=== PATIENT | male | born 1965 | race Caucasian/White ===

== ENCOUNTER 2018-07-15 14:41 | Inpatient (IN) | payer SELFPAY ==
[~2018-07-15 14:41] MED LIST: ISOVUE-370 76%-LOCM 1 ML ONE
[2018-07-15] MEDS ORDERED: Sodium Chloride 0.9% 100 ML ONE (15:38)
[2018-07-15] MEDS ORDERED: Piperacillin/Tazobactam 4.5 GM VIAL ONE (15:38)
[2018-07-15 15:45] LABS: Hemoglobin 12.4 g/dL (14.0-18.0); Mean Corpuscular HGB CONC 32.7 g/dL (32.0-36.0); Mean Corpuscular Hemoglobin 28.2 pg (27.0-31.0); Mean Corpuscular Volume 86.3 fL (78.0-98.0); Mean Platelet Volume 6.7 fL (7.4-10.4); Platelet Count 126 thou/uL (130-400); RBC Distribution Width 12.5 % (11.5-14.5); Red Blood Cell (RBC) Count 4.39 mill/uL (4.70-6.10); White Blood Cell (WBC) Count 11.3 thou/uL (4.8-10.8)
[2018-07-15 16:05] LABS: ALT (SGPT) 21 U/L (8-55); AST (SGOT) 12 U/L (5-34); Albumin 3.5 g/dL (3.5-5.0); Alkaline Phosphatase 116 U/L (40-150); Anion Gap 19 mmol/L (10-20); BUN (Urea Nitrogen) 19 mg/dL (8.4-25.7); Bilirubin, Total 0.7 mg/dL (0.2-1.2); CK (CPK) 17 U/L (30-200); Calc. Creatinine Clearance 0 mL/min (70-130); Calcium 9.7 mg/dL (7.8-10.44); Carbon Dioxide 15 mmol/L (22-29); Chloride 99 mmol/L (98-107); Estimated GFR-MDRD 44; Globulin 3.4 g/dL (2.4-3.5); Potassium 3.6 mmol/L (3.5-5.1); Protein, Total 6.9 g/dL (6.0-8.3); Sodium 129 mmol/L (136-145)
[2018-07-15 16:07] LABS: Band 40 % (5-11); Dohle Bodies SLIGHT; Lymphocytes 10 % (21-51); MDiff Complete? YES; Metamyelocyte 3 % (0-0); Monocytes 4 % (0-10); Neutrophil 43 % (42-75); Platelet Morphology Comment Appears Decreased; Polychromasia SLIGHT = 2-3 cells (100X) (0-2/hpf); Toxic Granulation SLIGHT
[2018-07-15 16:38] LABS: Glucose 599 mg/dL (70-105)
--- NOTE | 2018-07-15 16:43 | CT ---
CT ABDOMEN AND PELVIS WITH IV CONTRAST 07/15/2018 CLINICAL INFORMATION: Perianal abscess. Scrotal swelling and tenderness with worsening pain at site of abscess. Comparison none available COMPARISON: None. Technique: Multiple contiguous axial CT images are obtained through the abdomen and pelvis with IV contrast. Cor onal reformatted images are provided. FINDINGS: Lower Chest: Linear scarring is seen at the left lung base calcified granuloma at the right lung base . Vessels: Vascular calcifications are seen in the abdominal aorta and involving the iliac arteries. Abdomen: Portal vein:Patent Gallbladder: Gallbladder is decompressed, no obvious gallbladder calculus is seen. Liver: Peripheral nodular contour is present suggesting cirrhosis. Calcified granulomata are seen. Pancreas: within normal limits. Spleen: Calcified granulomata are seen. Spleen is otherwise normal in appearance and at the upper moore its of normal in size. Adrenals: within normal limits. Kidneys: within normal limits. Peritoneum: No ascites or free air; no fluid collection. Bowel: Normal caliber.The appendix is visualized and normal in caliber. Mesentery and Retroperitoneum: No enlarged mesenteric or retroperitoneal lymph nodes. Abdominal Wall: within normal limits. Pelvis: Reproductive Organs: There are bilateral hydroceles present. There is gas seen within the scrotum david aterally suggesting gas-forming organism. This could be attributable to prior injury if there is a history of prior injury. Pelvis: The patient mentions abscess collection in the perianal location. However, no perianal fluid collection or fluid or inflammatory stranding is appreciated. Bladder: within normal limits. Bones: There is severe bilateral hip osteoarthritis. Associated osteonecrosis in each hip cannot be e ntirely excluded. Degenerative changes are noted in the spine. IMPRESSION: 1. Bilateral hydroceles with gas present in the scrotum bilaterally. Findings are likely related to g as-forming organism secondary to infection. Clinical correlation is recommended. 2. Severe bilateral hip osteoarthritis with questionable osteonecrosis involving the superior aspect of each femoral head. 3. Cirrhosis. 4. Above findings discussed with Dr. Still in the emergency department on 07/15/2018 at 1638 hour s. Urologic consultation is recommended.
[2018-07-15] MEDS ORDERED: Fentanyl 250 MCG/5 ML VIAL ONE (18:01)
[2018-07-15] MEDS ORDERED: Bupivacaine/Epinephrine 0.25% 30 ML VIAL ONE (18:24)
[2018-07-15 18:33] LABS: Bilirubin Negative (Negative); Blood, Urine Negative (Negative); Clarity CLEAR (Clear); Glucose, Urine (Dipstick) >=1000 mg/dL (Negative); Leukocyte Negative (Negative); Nitrite Negative (Negative); Protein, Urine (Dipstick) Trace mg/dL (Neg-Trace)
[2018-07-15 18:37] LABS: Specific Gravity, Urine 1.045 (1.002-1.036)
[2018-07-15] MEDS ORDERED: Levofloxacin 500 mg/D5W 100 ml Premix Bag ONE (18:40)
[2018-07-15] MEDS ORDERED: Insulin Regular 300 UNITS/3 ML VIAL ONE (18:57)
[2018-07-15] MEDS ORDERED: Neomycin-Polymyxin 1 ML AMP ONE (20:13)
[2018-07-15] MEDS ORDERED: Heparin 1,000 UNITS/ML VIAL ONE (20:39)
[2018-07-15] MEDS ORDERED: Morphine 4 MG/ML VIAL SLOW IVP PRN ×2 (20:46→20:56)
[2018-07-15] MEDS ORDERED: Lorazepam 2 MG/ML VIAL SLOW IVP PRN (20:48)
[2018-07-15] MEDS ORDERED: Naloxone HCl 0.4 mg/ml Vial ONE (20:55)
[2018-07-15] MEDS ORDERED: Morphine 2 MG/ML SYRINGE SLOW IVP PRN ×2 (20:56→21:22)
[2018-07-15] MEDS ORDERED: Dextrose 50% Abboject 50 ML SYRINGE SLOW IVP PRN (20:59)
[2018-07-15] MEDS ORDERED: HumaLOG 300 UNITS/3 ML VIAL SC PRN ×2 (20:59)
[2018-07-15] MEDS ORDERED: Dextrose 5% in Water 1,000 ML IV PRN (20:59)
[2018-07-15] MEDS ORDERED: Cefepime 2 GM in Sodium Chloride 0.9% 100 ML IVPB SCH (21:00)
[2018-07-15] MEDS ORDERED: Sodium Chloride 0.9% 1,000 ML IV SCH (21:00)
[2018-07-15] MEDS ORDERED: Propofol 500 MG/50 ML VIAL ONE (21:02)
[2018-07-15] MEDS ORDERED: Succinylcholine Chloride 20 MG/ML 10 ml SYRINGE FS ONE (21:03)
[2018-07-15] MEDS ORDERED: SYSTANE 3.5 GM TUBE EA EYE PRN (21:11)
[2018-07-15] MEDS ORDERED: Ventilator Sedation Protocol 1 EACH FS ONE (21:14)
[2018-07-15] MEDS ORDERED: Fentanyl BOLUS 250 ML IVPB PRN (21:22)
[2018-07-15] MEDS ORDERED: DISCONTINUE PREVIOUS NARCOTIC PAIN MEDICATIONS AND BENZODIAZEPINES FS SCH (21:22)
[2018-07-15] MEDS ORDERED: Propofol BOLUS 1,000 MG/100 ML VIAL IV PRN (21:22)
[2018-07-15 21:31] LABS: Hemoglobin A1c 14.5 % (4.0-6.0)
[2018-07-15] MEDS ORDERED: Senokot S 8.6-50 MG TAB PO PRN (21:39)
[2018-07-15] MEDS ORDERED: Acetaminophen 325 MG TAB PO PRN (21:39)
[2018-07-15] MEDS ORDERED: Calcium Carbonate 500 MG ChewTAB PO PRN (21:39)
[2018-07-15] MEDS ORDERED: Acetaminophen 650 MG Suppository PR PRN (21:39)
[2018-07-15] MEDS ORDERED: Bisacodyl 10 MG SUPP PR PRN (21:39)
[2018-07-15] MEDS ORDERED: Acetaminophen 650 MG/20.3 ML UDCUP PO PRN (21:40)
[2018-07-15] MEDS: Lorazepam 2 MG/ML VIAL SLOW IVP PRN (21:49)
[2018-07-15] MEDS: Propofol 1,000 MG/100 ML VIAL IV PRN (21:50)
[2018-07-15 21:51] LABS: Actual Bicarbonate (HCO3a) 14.4 mEq/L (22-28); Base Excess (BEa) -13.4 mEq/L (-2.0 to +3.0); CO2 Tension 40.9 mmHg (35.0-45.0); Carboxyhemoglobin (COHb) 0.8 gm% (0.0-3.0); Hemoglobin (Hb) 11.4 g/dL (14.0-18.0); O2 Tension (PaO2) 110.4 mmHg (80.0-100.0); Potassium - ABG Lab 3.31 mmol/L (3.70-5.30)
[2018-07-15 21:55] LABS: pH, Arterial 7.17 (7.35-7.45)
[2018-07-15 21:56] LABS: ALV-art Gradient 123.675 (0-20); Puncture Site RBRACH
[2018-07-15] MEDS ORDERED: Piperacillin/Tazobactam 3.375 GM in Sodium Chloride 0.9% 100 ML IVPB SCH (22:00)
[2018-07-15] MEDS: fentaNYL Citrate/PF 2,000 MCG in Sodium Chloride 0.9% 60 ML IV SCH (22:08)
[2018-07-15 22:12] LABS: INR-International Normal Ratio 1.3; PTT 24.3 SEC (22.9-36.1); Prothrombin Time 15.9 SEC (12.0-14.7)
[2018-07-15 22:33] LABS: Troponin I Less than 0.010 ng/mL (< 0.028)
[2018-07-15] MEDS: Sodium Bicarbonate 100 MEQ in Sodium Chloride 0.45% 1,000 ML IV SCH (22:52)
[2018-07-15] MEDS: MEROPENEM 1 GM/50 ML 1 GM in Premix Bag 1 BAG IVPB SCH (23:07)
[2018-07-15] MEDS: HUMULIN R 100 UNITS in Sodium Chloride 0.9% 100 ML IVPB SCH (23:08)
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
--- NOTE | 2018-07-16 00:46 | HP ---
The patient was seen and examined on 07/15/2018. PRIMARY CARE PHYSICIAN: Cannot be verified. CHIEF COMPLAINT: Scrotal pain. HISTORY OF PRESENT ILLNESS: The patient is a 52-year-old male with diabetes mellitus type 1, presented to the emergency room with scrotal swelling over the last 4-5 days duration. He is currently intubated and sedated on mechanical ventilation. History obtained from the ER record. The patient reported an abscess on his scrotum. He expressed it at home. It was draining thick whitish fluid. It progressively got worse along with worsening erythema and tenderness for which he presented to the emergency room. He did not report any fever, nausea, or vomiting. Again, history was obtained from the ER record since the patient is intubated and sedated. In the emergency room, initial vital signs showed temperature 97.9, respirations of 18, pulse rate of 98 with a blood pressure of 117/71 with O2 saturation 99% on room air. CT scan of the abdomen and pelvis done in the emergency room showed bilateral hydroceles with gas present in the scrotum bilaterally. He underwent debridement in the operating room by Dr. Knight. He is currently intubated on mechanical ventilation. PAST MEDICAL HISTORY: 1. Diabetes mellitus type 1. 2. Chronic hepatitis C with cirrhosis. 3. COPD, asthma. PAST SURGICAL HISTORY: Left eye removal of unclear reason. ALLERGIES: NO KNOWN DRUG ALLERGIES PER ER RECORD. CURRENT HOME MEDICATION: Cannot be obtained due to current cognitive status. SOCIAL HISTORY: Cannot be obtained due to current cognitive status. Per ER record, he chews tobacco. He also drinks alcohol socially per ER record. FAMILY HISTORY: Cannot be obtained due to current cognitive status. REVIEW OF SYSTEMS: Cannot be obtained due to current cognitive status. PHYSICAL EXAMINATION: VITAL SIGNS: As discussed above. GENERAL: A 52-year-old male, intubated and sedated on mechanical ventilation. HEENT: Head is atraumatic and normocephalic. Sclerae anicteric. Endotracheal tube noted. NECK: Supple. No neck stiffness. No JVD. No carotid bruit. LUNGS: Clear to auscultation bilaterally. No wheezing, rales, or rhonchi. No accessory muscle use. HEART: S1 and S2 present. Regular rate and rhythm. No rubs or gallops appreciated. ABDOMEN: Soft. Bowel sounds present. No rebound or guarding. No costovertebral angle tenderness. GENITOURINARY: Dressing noted. EXTREMITIES: No edema or calf tenderness. NEUROLOGY AND PSYCHIATRY: Could not be done due to current cognitive status. SKIN: Warm and dry. He had abscess in the perineum draining purulent discharge per ER record. LYMPH NODE: No palpable lymph nodes in the neck. LABORATORY FINDINGS: WBC 11.3 with hemoglobin 12.4, hematocrit 37.9, platelets of 126, 40% bandemia. INR 1.3, PT of 15.9, PTT 24.3. Blood gases in the PACU showed pH 7.17, pCO2 40.9, bicarbonate 14.4, pO2 110. Hemoglobin A1c 14.5. Cortisol level 20.7. Troponin was negative. Sodium 129, potassium 3.6, chloride 99, bicarb of 15, BUN 19, creatinine 1.63, baseline creatinine unavailable. LFTs otherwise in normal range. Lactic acid 1.8. Urinalysis was negative for wbc or bacteria, ketones 0.08. CT scan of the abdomen and pelvis by my review as discussed above. Telemetry monitoring by my review showed sinus rhythm. IMPRESSION: 1. 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 2. Acute hypoxic respiratory failure secondary to #1. 3. Uncontrolled diabetes mellitus type 1 with a blood sugar in 600 range. 4. Acute kidney injury secondary to #1. 5. Metabolic acidosis secondary to sepsis. 6. Hyponatremia. 7. Anemia, probably chronic. 8. Chronic hepatitis C with cirrhosis per abdomen CT. 9. Dehydration. 10. Tobacco dependence. PLAN: The patient will be monitored in the intensive care unit. Infectious Disease and Critical Care will be consulted. The patient underwent debridement by Dr. Knight. We will start him on vancomycin and meropenem per Infectious Disease. The patient is currently on bicarb drip, which will be continued. GI prophylaxis. SCDs for DVT prophylaxis for now. We will start him on thiamine, folic acid, multivitamin. Ventilation sedation protocol. Repeat ABGs and chest x-ray in a.m. We will recheck labs on a daily basis. N.p.o. Blood cultures have been sent. We will start him on insulin drip due to uncontrolled blood sugar. We will discuss the plan of care with the family when they arrive. We will monitor vancomycin level. Job ID: [id number]
--- NOTE | 2018-07-16 00:58 | OP ---
DATE OF PROCEDURE: 07/15/2018 PREOPERATIVE DIAGNOSES: 1. A 52-year-old male with history of hepatitis C, history of diabetes, noncompliant. 2. Presents with scrotal, perineal Karla gangrene. POSTOPERATIVE DIAGNOSES: 1. A 52-year-old male with history of hepatitis C, history of diabetes, noncompliant. 2. Presents with scrotal, perineal Karla gangrene. ANESTHESIA: General. COMPLICATIONS: None apparent. ESTIMATED BLOOD LOSS: Minimal. IV FLUIDS: 1 L. SPECIMEN: 1. Wound culture. 2. Scrotal skin and dartos fascia for skin culture and wound culture. INTRAOPERATIVE FINDINGS: Necrotizing fasciitis of the scrotum, perineum. INDICATIONS FOR PROCEDURE AND HISTORY: Mr. Orlando is a 52-year-old male with history of alcohol abuse, hepatitis C, diabetes, noncompliant, presented with blood sugar of 600, HbA1c 14 compensated sodium of [address] demonstrated diffuse gas in the scrotum. He was taken emergently to the operating room for wide debridement. The patient and family were fully informed regarding the life-threatening nature of the presenting illness and advised regarding wide scrotal debridement. The patient is in full understanding that most of his scrotal skin will be removed as it is involved in the infection process that is life- threatening. The risks and complications including, but not limited to, bleeding, pain, infection, morbidity, mortality, CVA, OR, likely secondary/staged procedures were reviewed with him in detail and all questions were answered to his satisfaction, desired to proceed. DESCRIPTION OF PROCEDURE: After an informed consent was signed, the patient was taken to the operating room and placed in supine position. General endotracheal anesthesia was administered. He was provided Zosyn and vancomycin in the emergency room, I also provided Levaquin. Inspection of the scrotum demonstrated crepitus consistent with Karla gangrene. There is necrotic skin in the mid scrotal wall, approximately 3 to 4 cm, second focus of necrotic scrotal skin in the right upper scrotum, approximately 2 to 3 cm. skin defect with pustular discharge in the perineum that has a pustular drainage, approximately the size of my index finger , draining pus. This is approximately 2 cm above the anus. He was formally prepped and draped and a Aguayo catheter was placed, 16-Faroese, which passed without difficulty, demonstrating clear yellow urine. The patient was placed in dorsal lithotomy position and we began to debride his scrotal perineal abscess. As there is opening defect of perineum, this was extended anteriorly, superiorly to the mid scrotal wall. His scrotal and perineal skin had to be debrided as they were involved in the necrotizing fasciitis. Devitalized tissue of the dartos fascia. We did a wide debridement of the perineum and the scrotal skin. Most of the dartos fascia was involved in the necrotizing process. Sharp and blunt dissection was performed. He needed to be debrided to the level of the tunica vaginalis bilaterally to excise all nonviable tissue. There was a rind of necrotic debris attached to the dartos fascia of the left hemiscrotum, which was removed. At the end of the procedure, I did not see any further necrotic debris of concern. The tunica vaginalis appears to be not grossly involved at this time. The wound was copiously irrigated with irrigation and a Pulsavac. A Kerlix with Betadine was soaked and packed, and ABD pads were placed. We will leave the indwelling Aguayo catheter in situ and keep the patient n.p.o. I did speak with the hospitalist, who is admitting and he will be on strict sliding scale insulin. He will require suprapubic tube with diverting colostomy to expedite wound care. We will continue broad-spectrum antibiotics with vancomycin, Zosyn, Infectious Disease consult to be obtained. Job ID: [id number] [facility]
[2018-07-16] MEDS: Vancomycin HCl 750 MG in Sodium Chloride 0.9% 250 ML 250 ML IVPB SCH ×2 (04:00→15:55)
[2018-07-16] MEDS: Sodium Bicarbonate 100 MEQ in Sodium Chloride 0.45% 1,000 ML IV SCH ×4 (04:24→21:27)
[2018-07-16] MEDS: Propofol 1,000 MG/100 ML VIAL IV PRN ×3 (04:42→22:51)
[2018-07-16 05:19] LABS: ALT (SGPT) 18 U/L (8-55); AST (SGOT) 11 U/L (5-34); Albumin 2.9 g/dL (3.5-5.0); Alkaline Phosphatase 81 U/L (40-150); Anion Gap 12 mmol/L (10-20); BUN (Urea Nitrogen) 14 mg/dL (8.4-25.7); Bilirubin, Total 0.4 mg/dL (0.2-1.2); Calc. Creatinine Clearance 93 mL/min (70-130); Calcium 8.7 mg/dL (7.8-10.44); Carbon Dioxide 19 mmol/L (22-29); Chloride 109 mmol/L (98-107); Estimated GFR-MDRD 69; Globulin 2.9 g/dL (2.4-3.5); Glucose 121 mg/dL (70-105); Magnesium 1.6 mg/dL (1.6-2.6); Protein, Total 5.8 g/dL (6.0-8.3); Sodium 137 mmol/L (136-145)
[2018-07-16 05:21] LABS: Potassium 2.6 mmol/L (3.5-5.1)
[2018-07-16] MEDS ORDERED: Magnesium 2 GM/50 ML 2 GM in Premix Bag 1 BAG IVPB SCH (05:45)
[2018-07-16 05:48] LABS: Band 19 % (5-11); Hemoglobin 10.6 g/dL (14.0-18.0); Lymphocytes 20 % (21-51); MDiff Complete? YES; Mean Corpuscular HGB CONC 33.3 g/dL (32.0-36.0); Mean Corpuscular Volume 84.2 fL (78.0-98.0); Mean Platelet Volume 6.8 fL (7.4-10.4); Metamyelocyte 1 % (0-0); Monocytes 3 % (0-10); Neutrophil 57 % (42-75); Platelet Count 115 thou/uL (130-400); Platelet Morphology Comment Appears Decreased; RBC Distribution Width 12.5 % (11.5-14.5); RBC Morphology Normal; Red Blood Cell (RBC) Count 3.78 mill/uL (4.70-6.10); White Blood Cell (WBC) Count 9.6 thou/uL (4.8-10.8)
[2018-07-16] MEDS: Potassium Chloride 20 MEQ in Premix Bag 1 BAG IVPB SCH ×2 (05:55→10:37)
[2018-07-16] MEDS: MEROPENEM 1 GM/50 ML 1 GM in Premix Bag 1 BAG IVPB SCH ×3 (06:02→21:27)
[2018-07-16 07:12] LABS: Actual Bicarbonate (HCO3a) 17.3 mEq/L (22-28); Base Excess (BEa) -6.3 mEq/L (-2.0 to +3.0); CO2 Tension 28.1 mmHg (35.0-45.0); Calcium, Ionized 1.05 mmol/L (1.12-1.30); Carboxyhemoglobin (COHb) 0.1 gm% (0.0-3.0); Potassium - ABG Lab 3.04 mmol/L (3.70-5.30); pH, Arterial 7.41 (7.35-7.45)
[2018-07-16 07:13] LABS: ALV-art Gradient 53.075 (0-20); Puncture Site LBA
[2018-07-16] MEDS ORDERED: Vecuronium 10 MG VIAL IVP PRN (08:21)
[2018-07-16] MEDS ORDERED: Vecuronium 10 MG VIAL ONE (08:23)
[2018-07-16] MEDS ORDERED: Sterile Water 10 ML ONE (08:24)
[2018-07-16] MEDS ORDERED: Norepinephrine 8 MG/0.9% NS 250 ML IVPB SCH (08:30)
[2018-07-16] MEDS ORDERED: Potassium Chloride 40 MEQ in Sodium Chloride 0.9% 250 ML 250 ML IV SCH (08:30)
[2018-07-16] MEDS: Lorazepam 2 MG/ML VIAL SLOW IVP PRN ×2 (08:37→23:32)
--- NOTE | 2018-07-16 09:07 | RAD ---
Exam: Chest one view HISTORY:ICU patient, follow-up Comparison: None FINDINGS: Lungs: No masses or consolidation. Right internal jugular venous catheter has been placed with tip overlying right atrium. Cardiac silhouette: Normal size Pulmonary vessels: Normal Pleural Spaces: Clear Pneumothorax: None Endotracheal tube remains in place. Osseous abnormalities: None of acuity. IMPRESSION: Interval placement of right internal jugular venous catheter.
--- NOTE | 2018-07-16 09:29 | RAD ---
FRONTAL VIEW CHEST: COMPARISON: No prior comparison. INDICATION: Ventilated patient. FINDINGS: There is an endotracheal tube with tip below the thoracic inlet and above the alex. No lobar conso lidation. No significant effusion. Extensive artifacts limit detail. Cardiac silhouette is normal in size for portable technique. There are scattered granulomatous calcifications. IMPRESSION: 1. Intubated patient. 2. No focal consolidation. POS: NWK
[2018-07-16] MEDS: Multivitamins, Adult 10 ML in Sodium Chloride 0.9% 500 ML IV SCH (09:31)
[2018-07-16] MEDS: Thiamine HCl 200 MG/2 ML VIAL SLOW IVP SCH (09:38)
--- NOTE | 2018-07-16 09:47 | CON ---
DATE OF CONSULTATION: 07/16/2018 TIME SPENT: 35 minutes of critical care time. REASON FOR CONSULTATION: Postop CCU management. HISTORY OF PRESENT ILLNESS: The patient is a 52-year-old male, who came to the emergency room with swelling that had occurred over the week prior to admission. He was taken to the operating room, debrided for severe Karla's gangrene. According to nursing staff, he lost about 90% of his scrotal skin. He was left intubated afterwards and there was a plan to go back to the operating room today. He is currently intubated on mechanical ventilation. PAST MEDICAL HISTORY: 1. Diabetes mellitus, type 1. 2. Chronic hepatitis C. 3. COPD. 4. Asthma. PAST SURGICAL HISTORY: Left eye removal. ALLERGIES: NONE. MEDICATIONS: Prior to admission not known at this time. SOCIAL HISTORY: Chews tobacco. Also drinks alcohol socially. FAMILY MEDICAL HISTORY: Not known. REVIEW OF SYSTEMS: Cannot be obtained because the patient is intubated. PHYSICAL EXAMINATION: VITAL SIGNS: Temperature 99.4, pulse 66, blood pressure 92/63. A 24-hour intake 1970, output 1270. NEUROLOGICAL: He is sedated on propofol. HEENT: Unremarkable. NECK: No JVD. CARDIAC: S1 and S2, regular. ABDOMEN: Soft, nontender. LUNGS: Clear anteriorly. GENITOURINARY: Scrotum, edematous. Large bandage in place. EXTREMITIES: No clubbing, cyanosis, or edema. LABORATORY DATA: Sodium of 137, potassium 2.6, chloride 109, CO2 of 19, BUN 14, creatinine 1.1, and glucose 121. PH of 7.41, pCO2 of 28, pO2 of 197 on SIMV rate of 26, tidal volume 500, PEEP 5, pressure support 10, and FiO2 of 40%. White blood cell count 9.6, hematocrit 31.8, and platelet count 115 with 57% neutrophils, 19% bands. IMAGING DATA: Chest x-ray demonstrates normal cardiac size. ET tube in good position. Lung patel clear bilaterally. ASSESSMENT: 1. Karla's gangrene. 2. Diabetes mellitus with blood sugar out of control at the time of admission. 3. Acute respiratory failure requiring mechanical ventilation - primarily an issue of metabolic acidosis and lack of compensation. 4. Chronic hepatitis C. 5. Hypokalemia. PLAN: 1. I am leaving him intubated because he is suppose to go back to the OR today. 2. Broad-spectrum IV antibiotics with meropenem and vancomycin. 3. ID consultation. 4. Insulin drip. 5. Bicarbonate drip. 6. Consider central line placement. 7. Monitor labs, blood gas. 8. I have changed ventilator parameters. 9. GI prophylaxis with Pepcid. 10. DVT prophylaxis with enoxaparin once cleared by Urology. Job ID: [id number]
[2018-07-16] MEDS: Famotidine/PF 20 mg/2ml Vial SLOW IVP SCH ×2 (10:35→21:06)
[2018-07-16] MEDS: Famotidine 20 MG TAB PO SCH ×2 (10:37→21:06)
[2018-07-16] MEDS: Folic Acid 1 MG TAB PER TUBE SCH (10:37)
[2018-07-16] MEDS ORDERED: Fentanyl 100 MCG/2 ML VIAL ONE (11:06)
--- NOTE | 2018-07-16 11:23 | PRG ---
DATE OF SERVICE: 07/16/2018 SUBJECTIVE: The patient intubated. OBJECTIVE: VITAL SIGNS: T-max of 99.4, currently on Levophed, blood pressure 88/55, heart rate 79. I's and O's 1870 in, 1270 out. ABDOMEN: Soft. No rigidity. No rebound. : Dressing taken down demonstrating minor devitalized tissue at the skin edges. Some fibrinous exudate; devitalized tissue present however not extensive. No gross pustular discharge is appreciated. The left testicle is freely mobile due to extensive dissection and removal of the scrotal skin due to necrotizing fasciitis. Tunica vaginalis is viable and pink. EXTREMITIES: No cyanosis, clubbing, or edema. PERTINENT LABORATORY DATA: White count of 9.6, hemoglobin 10, platelet 115. Creatinine 1.1. Wound culture demonstrating Streptococcus. Currently on meropenem and vanc. IMPRESSION AND PLAN: 1. Mr. Orlando is a 52-year-old male who presented last night with necrotizing fasciitis of the scrotum and perineum. Postop day #1 status post wide debridement, Aguayo catheter placement. The patient remains critically ill. Given the extent of his Karla gangrene, I discussed with his mother regarding indications of urinary and stool diversion to expedite wound healing. The patient will go down to the OR for exam under anesthesia, wound VAC placement, SP tube, diverting colostomy by General Surgery, which I consulted Dr. Stuart. He will remain intubated. Recommend ongoing insulin drip as strict control of his diabetes is imperative to expedite wound healing. 2. History of hepatitis C. 3. History of alcohol abuse. 4. History of diabetes, noncompliant Job ID: [id number] [facility]
[2018-07-16 11:24] LABS: HIV (1/2) Antibody/Antigen Non-Reactive (NonReactive); HIV 1/2 INDEX 0.18 S/CO (<1.00)
[2018-07-16] MEDS ORDERED: Potassium Chloride 20 MEQ/100 ML PREMIX BAG ONE (11:43)
[2018-07-16] MEDS ORDERED: PROPOFOL 200 MG/20 ML VIAL ONE ×2 (12:58→13:12)
[2018-07-16] MEDS ORDERED: Rocuronium Bromide 10 MG/ML (10ML VIAL) ONE ×2 (12:58→13:12)
[2018-07-16] MEDS ORDERED: Metoclopramide HCl 10 MG/2 ML VIAL ONE (13:12)
[2018-07-16] MEDS ORDERED: Glycopyrrolate 0.2 MG/ML 5 ML SYRINGE ONE (13:12)
[2018-07-16] MEDS ORDERED: Lidocaine 1% PF 5 ML VIAL ONE (13:12)
[2018-07-16] MEDS ORDERED: Ondansetron PF 4 MG/2 ML Vial ONE (13:12)
[2018-07-16 15:01] LABS: Base Excess (BEa) -10.4 mEq/L (-2.0 to +3.0); CO2 Tension 43.9 mmHg (35.0-45.0); Calcium, Ionized 1.05 mmol/L (1.12-1.30); Carboxyhemoglobin (COHb) 0.6 gm% (0.0-3.0); Hemoglobin (Hb) 11.2 g/dL (14.0-18.0); O2 Tension (PaO2) 107.5 mmHg (80.0-100.0); Potassium - ABG Lab 3.75 mmol/L (3.70-5.30); pH, Arterial 7.21 (7.35-7.45)
[2018-07-16 15:02] LABS: ALV-art Gradient 122.825 (0-20)
--- NOTE | 2018-07-16 15:18 | OP ---
DATE OF PROCEDURE: 07/16/2018 PREOPERATIVE DIAGNOSIS: A 52-year-old male with scrotal perineal necrotizing fasciitis, postoperative day number 1 status post wide debridement. POSTOPERATIVE DIAGNOSIS: A 52-year-old male with scrotal perineal necrotizing fasciitis, postoperative day number 1 status post wide debridement. PROCEDURE PERFORMED: Rigid cystoscopy, a 20-Bahraini 10 mL suprapubic tube placement with 15 mL insufflated into balloon, examination under anesthesia, debridement of wound, wound VAC placement. ANESTHESIA: General. COMPLICATIONS: None apparent. DISPOSITION: The patient will undergo General Surgery evaluation for diverting loop colostomy, will remain intubated. SPECIMEN: None. DRAINS: 20-Bahraini 10 mL suprapubic tube, 15 mL in the balloon. DESCRIPTION OF PROCEDURE: After an informed consent obtained by mother, who was his surrogate, the patient was taken to the operating room for exam under anesthesia , debridement, suprapubic tube placement. I consulted General Surgery as the inferior margin of the wound was very close to his anus. To expedite wound care, urinary diversion as well as bowel diversion were advised. The patient was placed in dorsal lithotomy position. The abdomen and the wound were formally prepped and draped. Broad spectrum antibiotic with meropenem was provided. There was significant improvement of wound pustular drainage. There was no gross pus evident residual. There was some residual fibrinous exudate and devitalized tissue, which was debrided of the wound edges in the perineum. The edges of the scrotal incision demonstrated some devitalized tissue. I debrided as minimal as possible as to spare his scrotal skin as much as possible. There was some nonviable tissue surrounding the right tunica vaginalis, therefore this was debrided as well. The tunica vaginalis itself was not violated at this time. Most of the scrotal skin was removed due to infection process. The lateral edges of the scrotal skin remained intact for now. This will be assessed with wound VAC changes regarding further debridement. At this time, wound care service was called and a wound VAC was placed. Prior to the wound debridement, I did perform a rigid cystoscopy, which demonstrated normal anterior posterior urethra with the bilateral lobes of the prostate with no significant obstruction. No median lobe was found. The bladder was unremarkable. The ureteral orifices were approximately 4 mm away from the bladder neck. No tumor. No stones were seen. Using a Saberr suprapubic tube set, we performed a suprapubic tube placement. Initially, we distended the bladder to the level just below the umbilicus to distend the bladder to keep bowels out of the harm's way. A spinal needle was placed to confirm proper placement of the suprapubic tube approximately 2 fingerbreadths above the pubic symphysis. At this time, spinal needle was removed and an 11-blade was utilized to make a small incision. A Cook Rutner trocar set was placed under direct visualization. Through this dilator, 0.35 Super Stiff wire was passed to the level of the bladder. Using a NephroMax balloon dilator, we dilated the suprapubic tube tract up to 30-Bahraini. A 20-Bahraini [place] tip Aguayo catheter was then subsequently passed without significant issues. 15 mL of sterile water insufflated and sutured to skin using 2-0 nylon. This was attached to gravity bag demonstrating clear output. Case turned over to General Surgery to proceed with diverting colostomy. Job ID: [id number] [facility]
--- NOTE | 2018-07-16 15:45 | PDOC.PN ---
- Subjective Encounter Start Date: 07/16/18 Encounter Start Time: 15:43 Subjective: Pt is seen and examined for I&D for Karla Gangrene, Type 2 DM, -: Intubated and sedated - Objective Resuscitation Status - Order Detail: 07/15/18 21:39 Resuscitation Status Routine Resuscitation Status: FULL: Full Resuscitation Vital Signs & Weight: Vital Signs (12 hours) Temp Pulse Resp BP 07/16/18 14:34 90 141/78 H 07/16/18 10:16 79 88/55 L 07/16/18 10:00 13 07/16/18 08:00 99.2 F 14 07/16/18 06:45 67 99/66 07/16/18 06:00 26 H 07/16/18 04:00 99.4 F 26 H Weight Admit Weight 190 lb 11.198 oz Weight 190 lb 14.725 oz Most Recent Monitor Data Heart Rate from ECG 73 NIBP 107/63 NIBP BP-Mean 77 Respiration from ECG 18 SpO2 100 I&O: 07/15/18 07/16/18 07/17/18 06:59 06:59 06:59 Intake Total 1870.8 200 Output Total 1270 190 Balance 600.8 10 Result Diagrams: 07/16/18 04:31 07/16/18 04:31 Additional Labs: Accuchecks 07/16/18 07/16/18 07/16/18 14:38 13:41 10:12 POC Glucose 226 H 203 H 153 H 07/16/18 07/16/18 07/16/18 07:23 06:13 05:49 POC Glucose 98 161 H 59 L* 07/16/18 07/16/18 07/16/18 04:41 03:43 02:36 POC Glucose 108 165 H 237 H 07/16/18 07/16/18 07/15/18 01:42 00:43 23:34 POC Glucose 292 H 320 H 284 H 07/15/18 07/15/18 07/15/18 21:41 19:49 18:58 POC Glucose 331 H 457 H 423 H Phys Exam - Physical Examination HEENT: PERRLA, sclera anicteric, oral pharynx no lesions Neck: no nodes, no JVD, supple Respiratory: no wheezing, no rales, no rhonchi Cardiovascular: RRR, no significant murmur, no rub Gastrointestinal: soft, non-tender, no distention, positive bowel sounds Musculoskeletal: no edema, pulses present , S/p Dressing on Scrotum Intubated and sedated Dx/Plan - Plan continue antibiotics, DVT proph w/lovenox 1) Founier gangrene , S/p I&D, IV Vancomycin and IV Merem 2) Type 1 DM, continue IV Insulin drip 3) Acute Respiratory Failure wit Hypoxia, Continue Ventilatory protocol 4) DVT Prophylaxis, Lovenox * . Review of Systems - Review of Systems Other: NO possible because of Intubation and Sedation - Medications/Allergies Allergies/Adverse Reactions: Allergies Allergy/AdvReac Type Severity Reaction Status Date / Time No Known Drug Allergies Allergy Verified 07/16/18 01:27 Medications: Current Medications Acetaminophen (Tylenol) 650 mg NE Q4H PRN PRN Reason: Headache/Fever/Mild Pain (1-3) Acetaminophen (Tylenol) 650 mg PO Q4H PRN PRN Reason: Headache/Fever/Mild Pain (1-3) Albuterol/Ipratropium (Duoneb) 3 ml NEB [id number] PRN PRN Reason: SOB &/or Wheezing Bisacodyl (Dulcolax) 10 mg NE DAILYPRN PRN PRN Reason: Constipation Calcium Carbonate (Tums) 1,000 mg PO Q4H PRN PRN Reason: Heartburn or Indigestion Dextrose/Water (Dextrose 50%) 25 gm SLOW IVP PRN PRN PRN Reason: Hypoglycemia Last Admin: 07/16/18 05:51 Dose: 25 gm Famotidine (Pepcid) 20 mg SLOW IVP Q12HR [facility] Last Admin: 07/16/18 10:35 Dose: 20 mg Famotidine (Pepcid) 20 mg PO BID [facility] Last Admin: 07/16/18 10:37 Dose: Not Given Folic Acid (Folvite) 1 mg PER TUBE DAILY [facility] Last Admin: 07/16/18 10:37 Dose: Not Given Glucagon (Glucagon) 1 mg IM PRN PRN PRN Reason: Hypoglycemia Dextrose/Water (D5w) 1,000 mls @ 0 mls/hr IV .Q0M PRN PRN Reason: Hypoglycemia Insulin Human Regular 100 (units/ Sodium Chloride) 101 mls @ 0 mls/hr IVPB INF [facility]; Protocol Last Admin: 07/15/18 23:08 Dose: 101 mls Vancomycin HCl 750 mg/ Sodium (Chloride) 250 mls @ 250 mls/hr IVPB 0400,1600 [facility] Last Admin: 07/16/18 04:00 Dose: 250 mls Meropenem 1 gm/ Device 50 mls @ 100 mls/hr IVPB Q8H [facility] Last Admin: 07/16/18 13:00 Dose: 50 mls Multivitamins 10 ml/ Sodium (Chloride) 510 mls @ 250 mls/hr IV DAILY [facility] Last Admin: 07/16/18 09:31 Dose: 510 mls Fentanyl Citrate 2,000 mcg/ (Sodium Chloride) 100 mls @ 0 mls/hr IV INF [facility]; Protocol Stop: 08/14/18 21:22 Last Admin: 07/15/18 22:08 Dose: 100 mls Fentanyl Citrate (Fentanyl Bolus) 250 mls @ 0 mls/hr IVPB PRN PRN PRN Reason: Breakthrough pain/agitation Stop: 08/14/18 21:22 Sodium Bicarbonate 100 meq/ (Sodium Chloride) 1,100 mls @ 200 mls/hr IV .Q5H [facility] Last Admin: 07/16/18 14:45 Dose: 1,100 mls Norepinephrine Bitartrate (Levophed) 250 mls @ 0 mls/hr IVPB INF [facility]; Protocol Lorazepam (Ativan) 2 mg SLOW IVP Q1H PRN PRN Reason: Breakthrough agitation Stop: 08/14/18 21:22 Last Admin: 07/16/18 08:37 Dose: 2 mg Mineral Oil/White Petrolatum (Systane Nighttime Eye Ointment) 0 gm EA EYE PRN PRN PRN Reason: Dry Eyes Miscellaneous Medication (Pharmacy To Dose) 1 each IVPB PRN PRN PRN Reason: Pharmacy to dose Morphine Sulfate (Morphine) 2 mg SLOW IVP Q1H PRN PRN Reason: BREAKTHROUGH PAIN/Agitation Stop: 08/14/18 21:22 Discontinue Previous Narcotic Pain Medications And Benzodiazepines 1 each FS .ONE [facility] Stop: 08/14/18 21:22 Propofol (Diprivan) 1,000 mg IV INF PRN; Protocol PRN Reason: TO ACHIEVE GOAL RASS Stop: 08/14/18 21:22 Last Admin: 07/16/18 14:22 Dose: 1,000 mg Propofol (Diprivan Bolus) 20 mg IV Q5MIN PRN PRN Reason: BREAKTHROUGH AGITATION Stop: 08/14/18 21:22 Senna/Docusate Sodium (Senokot S) 2 tab PO BID PRN PRN Reason: Constipation Sodium Chloride (Flush - Normal Saline) 10 ml IVF PRN PRN PRN Reason: Saline Flush Thiamine HCl (Thiamine Hcl) 100 mg SLOW IVP DAILY [facility] Last Admin: 07/16/18 09:38 Dose: 100 mg Vecuronium Wilbur (Norcuron) 10 mg IVP Q30MIN PRN PRN Reason: Agitation
[2018-07-16 16:49] LABS: Calcium 8.1 mg/dL (7.8-10.44); Chloride 106 mmol/L (98-107); Potassium 3.8 mmol/L (3.5-5.1); Sodium 134 mmol/L (136-145)
[2018-07-16 16:50] LABS: Glucose 215 mg/dL (70-105)
[2018-07-16 16:51] LABS: Anion Gap 18 mmol/L (10-20); Carbon Dioxide 14 mmol/L (22-29)
[2018-07-16 16:53] LABS: Calc. Creatinine Clearance 103 mL/min (70-130); Estimated GFR-MDRD 78
[2018-07-16 16:54] LABS: BUN (Urea Nitrogen) 12 mg/dL (8.4-25.7)
--- NOTE | 2018-07-16 17:02 | CON ---
DATE OF CONSULTATION: 07/16/2018 REASON FOR CONSULTATION: Karla's gangrene, perineal area. HISTORY OF PRESENT ILLNESS: A 52-year-old with history of type 1 diabetes mellitus and chronic hepatitis C with cirrhosis with unknown history of treatment, who developed inflammatory process in the scrotum, which drained thick exudate and worsen over the course of the past few days. He did not have any headaches. No fever, nausea, or vomiting. No respiratory symptoms or abdominal pain. In the emergency room, his temperature was 97.9, respirations 18, pulse 98, and BP 117/78. A CT of the abdomen and pelvis showed gas present in the soft tissues of the scrotum, perineal area, and he was taken on an emergency basis to the OR and Dr. Knight did extensive debridement. The operative report was reviewed and there was evidence of necrotic skin in the mid scrotal wall, in the right upper scrotum, and the perineum, 2 cm above the anal canal. A Aguayo catheter was placed with clear urine. The scrotal perineal abscess was debrided. This was extended anteriorly, superiorly to the mid scrotal wall, and devitalized tissue of the dartos fascia was debrided. Most of the dartos fascia was involved in the necrotizing fascia. The level of the tunica vaginalis was debrided bilaterally and the patient had a diverting colostomy placed. Dr. Knight did a rigid cystoscopy and a suprapubic tube was placed. There was no prostatic obstruction noted. Currently, Mr. Orlando is sedated and intubated. The review of systems is not possible, otherwise other than what we had obtained from the emergency room notes. PAST MEDICAL HISTORY: Includes; 1. Type 1 diabetes. 2. Chronic Hepatitis C. 3. Cirrhosis, unknown history of treatment. 4. COPD. 5. Asthma. SURGICAL HISTORY: Left eye enucleation. ALLERGIES: NONE. SOCIAL HISTORY: Chews tobacco and drinks occasionally. FAMILY HISTORY: Noncontributory. CURRENT MEDICATIONS: 1. DuoNeb. 2. Dulcolax. 3. Tums. 4. Pepcid. 5. Fentanyl. 6. Insulin. 7. Meropenem. 8. Multivitamins. 9. Levophed. 10. Vancomycin. PHYSICAL EXAMINATION: VITAL SIGNS: T-max 99.4, blood pressure 107/63, pulse 73, respirations 18, and O2 saturation 100. SKIN: The area of debridement with the exposed testicles in the perineal area, fresh tissue at the base, quite extensive around the perineum and scrotum. The patient has an endotracheal tube, peripheral IV access, and suprapubic catheter. HEENT: There is an absent left orbit, still a right orbit with normal sclerae. Pupils are miotic as expected. LUNGS: Symmetric air entry. HEART: S1 and S2. Regular rate. No S3 or S4. ABDOMEN: Not distended. No ascites or bladder distention. No organomegaly. MUSCULOSKELETAL: I cannot test his movements at this time due to sedation. EXTREMITIES: Pulses 1+ in dorsalis pedis. Plantar responses are indifferent. LABORATORY DATA: White cell count is down to 9.6, hemoglobin 10.6, platelets 115 with 57% neutrophils, 19% bands, 20% lymphocytes. Sodium 137 and creatinine 1.11. Liver profile normal. Albumin 2.9. Urinalysis was normal. HIV was negative. A pH 7.41, pCO2 of 28. On arrival, his pH was 7.17, pCO2 of 40, pO2 of 110. Microbiology with Streptococcus anginosus group. Blood cultures, no growth thus far, the final report is pending. The Gram stain showed mixed gram-positive cocci in pairs and clusters and many gram-negative rods. Abdomen and pelvis CT done on admission with hydroceles, gas in the scrotum due to gas-forming organism, likely bilateral hip osteoarthritis, possible osteonecrosis, cirrhosis of the liver. Chest x-ray with no infiltrates. He does have a right internal jugular venous catheter. ASSESSMENT: 1. Type 1 diabetes. 2. Karla gangrene status post wide surgical debridement and colostomy diversion. DISCUSSION: The most likely scenario is a polymicrobial nirav with typically gram-negative rods, anaerobes, streptococci, Staphylococcus aureus including MRSA is possible. Continue meropenem and vancomycin for now. Await on final results of cultures and then adjust therapy accordingly. Followup surgical wound revision, eventual negative pressure dressing, and eventual flap cover with plastic surgery assistance may be needed. Job ID: [id number]
--- NOTE | 2018-07-16 17:51 | OP ---
DATE OF PROCEDURE: 07/16/2018 PREOPERATIVE DIAGNOSES: 1. Necrotizing Karla gangrene. 2. Status post surgical debridement by Urology. POSTOPERATIVE DIAGNOSES: 1. Necrotizing Karla gangrene. 2. Status post surgical debridement by Urology. TEST PERFORMED: Loop transverse colostomy through a mini-laparotomy incision. ANESTHESIA: General endotracheal. ESTIMATED BLOOD LOSS: Negligible. INDICATIONS FOR OPERATION: A 52-year-old man with Karla gangrene of the perineum and scrotum. The patient is status post staged debridement of the wound. I was asked to place a colostomy to divert fecal stream from the anus. DESCRIPTION OF PROCEDURE: Informed consent was obtained from the patient, who was brought to the operating room and placed in supine position. Dr. Knight had just completed the operation with regard to the necrotizing fascitis. The patient remains under general anesthesia. Abdomen was sterilely prepped and draped in usual fashion. A mini-midline incision was made approximately 4-cm inferior to the xiphoid process using a 10 scalpel. Incision was carried through subcutaneous tissues. Fascia was incised in midline exposing the peritoneum beneath, which was grasped x2 with hemostats. Peritoneal cavity was sharply entered using Metzenbaum scissors. Two small Gan retractors were put in place to gain exposure. Omentum was identified and grasped as it was reflected, exposing the transverse colon, which was then grasped with Kwame forceps. Omentum was returned to the peritoneal cavity. We were able to created a rent through the mesentery of the transverse colon. Through this, an ostomy bridge was passed securing the transverse colostomy loop to the skin. Fascia was then reapproximated superior and inferior to the secured loop using interrupted sutures of 0 Vicryl. Skin incisions were again reapproximated superiorly and inferiorly to the loop using interrupted sutures of 3-0 Monocryl suture in subcuticular fashion. The loop was opened along the line of the tenia using cautery. Colostomy was then matured using interrupted sutures of 3-0 Vicryl. Ostomy appliance was put in place. The patient tolerated the operation without any apparent complication and was returned to recovery room in satisfactory condition. Job ID: [id number]
[2018-07-17] MEDS: Vancomycin HCl 750 MG in Sodium Chloride 0.9% 250 ML 250 ML IVPB SCH ×2 (03:30→20:23)
[2018-07-17] MEDS: Sodium Bicarbonate 100 MEQ in Sodium Chloride 0.45% 1,000 ML IV SCH (03:30)
[2018-07-17] MEDS: HUMULIN R 100 UNITS in Sodium Chloride 0.9% 100 ML IVPB SCH (03:45)
[2018-07-17 05:20] LABS: Band 22 % (5-11); Eosinophils 1 % (0-10); Lymphocytes 16 % (21-51); MDiff Complete? YES; Mean Corpuscular HGB CONC 33.5 g/dL (32.0-36.0); Mean Corpuscular Hemoglobin 28.6 pg (27.0-31.0); Mean Corpuscular Volume 85.2 fL (78.0-98.0); Mean Platelet Volume 5.8 fL (7.4-10.4); Monocytes 3 % (0-10); Neutrophil 57 % (42-75); Platelet Count 157 thou/uL (130-400); Platelet Morphology Comment Appears Adequate; RBC Distribution Width 12.9 % (11.5-14.5); Reactive Lymphocytes 1 % (0-10); Red Blood Cell (RBC) Count 3.51 mill/uL (4.70-6.10); White Blood Cell (WBC) Count 10.1 thou/uL (4.8-10.8)
[2018-07-17 05:34] LABS: ALT (SGPT) 17 U/L (8-55); AST (SGOT) 18 U/L (5-34); Albumin 2.5 g/dL (3.5-5.0); Alkaline Phosphatase 74 U/L (40-150); Anion Gap 13 mmol/L (10-20); BUN (Urea Nitrogen) 10 mg/dL (8.4-25.7); Bilirubin, Total 0.7 mg/dL (0.2-1.2); Calc. Creatinine Clearance 125 mL/min (70-130); Calcium 7.5 mg/dL (7.8-10.44); Carbon Dioxide 22 mmol/L (22-29); Chloride 107 mmol/L (98-107); Estimated GFR-MDRD Greater than 90; Globulin 2.6 g/dL (2.4-3.5); Glucose 142 mg/dL (70-105); Magnesium 1.5 mg/dL (1.6-2.6); Protein, Total 5.1 g/dL (6.0-8.3); Sodium 139 mmol/L (136-145)
[2018-07-17 05:40] LABS: Potassium 2.7 mmol/L (3.5-5.1)
[2018-07-17] MEDS ORDERED: Magnesium Oxide 400 MG TAB PO PRN ×2 (06:06)
[2018-07-17] MEDS ORDERED: Potassium Phosphate 9 MMOL in Sodium Chloride 0.9% 100 ML IVPB PRN (06:06)
[2018-07-17] MEDS ORDERED: PHOS-NAK 1 PKT PACK PO PRN ×2 (06:06)
[2018-07-17] MEDS ORDERED: Potassium Phosphate 15 MMOL in Sodium Chloride 0.9% 250 ML 250 ML IV PRN (06:06)
[2018-07-17] MEDS ORDERED: Potassium Chloride 20 MEQ TAB PO PRN (06:06)
[2018-07-17] MEDS ORDERED: CCU ELECTROLYTE REPLACEMENT PROTOCOL FS PRN (06:06)
[2018-07-17] MEDS ORDERED: Potassium Phosphate 12 MMOL in Sodium Chloride 0.9% 250 ML 250 ML IV PRN (06:06)
[2018-07-17] MEDS ORDERED: Potassium Chloride 40 MEQ in Sodium Chloride 0.9% 250 ML 250 ML IVPB PRN (06:06)
[2018-07-17] MEDS: MEROPENEM 1 GM/50 ML 1 GM in Premix Bag 1 BAG IVPB SCH ×3 (06:15→20:42)
[2018-07-17] MEDS: Potassium Chloride 40 MEQ in Premix Bag 1 BAG IVPB PRN ×2 (06:18→15:53)
[2018-07-17] MEDS: Propofol 1,000 MG/100 ML VIAL IV PRN ×4 (06:19→23:14)
[2018-07-17 06:48] LABS: Actual Bicarbonate (HCO3a) 21.4 mEq/L (22-28); CO2 Tension 35.8 mmHg (35.0-45.0); Calcium, Ionized 1.02 mmol/L (1.12-1.30); Carboxyhemoglobin (COHb) 0.3 gm% (0.0-3.0); Hemoglobin (Hb) 10.3 g/dL (14.0-18.0); O2 Tension (PaO2) 157.9 mmHg (80.0-100.0); Potassium - ABG Lab 3.08 mmol/L (3.70-5.30); pH, Arterial 7.39 (7.35-7.45)
[2018-07-17 06:56] LABS: Puncture Site LRA
[2018-07-17] MEDS ORDERED: Sterile Water 10 ML ONE (07:24)
[2018-07-17] MEDS ORDERED: Dextrose 5% in Water 1,000 ML IV PRN (07:35)
[2018-07-17] MEDS ORDERED: Dextrose 50% Abboject 50 ML SYRINGE SLOW IVP PRN (07:35)
--- NOTE | 2018-07-17 07:44 | RAD ---
CHEST 1 VIEW: INDICATION: CCU examination on ventilation. COMPARISON: Prior exam dated 07/16/2018. IMPRESSION: The examination is unchanged. No pneumothorax is evident. ET tube and IJ central venous catheter is unchanged. POS: BH
[2018-07-17] MEDS ORDERED: Furosemide 40 MG/4 ML VIAL SLOW IVP SCH (08:00)
[2018-07-17] MEDS ORDERED: Potassium Chloride 40 MEQ in Sodium Chloride 0.9% 250 ML 250 ML IVPB SCH (08:00)
--- NOTE | 2018-07-17 08:52 | PRG ---
DATE OF SERVICE: 07/17/2018 SUBJECTIVE: The patient intubated. OBJECTIVE: VITAL SIGNS: T-max 100.5, T-current 98, heart rate 74, blood pressure 109/68. I's and O's 6487 in, urine output 950, pink tinged. ABDOMEN: Colostomy with some dark venous blood in the bag, colostomy itself is pink. SP tube is adequately secured demonstrating pink-tinged urine. : Wound VAC is taken down. Wound inspected. There is no purulent discharge or foul smelling odor to his wound. Bedside procedure: There are some devitalized skin edges, which I debrided. Some fibrinous exudate mild. Those that were amenable to be debrided were debrided at bedside and new wound VAC will be placed by Wound Care Service. LABORATORY DATA: White count of 10, hemoglobin 10, bandemia of 22, platelet 403. Creatinine 0.8. Wound culture demonstrating Streptococcus. Currently on meropenem and vancomycin. IMPRESSION AND PLAN: Mr. Orlando is a 52-year-old male, who presented with history of poorly controlled diabetes, A1c of 14, blood sugar over 600, presented with necrotizing fasciitis of the scrotum and perineum, status post wide debridement postop day 2, postop day #1 for suprapubic tube, cystoscopy, exam under anesthesia, further debridement, diverting colostomy. will continue wound VAC Tuesday, Tuesday, Tuesday. I will check his wound Tuesday with Wound Care Service, if he needs to go to the OR for further debridement, we will do so as he is tentatively scheduled. Continue broad-spectrum antibiotics. Social Service consult has been initiated as he is non-funded and will require likely transitioning to a rehab facility, with prolonged wound VAC. Appreciate Infectious Disease consult. Continue insulin drip for strict control of his diabetes. Job ID: [id number] [facility]
[2018-07-17] MEDS: Famotidine 20 MG TAB PO SCH ×2 (09:12→21:02)
[2018-07-17] MEDS: Famotidine/PF 20 mg/2ml Vial SLOW IVP SCH ×2 (09:16→20:42)
[2018-07-17] MEDS: Folic Acid 1 MG TAB PER TUBE SCH (09:16)
[2018-07-17] MEDS: Insulin Glargine 20 UNITS in Pre-Filled Syringe 1 EACH SC SCH (09:20)
--- NOTE | 2018-07-17 09:37 | PRG ---
DATE OF SERVICE: 07/17/2018 TIME SPENT: 35 minutes critical time. SUBJECTIVE: This patient remains intubated on mechanical ventilation. OBJECTIVE: VITAL SIGNS: Temperature is 98.8 with a T-max of 100.5, pulse blood pressure 109/68. He is on a norepinephrine drip at 10 mcg/minute. Total intake for the last 24 hours was 647, output 1000. HEENT: Unremarkable. NECK: No JVD. LUNGS: Coarse breath sounds. CARDIAC: S1, S2. Regular. Tachycardic. ABDOMEN: Soft. There is suprapubic catheter and a midline colostomy. : He has open wound in the scrotal area. EXTREMITIES: No clubbing or cyanosis. He has trace edema throughout. LABORATORY DATA: His cultures are growing out Streptococcus species. The sensitivities showed everything works for tetracycline. Sodium 139, potassium 2.7, chloride 107, CO2 of 22, BUN 10, creatinine 0.8, glucose 142, calcium 7.5, magnesium 1.5, albumin 2.5. PH 7.39, pCO2 of 35, PO2 157, that is on SIMV rate of 20, tidal volume of 500, PEEP 5, pressure support 10, FiO2 of 40%. White blood cell count 10.1, hematocrit 30, platelet count 157. ASSESSMENT: 1. Karla gangrene from Streptococcus species. 2. Septic shock. 3. Acute respiratory failure requiring mechanical ventilation. 4. Diabetes mellitus type 1. 5. History of asthma. PLAN: 1. Initiate more aggressive nebulization treatments. 2. Try to diurese since he is about 6 L overloaded. 3. Wean vasopressors as tolerated. 4. Stop bicarbonate drip. 5. Replace electrolytes and magnesium. Job ID: [id number]
[2018-07-17] MEDS: Thiamine HCl 200 MG/2 ML VIAL SLOW IVP SCH (10:33)
[2018-07-17] MEDS: Lorazepam 2 MG/ML VIAL SLOW IVP PRN ×2 (11:02→23:18)
[2018-07-17] MEDS: Multivitamins, Adult 10 ML in Sodium Chloride 0.9% 500 ML IV SCH (11:27)
[2018-07-17] MEDS: Magnesium 2 GM/50 ML 2 GM in Premix Bag 1 BAG IVPB PRN (11:43)
[2018-07-17] MEDS: HumaLOG 300 UNITS/3 ML VIAL SC PRN ×3 (11:57→21:14)
--- NOTE | 2018-07-17 14:02 | OP ---
DATE OF PROCEDURE: 07/16/2018 PROCEDURE PERFORMED: Right IJ central line placement. PREOPERATIVE DIAGNOSIS: Poor IV access. POSTOPERATIVE DIAGNOSIS: Poor IV access. ANESTHESIA: 1% lidocaine without epinephrine. DESCRIPTION OF PROCEDURE: This procedure was done on an emergent basis. There was no family available for consent. The patient needs central line placement for poor IV access and for administration of norepinephrine for sustained hypotension. The patient was placed in the supine position and then placed in the Trendelenburg position. 1% lidocaine was used to anesthetize the entry site after the site was cleansed with chlorhexidine and draped sterilely. A right IJ central line was placed under ultrasound guidance without difficulty. Three ports flushed of venous blood. Postoperative x-ray is pending. Job ID: [id number]
--- NOTE | 2018-07-17 14:38 | PRG ---
DATE OF SERVICE: 07/17/2018 SUBJECTIVE: The patient is postop day 1 for surgical debridement of Karla gangrene and loop transverse colostomy through mini-laparotomy. The patient is seen resting comfortably in bed, remains on mechanical ventilation and sedation, minimally responsive to auditory or painful stimuli. Colostomy bag in place. Output through bag present. OBJECTIVE: VITAL SIGNS: Blood pressure 116/68, pulse 87, respirations 15, oxygen saturation 100%, and afebrile at 99.3 degrees Fahrenheit. HEENT: Normocephalic and atraumatic, PERRLA. NECK: Trachea midline. No visual bony deformities. CHEST: Flat, equal inspiratory and expiratory effort. No respiratory distress. ABDOMEN: Soft, nontender. Ostomy bag in place. Stoma visualized as nonerythematous or edematous. No concerns at this time. : Scrotal dressing clean, dry, and intact. EXTREMITIES: Appear neurovascularly intact x4. LABORATORY DATA: White blood cell count 10.1, hemoglobin 10 and stable, and platelets 157. Blood gas; arterial pH 7.39, CO2 of 35.8, base excess -3, potassium 2.7, blood sugar 142. Chest x-ray, unchanged. No pneumothorax. Evident ET and IJ unchanged. ASSESSMENT: 1. Karla gangrene, positive for Streptococcus. 2. Status post loop transverse colostomy through a mini-laparotomy. 3. Metabolic derangements and septic shock. 4. Multiple comorbidities. PLAN: Surgical ostomy site appears to be functioning correctly, noninfectious appearing. Continue to monitor output and seal. Wound Care consulted. Primary team to address metabolic derangements and ventilation management. Surgery will continue to follow along and is available for questions as needed. This patient was seen and evaluated today on morning rounds with Dr. Mayank Stuart. Job ID: [id number]
[2018-07-17 15:30] LABS: Actual Bicarbonate (HCO3a) 17.8 mEq/L (22-28); Analyzer IN Cardio OR; Base Excess (BEa) -9.6 mEq/L (-2.0 to +3.0); CO2 Tension 44.5 mmHg (35.0-45.0); Calcium, Ionized 1.04 mmol/L (1.12-1.30); Carboxyhemoglobin (COHb) 0.3 gm% (0.0-3.0); Hemoglobin (Hb) 11.2 g/dL (14.0-18.0); O2 Tension (PaO2) 110.8 mmHg (80.0-100.0)
[2018-07-17] MEDS: fentaNYL Citrate/PF 2,000 MCG in Sodium Chloride 0.9% 60 ML IV SCH (15:33)
[2018-07-17 15:43] LABS: pH, Arterial 7.22 (7.35-7.45)
[2018-07-17 15:44] LABS: Puncture Site ALINE
[2018-07-17 15:48] LABS: Potassium 3.1 mmol/L (3.5-5.1)
[2018-07-17 15:52] LABS: Vancomycin, Trough 11.2 ug/mL
[2018-07-17] MEDS: Vancomycin HCl 1 GM in Premix Bag 1 BAG IVPB SCH (16:47)
--- NOTE | 2018-07-17 22:25 | PDOC.PN ---
- Subjective Encounter Start Date: 07/17/18 Encounter Start Time: 14:00 -: non-verbal Patient seen and examined for Resp failure/Fourniers gangrene. Intubated on Vent. No overnight events - Objective Resuscitation Status - Order Detail: 07/15/18 21:39 Resuscitation Status Routine Resuscitation Status: FULL: Full Resuscitation MAR Reviewed: Yes Vital Signs & Weight: Vital Signs (12 hours) Temp Pulse Resp BP Pulse Ox 07/17/18 22:00 14 07/17/18 20:00 98.5 F 20 100 07/17/18 19:01 79 07/17/18 19:00 100 07/17/18 18:00 16 07/17/18 16:00 99.8 F H 17 07/17/18 14:30 87 107/65 07/17/18 14:28 81 14 99 07/17/18 14:00 16 07/17/18 12:00 99.3 F 20 100 07/17/18 10:36 94 114/69 07/17/18 10:34 91 17 99 Weight Admit Weight 190 lb 11.198 oz Weight 190 lb 14.725 oz Most Recent Monitor Data Heart Rate from ECG 74 NIBP 93/57 NIBP BP-Mean 69 Respiration from ECG 14 SpO2 100 I&O: 07/16/18 07/17/18 07/18/18 06:59 06:59 06:59 Intake Total 1870.8 6515.8 994.7 Output Total 1270 1000 3855 Balance 600.8 5515.8 -2860.3 Result Diagrams: 07/18/18 04:40 07/18/18 04:40 Additional Labs: Accuchecks 07/17/18 07/17/18 07/17/18 21:10 17:16 11:51 POC Glucose 193 H 196 H 159 H 07/17/18 07/17/18 07/17/18 09:19 08:11 06:42 POC Glucose 132 H 142 H 183 H 07/17/18 07/17/18 07/17/18 05:49 04:53 03:45 POC Glucose 121 H 149 H 159 H 07/17/18 07/17/18 07/17/18 02:47 01:45 00:48 POC Glucose 154 H 145 H 143 H 07/16/18 07/16/18 07/16/18 23:40 22:42 21:18 POC Glucose 135 H 123 H 133 H 07/16/18 20:22 POC Glucose 124 H EKG Reviewed by me: Yes (Tele SR) Phys Exam - Physical Examination Constitutional: NAD on Vent Neck: no JVD Respiratory: no wheezing, no rhonchi dec AE at bases, Few rales at bases Cardiovascular: RRR, no rub no heaves Gastrointestinal: soft, no distention, positive bowel sounds no guarding, Stomy+ Musculoskeletal: no edema, pulses present Neuro/Psych - cannot assess due to current mentation Dx/Plan - Plan DVT proph w/lovenox, DVT proph w/SCDs IMPRESSION: 1. 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 2. Acute hypoxic respiratory failure secondary to #1. 3. Uncontrolled diabetes mellitus type 1 with a blood sugar in 600 range. s/p Insulin drip 4. Acute kidney injury secondary to #1. 5. Metabolic acidosis secondary to sepsis. 6. Hyponatremia/Hypokalemia/Hypomagnesemia 7. Anemia, probably chronic. 8. Chronic hepatitis C with cirrhosis per abdomen CT. 9. Dehydration. 10. Tobacco dependence. PLAN: Cont Vancomycin/Meropenem On Vent Replace electrolytes Cont IVF Cont supportive care/Wound care AM labs Repeat Potassium later today Cont sliding scale Review of Systems - Review of Systems Other: Cannot be obtained due to current mentation. - Medications/Allergies Allergies/Adverse Reactions: Allergies Allergy/AdvReac Type Severity Reaction Status Date / Time No Known Drug Allergies Allergy Verified 07/16/18 01:27 Medications: Current Medications Acetaminophen (Tylenol) 650 mg [place] Q4H PRN PRN Reason: Headache/Fever/Mild Pain (1-3) Last Admin: 07/17/18 00:58 Dose: 650 mg Acetaminophen (Tylenol) 650 mg PO Q4H PRN PRN Reason: Headache/Fever/Mild Pain (1-3) Albuterol/Ipratropium (Duoneb) 3 ml NEB [id number] [facility]ON[facility] Last Admin: 07/17/18 19:00 Dose: 3 ml Bisacodyl (Dulcolax) 10 mg [place] DAILYPRN PRN PRN Reason: Constipation Calcium Carbonate (Tums) 1,000 mg PO Q4H PRN PRN Reason: Heartburn or Indigestion Dextrose/Water (Dextrose 50%) 25 gm SLOW IVP PRN PRN PRN Reason: Hypoglycemia Famotidine (Pepcid) 20 mg SLOW IVP Q12HR [facility] Last Admin: 07/17/18 20:42 Dose: 20 mg Famotidine (Pepcid) 20 mg PO BID [facility] Last Admin: 07/17/18 21:02 Dose: Not Given Folic Acid (Folvite) 1 mg PER TUBE DAILY [facility] Last Admin: 07/17/18 09:16 Dose: Not Given Glucagon (Glucagon) 1 mg IM PRN PRN PRN Reason: Hypoglycemia Multivitamins 10 ml/ Sodium (Chloride) 510 mls @ 250 mls/hr IV DAILY [facility] Last Admin: 07/17/18 11:27 Dose: 510 mls Fentanyl Citrate 2,000 mcg/ (Sodium Chloride) 100 mls @ 0 mls/hr IV INF [facility]; Protocol Stop: 08/14/18 21:22 Last Admin: 07/17/18 15:33 Dose: 100 mls Fentanyl Citrate (Fentanyl Bolus) 250 mls @ 0 mls/hr IVPB PRN PRN PRN Reason: Breakthrough pain/agitation Stop: 08/14/18 21:22 Norepinephrine Bitartrate (Levophed) 250 mls @ 0 mls/hr IVPB INF [facility]; Protocol Potassium Chloride 40 meq/ (Sodium Chloride) 270 mls @ 135 mls/hr IVPB ASDIR PRN PRN Reason: FOR SERUM K+ 2.5 - 3.5 Potassium Chloride 40 meq/ (Device) 100 mls @ 50 mls/hr IVPB ASDIR PRN PRN Reason: FOR SERUM K+ 2.5 - 3.5 Last Admin: 07/17/18 15:53 Dose: 100 mls Magnesium Sulfate 1 gm/ Sodium (Chloride) 102 mls @ 102 mls/hr IV PRN PRN PRN Reason: MAG LEVEL 1.4 - 2.0 Magnesium Sulfate 2 gm/ Device 50 mls @ 50 mls/hr IVPB ASDIR PRN PRN Reason: MAGNESIUM < 1.4 Last Admin: 07/17/18 11:43 Dose: 50 mls Potassium Phosphate 9 mmol/ (Sodium Chloride) 103 mls @ 25.75 mls/hr IVPB ASDIR PRN PRN Reason: Phosphate 1.0-1.8 Potassium Phosphate 12 mmol/ (Sodium Chloride) 254 mls @ 63.5 mls/hr IV ASDIR PRN PRN Reason: Serum phosphate 0.5-0.9 Potassium Phosphate 15 mmol/ (Sodium Chloride) 255 mls @ 63.75 mls/hr IV ASDIR PRN PRN Reason: Serum Phos < 0.5 Meropenem 1 gm/ Device 50 mls @ 100 mls/hr IVPB Q8HR [facility] Last Admin: 07/17/18 20:42 Dose: 50 mls Ascorbic Acid 1,500 mg/ Sodium (Chloride) 53 mls @ 100 mls/hr IVPB Q6HR [facility] Stop: 07/21/18 12:01 Last Admin: 07/17/18 20:03 Dose: 53 mls Dextrose/Water (D5w) 1,000 mls @ 0 mls/hr IV .Q0M PRN PRN Reason: Hypoglycemia Insulin Glargine 20 units/ (Miscellaneous Medication) 0.2 mls @ 0 mls/hr SC QAM [facility] Last Admin: 07/17/18 09:20 Dose: 0.2 mls Vancomycin HCl 1 gm/ Device 200 mls @ 200 mls/hr IVPB 0500,1700 [facility] Last Admin: 07/17/18 16:47 Dose: 200 mls Insulin Human Lispro (Humalog) 0 units SC .AGGRESSIVE SLIDING PRN PRN Reason: Aggressive Correctional Scale Last Admin: 07/17/18 21:14 Dose: 3 unit Lorazepam (Ativan) 2 mg SLOW IVP Q1H PRN PRN Reason: Breakthrough agitation Stop: 08/14/18 21:22 Last Admin: 07/16/18 23:32 Dose: 2 mg Magnesium Oxide (Magnesium Oxide) 400 mg PO BIDPRN PRN PRN Reason: FOR SERUM MAG 1.4 - 2.0 Magnesium Oxide (Magnesium Oxide) 800 mg PO PRN PRN PRN Reason: FOR SERUM MAG < 1.4 Mineral Oil/White Petrolatum (Systane Nighttime Eye Ointment) 0 gm EA EYE PRN PRN PRN Reason: Dry Eyes Miscellaneous Medication (Pharmacy To Dose) 1 each IVPB PRN PRN PRN Reason: Pharmacy to dose Miscellaneous Medication (Phos-Nak) 1 pkt PO TIDPRN PRN PRN Reason: FOR PHOS LEVEL 1.0 - 1.8 Miscellaneous Medication (Phos-Nak) 2 pkt PO TIDPRN PRN PRN Reason: FOR PHOS LEVEL 0.5 - 1.0 Morphine Sulfate (Morphine) 2 mg SLOW IVP Q1H PRN PRN Reason: BREAKTHROUGH PAIN/Agitation Stop: 08/14/18 21:22 Discontinue Previous Narcotic Pain Medications And Benzodiazepines 1 each FS .ONE [facility]ONIDAS Stop: 08/14/18 21:22 Ccu Electrolyte (Replacement Protocol) 0 each FS PRN PRN PRN Reason: FOR ELECTROLYTE REPLACEMENT Potassium Chloride (K-Dur) 40 meq PO ASDIR PRN PRN Reason: FOR SERUM K+ 2.5 - 3.5 Potassium Chloride (Klor-Con) 40 meq PER TUBE ASDIR PRN PRN Reason: FOR SERUM K+ 2.5-3.5 Propofol (Diprivan) 1,000 mg IV INF PRN; Protocol PRN Reason: TO ACHIEVE GOAL RASS Stop: 08/14/18 21:22 Last Admin: 07/17/18 18:44 Dose: 1,000 mg Propofol (Diprivan Bolus) 20 mg IV Q5MIN PRN PRN Reason: BREAKTHROUGH AGITATION Stop: 08/14/18 21:22 Senna/Docusate Sodium (Senokot S) 2 tab PO BID PRN PRN Reason: Constipation Sodium Chloride (Flush - Normal Saline) 10 ml IVF PRN PRN PRN Reason: Saline Flush Thiamine HCl (Thiamine Hcl) 100 mg SLOW IVP DAILY [facility] Last Admin: 07/17/18 10:33 Dose: 100 mg Vecuronium [place] (Norcuron) 10 mg IVP Q30MIN PRN PRN Reason: Agitation Last Admin: 07/17/18 07:25 Dose: 10 mg
[2018-07-18] MEDS: HumaLOG 300 UNITS/3 ML VIAL SC PRN ×5 (00:05→16:46)
[2018-07-18] MEDS: Propofol 1,000 MG/100 ML VIAL IV PRN (04:48)
[2018-07-18] MEDS: Lorazepam 2 MG/ML VIAL SLOW IVP PRN ×2 (04:48→05:15)
[2018-07-18] MEDS: Vancomycin HCl 1 GM in Premix Bag 1 BAG IVPB SCH ×2 (04:48→17:15)
[2018-07-18 05:09] LABS: ALT (SGPT) 18 U/L (8-55); AST (SGOT) 17 U/L (5-34); Albumin 2.4 g/dL (3.5-5.0); Alkaline Phosphatase 71 U/L (40-150); Anion Gap 13 mmol/L (10-20); BUN (Urea Nitrogen) 9 mg/dL (8.4-25.7); Bilirubin, Total 0.6 mg/dL (0.2-1.2); Calc. Creatinine Clearance 122 mL/min (70-130); Calcium 7.8 mg/dL (7.8-10.44); Carbon Dioxide 25 mmol/L (22-29); Chloride 105 mmol/L (98-107); Estimated GFR-MDRD Greater than 90; Globulin 2.7 g/dL (2.4-3.5); Glucose 161 mg/dL (70-105); Magnesium 1.7 mg/dL (1.6-2.6); Protein, Total 5.1 g/dL (6.0-8.3); Sodium 140 mmol/L (136-145)
[2018-07-18 05:13] LABS: Potassium 2.9 mmol/L (3.5-5.1)
[2018-07-18] MEDS: Potassium Chloride 40 MEQ in Premix Bag 1 BAG IVPB PRN ×2 (05:15→18:19)
[2018-07-18] MEDS: MEROPENEM 1 GM/50 ML 1 GM in Premix Bag 1 BAG IVPB SCH ×3 (05:29→20:13)
[2018-07-18 05:33] LABS: Band 9 % (5-11); Hemoglobin 8.9 g/dL (14.0-18.0); Hypochromia SLIGHT = 6-15 cells (100X) (0-5/hpf); Lymphocytes 34 % (21-51); MDiff Complete? YES; Mean Corpuscular HGB CONC 33.2 g/dL (32.0-36.0); Mean Corpuscular Hemoglobin 28.6 pg (27.0-31.0); Mean Corpuscular Volume 86.2 fL (78.0-98.0); Mean Platelet Volume 6.1 fL (7.4-10.4); Monocytes 6 % (0-10); Neutrophil 51 % (42-75); Platelet Count 111 thou/uL (130-400); Platelet Morphology Comment Appears Decreased; RBC Distribution Width 12.9 % (11.5-14.5); Red Blood Cell (RBC) Count 3.11 mill/uL (4.70-6.10); White Blood Cell (WBC) Count 4.1 thou/uL (4.8-10.8)
[2018-07-18 07:03] LABS: Actual Bicarbonate (HCO3a) 26.2 mEq/L (22-28); CO2 Tension 39.6 mmHg (35.0-45.0); Calcium, Ionized 1.06 mmol/L (1.12-1.30); Carboxyhemoglobin (COHb) 1.1 gm% (0.0-3.0); Hemoglobin (Hb) 8.9 g/dL (14.0-18.0); O2 Tension (PaO2) 87.4 mmHg (80.0-100.0); Potassium - ABG Lab 2.94 mmol/L (3.70-5.30); pH, Arterial 7.44 (7.35-7.45)
[2018-07-18 07:06] LABS: Puncture Site RB
[2018-07-18] MEDS ORDERED: DC Sedation Protocol FS ONE (07:53)
--- NOTE | 2018-07-18 08:07 | RAD ---
SINGLE VIEW OF THE CHEST: COMPARISON: 07/17/2018. HISTORY: Daily chest x-ray in a CCU patient with respiratory failure. FINDINGS: A single view of the chest shows a normal-size cardiomediastinal silhouette. A central venous cathet er and endotracheal tube are unchanged in position. Calcified granulomas project over the right thor ax. There is no evidence of consolidation or pleural effusion. IMPRESSION: Stable exam. POS: BRENDA
[2018-07-18] MEDS: Folic Acid 1 MG TAB PER TUBE SCH (08:35)
[2018-07-18] MEDS: Insulin Glargine 20 UNITS in Pre-Filled Syringe 1 EACH SC SCH (09:16)
[2018-07-18] MEDS: Enoxaparin Sodium 40 MG/0.4 ML SYRINGE SC SCH (09:16)
[2018-07-18] MEDS: Famotidine/PF 20 mg/2ml Vial SLOW IVP SCH ×2 (09:16→20:13)
[2018-07-18] MEDS: Thiamine HCl 200 MG/2 ML VIAL SLOW IVP SCH (09:16)
--- NOTE | 2018-07-18 09:43 | PRG ---
DATE OF SERVICE: 07/18/2018 SUBJECTIVE: The patient remains intubated. OBJECTIVE: VITAL SIGNS: T-max of 100.5, T current 98.3, on pressure support. I's and O's 2192 in, urine output 4196 out, colostomy with 20 mL. ABDOMEN: Colostomy appears pink and viable. : Wound VAC remains in place. Suprapubic tube site is clean, dry, and intact. Requires restraints due to combativeness. PERTINENT LABORATORY DATA: White count 4, hemoglobin 8.9, platelet 111. Creatinine 0.8. HIV negative. Wound culture demonstrates Streptococcus, presumptive Karina. Currently on meropenem and vanc. IMPRESSION AND PLAN: 1. Mr. Orlando is a 52-year-old male with history of poorly controlled diabetes, history of polysubstance abuse, history of poorly controlled diabetes presenting A1c of 14. Blood sugar over 600. 2. Presented with perineal scrotal necrotizing fasciitis, postop day #3 wide debridement, postop day #2, suprapubic cystoscopy exam under anesthesia, debridement, diverting colostomy. Continue wound VAC Tuesday, Tuesday, Tuesday. Antibiotic regimen for Infectious Disease, I will reassess his wound tomorrow morning, if the wound is stable, we will continue wound VAC, if there is need for further debridement in the OR, we will proceed with exam under anesthesia. Continue insulin drip. 3. Monitor patient for DTs. Job ID: [id number] MTDD
[2018-07-18] MEDS: Multivitamins, Adult 10 ML in Sodium Chloride 0.9% 500 ML IV SCH (10:07)
--- NOTE | 2018-07-18 10:08 | PRG ---
DATE OF SERVICE: 07/18/2018 Thirty five minutes critical care time. SUBJECTIVE: The patient remains intubated on mechanical ventilation. Actually, he is doing well. OBJECTIVE: VITAL SIGNS: Temperature 98.3, pulse 77, blood pressure 96/62. Levophed is now off. 24-hour intake HEENT: Unremarkable. NECK: No JVD. LUNGS: Clear to auscultation. CARDIAC: S1 and S2, regular without murmur. ABDOMEN: Midline colostomy noted. : Wound VAC on scrotum. LABORATORY DATA: White blood cell count 4.1, hemoglobin 8.9, hematocrit 26.8, and platelet count 111. PH 7.44, pCO2 of 39, PO2 of 87, on SIMV rate 14, tidal volume of 500, PEEP 5 . Sodium 140, potassium 3.9, chloride 105 CO2 of 25, BUN is 9, creatinine 0.8, glucose 161, albumin 2.4. Chest x-ray shows no mass, effusion, or infiltrate. ASSESSMENT: 1. 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 2. Status post diverting colostomy. 3. Septic shock, which has resolved. 4. Diabetes mellitus, type 1. 5. History of asthma. 6. Acute respiratory failure, requiring mechanical ventilation - respiratory failure is mainly secondary to his metabolic issues. PLAN: 1. He has become strong enough that he can be extubated. 2. Continue meropenem and vancomycin - Dr. Iyer is managing the antibiotics. 3. Replace potassium. 4. Continue vitamin C and thiamine. 5. Consider Precedex if the patient demonstrates any type of alcohol withdrawal. Job ID: [id number]
--- NOTE | 2018-07-18 11:02 | PRG ---
DATE OF SERVICE: 07/18/2018 SUBJECTIVE: Mr. Orlando is a 52-year-old man with history of diabetes mellitus and recent excisional debridement of Karla gangrene. This is postoperative day #2, status post loop transverse colostomy. The patient was recently extubated. He is awake, but quite confused. OBJECTIVE: VITAL SIGNS: This morning include blood pressure 120/70, pulse is 90, respiratory rate is 20, temperature is 98.3 degrees Fahrenheit, maximum temperature in the last 24 hours is 99.8 degrees Fahrenheit. Oxygen saturation currently is 99%. ABDOMEN: Soft and nondistended. The loop transverse colostomy is viable with output of gas, no stool yet. IMPRESSION: 1. Postoperative day #2, status post loop transverse colostomy. 2. Recent excisional debridement of Karla gangrene. PLAN: No further general surgical indication at this time with regard to the colostomy. Job ID: [id number]
--- NOTE | 2018-07-18 19:50 | PDOC.PN ---
- Subjective Encounter Start Date: 07/18/18 Encounter Start Time: 11:30 Patient seen and examined for Sepsis/Resp failure/Fourneirs gangrene. No new complaints. No overnight events - Objective Resuscitation Status - Order Detail: 07/15/18 21:39 Resuscitation Status Routine Resuscitation Status: FULL: Full Resuscitation MAR Reviewed: Yes Vital Signs & Weight: Vital Signs (12 hours) Temp Pulse Resp Pulse Ox 07/18/18 18:39 69 20 100 07/18/18 16:00 98.1 F 07/18/18 14:00 70 22 H 98 07/18/18 12:00 99 F 07/18/18 11:00 99 F 07/18/18 10:49 96 07/18/18 10:45 82 23 H 96 07/18/18 08:15 97 07/18/18 08:08 98 07/18/18 08:00 98.3 F 18 07/18/18 07:51 80 Weight Admit Weight 190 lb 11.198 oz Weight 200 lb 6.403 oz Most Recent Monitor Data Heart Rate from ECG 74 NIBP 134/68 NIBP BP-Mean 90 Respiration from ECG 23 SpO2 96 I&O: 07/17/18 07/18/18 07/19/18 06:59 06:59 06:59 Intake Total 6515.8 2192.7 976 Output Total 1000 4216 1005 Balance 5515.8 -2023.3 -29 Result Diagrams: 07/18/18 04:40 07/18/18 17:12 Additional Labs: Accuchecks 07/18/18 07/18/18 07/18/18 16:15 12:31 07:36 POC Glucose 190 H 199 H 179 H 07/18/18 07/18/18 07/17/18 04:20 00:02 21:10 POC Glucose 185 H 174 H 193 H Phys Exam - Physical Examination Constitutional: NAD Respiratory: no wheezing Scat rhonchi Cardiovascular: RRR, no rub Gastrointestinal: soft, positive bowel sounds Musculoskeletal: no edema Neurological: moves all 4 limbs Dx/Plan - Plan DVT proph w/lovenox, DVT proph w/SCDs IMPRESSION: 1. 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 2. Acute hypoxic respiratory failure secondary to #1. Extubated 3. Uncontrolled diabetes mellitus type 1. s/p Insulin drip 4. Acute kidney injury 5. Metabolic acidosis 6. Hyponatremia/Hypokalemia/Hypomagnesemia 7. Anemia, probably chronic. 8. Chronic hepatitis C with cirrhosis per abdomen CT. 9. Dehydration. 10. Tobacco dependence. 11. Thrombocytopenia. PLAN: Cont Vancomycin/Meropenem Replace Potassium Cont supportive care/Wound care Cont sliding scale AM labs Review of Systems - Review of Systems Other: Cannot be reliably obtained due to current mentation. - Medications/Allergies Allergies/Adverse Reactions: Allergies Allergy/AdvReac Type Severity Reaction Status Date / Time No Known Drug Allergies Allergy Verified 07/16/18 01:27 Medications: Current Medications Acetaminophen (Tylenol) 650 mg [place] Q4H PRN PRN Reason: Headache/Fever/Mild Pain (1-3) Last Admin: 07/17/18 00:58 Dose: 650 mg Albuterol/Ipratropium (Duoneb) 3 ml NEB [id number] [facility] Last Admin: 07/18/18 18:39 Dose: 3 ml Bisacodyl (Dulcolax) 10 mg [place] DAILYPRN PRN PRN Reason: Constipation Calcium Carbonate (Tums) 1,000 mg PO Q4H PRN PRN Reason: Heartburn or Indigestion Dextrose/Water (Dextrose 50%) 25 gm SLOW IVP PRN PRN PRN Reason: Hypoglycemia Enoxaparin Sodium (Lovenox) [address] [facility] Last Admin: 07/18/18 09:16 Dose: 40 mg Famotidine (Pepcid) [address]P Q12[address] [facility] Last Admin: 07/18/18 09:16 Dose: 20 mg Folic Acid (Folvite) [address] [facility] Last Admin: 07/18/18 08:35 Dose: Not Given Glucagon (Glucagon) 1 mg IM PRN PRN PRN Reason: Hypoglycemia Multivitamins 10 ml/ Sodium (Chloride) 510 mls @ 250 mls/hr IV DAILY [facility] Last Admin: 07/18/18 10:07 Dose: 510 mls Potassium Chloride 40 meq/ (Sodium Chloride) 270 mls @ 135 mls/hr IVPB ASDIR PRN PRN Reason: FOR SERUM K+ 2.5 - 3.5 Potassium Chloride 40 meq/ (Device) 100 mls @ 50 mls/hr IVPB ASDIR PRN PRN Reason: FOR SERUM K+ 2.5 - 3.5 Last Admin: 07/18/18 18:19 Dose: 100 mls Magnesium Sulfate 1 gm/ Sodium (Chloride) 102 mls @ 102 mls/hr IV PRN PRN PRN Reason: MAG LEVEL 1.4 - 2.0 Last Admin: 07/18/18 11:28 Dose: 102 mls Magnesium Sulfate 2 gm/ Device 50 mls @ 50 mls/hr IVPB ASDIR PRN PRN Reason: MAGNESIUM < 1.4 Last Admin: 07/17/18 11:43 Dose: 50 mls Potassium Phosphate 9 mmol/ (Sodium Chloride) 103 mls @ 25.75 mls/hr IVPB ASDIR PRN PRN Reason: Phosphate 1.0-1.8 Potassium Phosphate 12 mmol/ (Sodium Chloride) 254 mls @ 63.5 mls/hr IV ASDIR PRN PRN Reason: Serum phosphate 0.5-0.9 Potassium Phosphate 15 mmol/ (Sodium Chloride) 255 mls @ 63.75 mls/hr IV ASDIR PRN PRN Reason: Serum Phos < 0.5 Meropenem 1 gm/ Device 50 mls @ 100 mls/hr IVPB Q8HR [facility] Last Admin: 07/18/18 14:30 Dose: 50 mls Ascorbic Acid 1,500 mg/ Sodium (Chloride) 53 mls @ 100 mls/hr IVPB Q6HR [facility] Stop: 07/21/18 12:01 Last Admin: 07/18/18 17:15 Dose: 53 mls Dextrose/Water (D5w) 1,000 mls @ 0 mls/hr IV .Q0M PRN PRN Reason: Hypoglycemia Insulin Glargine 20 units/ (Miscellaneous Medication) 0.2 mls @ 0 mls/hr SC QAM [facility] Last Admin: 07/18/18 09:16 Dose: 0.2 mls Vancomycin HCl 1 gm/ Device 200 mls @ 200 mls/hr IVPB 0500,1700 [facility] Last Admin: 07/18/18 17:15 Dose: 200 mls Dexmedetomidine HCl 400 mcg/ (Sodium Chloride) 100 mls @ 0 mls/hr IVPB INF [facility] Last Admin: 07/18/18 18:19 Dose: 100 mls Insulin Human Lispro (Humalog) 0 units SC .AGGRESSIVE SLIDING PRN PRN Reason: Aggressive Correctional Scale Last Admin: 07/18/18 16:46 Dose: 3 unit Magnesium Oxide (Magnesium Oxide) 400 mg PO BIDPRN PRN PRN Reason: FOR SERUM MAG 1.4 - 2.0 Magnesium Oxide (Magnesium Oxide) 800 mg PO PRN PRN PRN Reason: FOR SERUM MAG < 1.4 Mineral Oil/White Petrolatum (Systane Nighttime Eye Ointment) 0 gm EA EYE PRN PRN PRN Reason: Dry Eyes Miscellaneous Medication (Pharmacy To Dose) 1 each IVPB PRN PRN PRN Reason: Pharmacy to dose Miscellaneous Medication (Phos-Nak) 1 pkt PO TIDPRN PRN PRN Reason: FOR PHOS LEVEL 1.0 - 1.8 Miscellaneous Medication (Phos-Nak) 2 pkt PO TIDPRN PRN PRN Reason: FOR PHOS LEVEL 0.5 - 1.0 Ccu Electrolyte (Replacement Protocol) 0 each FS PRN PRN PRN Reason: FOR ELECTROLYTE REPLACEMENT Potassium Chloride (K-Dur) 40 meq PO ASDIR PRN PRN Reason: FOR SERUM K+ 2.5 - 3.5 Potassium Chloride (Klor-Con) 40 meq PER TUBE ASDIR PRN PRN Reason: FOR SERUM K+ 2.5-3.5 Senna/Docusate Sodium (Senokot S) 2 tab PO BID PRN PRN Reason: Constipation Sodium Chloride (Flush - Normal Saline) 10 ml IVF PRN PRN PRN Reason: Saline Flush Sodium Chloride (Flush - Normal Saline) [address] [facility] Last Admin: 07/18/18 09:17 Dose: 10 ml Sodium Chloride (Flush - Normal Saline) 10 ml IVF PRN PRN PRN Reason: Saline Flush Thiamine HCl (Thiamine Hcl) [address] [facility] Last Admin: 07/18/18 09:16 Dose: 100 mg
[2018-07-19 03:27] LABS: Band 3 % (5-11); Eosinophils 3 % (0-10); Hemoglobin 9.1 g/dL (14.0-18.0); Lymphocytes 39 % (21-51); MDiff Complete? YES; Mean Corpuscular HGB CONC 32.7 g/dL (32.0-36.0); Mean Corpuscular Volume 85.7 fL (78.0-98.0); Metamyelocyte 1 % (0-0); Monocytes 7 % (0-10); Neutrophil 47 % (42-75); Platelet Count 110 thou/uL (130-400); Platelet Morphology Comment Appears Decreased; RBC Distribution Width 12.9 % (11.5-14.5); Red Blood Cell (RBC) Count 3.25 mill/uL (4.70-6.10); White Blood Cell (WBC) Count 3.1 thou/uL (4.8-10.8)
[2018-07-19 03:38] LABS: Vancomycin, Trough 14.1 ug/mL
[2018-07-19 03:41] LABS: ALT (SGPT) 17 U/L (8-55); AST (SGOT) 19 U/L (5-34); Albumin 2.5 g/dL (3.5-5.0); Alkaline Phosphatase 73 U/L (40-150); Anion Gap 11 mmol/L (10-20); BUN (Urea Nitrogen) 6 mg/dL (8.4-25.7); Bilirubin, Total 0.9 mg/dL (0.2-1.2); Calc. Creatinine Clearance 141 mL/min (70-130); Calcium 8.1 mg/dL (7.8-10.44); Carbon Dioxide 26 mmol/L (22-29); Chloride 108 mmol/L (98-107); Estimated GFR-MDRD Greater than 90; Globulin 2.7 g/dL (2.4-3.5); Glucose 142 mg/dL (70-105); Magnesium 1.4 mg/dL (1.6-2.6); Potassium 3.2 mmol/L (3.5-5.1); Protein, Total 5.2 g/dL (6.0-8.3); Sodium 142 mmol/L (136-145)
[2018-07-19] MEDS: Vancomycin HCl 1 GM in Premix Bag 1 BAG IVPB SCH ×2 (04:13→18:17)
[2018-07-19] MEDS: MEROPENEM 1 GM/50 ML 1 GM in Premix Bag 1 BAG IVPB SCH ×3 (05:00→22:13)
[2018-07-19] MEDS: Potassium Chloride 40 MEQ in Premix Bag 1 BAG IVPB PRN (05:00)
[2018-07-19] MEDS: Morphine 4 MG/ML VIAL ONE ×2 (07:05→07:10)
[2018-07-19] MEDS ORDERED: Morphine 2 MG/ML SYRINGE SLOW IVP SCH (07:15)
[2018-07-19] MEDS ORDERED: Lidocaine 1% (PF) 30 ML VIAL ONE (07:15)
--- NOTE | 2018-07-19 07:50 | PRG ---
DATE OF SERVICE: 07/19/2018 SUBJECTIVE: The patient extubated, alert and oriented x2. Cooperative to physical exam. PHYSICAL EXAMINATION: VITAL SIGNS: His vital signs are stable. ABDOMEN: Soft, colostomy is pink and viable. Suprapubic tube is clean, dry and intact, demonstrating clear yellow urine. : His wound VAC was taken down. There is some serous discharge in the superior aspect of the incision. I irrigated the wound with the wound care at bedside. There are some necrotic debris at the superior subcutaneous dartos fascia, which I debrided at the bedside. The skin edges appeared to be viable. I did not extensively excise his residual skin as he does not have much scrotal tissue left from wide debridement. There is no foul smelling discharge. No pus. There is evidence of granulating tissue coming in, with fibrinous exudate. The tunica vaginalis remains intact and not involved. The wound was irrigated. I spent about 10-15 minutes at bedside debriding his wound. wound VAC is to be replaced by the wound VAC service. PERTINENT LABORATORY DATA: White count 7.1, hemoglobin 9.1. Creatinine 0.7. Wound culture, skin culture demonstrates multi-organism, Streptococcus, Staph, Karina , and multiple gram-negative anaerobic organisms. IMPRESSION AND PLAN: Mr. Orlando is a 52-year-old male with history of poorly controlled diabetes, hepatitis C, history of alcohol abuse, presents with scrotoperineal necrotizing fasciitis. He is postoperative day number 4 from wide debridement, postoperative day number 3 from exam under anesthesia, suprapubic tube, diverting colostomy. He is hemodynamically stable, extubated. Wound debrided at bedside. No need for debridement in the operating room as it was performed at bedside with no significant issues. Continue wound VAC Tuesday, Tuesday, Tuesday. will continue to monitor the patient's wound at bedside if needed. We will undergo debridement in the OR if necessary. Infectious Disease is following regarding antibiotic regimen. Currently, on meropenem and vancomycin. As there is evidence of Karina as well , consider antifungal. Job ID: [id number] [facility]
--- NOTE | 2018-07-19 08:16 | PRG ---
DATE OF SERVICE: 07/19/2018 SUBJECTIVE: The patient was having his wound VAC changed this morning. When I walked into the room, he was actually pleasant, did not appear to be in any distress. OBJECTIVE: VITAL SIGNS: Temperature is 98.6, pulse 78, blood pressure 119/82, O2 saturation 96%. 24-hour intake 1612, output 2220. HEENT: Unremarkable. NECK: No JVD. CHEST: Clear to auscultation. CARDIAC: S1 and S2 regular. ABDOMEN: Soft. EXTREMITIES: He has an open wound in the scrotum. LABORATORY DATA: White blood cell count 3.1, hematocrit 27.9, and platelet count 110. Sodium 142, potassium 3.2, chloride 108, CO2 of 26, BUN 6, creatinine 0.7 glucose 142. ASSESSMENT: 1. Karla gangrene. 2. Diabetes mellitus with blood sugars now controlled. 3. Disseminated streptococcal infection. PLAN: 1. Continue antibiotics per Dr. Iyer. 2. Wean off Precedex drip. 3. Add morphine for pain control. 4. If he can tolerate without the Precedex drip, then he can be transferred to surgical floor. Job ID: [id number]
[2018-07-19] MEDS: Folic Acid 1 MG TAB PER TUBE SCH (09:02)
[2018-07-19] MEDS: Insulin Glargine 20 UNITS in Pre-Filled Syringe 1 EACH SC SCH (09:02)
[2018-07-19] MEDS: Famotidine/PF 20 mg/2ml Vial SLOW IVP SCH ×2 (09:02→20:04)
[2018-07-19] MEDS: Enoxaparin Sodium 40 MG/0.4 ML SYRINGE SC SCH (09:02)
[2018-07-19] MEDS: Thiamine HCl 200 MG/2 ML VIAL SLOW IVP SCH (09:03)
[2018-07-19] MEDS: HumaLOG 300 UNITS/3 ML VIAL SC PRN ×3 (09:13→20:12)
[2018-07-19] MEDS: Magnesium 2 GM/50 ML 2 GM in Premix Bag 1 BAG IVPB PRN (10:11)
[2018-07-19] MEDS: Morphine 4 MG/ML VIAL SLOW IVP PRN ×5 (12:45→23:03)
[2018-07-19] MEDS: Multivitamins, Adult 10 ML in Sodium Chloride 0.9% 500 ML IV SCH (12:49)
--- NOTE | 2018-07-19 16:00 | PDOC.PN ---
- Subjective Encounter Start Date: 07/19/18 Encounter Start Time: 09:30 Patient seen and examined for Sepsis. Mentation improving. No fever. No new complaints. No overnight events - Objective Resuscitation Status - Order Detail: 07/15/18 21:39 Resuscitation Status Routine Resuscitation Status: FULL: Full Resuscitation MAR Reviewed: Yes Vital Signs & Weight: Vital Signs (12 hours) Temp Pulse Resp Pulse Ox 07/19/18 13:51 82 18 100 07/19/18 12:00 99.1 F 07/19/18 10:54 76 14 07/19/18 08:00 99.6 F 07/19/18 07:50 96 Weight Admit Weight 190 lb 11.198 oz Weight 197 lb 1.492 oz Most Recent Monitor Data Heart Rate from ECG 85 NIBP 115/76 NIBP BP-Mean 89 Respiration from ECG 27 SpO2 96 I&O: 07/18/18 07/19/18 07/20/18 06:59 06:59 06:59 Intake Total 2192.7 1612 720 Output Total 4216 2220 920 Balance -2023.3 -608 -200 Result Diagrams: 07/19/18 03:00 07/19/18 03:00 Additional Labs: Accuchecks 07/19/18 07/19/18 07/19/18 11:52 09:12 03:05 POC Glucose 142 H 193 H 146 H 07/18/18 07/18/18 20:18 16:15 POC Glucose 153 H 190 H Phys Exam - Physical Examination Constitutional: NAD Respiratory: no wheezing, no rhonchi Cardiovascular: RRR, no rub Gastrointestinal: soft, non-tender, positive bowel sounds Musculoskeletal: no edema Neurological: moves all 4 limbs Dx/Plan - Plan DVT proph w/SCDs IMPRESSION: 1. 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 2. Acute hypoxic respiratory failure secondary to #1. 3. Uncontrolled diabetes mellitus type 1. s/p Insulin drip 4. Acute kidney injury 5. Metabolic acidosis 6. Hyponatremia/Hypokalemia/Hypomagnesemia 7. Anemia, probably chronic. 8. Chronic hepatitis C with cirrhosis per abdomen CT. 9. Dehydration. 10. Tobacco dependence. 11. Thrombocytopenia. PLAN: Cont Vancomycin/Meropenem Replace electrolytes Cont supportive care/Wound care Cont Lantus and sliding scale AM lab Review of Systems - Review of Systems Cardiovascular: negative: chest pain, palpitations, orthopnea, paroxysmal nocturnal dyspnea, edema, light headedness, other Gastrointestinal: negative: Nausea, Vomiting, Abdominal Pain, Diarrhea, Constipation, Melena, Hematochezia, Other - Medications/Allergies Allergies/Adverse Reactions: Allergies Allergy/AdvReac Type Severity Reaction Status Date / Time No Known Drug Allergies Allergy Verified 07/16/18 01:27 Medications: Current Medications Acetaminophen (Tylenol) [address] Q4H PRN PRN Reason: Headache/Fever/Mild Pain (1-3) Last Admin: 07/17/18 00:58 Dose: 650 mg Albuterol/Ipratropium (Duoneb) 3 ml NEB [id number] [facility] Last Admin: 07/19/18 13:51 Dose: 3 ml Bisacodyl (Dulcolax) [address] DAILYPRN PRN PRN Reason: Constipation Calcium Carbonate (Tums) 1,000 mg PO Q4H PRN PRN Reason: Heartburn or Indigestion Dextrose/Water (Dextrose 50%) 25 gm SLOW IVP PRN PRN PRN Reason: Hypoglycemia Enoxaparin Sodium (Lovenox) 40 mg SC 0900 [facility] Last Admin: 07/19/18 09:02 Dose: 40 mg Famotidine (Pepcid) 20 mg SLOW IVP Q12HR [facility] Last Admin: 07/19/18 09:02 Dose: 20 mg Folic Acid (Folvite) 1 mg PER TUBE DAILY [facility] Last Admin: 07/19/18 09:02 Dose: 1 mg Glucagon (Glucagon) 1 mg IM PRN PRN PRN Reason: Hypoglycemia Multivitamins 10 ml/ Sodium (Chloride) 510 mls @ 250 mls/hr IV DAILY [facility] Last Admin: 07/19/18 12:49 Dose: 510 mls Potassium Chloride 40 meq/ (Sodium Chloride) 270 mls @ 135 mls/hr IVPB ASDIR PRN PRN Reason: FOR SERUM K+ 2.5 - 3.5 Potassium Chloride 40 meq/ (Device) 100 mls @ 50 mls/hr IVPB ASDIR PRN PRN Reason: FOR SERUM K+ 2.5 - 3.5 Last Admin: 07/19/18 05:00 Dose: 100 mls Magnesium Sulfate 1 gm/ Sodium (Chloride) 102 mls @ 102 mls/hr IV PRN PRN PRN Reason: MAG LEVEL 1.4 - 2.0 Last Admin: 07/18/18 11:28 Dose: 102 mls Magnesium Sulfate 2 gm/ Device 50 mls @ 50 mls/hr IVPB ASDIR PRN PRN Reason: MAGNESIUM < 1.4 Last Admin: 07/19/18 10:11 Dose: 50 mls Potassium Phosphate 9 mmol/ (Sodium Chloride) 103 mls @ 25.75 mls/hr IVPB ASDIR PRN PRN Reason: Phosphate 1.0-1.8 Potassium Phosphate 12 mmol/ (Sodium Chloride) 254 mls @ 63.5 mls/hr IV ASDIR PRN PRN Reason: Serum phosphate 0.5-0.9 Potassium Phosphate 15 mmol/ (Sodium Chloride) 255 mls @ 63.75 mls/hr IV ASDIR PRN PRN Reason: Serum Phos < 0.5 Meropenem 1 gm/ Device 50 mls @ 100 mls/hr IVPB Q8HR [facility] Last Admin: 07/19/18 14:27 Dose: 50 mls Ascorbic Acid 1,500 mg/ Sodium (Chloride) 53 mls @ 100 mls/hr IVPB Q6HR [facility] Stop: 07/21/18 12:01 Last Admin: 07/19/18 12:10 Dose: 53 mls Dextrose/Water (D5w) 1,000 mls @ 0 mls/hr IV .Q0M PRN PRN Reason: Hypoglycemia Insulin Glargine 20 units/ (Miscellaneous Medication) 0.2 mls @ 0 mls/hr SC QAM [facility] Last Admin: 07/19/18 09:02 Dose: 0.2 mls Vancomycin HCl 1 gm/ Device 200 mls @ 200 mls/hr IVPB 0500,1700 [facility] Last Admin: 07/19/18 04:13 Dose: 200 mls Dexmedetomidine HCl 400 mcg/ (Sodium Chloride) 100 mls @ 0 mls/hr IVPB INF [facility] Last Admin: 07/19/18 02:15 Dose: 100 mls Fluconazole/Sodium Chloride (400 mg/ Device) 200 mls @ 100 mls/hr IVPB DAILY [facility] Insulin Human Lispro (Humalog) 0 units SC .AGGRESSIVE SLIDING PRN PRN Reason: Aggressive Correctional Scale Last Admin: 07/19/18 09:13 Dose: 3 unit Magnesium Oxide (Magnesium Oxide) 400 mg PO BIDPRN PRN PRN Reason: FOR SERUM MAG 1.4 - 2.0 Magnesium Oxide (Magnesium Oxide) 800 mg PO PRN PRN PRN Reason: FOR SERUM MAG < 1.4 Mineral Oil/White Petrolatum (Systane Nighttime Eye Ointment) 0 gm EA EYE PRN PRN PRN Reason: Dry Eyes Miscellaneous Medication (Pharmacy To Dose) 1 each IVPB PRN PRN PRN Reason: Pharmacy to dose Miscellaneous Medication (Phos-Nak) 1 pkt PO TIDPRN PRN PRN Reason: FOR PHOS LEVEL 1.0 - 1.8 Miscellaneous Medication (Phos-Nak) 2 pkt PO TIDPRN PRN PRN Reason: FOR PHOS LEVEL 0.5 - 1.0 Morphine Sulfate (Morphine) 4 mg SLOW IVP Q2H PRN PRN Reason: Moderate to Severe Pain (6-10) Last Admin: 07/19/18 14:39 Dose: 4 mg Ccu Electrolyte (Replacement Protocol) 0 each FS PRN PRN PRN Reason: FOR ELECTROLYTE REPLACEMENT Potassium Chloride (K-Dur) 40 meq PO ASDIR PRN PRN Reason: FOR SERUM K+ 2.5 - 3.5 Potassium Chloride (Klor-Con) 40 meq PER TUBE ASDIR PRN PRN Reason: FOR SERUM K+ 2.5-3.5 Senna/Docusate Sodium (Senokot S) 2 tab PO BID PRN PRN Reason: Constipation Sodium Chloride (Flush - Normal Saline) 10 ml IVF PRN PRN PRN Reason: Saline Flush Sodium Chloride (Flush - Normal Saline) 10 ml IVF Q12HR [facility] Last Admin: 07/19/18 09:03 Dose: 10 ml Sodium Chloride (Flush - Normal Saline) 10 ml IVF PRN PRN PRN Reason: Saline Flush Thiamine HCl (Thiamine Hcl) 100 mg SLOW IVP DAILY [facility] Last Admin: 07/19/18 09:03 Dose: 100 mg
--- NOTE | 2018-07-19 16:51 | PRG ---
DATE OF SERVICE: 07/19/2018 SUBJECTIVE: The patient is extubated. No distress. OBJECTIVE: GENERAL/VITAL SIGNS: T-max now 100.5, BP 119/90, pulse 87, respirations are 15, and O2 saturation 98%. The wound is dressed at this time. Pleasant. HEENT: Ocular movements conjugate. Central line in place. He has a suprapubic catheter. I's and O's are negative for the past two days. LUNGS: Clear. HEART: S1-S2, regular rate. ABDOMEN: Soft. Extremities: Moves all extremities. LABORATORY DATA: White cell count 3.1, hemoglobin 9.1, and platelets are 110 with 47% neutrophils and liver profile, normal. Albumin is 2.5. HIV serology, negative. Microbiology with strep anginosus, Karina albicans, Staph aureus, coagulase negative Staph, anaerobic gram-negative nelson. These are pretty much present in all the different samples submitted to the micro lab. Staph aureus is methicillin sensitive. 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 Continue meropenem. Add Diflucan in view of the repetitive nature of the retrieval of Karina albicans from the various samples. Job ID: [id number]
[2018-07-20] MEDS: Morphine 4 MG/ML VIAL SLOW IVP PRN ×4 (01:32→11:18)
[2018-07-20 04:51] LABS: Vancomycin, Trough 14.4 ug/mL
[2018-07-20 04:53] LABS: ALT (SGPT) 22 U/L (8-55); AST (SGOT) 28 U/L (5-34); Albumin 2.7 g/dL (3.5-5.0); Alkaline Phosphatase 90 U/L (40-150); Anion Gap 13 mmol/L (10-20); BUN (Urea Nitrogen) 6 mg/dL (8.4-25.7); Bilirubin, Total 1.2 mg/dL (0.2-1.2); Calc. Creatinine Clearance 135 mL/min (70-130); Calcium 8.3 mg/dL (7.8-10.44); Carbon Dioxide 25 mmol/L (22-29); Chloride 104 mmol/L (98-107); Estimated GFR-MDRD Greater than 90; Globulin 2.9 g/dL (2.4-3.5); Glucose 130 mg/dL (70-105); Potassium 3.3 mmol/L (3.5-5.1); Protein, Total 5.6 g/dL (6.0-8.3); Sodium 139 mmol/L (136-145)
[2018-07-20] MEDS: Vancomycin HCl 1 GM in Premix Bag 1 BAG IVPB SCH (05:00)
[2018-07-20 05:13] LABS: Band 6 % (5-11); Hemoglobin 9.1 g/dL (14.0-18.0); Hypochromia SLIGHT = 6-15 cells (100X) (0-5/hpf); Lymphocytes 36 % (21-51); MDiff Complete? YES; Mean Corpuscular HGB CONC 33.2 g/dL (32.0-36.0); Mean Corpuscular Hemoglobin 28.3 pg (27.0-31.0); Mean Corpuscular Volume 85.2 fL (78.0-98.0); Metamyelocyte 2 % (0-0); Monocytes 8 % (0-10); Neutrophil 48 % (42-75); Platelet Count 128 thou/uL (130-400); Platelet Morphology Comment Appears Adequate; RBC Distribution Width 12.8 % (11.5-14.5); Red Blood Cell (RBC) Count 3.22 mill/uL (4.70-6.10); White Blood Cell (WBC) Count 3.6 thou/uL (4.8-10.8)
[2018-07-20] MEDS: MEROPENEM 1 GM/50 ML 1 GM in Premix Bag 1 BAG IVPB SCH ×3 (05:32→22:36)
--- NOTE | 2018-07-20 07:39 | PRG ---
DATE OF SERVICE: 07/20/2018 SUBJECTIVE: Patient is doing well. He is alert and oriented. His clinical history is updated. OBJECTIVE: VITAL SIGNS: Stable. Afebrile. Patient is off insulin drip. Is and Os Urine output 2775, clear yellow. ABDOMEN: Soft, SP tube is adequately secured. : Wound VAC placed is intact with good seal. PERTINENT LABORATORY DATA: White count 3.6, hemoglobin 9.1, and platelet 128. Creatinine 0.7. Blood culture final is negative. Wound culture demonstrates polymicrobial including Karina. Patient on meropenem, vanc, and Diflucan per Infectious Disease. IMPRESSION AND PLAN: Mr. Orlando is a 52-year-old male with poorly controlled diabetes, history of alcohol abuse. Hepatitis C, presented with necrotizing fasciitis of scrotal perineal region. He is postop day #5 from wide debridement, postop day #3 from exam under anesthesia, SP tube diverting colostomy. He is clinically improved, patient can be transferred to surgical floor. will continue wound VAC Tuesday, Tuesday, and Tuesday. reassess his wound tomorrow morning. Job ID: [id number] [facility]
--- NOTE | 2018-07-20 07:47 | PRG ---
DATE OF SERVICE: 07/20/2018 SUBJECTIVE: He is actually doing well. He is very cooperative, apologetic for his previous misbehaviors. OBJECTIVE: VITAL SIGNS: On exam, temperature is 99.0, pulse 82, blood pressure 132/81, and O2 sat 98%. Intake for 24 hours 3962, output 2900. HEENT: Unremarkable. NECK: No adenopathy or JVD. LUNGS: Clear. CARDIAC: S1 and S2. Regular. ABDOMEN: Colostomy site looks clean. GENITOURINARY: His scrotum has a wound VAC that appears to be healing. EXTREMITIES: No edema. LABORATORY DATA: White blood cell count 3.6, hematocrit 27.5, platelet count 128, 48% neutrophils, 6% bands. Sodium 139, potassium 3.3, chloride 104, CO2 of 25, BUN 6, creatinine 0.7, and glucose 130. ASSESSMENT: 1. Karla's gangrene, now status post debridement. 2. Status post diverting colostomy. 3. Resolved septic shock. 4. Streptococcal sepsis. PLAN: Plan will be transferred to the Surgery Floor for further wound care. We will change his Accu-Cheks to a.c. and at bedtime. Diabetic management will be taken over by the Hospitalist Team. He will have a PICC line placed for long-term antibiotic administration. Antibiotics are under the direction of Dr. Iyer. There are no further pulmonary issues and we will sign off the case. Job ID: [id number]
[2018-07-20] MEDS: HumaLOG 300 UNITS/3 ML VIAL SC PRN (07:50)
[2018-07-20] MEDS: Enoxaparin Sodium 40 MG/0.4 ML SYRINGE SC SCH (08:18)
[2018-07-20] MEDS: Famotidine 20 MG TAB PO SCH ×2 (08:19→19:51)
[2018-07-20] MEDS: Folic Acid 1 MG TAB PER TUBE SCH (08:19)
[2018-07-20] MEDS: Insulin Glargine 20 UNITS in Pre-Filled Syringe 1 EACH SC SCH (08:19)
[2018-07-20] MEDS: Fluconazole In NaCl,Iso-Osm 400 MG in Premix Bag 1 BAG IVPB SCH (08:21)
[2018-07-20] MEDS: Multivitamins, Adult 10 ML in Sodium Chloride 0.9% 500 ML IV SCH (08:22)
[2018-07-20] MEDS: Thiamine HCl 200 MG/2 ML VIAL SLOW IVP SCH (08:37)
[2018-07-20] MEDS ORDERED: DC Electrolyte Protocol FS ONE (11:19)
[2018-07-20] MEDS ORDERED: Magnesium 2 GM/50 ML 2 GM in Premix Bag 1 BAG IVPB SCH (12:45)
[2018-07-20] MEDS: HYDROcodone/Acetaminophen 5/325 mg Tablet PO PRN ×3 (13:49→22:36)
[2018-07-20] MEDS ORDERED: Polyethylene Glycol 3350 17 GM Packet PO SCH (14:30)
--- NOTE | 2018-07-20 19:01 | PDOC.PN ---
- Subjective Encounter Start Date: 07/20/18 Encounter Start Time: 10:00 Patient seen and examined for Sepsis. Pain uncontrolled. No fever. No new complaints. No overnight events - Objective Resuscitation Status - Order Detail: 07/15/18 21:39 Resuscitation Status Routine Resuscitation Status: FULL: Full Resuscitation MAR Reviewed: Yes Vital Signs & Weight: Vital Signs (12 hours) Temp Pulse Resp BP Pulse Ox 07/20/18 18:52 98.7 F 79 18 146/93 H 95 07/20/18 12:00 99 F 07/20/18 08:00 99.2 F 96 Weight Admit Weight 190 lb 11.198 oz Weight 175 lb 7.807 oz Most Recent Monitor Data Heart Rate from ECG 77 NIBP 140/87 NIBP BP-Mean 104 Respiration from ECG 26 SpO2 99 I&O: 07/19/18 07/20/18 07/21/18 06:59 06:59 06:59 Intake Total 1612 3962 1050 Output Total 2220 2900 1250 Balance -608 1062 -200 Result Diagrams: 07/20/18 03:30 07/20/18 03:30 Additional Labs: Accuchecks 07/20/18 07/20/18 07/20/18 18:10 11:43 07:48 POC Glucose 135 H 96 152 H 07/20/18 07/19/18 00:04 20:12 POC Glucose 111 H 176 H EKG Reviewed by me: Yes (Tele SR) Phys Exam - Physical Examination Constitutional: NAD Respiratory: no wheezing, no rhonchi Cardiovascular: RRR, no rub Gastrointestinal: soft, positive bowel sounds colostomy + Musculoskeletal: no edema Neurological: moves all 4 limbs Psychiatric: A&O x 3 Dx/Plan - Plan DVT proph w/lovenox, DVT proph w/SCDs IMPRESSION: 1. 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 2. Acute hypoxic respiratory failure secondary to #1. Extubated 3. Uncontrolled diabetes mellitus type 1. s/p Insulin drip 4. Acute kidney injury 5. Metabolic acidosis 6. Hyponatremia/Hypokalemia/Hypomagnesemia 7. Anemia, probably chronic. 8. Chronic hepatitis C with ?cirrhosis 9. Dehydration. 10. Tobacco dependence. 11. Thrombocytopenia. PLAN: Cont Meropenem/Fluconazole Replace Potassium/Magnessium Cont Wound care Cont Lantus at current dose Change sliding scale to Moderate AM lab Transfer to Surg Review of Systems - Review of Systems Respiratory: negative: Cough, Dry, Shortness of Breath, Hemoptysis, SOB with Excertion, Pleuritic Pain, Sputum, Wheezing Cardiovascular: negative: chest pain, palpitations, orthopnea, paroxysmal nocturnal dyspnea, edema, light headedness, other - Medications/Allergies Allergies/Adverse Reactions: Allergies Allergy/AdvReac Type Severity Reaction Status Date / Time No Known Drug Allergies Allergy Verified 07/16/18 01:27 Medications: Current Medications Acetaminophen (Tylenol) 650 mg [place] Q4H PRN PRN Reason: Headache/Fever/Mild Pain (1-3) Last Admin: 07/17/18 00:58 Dose: 650 mg Hydrocodone Bitart/Acetaminophen ([place] 5/325) 1 tab PO Q4H PRN PRN Reason: Moderate Pain (4-6) Last Admin: 07/20/18 18:14 Dose: 1 tab Albuterol/Ipratropium (Duoneb) 3 ml NEB [id number] PRN PRN Reason: Dyspnea Calcium Carbonate (Tums) 1,000 mg PO Q4H PRN PRN Reason: Heartburn or Indigestion Dextrose/Water (Dextrose 50%) 25 gm SLOW IVP PRN PRN PRN Reason: Hypoglycemia Enoxaparin Sodium (Lovenox) 40 mg SC 0900 [facility] Last Admin: 07/20/18 08:18 Dose: 40 mg Famotidine (Pepcid) 20 mg PO BID [facility] Last Admin: 07/20/18 08:19 Dose: 20 mg Folic Acid (Folvite) 1 mg PER TUBE DAILY [facility] Last Admin: 07/20/18 08:19 Dose: 1 mg Glucagon (Glucagon) 1 mg IM PRN PRN PRN Reason: Hypoglycemia Multivitamins 10 ml/ Sodium (Chloride) 510 mls @ 250 mls/hr IV DAILY [facility] Last Admin: 07/20/18 08:22 Dose: 510 mls Meropenem 1 gm/ Device 50 mls @ 100 mls/hr IVPB Q8HR [facility] Last Admin: 07/20/18 13:44 Dose: 50 mls Ascorbic Acid 1,500 mg/ Sodium (Chloride) 53 mls @ 100 mls/hr IVPB Q6HR [facility] Stop: 07/21/18 12:01 Last Admin: 07/20/18 12:21 Dose: 53 mls Dextrose/Water (D5w) 1,000 mls @ 0 mls/hr IV .Q0M PRN PRN Reason: Hypoglycemia Insulin Glargine 20 units/ (Miscellaneous Medication) 0.2 mls @ 0 mls/hr SC QAM [facility] Last Admin: 07/20/18 08:19 Dose: 0.2 mls Fluconazole/Sodium Chloride (400 mg/ Device) 200 mls @ 100 mls/hr IVPB DAILY [facility] Last Admin: 07/20/18 08:21 Dose: 200 mls Insulin Human Regular (Humulin R) 0 units SC .MODERATE SLIDING SC PRN PRN Reason: Moderate Correctional Scale Mineral Oil/White Petrolatum (Systane Nighttime Eye Ointment) 0 gm EA EYE PRN PRN PRN Reason: Dry Eyes Miscellaneous Information (Dc Electrolyte Protocol) 1 each FS ONE ONE Stop: 07/20/18 11:20 Miscellaneous Medication (Pharmacy To Dose) 1 each IVPB PRN PRN PRN Reason: Pharmacy to dose Morphine Sulfate (Morphine) 4 mg SLOW IVP Q2H PRN PRN Reason: Moderate to Severe Pain (6-10) Last Admin: 07/20/18 11:18 Dose: 4 mg Polyethylene Glycol (Miralax) 17 gm PO DAILY [facility] Saccharomyces Boulardii (Florastor) 250 mg PO DAILY [facility] Sodium Chloride (Flush - Normal Saline) 10 ml IVF PRN PRN PRN Reason: Saline Flush Sodium Chloride (Flush - Normal Saline) 10 ml IVF Q12HR [facility] Last Admin: 07/20/18 09:00 Dose: 10 ml Sodium Chloride (Flush - Normal Saline) 10 ml IVF PRN PRN PRN Reason: Saline Flush Thiamine HCl (Thiamine Hcl) 100 mg SLOW IVP DAILY [facility] Last Admin: 07/20/18 08:37 Dose: 100 mg
[2018-07-21] MEDS: HYDROcodone/Acetaminophen 5/325 mg Tablet PO PRN ×2 (03:18→20:03)
[2018-07-21] MEDS: MEROPENEM 1 GM/50 ML 1 GM in Premix Bag 1 BAG IVPB SCH ×2 (05:07→13:54)
[2018-07-21] MEDS: Morphine 4 MG/ML VIAL SLOW IVP PRN ×2 (07:08→07:24)
[2018-07-21 07:25] LABS: ALT (SGPT) 24 U/L (8-55); AST (SGOT) 31 U/L (5-34); Albumin 2.8 g/dL (3.5-5.0); Alkaline Phosphatase 121 U/L (40-150); Anion Gap 12 mmol/L (10-20); BUN (Urea Nitrogen) 6 mg/dL (8.4-25.7); Bilirubin, Total 1.1 mg/dL (0.2-1.2); Calc. Creatinine Clearance 123 mL/min (70-130); Calcium 8.4 mg/dL (7.8-10.44); Carbon Dioxide 26 mmol/L (22-29); Chloride 104 mmol/L (98-107); Estimated GFR-MDRD Greater than 90; Glucose 95 mg/dL (70-105); Magnesium 1.4 mg/dL (1.6-2.6); Potassium 3.6 mmol/L (3.5-5.1); Protein, Total 5.8 g/dL (6.0-8.3); Sodium 138 mmol/L (136-145)
[2018-07-21] MEDS ORDERED: Lidocaine 4% Topical Sol 50 ML BOT TOP SCH (07:30)
[2018-07-21 07:45] LABS: Hemoglobin 9.8 g/dL (14.0-18.0); Mean Corpuscular Hemoglobin 28.4 pg (27.0-31.0); Mean Corpuscular Volume 85.9 fL (78.0-98.0); Mean Platelet Volume 5.8 fL (7.4-10.4); Platelet Count 143 thou/uL (130-400); RBC Distribution Width 12.8 % (11.5-14.5); Red Blood Cell (RBC) Count 3.44 mill/uL (4.70-6.10); White Blood Cell (WBC) Count 4.3 thou/uL (4.8-10.8)
[2018-07-21 08:17] LABS: Band 14 % (5-11); Eosinophils 3 % (0-10); Lymphocytes 21 % (21-51); MDiff Complete? YES; Monocytes 4 % (0-10); Neutrophil 58 % (42-75); Platelet Morphology Comment Appears Adequate; Polychromasia SLIGHT = 2-3 cells (100X) (0-2/hpf)
--- NOTE | 2018-07-21 08:54 | PRG ---
DATE OF SERVICE: 07/21/2018 SUBJECTIVE: The patient without complaints, doing well. He is alert, oriented, cooperative to physical exam. OBJECTIVE: VITAL SIGNS: Stable. He is afebrile. I's and O's, colostomy draining stool and gas, urine output 4140, clear yellow. ABDOMEN: Soft, SP tube. Dressing is changed. No evidence of erythema, induration at the SP tube site. : Wound VAC is removed. Wound inspected and irrigated. He is developing good granulating tissue. I did debride some fibrinous exudate of the dartos fascia wound. There is no pustular discharge or foul-smelling odor appreciated. There was some devitalized tissue at the edges on the right lateral side, which I debrided sharply at bedside. The tunic vaginalis overlying the testes appeared to have good granulating tissue. Case turned over to Wound Care, a new wound VAC is to be placed. IMPRESSION AND PLAN: 1. Mr. Orlando is a 52-year-old male with history of poorly controlled diabetes. 2. Hepatitis C. 3. Presented with necrotizing fasciitis of the scrotum, perineum, postoperative day #6 from wide debridement. 4. Status post exam under anesthesia, suprapubic tube, diverting colostomy. His wound is stable, progressing with granulating tissue with minimal devitalized tissue. will continue his wound VAC changes Tuesday, Tuesday, and Tuesday. Continue meropenem, Diflucan per Infectious Disease. Continue aggressive sliding scale insulin. Job ID: [id number] [facility]
[2018-07-21] MEDS: Enoxaparin Sodium 40 MG/0.4 ML SYRINGE SC SCH (09:02)
[2018-07-21] MEDS: Famotidine 20 MG TAB PO SCH ×2 (09:03→20:04)
[2018-07-21] MEDS: Folic Acid 1 MG TAB PER TUBE SCH (09:03)
[2018-07-21] MEDS: Fluconazole In NaCl,Iso-Osm 400 MG in Premix Bag 1 BAG IVPB SCH (09:03)
[2018-07-21] MEDS: Saccharomyces boulardii 250 MG CAP PO SCH (09:04)
[2018-07-21] MEDS: Insulin Glargine 20 UNITS in Pre-Filled Syringe 1 EACH SC SCH (09:04)
[2018-07-21] MEDS: Polyethylene Glycol 3350 17 GM Packet PO SCH (09:04)
[2018-07-21] MEDS: Multivitamins, Adult 10 ML in Sodium Chloride 0.9% 500 ML IV SCH (09:04)
[2018-07-21] MEDS: Thiamine HCl 200 MG/2 ML VIAL SLOW IVP SCH (09:04)
[2018-07-21] MEDS ORDERED: Magnesium Sulfate 4 GM in Sodium Chloride 0.9% 250 ML 250 ML IVPB SCH (09:15)
[2018-07-21] MEDS: cefTRIAXone\\ROCEPHIN 1 GM in Sodium Chloride 0.9% 100 ML IVPB SCH (15:42)
[2018-07-21] MEDS: metroNIDAZOLE 500 MG TAB PO SCH ×2 (15:42→20:04)
--- NOTE | 2018-07-21 16:59 | SPC ---
Ultrasound and Fluoroscopic guidedleftupper extremity single lumenPICC placement: 06/20/2018 HISTORY: Need for central vascular access. FINDINGS: Informed consent obtained prior to the procedure. Left antecubital fossa prepped and draped in normal sterile fashion. Skin overlying thebrachialvein anesthetized with 1% buffered lidocaine. With direct sonographic [place] nce, vascular access is obtained via the brachialvein and an 0.018in wire was advanced to the superior vena cava. Intravascular length is calculated at 41 cm and of the PICC is cut accordingly. Needle is removed and replaced with a peel-away sheath. The PICC was advanced over the wire. Wire and peel-away sheath were removed. The tip of the catheter overlies the superior vena cava. The port flushes well and the catheter is ready for use. Exposure data: 0 minutes of fluoroscopic time 3.0 mGy per centimeter squared IMPRESSION: Successful ultrasound guided placement of a leftupper extremity PICC.
--- NOTE | 2018-07-21 20:43 | PDOC.PN ---
- Subjective Encounter Start Date: 07/21/18 Encounter Start Time: 10:45 Patient seen and examined for Sepsis. No new complaints. No overnight events - Objective Resuscitation Status - Order Detail: 07/15/18 21:39 Resuscitation Status Routine Resuscitation Status: FULL: Full Resuscitation MAR Reviewed: Yes Vital Signs & Weight: Vital Signs (12 hours) Temp Pulse Resp BP Pulse Ox 07/21/18 20:00 99.1 F 76 16 127/80 97 07/21/18 16:52 98.5 F 80 20 161/93 H 95 07/21/18 11:10 98.1 F 83 20 148/82 H 96 Weight Admit Weight 190 lb 11.198 oz Weight 175 lb Most Recent Monitor Data Heart Rate from ECG 77 NIBP 140/87 NIBP BP-Mean 104 Respiration from ECG 26 SpO2 99 I&O: 07/20/18 07/21/18 07/22/18 06:59 06:59 06:59 Intake Total 3962 2033 1810 Output Total 2900 4610 Balance 1062 -2577 1810 Result Diagrams: 07/21/18 06:44 07/21/18 06:44 Additional Labs: Accuchecks 07/21/18 07/21/18 07/20/18 15:50 11:39 21:57 POC Glucose 140 H 135 H 130 H Phys Exam - Physical Examination Constitutional: NAD Respiratory: no wheezing, no rhonchi Cardiovascular: RRR, no rub Gastrointestinal: soft, positive bowel sounds Colostomy - liqd stool Dx/Plan - Plan IMPRESSION: 1. 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 2. Acute hypoxic respiratory failure secondary to #1. Extubated 3. Uncontrolled diabetes mellitus type 1. s/p Insulin drip 4. Acute kidney injury- improved 5. Metabolic acidosis 6. Hyponatremia/Hypokalemia/Hypomagnesemia 7. Anemia, probably chronic. 8. Chronic hepatitis C with ?cirrhosis 9. Dehydration. 10. Tobacco dependence. 11. Thrombocytopenia. PLAN: Replace Magnessium (1.4 today) DC daily labs Cont IV Ceftriaxone with PO Flagyl Cont Fluconazole Cont Wound care Cont Lantus/sliding scale Review of Systems - Review of Systems Respiratory: negative: Cough, Dry, Shortness of Breath, Hemoptysis, SOB with Excertion, Pleuritic Pain, Sputum, Wheezing Cardiovascular: negative: chest pain, palpitations, orthopnea, paroxysmal nocturnal dyspnea, edema, light headedness, other - Medications/Allergies Allergies/Adverse Reactions: Allergies Allergy/AdvReac Type Severity Reaction Status Date / Time No Known Drug Allergies Allergy Verified 07/16/18 01:27 Medications: Current Medications Acetaminophen (Tylenol) 650 mg [place] Q4H PRN PRN Reason: Headache/Fever/Mild Pain (1-3) Last Admin: 07/17/18 00:58 Dose: 650 mg Hydrocodone Bitart/Acetaminophen ([place] 5/325) 1 tab PO Q4H PRN PRN Reason: Moderate Pain (4-6) Last Admin: 07/21/18 20:03 Dose: 1 tab Albuterol/Ipratropium (Duoneb) 3 ml NEB [id number] PRN PRN Reason: Dyspnea Calcium Carbonate (Tums) 1,000 mg PO Q4H PRN PRN Reason: Heartburn or Indigestion Dextrose/Water (Dextrose 50%) 25 gm SLOW IVP PRN PRN PRN Reason: Hypoglycemia Enoxaparin Sodium (Lovenox) 40 mg SC 0900 [facility] Last Admin: 07/21/18 09:02 Dose: 40 mg Famotidine (Pepcid) 20 mg PO BID [facility] Last Admin: 07/21/18 20:04 Dose: 20 mg Folic Acid (Folvite) 1 mg PO DAILY [facility] Glucagon (Glucagon) 1 mg IM PRN PRN PRN Reason: Hypoglycemia Dextrose/Water (D5w) 1,000 mls @ 0 mls/hr IV .Q0M PRN PRN Reason: Hypoglycemia Insulin Glargine 20 units/ (Miscellaneous Medication) 0.2 mls @ 0 mls/hr SC QAM [facility] Last Admin: 07/21/18 09:04 Dose: 0.2 mls Fluconazole/Sodium Chloride (400 mg/ Device) 200 mls @ 100 mls/hr IVPB DAILY [facility] Last Admin: 07/21/18 09:03 Dose: 200 mls Ceftriaxone Sodium 1 gm/ (Sodium Chloride) 100 mls @ 200 mls/hr IVPB Q24HR [facility] Last Admin: 07/21/18 15:42 Dose: 100 mls Insulin Human Regular (Humulin R) 0 units SC .MODERATE SLIDING SC PRN PRN Reason: Moderate Correctional Scale Metronidazole (Flagyl) 500 mg PO TID [facility] Last Admin: 07/21/18 20:04 Dose: 500 mg Mineral Oil/White Petrolatum (Systane Nighttime Eye Ointment) 0 gm EA EYE PRN PRN PRN Reason: Dry Eyes Morphine Sulfate (Morphine) 4 mg SLOW IVP Q2H PRN PRN Reason: Moderate to Severe Pain (6-10) Last Admin: 07/21/18 07:24 Dose: 4 mg Multivitamins (Theragran) 1 tab PO DAILY [facility] Polyethylene Glycol (Miralax) 17 gm PO DAILY [facility] Last Admin: 07/21/18 09:04 Dose: 17 gm Saccharomyces Boulardii (Florastor) 250 mg PO DAILY [facility] Last Admin: 07/21/18 09:04 Dose: 250 mg Sodium Chloride (Flush - Normal Saline) 10 ml IVF PRN PRN PRN Reason: Saline Flush Sodium Chloride (Flush - Normal Saline) 10 ml IVF Q12HR [facility] Last Admin: 07/21/18 20:05 Dose: 10 ml Sodium Chloride (Flush - Normal Saline) 10 ml IVF PRN PRN PRN Reason: Saline Flush Thiamine HCl (Thiamine Hcl) 100 mg SLOW IVP DAILY [facility] Last Admin: 07/21/18 09:04 Dose: 100 mg
[2018-07-22] MEDS: HYDROcodone/Acetaminophen 5/325 mg Tablet PO PRN ×3 (03:08→21:23)
[2018-07-22] MEDS: Multivit, Therapeutic 1 TAB PO SCH (08:57)
[2018-07-22] MEDS: Famotidine 20 MG TAB PO SCH ×2 (08:57→21:23)
[2018-07-22] MEDS: metroNIDAZOLE 500 MG TAB PO SCH ×3 (08:57→21:23)
[2018-07-22] MEDS: Polyethylene Glycol 3350 17 GM Packet PO SCH (08:58)
[2018-07-22] MEDS: Enoxaparin Sodium 40 MG/0.4 ML SYRINGE SC SCH (08:58)
[2018-07-22] MEDS: Thiamine HCl 200 MG/2 ML VIAL SLOW IVP SCH (08:58)
[2018-07-22] MEDS: Folic Acid 1 MG TAB PO SCH (08:58)
[2018-07-22] MEDS: Saccharomyces boulardii 250 MG CAP PO SCH (08:58)
[2018-07-22] MEDS: Insulin Glargine 20 UNITS in Pre-Filled Syringe 1 EACH SC SCH (09:05)
[2018-07-22] MEDS: Fluconazole In NaCl,Iso-Osm 400 MG in Premix Bag 1 BAG IVPB SCH (09:17)
[2018-07-22] MEDS: cefTRIAXone\\ROCEPHIN 1 GM in Sodium Chloride 0.9% 100 ML IVPB SCH (14:54)
--- NOTE | 2018-07-22 16:36 | PDOC.PN ---
- Subjective Encounter Start Date: 07/22/18 Encounter Start Time: 12:00 Patient seen and examined for Sepsis/Fourniers gangrene. Doing well. No fever/N/ V. No new complaints. No overnight events - Objective Resuscitation Status - Order Detail: 07/15/18 21:39 Resuscitation Status Routine Resuscitation Status: FULL: Full Resuscitation MAR Reviewed: Yes Vital Signs & Weight: Vital Signs (12 hours) Temp Pulse Resp BP Pulse Ox 07/22/18 16:00 96 07/22/18 12:13 98.6 F 78 20 125/78 97 07/22/18 12:00 96 07/22/18 09:01 99.0 F 84 20 108/72 93 L 07/22/18 08:00 95 Weight Admit Weight 190 lb 11.198 oz Weight 196 lb 13.965 oz Most Recent Monitor Data Heart Rate from ECG 77 NIBP 140/87 NIBP BP-Mean 104 Respiration from ECG 26 SpO2 99 I&O: 07/21/18 07/22/18 07/23/18 06:59 06:59 06:59 Intake Total 20320 Output Total 4610 1999 Balance -2577 620 Result Diagrams: 07/21/18 06:44 07/21/18 06:44 Additional Labs: Accuchecks 07/22/18 07/22/18 07/22/18 15:27 11:01 05:36 POC Glucose 158 H 158 H 147 H Phys Exam - Physical Examination Constitutional: NAD Respiratory: no wheezing, no rhonchi Cardiovascular: RRR, no rub Gastrointestinal: soft, positive bowel sounds Musculoskeletal: no edema Neurological: moves all 4 limbs Dx/Plan - Plan DVT proph w/lovenox, DVT proph w/SCDs IMPRESSION: 1. 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 2. Acute hypoxic respiratory failure requring mech ventilation 3. Uncontrolled diabetes mellitus type 1 requiring Insulin drip 4. Acute kidney injury- improved 5. Metabolic acidosis 6. Hyponatremia/Hypokalemia/Hypomagnesemia 7. Anemia, probably chronic. 8. Chronic hepatitis C with ?cirrhosis 9. Dehydration. 10. Tobacco dependence. 11. Thrombocytopenia. PLAN: AM labs Cont Ceftriaxone/Flagyl Cont Fluconazole for Karina from cultures Cont Wound care Cont current dose of Lantus/sliding scale SNF eval Review of Systems - Review of Systems Respiratory: negative: Cough, Dry, Shortness of Breath, Hemoptysis, SOB with Excertion, Pleuritic Pain, Sputum, Wheezing Cardiovascular: negative: chest pain, palpitations, orthopnea, paroxysmal nocturnal dyspnea, edema, light headedness, other - Medications/Allergies Allergies/Adverse Reactions: Allergies Allergy/AdvReac Type Severity Reaction Status Date / Time No Known Drug Allergies Allergy Verified 07/16/18 01:27 Medications: Current Medications Acetaminophen (Tylenol) 650 mg [place] Q4H PRN PRN Reason: Headache/Fever/Mild Pain (1-3) Last Admin: 07/17/18 00:58 Dose: 650 mg Hydrocodone Bitart/Acetaminophen ([place] 5/325) 1 tab PO Q4H PRN PRN Reason: Moderate Pain (4-6) Last Admin: 07/22/18 06:39 Dose: 1 tab Albuterol/Ipratropium (Duoneb) 3 ml NEB [id number] PRN PRN Reason: Dyspnea Calcium Carbonate (Tums) 1,000 mg PO Q4H PRN PRN Reason: Heartburn or Indigestion Dextrose/Water (Dextrose 50%) 25 gm SLOW IVP PRN PRN PRN Reason: Hypoglycemia Enoxaparin Sodium (Lovenox) 40 mg SC 0900 [facility] Last Admin: 07/22/18 08:58 Dose: 40 mg Famotidine (Pepcid) 20 mg PO BID [facility] Last Admin: 07/22/18 08:57 Dose: 20 mg Folic Acid (Folvite) 1 mg PO DAILY [facility] Last Admin: 07/22/18 08:58 Dose: 1 mg Glucagon (Glucagon) 1 mg IM PRN PRN PRN Reason: Hypoglycemia Dextrose/Water (D5w) 1,000 mls @ 0 mls/hr IV .Q0M PRN PRN Reason: Hypoglycemia Insulin Glargine 20 units/ (Miscellaneous Medication) 0.2 mls @ 0 mls/hr SC QAM [facility] Last Admin: 07/22/18 09:05 Dose: 0.2 mls Fluconazole/Sodium Chloride (400 mg/ Device) 200 mls @ 100 mls/hr IVPB DAILY [facility] Last Admin: 07/22/18 09:17 Dose: 200 mls Ceftriaxone Sodium 1 gm/ (Sodium Chloride) 100 mls @ 200 mls/hr IVPB Q24HR [facility] Last Admin: 07/22/18 14:54 Dose: 100 mls Insulin Human Regular (Humulin R) 0 units SC .MODERATE SLIDING SC PRN PRN Reason: Moderate Correctional Scale Lidocaine HCl (Xylocaine 4% Topical Nannette) 0 ml TOP [email or web address] [facility] Metronidazole (Flagyl) 500 mg PO TID [facility] Last Admin: 07/22/18 14:54 Dose: 500 mg Mineral Oil/White Petrolatum (Systane Nighttime Eye Ointment) 0 gm EA EYE PRN PRN PRN Reason: Dry Eyes Morphine Sulfate (Morphine) 4 mg SLOW IVP Q2H PRN PRN Reason: Moderate to Severe Pain (6-10) Last Admin: 07/21/18 07:24 Dose: 4 mg Multivitamins (Theragran) 1 tab PO DAILY [facility] Last Admin: 07/22/18 08:57 Dose: 1 tab Polyethylene Glycol (Miralax) 17 gm PO DAILY [facility] Last Admin: 07/22/18 08:58 Dose: 17 gm Saccharomyces Boulardii (Florastor) 250 mg PO DAILY [facility] Last Admin: 07/22/18 08:58 Dose: 250 mg Sodium Chloride (Flush - Normal Saline) 10 ml IVF PRN PRN PRN Reason: Saline Flush Sodium Chloride (Flush - Normal Saline) 10 ml IVF Q12HR [facility] Last Admin: 07/22/18 08:58 Dose: 10 ml Sodium Chloride (Flush - Normal Saline) 10 ml IVF PRN PRN PRN Reason: Saline Flush Thiamine HCl (Thiamine Hcl) 100 mg SLOW IVP DAILY [facility] Last Admin: 07/22/18 08:58 Dose: 100 mg
[2018-07-23] MEDS: HYDROcodone/Acetaminophen 5/325 mg Tablet PO PRN ×3 (04:33→20:55)
[2018-07-23 05:03] LABS: #Eosinphils 0.1 thou/uL (0.0-0.7); #Lymphocytes 1.3 thou/uL (1.20-3.40); #Monocytes 0.4 thou/uL (0.11-0.59); #Neutrophils 2.5 thou/uL (1.40-6.50); %Basophils 0.3 % (0.0-1.0); %Eosinophils 2.2 % (0.0-10.0); %Lymphocytes 29.4 % (21.0-51.0); %Monocytes 9.8 % (0.0-10.0); %Neutrophils 58.3 % (42.0-75.0); Hemoglobin 9.9 g/dL (14.0-18.0); Mean Corpuscular HGB CONC 32.4 g/dL (32.0-36.0); Mean Corpuscular Hemoglobin 28.1 pg (27.0-31.0); Mean Platelet Volume 6.2 fL (7.4-10.4); Platelet Count 197 thou/uL (130-400); RBC Distribution Width 13.3 % (11.5-14.5); White Blood Cell (WBC) Count 4.4 thou/uL (4.8-10.8)
[2018-07-23 05:36] LABS: Anion Gap 10 mmol/L (10-20); BUN (Urea Nitrogen) 9 mg/dL (8.4-25.7); Calc. Creatinine Clearance 129 mL/min (70-130); Calcium 8.3 mg/dL (7.8-10.44); Carbon Dioxide 29 mmol/L (22-29); Chloride 103 mmol/L (98-107); Estimated GFR-MDRD Greater than 90; Glucose 176 mg/dL (70-105); Magnesium 1.5 mg/dL (1.6-2.6); Potassium 3.5 mmol/L (3.5-5.1); Sodium 138 mmol/L (136-145)
[2018-07-23] MEDS ORDERED: Magnesium 2 GM/50 ML 2 GM in Premix Bag 1 BAG IVPB SCH (08:30)
[2018-07-23] MEDS: Insulin Glargine 20 UNITS in Pre-Filled Syringe 1 EACH SC SCH (09:20)
[2018-07-23] MEDS: metroNIDAZOLE 500 MG TAB PO SCH ×3 (09:21→20:55)
[2018-07-23] MEDS: Thiamine HCl 200 MG/2 ML VIAL SLOW IVP SCH (09:21)
[2018-07-23] MEDS: Folic Acid 1 MG TAB PO SCH (09:22)
[2018-07-23] MEDS: Polyethylene Glycol 3350 17 GM Packet PO SCH (09:22)
[2018-07-23] MEDS: Famotidine 20 MG TAB PO SCH ×2 (09:22→20:55)
[2018-07-23] MEDS: Enoxaparin Sodium 40 MG/0.4 ML SYRINGE SC SCH (09:22)
[2018-07-23] MEDS: Saccharomyces boulardii 250 MG CAP PO SCH (09:22)
[2018-07-23] MEDS: Multivit, Therapeutic 1 TAB PO SCH (09:22)
[2018-07-23] MEDS: Fluconazole In NaCl,Iso-Osm 400 MG in Premix Bag 1 BAG IVPB SCH (09:23)
[2018-07-23] MEDS: Insulin Regular 300 UNITS/3 ML VIAL SC PRN ×2 (13:05→15:45)
--- NOTE | 2018-07-23 15:16 | PDOC.PN ---
- Subjective Encounter Start Date: 07/23/18 Encounter Start Time: 12:30 Patient seen and examined for Sepsis. Pain controlled. No fever/chills. No new complaints. No overnight events - Objective Resuscitation Status - Order Detail: 07/15/18 21:39 Resuscitation Status Routine Resuscitation Status: FULL: Full Resuscitation MAR Reviewed: Yes Vital Signs & Weight: Vital Signs (12 hours) Temp Pulse Resp BP Pulse Ox 07/23/18 12:00 91 L 07/23/18 08:00 93 L 07/23/18 07:00 98.1 F 65 18 106/67 93 L 07/23/18 04:00 98.8 F 74 16 118/76 94 L Weight Admit Weight 190 lb 11.198 oz Weight 195 lb Most Recent Monitor Data Heart Rate from ECG 77 NIBP 140/87 NIBP BP-Mean 104 Respiration from ECG 26 SpO2 99 I&O: 07/22/18 07/23/18 07/24/18 06:59 06:59 06:59 Intake Total 2620 1430 Output Total 2000 1500 Balance 620 -70 Result Diagrams: 07/23/18 04:40 07/23/18 04:40 Additional Labs: Accuchecks 07/23/18 07/23/18 07/22/18 10:31 05:23 20:59 POC Glucose 190 H 158 H 159 H 07/22/18 15:27 POC Glucose 158 H Laboratory Tests 07/23/18 04:40 Magnesium 1.5 L Phys Exam - Physical Examination Constitutional: NAD Respiratory: no wheezing, no rhonchi Cardiovascular: RRR, no rub Gastrointestinal: soft, non-tender, positive bowel sounds Musculoskeletal: no edema Neurological: moves all 4 limbs Dx/Plan - Plan DVT proph w/lovenox, DVT proph w/SCDs IMPRESSION: 1. 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 2. Acute hypoxic [facility] 3. Uncontrolled diabetes mellitus type 1 requiring Insulin drip 4. Acute kidney injury- improved 5. Metabolic acidosis 6. Hyponatremia/Hypokalemia/Hypomagnesemia 7. Anemia, probably chronic. 8. Chronic hepatitis C with ?cirrhosis 9. Dehydration. 10. Tobacco dependence. 11. Thrombocytopenia. 12. s/p Suprapubic Catheter/Colostomy PLAN: Replace Magnessium Cont Ceftriaxone/Flagyl/Fluconazole Cont Wound care/Wound Vac Cont Lantus/sliding scale SNF eval Review of Systems - Review of Systems Respiratory: negative: Cough, Dry, Shortness of Breath, Hemoptysis, SOB with Excertion, Pleuritic Pain, Sputum, Wheezing Cardiovascular: negative: chest pain, palpitations, orthopnea, paroxysmal nocturnal dyspnea, edema, light headedness, other Gastrointestinal: negative: Nausea, Vomiting, Abdominal Pain, Diarrhea, Constipation, Melena, Hematochezia, Other - Medications/Allergies Allergies/Adverse Reactions: Allergies Allergy/AdvReac Type Severity Reaction Status Date / Time No Known Drug Allergies Allergy Verified 07/16/18 01:27 Medications: Current Medications Acetaminophen (Tylenol) 650 mg [place] Q4H PRN PRN Reason: Headache/Fever/Mild Pain (1-3) Last Admin: 07/17/18 00:58 Dose: 650 mg Hydrocodone Bitart/Acetaminophen ([place] 5/325) 1 tab PO Q4H PRN PRN Reason: Moderate Pain (4-6) Last Admin: 07/23/18 09:19 Dose: 1 tab Albuterol/Ipratropium (Duoneb) 3 ml NEB [id number] PRN PRN Reason: Dyspnea Calcium Carbonate (Tums) 1,000 mg PO Q4H PRN PRN Reason: Heartburn or Indigestion Dextrose/Water (Dextrose 50%) 25 gm SLOW IVP PRN PRN PRN Reason: Hypoglycemia Enoxaparin Sodium (Lovenox) 40 mg SC 0900 [facility] Last Admin: 07/23/18 09:22 Dose: 40 mg Famotidine (Pepcid) 20 mg PO BID [facility] Last Admin: 07/23/18 09:22 Dose: 20 mg Folic Acid (Folvite) 1 mg PO DAILY [facility] Last Admin: 07/23/18 09:22 Dose: 1 mg Glucagon (Glucagon) 1 mg IM PRN PRN PRN Reason: Hypoglycemia Dextrose/Water (D5w) 1,000 mls @ 0 mls/hr IV .Q0M PRN PRN Reason: Hypoglycemia Insulin Glargine 20 units/ (Miscellaneous Medication) 0.2 mls @ 0 mls/hr SC QAM [facility] Last Admin: 07/23/18 09:20 Dose: 0.2 mls Fluconazole/Sodium Chloride (400 mg/ Device) 200 mls @ 100 mls/hr IVPB DAILY [facility] Last Admin: 07/23/18 09:23 Dose: 200 mls Ceftriaxone Sodium 1 gm/ (Sodium Chloride) 100 mls @ 200 mls/hr IVPB Q24HR [facility] Last Admin: 07/22/18 14:54 Dose: 100 mls Insulin Human Regular (Humulin R) 0 units SC .MODERATE SLIDING SC PRN PRN Reason: Moderate Correctional Scale Last Admin: 07/23/18 13:05 Dose: 2 unit Lidocaine HCl (Xylocaine 4% Topical Nannette) 0 ml TOP [email or web address] [facility] Metronidazole (Flagyl) 500 mg PO TID [facility] Last Admin: 07/23/18 09:21 Dose: 500 mg Mineral Oil/White Petrolatum (Systane Nighttime Eye Ointment) 0 gm EA EYE PRN PRN PRN Reason: Dry Eyes Morphine Sulfate (Morphine) 4 mg SLOW IVP Q2H PRN PRN Reason: Moderate to Severe Pain (6-10) Last Admin: 07/21/18 07:24 Dose: 4 mg Multivitamins (Theragran) 1 tab PO DAILY [facility] Last Admin: 07/23/18 09:22 Dose: 1 tab Polyethylene Glycol (Miralax) 17 gm PO DAILY [facility] Last Admin: 07/23/18 09:22 Dose: 17 gm Saccharomyces Boulardii (Florastor) 250 mg PO DAILY [facility] Last Admin: 07/23/18 09:22 Dose: 250 mg Sodium Chloride (Flush - Normal Saline) 10 ml IVF PRN PRN PRN Reason: Saline Flush Sodium Chloride (Flush - Normal Saline) 10 ml IVF Q12HR [facility] Last Admin: 07/23/18 09:24 Dose: 10 ml Sodium Chloride (Flush - Normal Saline) 10 ml IVF PRN PRN PRN Reason: Saline Flush Thiamine HCl (Thiamine Hcl) 100 mg SLOW IVP DAILY [facility] Last Admin: 07/23/18 09:21 Dose: 100 mg
[2018-07-23] MEDS: cefTRIAXone\\ROCEPHIN 1 GM in Sodium Chloride 0.9% 100 ML IVPB SCH (15:44)
[2018-07-24] MEDS ORDERED: Lidocaine 4% Topical Sol 50 ML BOT TOP SCH (05:01)
[2018-07-24] MEDS: HYDROcodone/Acetaminophen 5/325 mg Tablet PO PRN ×4 (06:06→21:14)
[2018-07-24] MEDS: Morphine 4 MG/ML VIAL SLOW IVP PRN ×2 (06:52→08:56)
--- NOTE | 2018-07-24 08:14 | PRG ---
DATE OF SERVICE: 07/24/2018 SUBJECTIVE: The patient without complaints, uneventful weekend. Denies fever or chills. OBJECTIVE: VITAL SIGNS: Stable. He is afebrile. I's and O's, urine output 1770 per SP tube. Urine output clear. ABDOMEN: Soft. No rigidity. No rebound. : His pre-existing wound VAC was taken down. Wound inspected. Lidocaine topical was instilled and the patient provided 4 mg of IV push morphine for pain control. Wound demonstrates good granulating tissue coming in. It is progressing well. Minimal eschar was debrided. At the right superior lateral skin edge, there was more fibrinous exudate, devitalized tissue, that was debrided. I did probe deeper, which there was a small minimal pustular discharge. It was debrided to allow access to wound VAC. There was no pooling of pus noted in this area. There was minimal serous discharge collected in the right upper aspect of the wound contained, which was opened and debrided. There was healthy granulating tissue, and the right testicle itself is adherent to granulating tissue. Left testicle is still free-floating with good granulating tunica vaginalis. The wound does demonstrate some contracture with progressing granulating tissue. PERTINENT LABORATORY DATA: White count 4.4, hemoglobin stable 9.9, platelet 197. Renal function stable. Blood sugars running in mid to high 100s. The patient is on antibiotic, Rocephin, fluconazole, Flagyl per Infectious Disease. IMPRESSION AND PLAN: Mr. Orlando is a 52-year-old male with past medical history of, 1. Poorly controlled diabetes. 2. History of hepatitis C. 3. Admitted for scrotal, perineal necrotizing fasciitis. He is postoperative day number 8 wide debridement. Postoperative day number 7, exam under anesthesia, suprapubic tube, colostomy. His wound is progressing well. We will continue wound VAC Tuesday, Tuesday, Tuesday. Pending progression of his wound, the patient will need placement for alf to continue wound VAC. I anticipate the patient will require wound VAC minimum 4 to 6 weeks. As it is progressing well, we will assess the patient for possible discharge this Tuesday versus next week. He will need strict control of his diabetes with sliding scale. Anticipate antibiotic regimen for minimum 4 to 6 weeks as well. Job ID: [id number] [facility]
[2018-07-24] MEDS: Insulin Glargine 20 UNITS in Pre-Filled Syringe 1 EACH SC SCH (08:17)
[2018-07-24] MEDS: Enoxaparin Sodium 40 MG/0.4 ML SYRINGE SC SCH (08:17)
[2018-07-24] MEDS: Fluconazole In NaCl,Iso-Osm 400 MG in Premix Bag 1 BAG IVPB SCH (08:18)
[2018-07-24] MEDS: Polyethylene Glycol 3350 17 GM Packet PO SCH (08:18)
[2018-07-24] MEDS: Famotidine 20 MG TAB PO SCH ×2 (08:18→20:13)
[2018-07-24] MEDS: metroNIDAZOLE 500 MG TAB PO SCH ×3 (08:18→20:13)
[2018-07-24] MEDS: Saccharomyces boulardii 250 MG CAP PO SCH (08:18)
[2018-07-24] MEDS: Folic Acid 1 MG TAB PO SCH (08:18)
[2018-07-24] MEDS: Multivit, Therapeutic 1 TAB PO SCH (08:18)
[2018-07-24] MEDS: Thiamine HCl 200 MG/2 ML VIAL SLOW IVP SCH (08:19)
[2018-07-24] MEDS: cefTRIAXone\\ROCEPHIN 1 GM in Sodium Chloride 0.9% 100 ML IVPB SCH (14:56)
[2018-07-24] MEDS: Insulin Regular 300 UNITS/3 ML VIAL SC PRN (17:46)
--- NOTE | 2018-07-24 20:23 | PDOC.PN ---
- Subjective Encounter Start Date: 07/24/18 Encounter Start Time: 11:00 Patient seen and examined for perineal nec fas. s/p debridement today. Pain controlled. No fever. No new complaints. No overnight events - Objective Resuscitation Status - Order Detail: 07/15/18 21:39 Resuscitation Status Routine Resuscitation Status: FULL: Full Resuscitation MAR Reviewed: Yes Vital Signs & Weight: Vital Signs (12 hours) Temp Pulse Resp BP BP Pulse Ox 07/24/18 14:55 98.2 F 73 20 150/84 H 93 L 07/24/18 14:28 118/77 07/24/18 11:22 98.5 F 83 20 118/77 92 L Weight Admit Weight 190 lb 11.198 oz Weight 190 lb 4.143 oz Most Recent Monitor Data Heart Rate from ECG 77 NIBP 140/87 NIBP BP-Mean 104 Respiration from ECG 26 SpO2 99 I&O: 07/23/18 07/24/18 07/25/18 06:59 06:59 06:59 Intake Total 1430 2050 1800 Output Total 1500 1875 950 Balance -70 175 850 Result Diagrams: 07/23/18 04:40 07/23/18 04:40 Additional Labs: Accuchecks 07/24/18 07/24/18 07/24/18 19:53 15:58 11:05 POC Glucose 210 H 220 H 148 H 07/24/18 05:39 POC Glucose 92 Phys Exam - Physical Examination Constitutional: NAD Respiratory: no wheezing, no rhonchi Cardiovascular: RRR, no rub Gastrointestinal: soft, positive bowel sounds Musculoskeletal: no edema Dx/Plan - Plan DVT proph w/lovenox, DVT proph w/SCDs IMPRESSION: 1. Severe sepsis with acute organ dysfunction secondary to Scrotal/Perineal Nectrotizing fascitis. 2. Acute hypoxic respiratory failure [facility] 3. Uncontrolled diabetes mellitus type 1 requiring Insulin drip 4. Acute kidney injury- improved 5. Metabolic acidosis 6. Hyponatremia/Hypokalemia/Hypomagnesemia 7. Anemia, probably chronic. 8. Chronic hepatitis C with ?cirrhosis 9. Dehydration. 10. Tobacco dependence. Counselled. 11. Thrombocytopenia. 12. s/p Suprapubic Catheter/Colostomy PLAN: Cont Ceftriaxone/Flagyl/Fluconazole Cont Wound care/Wound Vac Cont current dose of Lantus/sliding scale Cont other meds as below Review of Systems - Review of Systems Respiratory: negative: Cough, Dry, Shortness of Breath, Hemoptysis, SOB with Excertion, Pleuritic Pain, Sputum, Wheezing Cardiovascular: negative: chest pain, palpitations, orthopnea, paroxysmal nocturnal dyspnea, edema, light headedness, other - Medications/Allergies Allergies/Adverse Reactions: Allergies Allergy/AdvReac Type Severity Reaction Status Date / Time No Known Drug Allergies Allergy Verified 07/16/18 01:27 Medications: Current Medications Acetaminophen (Tylenol) 650 mg [place] Q4H PRN PRN Reason: Headache/Fever/Mild Pain (1-3) Last Admin: 07/17/18 00:58 Dose: 650 mg Hydrocodone Bitart/Acetaminophen ([place] 5/325) 1 tab PO Q4H PRN PRN Reason: Moderate Pain (4-6) Last Admin: 07/24/18 14:56 Dose: 1 tab Albuterol/Ipratropium (Duoneb) 3 ml NEB Q1QF-SP PRN PRN Reason: Dyspnea Calcium Carbonate (Tums) 1,000 mg PO Q4H PRN PRN Reason: Heartburn or Indigestion Dextrose/Water (Dextrose 50%) 25 gm SLOW IVP PRN PRN PRN Reason: Hypoglycemia Enoxaparin Sodium (Lovenox) 40 mg SC 0900 [facility] Last Admin: 07/24/18 08:17 Dose: 40 mg Famotidine (Pepcid) 20 mg PO BID [facility] Last Admin: 07/24/18 20:13 Dose: 20 mg Folic Acid (Folvite) 1 mg PO DAILY [facility] Last Admin: 07/24/18 08:18 Dose: 1 mg Glucagon (Glucagon) 1 mg IM PRN PRN PRN Reason: Hypoglycemia Dextrose/Water (D5w) 1,000 mls @ 0 mls/hr IV .Q0M PRN PRN Reason: Hypoglycemia Insulin Glargine 20 units/ (Miscellaneous Medication) 0.2 mls @ 0 mls/hr SC QAM [facility] Last Admin: 07/24/18 08:17 Dose: 0.2 mls Fluconazole/Sodium Chloride (400 mg/ Device) 200 mls @ 100 mls/hr IVPB DAILY [facility] Last Admin: 07/24/18 08:18 Dose: 200 mls Ceftriaxone Sodium 1 gm/ (Sodium Chloride) 100 mls @ 200 mls/hr IVPB Q24HR [facility] Last Admin: 07/24/18 14:56 Dose: 100 mls Insulin Human Regular (Humulin R) 0 units SC .MODERATE SLIDING SC PRN PRN Reason: Moderate Correctional Scale Last Admin: 07/24/18 17:46 Dose: 4 unit Lidocaine HCl (Xylocaine 4% Topical Nannette) 0 ml TOP [email or web address] [facility] Last Admin: 07/24/18 07:19 Dose: 1 applic Metronidazole (Flagyl) 500 mg PO TID [facility] Last Admin: 07/24/18 20:13 Dose: 500 mg Mineral Oil/White Petrolatum (Systane Nighttime Eye Ointment) 0 gm EA EYE PRN PRN PRN Reason: Dry Eyes Morphine Sulfate (Morphine) 4 mg SLOW IVP Q2H PRN PRN Reason: Moderate to Severe Pain (6-10) Last Admin: 07/24/18 08:56 Dose: 4 mg Multivitamins (Theragran) 1 tab PO DAILY [facility] Last Admin: 07/24/18 08:18 Dose: 1 tab Polyethylene Glycol (Miralax) 17 gm PO DAILY [facility] Last Admin: 07/24/18 08:18 Dose: 17 gm Saccharomyces Boulardii (Florastor) 250 mg PO DAILY [facility] Last Admin: 07/24/18 08:18 Dose: 250 mg Sodium Chloride (Flush - Normal Saline) 10 ml IVF PRN PRN PRN Reason: Saline Flush Sodium Chloride (Flush - Normal Saline) 10 ml IVF Q12HR [facility] Last Admin: 07/24/18 20:13 Dose: 10 ml Sodium Chloride (Flush - Normal Saline) 10 ml IVF PRN PRN PRN Reason: Saline Flush Thiamine HCl (Thiamine Hcl) 100 mg SLOW IVP DAILY [facility] Last Admin: 07/24/18 08:19 Dose: 100 mg
[2018-07-25] MEDS: HYDROcodone/Acetaminophen 5/325 mg Tablet PO PRN ×4 (02:41→20:21)
[2018-07-25] MEDS: Famotidine 20 MG TAB PO SCH ×2 (08:27→20:21)
[2018-07-25] MEDS: Multivit, Therapeutic 1 TAB PO SCH (08:27)
[2018-07-25] MEDS: Saccharomyces boulardii 250 MG CAP PO SCH (08:27)
[2018-07-25] MEDS: metroNIDAZOLE 500 MG TAB PO SCH ×3 (08:28→20:22)
[2018-07-25] MEDS: Folic Acid 1 MG TAB PO SCH (08:28)
[2018-07-25] MEDS: Enoxaparin Sodium 40 MG/0.4 ML SYRINGE SC SCH (08:28)
[2018-07-25] MEDS: Thiamine HCl 200 MG/2 ML VIAL SLOW IVP SCH (08:29)
[2018-07-25] MEDS: Fluconazole In NaCl,Iso-Osm 400 MG in Premix Bag 1 BAG IVPB SCH (08:29)
[2018-07-25] MEDS: Polyethylene Glycol 3350 17 GM Packet PO SCH (08:30)
--- NOTE | 2018-07-25 09:49 | PRG ---
DATE OF SERVICE: 07/25/2018 SUBJECTIVE: The patient is without complaints, doing well. OBJECTIVE: VITAL SIGNS: Stable. Afebrile. ABDOMEN: Soft. Colostomy with stool and air. : SP tube is in place. Still draining concentrated yellow urine. Wound VAC in place. IMPRESSION AND PLAN: 1. Mr. Orlando is a 52-year-old male with history of poorly controlled diabetes. 2. History of hepatitis C. 3. Admitted with scrotal/perineal necrotizing fasciitis, postop day #9 wide debridement. Postop day #8 exam under anesthesia, suprapubic tube, colostomy. Wound is looking well from yesterday's wound VAC change. We will reassess his wound tomorrow. He is n.p.o. after midnight in case we need to debride in the OR, however, as his wound is looking good unlikely, however, we will keep him n.p.o. Continue Rocephin, Diflucan, and Flagyl per Infectious Disease. PICC line is in place. Case management on [facility] upon discharge. Pending assessment of his wound this week, will likely be safe to discharge with wound VAC Tuesday, Tuesday, Tuesday at a residential facility, for couple of weeks. Job ID: [id number] [facility]
[2018-07-25] MEDS: Insulin Glargine 20 UNITS in Pre-Filled Syringe 1 EACH SC SCH (10:02)
[2018-07-25] MEDS: cefTRIAXone\\ROCEPHIN 1 GM in Sodium Chloride 0.9% 100 ML IVPB SCH (15:43)
--- NOTE | 2018-07-25 20:47 | PDOC.PN ---
- Subjective Encounter Start Date: 07/25/18 Encounter Start Time: 12:30 Patient seen and examined for nec fasc involving the perineal area. Feels better. No new complaints. No overnight events - Objective Resuscitation Status - Order Detail: 07/15/18 21:39 Resuscitation Status Routine Resuscitation Status: FULL: Full Resuscitation MAR Reviewed: Yes Vital Signs & Weight: Vital Signs (12 hours) Temp Pulse Resp BP Pulse Ox 07/25/18 15:10 97.8 F 78 18 146/85 H 93 L 07/25/18 11:21 98.6 F 72 20 112/73 93 L Weight Admit Weight 190 lb 11.198 oz Weight 188 lb 9.6 oz Most Recent Monitor Data Heart Rate from ECG 77 NIBP 140/87 NIBP BP-Mean 104 Respiration from ECG 26 SpO2 99 I&O: 07/24/18 07/25/18 07/26/18 06:59 06:59 06:59 Intake Total 2050 2300 1200 Output Total 1875 2450 1290 Balance 175 -150 -90 Result Diagrams: 07/26/18 05:17 07/26/18 05:17 Additional Labs: Accuchecks 07/25/18 07/25/18 07/25/18 16:05 11:20 05:29 POC Glucose 121 H 171 H 110 Phys Exam - Physical Examination Constitutional: NAD Respiratory: no wheezing, no rhonchi Cardiovascular: RRR, no rub Gastrointestinal: soft, positive bowel sounds Musculoskeletal: no edema Dx/Plan - Plan DVT proph w/lovenox, DVT proph w/SCDs IMPRESSION: Severe sepsis with acute organ dysfunction secondary to Scrotal/Perineal Nectrotizing fascitis. s/p Suprapubic Catheter/Colostomy Uncontrolled diabetes mellitus type 1 requiring Insulin drip - on Lantus an sliding scale Hyponatremia/Hypokalemia/Hypomagnesemia Anemia, probably chronic. Chronic hepatitis C with ?cirrhosis Tobacco dependence. Counselled. Thrombocytopenia. s/p Acute hypoxic respiratory failure [facility] - resolved Acute kidney injury/Metabolic acidosis - resolved PLAN: Cont Ceftriaxone/PO Flagyl/Fluconazole Cont Wound care/Wound Vac Cont Lantus/sliding scale Cont other meds as below DC to SNF once cleared by Urology Review of Systems - Review of Systems Respiratory: negative: Cough, Dry, Shortness of Breath, Hemoptysis, SOB with Excertion, Pleuritic Pain, Sputum, Wheezing Cardiovascular: negative: chest pain, palpitations, orthopnea, paroxysmal nocturnal dyspnea, edema, light headedness, other Gastrointestinal: negative: Nausea, Vomiting, Abdominal Pain, Diarrhea, Constipation, Melena, Hematochezia, Other - Medications/Allergies Allergies/Adverse Reactions: Allergies Allergy/AdvReac Type Severity Reaction Status Date / Time No Known Drug Allergies Allergy Verified 07/16/18 01:27 Medications: Current Medications Acetaminophen (Tylenol) 650 mg SC Q4H PRN PRN Reason: Headache/Fever/Mild Pain (1-3) Last Admin: 07/17/18 00:58 Dose: 650 mg Hydrocodone Bitart/Acetaminophen ([place] 5/325) 1 tab PO Q4H PRN PRN Reason: Moderate Pain (4-6) Last Admin: 07/25/18 20:21 Dose: 1 tab Albuterol/Ipratropium (Duoneb) 3 ml NEB [id number] PRN PRN Reason: Dyspnea Calcium Carbonate (Tums) 1,000 mg PO Q4H PRN PRN Reason: Heartburn or Indigestion Dextrose/Water (Dextrose 50%) 25 gm SLOW IVP PRN PRN PRN Reason: Hypoglycemia Enoxaparin Sodium (Lovenox) 40 mg SC 0900 [facility] Last Admin: 07/25/18 08:28 Dose: 40 mg Famotidine (Pepcid) 20 mg PO BID [facility] Last Admin: 07/25/18 20:21 Dose: 20 mg Folic Acid (Folvite) 1 mg PO DAILY [facility] Last Admin: 07/25/18 08:28 Dose: 1 mg Glucagon (Glucagon) 1 mg IM PRN PRN PRN Reason: Hypoglycemia Dextrose/Water (D5w) 1,000 mls @ 0 mls/hr IV .Q0M PRN PRN Reason: Hypoglycemia Insulin Glargine 20 units/ (Miscellaneous Medication) 0.2 mls @ 0 mls/hr SC QAM [facility] Last Admin: 07/25/18 10:02 Dose: 0.2 mls Fluconazole/Sodium Chloride (400 mg/ Device) 200 mls @ 100 mls/hr IVPB DAILY [facility] Last Admin: 07/25/18 08:29 Dose: 200 mls Ceftriaxone Sodium 1 gm/ (Sodium Chloride) 100 mls @ 200 mls/hr IVPB Q24HR [facility] Last Admin: 07/25/18 15:43 Dose: 100 mls Insulin Human Regular (Humulin R) 0 units SC .MODERATE SLIDING SC PRN PRN Reason: Moderate Correctional Scale Last Admin: 07/24/18 17:46 Dose: 4 unit Lidocaine HCl (Xylocaine 4% Topical Nannette) 0 ml TOP [email or web address] [facility] Last Admin: 07/24/18 07:19 Dose: 1 applic Metronidazole (Flagyl) 500 mg PO TID [facility] Last Admin: 07/25/18 20:22 Dose: 500 mg Mineral Oil/White Petrolatum (Systane Nighttime Eye Ointment) 0 gm EA EYE PRN PRN PRN Reason: Dry Eyes Morphine Sulfate (Morphine) 4 mg SLOW IVP Q2H PRN PRN Reason: Moderate to Severe Pain (6-10) Last Admin: 07/24/18 08:56 Dose: 4 mg Multivitamins (Theragran) 1 tab PO DAILY [facility] Last Admin: 07/25/18 08:27 Dose: 1 tab Polyethylene Glycol (Miralax) 17 gm PO DAILY [facility] Last Admin: 07/25/18 08:30 Dose: Not Given Saccharomyces Boulardii (Florastor) 250 mg PO DAILY [facility] Last Admin: 07/25/18 08:27 Dose: 250 mg Sodium Chloride (Flush - Normal Saline) 10 ml IVF PRN PRN PRN Reason: Saline Flush Sodium Chloride (Flush - Normal Saline) 10 ml IVF Q12HR [facility] Last Admin: 07/25/18 20:22 Dose: 10 ml Sodium Chloride (Flush - Normal Saline) 10 ml IVF PRN PRN PRN Reason: Saline Flush Thiamine HCl (Thiamine Hcl) 100 mg SLOW IVP DAILY [facility] Last Admin: 07/25/18 08:29 Dose: 100 mg
[2018-07-25] MEDS: Insulin Regular 300 UNITS/3 ML VIAL SC PRN (22:20)
[2018-07-26] MEDS: HYDROcodone/Acetaminophen 5/325 mg Tablet PO PRN ×4 (03:50→18:28)
[2018-07-26 05:29] LABS: #Basophils 0.1 thou/uL (0.0-0.2); #Eosinphils 0.1 thou/uL (0.0-0.7); #Lymphocytes 1.7 thou/uL (1.20-3.40); #Monocytes 0.5 thou/uL (0.11-0.59); #Neutrophils 2.8 thou/uL (1.40-6.50); %Eosinophils 2.8 % (0.0-10.0); %Lymphocytes 33.4 % (21.0-51.0); %Monocytes 8.9 % (0.0-10.0); Hemoglobin 10.3 g/dL (14.0-18.0); Mean Corpuscular Volume 87.5 fL (78.0-98.0); Mean Platelet Volume 5.8 fL (7.4-10.4); Platelet Count 320 thou/uL (130-400); RBC Distribution Width 13.5 % (11.5-14.5); Red Blood Cell (RBC) Count 3.69 mill/uL (4.70-6.10); White Blood Cell (WBC) Count 5.2 thou/uL (4.8-10.8)
[2018-07-26 05:50] LABS: Anion Gap 11 mmol/L (10-20); BUN (Urea Nitrogen) 7 mg/dL (8.4-25.7); Calc. Creatinine Clearance 127 mL/min (70-130); Calcium 8.7 mg/dL (7.8-10.44); Carbon Dioxide 27 mmol/L (22-29); Chloride 103 mmol/L (98-107); Estimated GFR-MDRD Greater than 90; Glucose 123 mg/dL (70-105); Magnesium 1.5 mg/dL (1.6-2.6); Potassium 3.7 mmol/L (3.5-5.1); Sodium 137 mmol/L (136-145)
[2018-07-26] MEDS ORDERED: Magnesium 2 GM/50 ML 2 GM in Premix Bag 1 BAG IVPB SCH (06:30)
[2018-07-26] MEDS: Morphine 4 MG/ML VIAL SLOW IVP PRN (06:49)
[2018-07-26] MEDS ORDERED: Morphine 2 MG/ML SYRINGE SLOW IVP SCH (07:30)
--- NOTE | 2018-07-26 07:52 | PRG ---
DATE OF SERVICE: 07/26/2018 SUBJECTIVE: The patient resting comfortably. Does relate some discomfort at the wound VAC site, right superior scrotal region. OBJECTIVE: VITAL SIGNS: Stable. He is afebrile. Urine output 1250, clear. ABDOMEN: Soft. SP tube site is clean, dry, and intact. Suture remains in place. EXAM AND PROCEDURE NOTE: The patient's wound VAC was removed. We provided him with morphine periprocedural. Lidocaine topical was placed on his wound. We inspected the wound. There was good granulating tissue coming in. I did debride the superior right edge of the wound. There was devitalized tissue which was debrided at bedside. There was no pus pocket appreciated. There were no further skin edges that were necrotic. Overall, the wound is progressing well with granulating tissue. The only area that was debrided today is a right superolateral edge of the wound with devitalized tissue that was removed. Wound VAC will be replaced by the wound care service. IMPRESSION AND PLAN: Mr. Orlando is a 52-year-old male with history of hepatitis C. 1. History of poorly-controlled diabetes, presented with necrotizing fasciitis of scrotum, perineum, postop day #10 wide debridement of his scrotum perineum. 2. Postop day #9, exam under anesthesia, suprapubic tube, colostomy. He is progressing well on wound VAC. No change in antibiotic regimen, wound VAC Tuesday, Tuesday, Tuesday. I will reinspect his wound this Tuesday. Pending assessment on Tuesday, we will make a decision whether the patient can be discharged sometime next week to care home facility. residential facility has to be able to continue wound VAC, continue PICC line IV antibiotics. Job ID: [id number] [facility]
[2018-07-26] MEDS: Saccharomyces boulardii 250 MG CAP PO SCH (08:51)
[2018-07-26] MEDS: Multivit, Therapeutic 1 TAB PO SCH (08:51)
[2018-07-26] MEDS: Enoxaparin Sodium 40 MG/0.4 ML SYRINGE SC SCH (08:52)
[2018-07-26] MEDS: Polyethylene Glycol 3350 17 GM Packet PO SCH (08:52)
[2018-07-26] MEDS: Famotidine 20 MG TAB PO SCH ×2 (08:52→20:57)
[2018-07-26] MEDS: metroNIDAZOLE 500 MG TAB PO SCH ×3 (08:52→20:57)
[2018-07-26] MEDS: Folic Acid 1 MG TAB PO SCH (08:52)
[2018-07-26] MEDS: Insulin Glargine 20 UNITS in Pre-Filled Syringe 1 EACH SC SCH (08:52)
[2018-07-26] MEDS: Magnesium Chloride 64 MG TAB PO SCH ×2 (08:53→20:57)
[2018-07-26] MEDS: Fluconazole In NaCl,Iso-Osm 400 MG in Premix Bag 1 BAG IVPB SCH (08:53)
[2018-07-26] MEDS: Thiamine HCl 200 MG/2 ML VIAL SLOW IVP SCH (08:53)
[2018-07-26] MEDS: cefTRIAXone\\ROCEPHIN 1 GM in Sodium Chloride 0.9% 100 ML IVPB SCH (14:01)
--- NOTE | 2018-07-26 18:23 | PDOC.PN ---
- Subjective Encounter Start Date: 07/26/18 Encounter Start Time: 14:00 Patient seen and examined for Sepsis. Feeling better. s/p bedside debridement today. No new complaints. No overnight events - Objective Resuscitation Status - Order Detail: 07/15/18 21:39 Resuscitation Status Routine Resuscitation Status: FULL: Full Resuscitation MAR Reviewed: Yes Vital Signs & Weight: Vital Signs (12 hours) Temp Pulse Resp BP Pulse Ox 07/26/18 16:32 98.2 F 72 18 120/77 93 L 07/26/18 11:46 98.1 F 70 18 98/66 98 07/26/18 08:00 98.2 F 74 12 138/87 93 L Weight Admit Weight 190 lb 11.198 oz Weight 185 lb 12.8 oz Most Recent Monitor Data Heart Rate from ECG 77 NIBP 140/87 NIBP BP-Mean 104 Respiration from ECG 26 SpO2 99 I&O: 07/25/18 07/26/18 07/27/18 06:59 06:59 06:59 Intake Total 2300 1200 Output Total 2450 1290 Balance -150 -90 Result Diagrams: 07/26/18 05:17 07/26/18 05:17 Additional Labs: Accuchecks 07/26/18 07/26/18 07/26/18 16:23 11:46 05:49 POC Glucose 140 H 160 H 182 H 07/25/18 21:31 POC Glucose 177 H Laboratory Tests 07/26/18 05:17 Magnesium 1.5 L Phys Exam - Physical Examination Constitutional: NAD Respiratory: no wheezing, no rhonchi Cardiovascular: RRR, no rub Gastrointestinal: soft, positive bowel sounds Musculoskeletal: no edema Neurological: non-focal, moves all 4 limbs Dx/Plan - Plan DVT proph w/lovenox, DVT proph w/SCDs IMPRESSION: Severe sepsis with acute organ dysfunction secondary to Scrotal/Perineal Nectrotizing fascitis. s/p Suprapubic Catheter/Colostomy Uncontrolled diabetes mellitus type 1 requiring Insulin drip - on Lantus/ sliding scale Hyponatremia/Hypokalemia/Hypomagnesemia Anemia, probably chronic. Chronic hepatitis C with ?cirrhosis Tobacco dependence. Counselled. Thrombocytopenia. s/p Acute hypoxic [facility] failure [facility] - resolved Acute kidney injury/Metabolic acidosis - resolved PLAN: Replace Magnessium Cont Ceftriaxone/PO Flagyl/Fluconazole Cont Wound care/Wound Vac Cont Lantus/sliding scale DC to SNF once cleared by Urology Cont current meds. Review of Systems - Review of Systems Respiratory: negative: Cough, Dry, Shortness of Breath, Hemoptysis, SOB with Excertion, Pleuritic Pain, Sputum, Wheezing Cardiovascular: negative: chest pain, palpitations, orthopnea, paroxysmal nocturnal dyspnea, edema, light headedness, other - Medications/Allergies Allergies/Adverse Reactions: Allergies Allergy/AdvReac Type Severity Reaction Status Date / Time No Known Drug Allergies Allergy Verified 07/16/18 01:27 Medications: Current Medications Acetaminophen (Tylenol) 650 mg [place] Q4H PRN PRN Reason: Headache/Fever/Mild Pain (1-3) Last Admin: 07/17/18 00:58 Dose: 650 mg Hydrocodone Bitart/Acetaminophen ([place] 5/325) 1 tab PO Q4H PRN PRN Reason: Moderate Pain (4-6) Last Admin: 07/26/18 14:01 Dose: 1 tab Albuterol/Ipratropium (Duoneb) 3 ml NEB [id number] PRN PRN Reason: Dyspnea Calcium Carbonate (Tums) 1,000 mg PO Q4H PRN PRN Reason: Heartburn or Indigestion Dextrose/Water (Dextrose 50%) 25 gm SLOW IVP PRN PRN PRN Reason: Hypoglycemia Enoxaparin Sodium (Lovenox) 40 mg SC 0900 [facility] Last Admin: 07/26/18 08:52 Dose: 40 mg Famotidine (Pepcid) 20 mg PO BID [facility] Last Admin: 07/26/18 08:52 Dose: 20 mg Folic Acid (Folvite) 1 mg PO DAILY [facility] Last Admin: 07/26/18 08:52 Dose: 1 mg Glucagon (Glucagon) 1 mg IM PRN PRN PRN Reason: Hypoglycemia Dextrose/Water (D5w) 1,000 mls @ 0 mls/hr IV .Q0M PRN PRN Reason: Hypoglycemia Insulin Glargine 20 units/ (Miscellaneous Medication) 0.2 mls @ 0 mls/hr SC QAM [facility] Last Admin: 07/26/18 08:52 Dose: 0.2 mls Fluconazole/Sodium Chloride (400 mg/ Device) 200 mls @ 100 mls/hr IVPB DAILY [facility] Last Admin: 07/26/18 08:53 Dose: 200 mls Ceftriaxone Sodium 1 gm/ (Sodium Chloride) 100 mls @ 200 mls/hr IVPB Q24HR [facility] Last Admin: 07/26/18 14:01 Dose: 100 mls Insulin Human Regular (Humulin R) 0 units SC .MODERATE SLIDING SC PRN PRN Reason: Moderate Correctional Scale Last Admin: 07/25/18 22:20 Dose: 2 unit Lidocaine HCl (Xylocaine 4% Topical Nannette) 0 ml TOP [email or web address] [facility] Last Admin: 07/24/18 07:19 Dose: 1 applic Magnesium Chloride (Slow-Mag) 64 mg PO BID [facility] Last Admin: 07/26/18 08:53 Dose: 64 mg Metronidazole (Flagyl) 500 mg PO TID [facility] Last Admin: 07/26/18 14:01 Dose: 500 mg Mineral Oil/White Petrolatum (Systane Nighttime Eye Ointment) 0 gm EA EYE PRN PRN PRN Reason: Dry Eyes Morphine Sulfate (Morphine) 4 mg SLOW IVP Q2H PRN PRN Reason: Moderate to Severe Pain (6-10) Last Admin: 07/26/18 06:49 Dose: 4 mg Multivitamins (Theragran) 1 tab PO DAILY [facility] Last Admin: 07/26/18 08:51 Dose: 1 tab Polyethylene Glycol (Miralax) 17 gm PO DAILY [facility] Last Admin: 07/26/18 08:52 Dose: 17 gm Saccharomyces Boulardii (Florastor) 250 mg PO DAILY [facility] Last Admin: 07/26/18 08:51 Dose: 250 mg Sodium Chloride (Flush - Normal Saline) 10 ml IVF PRN PRN PRN Reason: Saline Flush Last Admin: 07/26/18 07:05 Dose: 10 ml Sodium Chloride (Flush - Normal Saline) 10 ml IVF Q12HR [facility] Last Admin: 07/26/18 08:54 Dose: 10 ml Sodium Chloride (Flush - Normal Saline) 10 ml IVF PRN PRN PRN Reason: Saline Flush Thiamine HCl (Thiamine Hcl) 100 mg SLOW IVP DAILY [facility] Last Admin: 07/26/18 08:53 Dose: 100 mg
[2018-07-26] MEDS: Insulin Regular 300 UNITS/3 ML VIAL SC PRN (20:57)
[2018-07-27] MEDS: HYDROcodone/Acetaminophen 5/325 mg Tablet PO PRN ×5 (00:32→20:48)
--- NOTE | 2018-07-27 08:19 | PRG ---
DATE OF SERVICE: 07/27/2018 SUBJECTIVE: The patient is doing well. OBJECTIVE: VITAL SIGNS: Stable. Afebrile. ABDOMEN: Soft, nontender, and nondistended. Bedside procedure, his pre- existing SP tube was removed and a new 20-Sinhala 30 mL suprapubic tube exchanged uneventfully, irrigates to clear. Catheter secured x2 with [employer]. : Wound VAC in place. No surrounding erythema or crepitus of concern. LABORATORY DATA: No new labs. IMPRESSION AND PLAN: Mr. Orlando is a 52-year-old male with history of poorly controlled diabetes, presenting A1c of 14. 1. History of hepatitis C. 2. Presented with necrotizing fasciitis of the perineum and scrotum. He is postop day #12 of a wide debridement of scrotum. 3. Postop day #11, exam under anesthesia, re-debridement, suprapubic tube, diverting colostomy. His suprapubic tube was exchanged at bedside 20-Sinhala 30 mL. Continue wound VAC on Tuesday, Tuesday, and Tuesday. [facility] placement is pending. The patient will require strict diabetic control of sliding scale insulin, IV PICC line, antibiotic, wound VAC on Tuesday, Tuesday, and Tuesday for a minimum of four weeks. Await placement. I anticipate his wound will be stable enough sometime next week to be discharged to [facility]. Case management consult has been placed. Await final placement. Job ID: [id number] [facility]
[2018-07-27] MEDS: Fluconazole In NaCl,Iso-Osm 400 MG in Premix Bag 1 BAG IVPB SCH (09:42)
[2018-07-27] MEDS: metroNIDAZOLE 500 MG TAB PO SCH ×3 (09:42→20:44)
[2018-07-27] MEDS: Multivit, Therapeutic 1 TAB PO SCH (09:42)
[2018-07-27] MEDS: Saccharomyces boulardii 250 MG CAP PO SCH (09:42)
[2018-07-27] MEDS: Famotidine 20 MG TAB PO SCH ×2 (09:42→20:44)
[2018-07-27] MEDS: Folic Acid 1 MG TAB PO SCH (09:42)
[2018-07-27] MEDS: Insulin Glargine 20 UNITS in Pre-Filled Syringe 1 EACH SC SCH (09:43)
[2018-07-27] MEDS: Thiamine HCl 200 MG/2 ML VIAL SLOW IVP SCH (09:43)
[2018-07-27] MEDS: Enoxaparin Sodium 40 MG/0.4 ML SYRINGE SC SCH (09:43)
[2018-07-27] MEDS: Polyethylene Glycol 3350 17 GM Packet PO SCH (09:44)
[2018-07-27] MEDS: Magnesium Chloride 64 MG TAB PO SCH ×2 (09:44→20:44)
--- NOTE | 2018-07-27 11:43 | PDOC.PN ---
- Subjective Encounter Start Date: 07/27/18 Encounter Start Time: 11:00 Patient seen and examined for Sepsis. Pain controlled. Suprapubic catheter changed today. Has mild gross hematuria. No new complaints. No overnight events - Objective Resuscitation Status - Order Detail: 07/15/18 21:39 Resuscitation Status Routine Resuscitation Status: FULL: Full Resuscitation MAR Reviewed: Yes Vital Signs & Weight: Vital Signs (12 hours) Temp Pulse Resp BP Pulse Ox 07/27/18 08:09 97.4 F L 75 14 138/79 94 L 07/27/18 03:58 98.3 F 74 16 137/83 94 L 07/27/18 01:14 98.4 F 67 16 125/86 93 L Weight Admit Weight 190 lb 11.198 oz Weight 187 lb 8 oz Most Recent Monitor Data Heart Rate from ECG 77 NIBP 140/87 NIBP BP-Mean 104 Respiration from ECG 26 SpO2 99 I&O: 07/26/18 07/27/18 07/28/18 06:59 06:59 06:59 Intake Total 1200 1900 Output Total 2340 1650 Balance -1140 250 Result Diagrams: 07/26/18 05:17 07/26/18 05:17 Additional Labs: Accuchecks 07/27/18 07/26/18 07/26/18 05:36 20:59 16:23 POC Glucose 107 182 H 140 H 07/26/18 11:46 POC Glucose 160 H Phys Exam - Physical Examination Constitutional: NAD Respiratory: no wheezing, no rhonchi Cardiovascular: RRR, no rub Gastrointestinal: soft, non-tender, positive bowel sounds Musculoskeletal: no edema Neurological: moves all 4 limbs Dx/Plan - Plan DVT proph w/SCDs IMPRESSION: Severe sepsis with acute organ dysfunction secondary to Scrotal/Perineal Nectrotizing fascitis. s/p Suprapubic Catheter/Colostomy Uncontrolled diabetes mellitus type 1 requiring Insulin drip - on Lantus/ sliding scale Hyponatremia/Hypokalemia/Hypomagnesemia Anemia, probably chronic. Chronic hepatitis C with ?cirrhosis Tobacco dependence. Counselled. Thrombocytopenia. s/p Acute hypoxic respiratory failure [facility] - resolved Acute kidney injury/Metabolic acidosis - resolved PLAN: Cont Ceftriaxone/PO Flagyl/Fluconazole per ID Cont current dose of Lantus/sliding scale Await SNF approval Cont current meds as below Cont Wound care/Wound Vac Review of Systems - Review of Systems Respiratory: negative: Cough, Dry, Shortness of Breath, Hemoptysis, SOB with Excertion, Pleuritic Pain, Sputum, Wheezing Cardiovascular: negative: chest pain, palpitations, orthopnea, paroxysmal nocturnal dyspnea, edema, light headedness, other Gastrointestinal: negative: Nausea, Vomiting, Abdominal Pain, Diarrhea, Constipation, Melena, Hematochezia, Other - Medications/Allergies Allergies/Adverse Reactions: Allergies Allergy/AdvReac Type Severity Reaction Status Date / Time No Known Drug Allergies Allergy Verified 07/16/18 01:27 Medications: Current Medications Acetaminophen (Tylenol) 650 mg [place] Q4H PRN PRN Reason: Headache/Fever/Mild Pain (1-3) Last Admin: 07/17/18 00:58 Dose: 650 mg Hydrocodone Bitart/Acetaminophen ([place] 5/325) 1 tab PO Q4H PRN PRN Reason: Moderate Pain (4-6) Last Admin: 07/27/18 11:03 Dose: 1 tab Albuterol/Ipratropium (Duoneb) 3 ml NEB [id number] PRN PRN Reason: Dyspnea Calcium Carbonate (Tums) 1,000 mg PO Q4H PRN PRN Reason: Heartburn or Indigestion Dextrose/Water (Dextrose 50%) 25 gm SLOW IVP PRN PRN PRN Reason: Hypoglycemia Enoxaparin Sodium (Lovenox) 40 mg SC 0900 [facility] Last Admin: 07/27/18 09:43 Dose: Not Given Famotidine (Pepcid) 20 mg PO BID [facility] Last Admin: 07/27/18 09:42 Dose: 20 mg Folic Acid (Folvite) 1 mg PO DAILY [facility] Last Admin: 07/27/18 09:42 Dose: 1 mg Glucagon (Glucagon) 1 mg IM PRN PRN PRN Reason: Hypoglycemia Dextrose/Water (D5w) 1,000 mls @ 0 mls/hr IV .Q0M PRN PRN Reason: Hypoglycemia Insulin Glargine 20 units/ (Miscellaneous Medication) 0.2 mls @ 0 mls/hr SC QAM [facility] Last Admin: 07/27/18 09:43 Dose: 0.2 mls Fluconazole/Sodium Chloride (400 mg/ Device) 200 mls @ 100 mls/hr IVPB DAILY [facility] Last Admin: 07/27/18 09:42 Dose: 200 mls Ceftriaxone Sodium 1 gm/ (Sodium Chloride) 100 mls @ 200 mls/hr IVPB Q24HR [facility] Last Admin: 07/26/18 14:01 Dose: 100 mls Insulin Human Regular (Humulin R) 0 units SC .MODERATE SLIDING SC PRN PRN Reason: Moderate Correctional Scale Last Admin: 07/26/18 20:57 Dose: 2 unit Lidocaine HCl (Xylocaine 4% Topical Nannette) 0 ml TOP [email or web address] [facility] Last Admin: 07/24/18 07:19 Dose: 1 applic Magnesium Chloride (Slow-Mag) 64 mg PO BID [facility] Last Admin: 07/27/18 09:44 Dose: 64 mg Metronidazole (Flagyl) 500 mg PO TID [facility] Last Admin: 07/27/18 09:42 Dose: 500 mg Mineral Oil/White Petrolatum (Systane Nighttime Eye Ointment) 0 gm EA EYE PRN PRN PRN Reason: Dry Eyes Morphine Sulfate (Morphine) 4 mg SLOW IVP Q2H PRN PRN Reason: Moderate to Severe Pain (6-10) Last Admin: 07/26/18 06:49 Dose: 4 mg Multivitamins (Theragran) 1 tab PO DAILY [facility] Last Admin: 07/27/18 09:42 Dose: 1 tab Polyethylene Glycol (Miralax) 17 gm PO DAILY [facility] Last Admin: 07/27/18 09:44 Dose: 17 gm Saccharomyces Boulardii (Florastor) 250 mg PO DAILY [facility] Last Admin: 07/27/18 09:42 Dose: 250 mg Sodium Chloride (Flush - Normal Saline) 10 ml IVF PRN PRN PRN Reason: Saline Flush Last Admin: 07/26/18 07:05 Dose: 10 ml Sodium Chloride (Flush - Normal Saline) 10 ml IVF Q12HR [facility] Last Admin: 07/27/18 09:44 Dose: 10 ml Sodium Chloride (Flush - Normal Saline) 10 ml IVF PRN PRN PRN Reason: Saline Flush Thiamine HCl (Thiamine Hcl) 100 mg SLOW IVP DAILY [facility] Last Admin: 07/27/18 09:43 Dose: 100 mg
[2018-07-27] MEDS: Insulin Regular 300 UNITS/3 ML VIAL SC PRN ×2 (12:46→17:47)
[2018-07-27] MEDS: cefTRIAXone\\ROCEPHIN 1 GM in Sodium Chloride 0.9% 100 ML IVPB SCH (15:53)
[2018-07-28] MEDS: HYDROcodone/Acetaminophen 5/325 mg Tablet PO PRN ×5 (01:38→22:48)
[2018-07-28] MEDS: Morphine 4 MG/ML VIAL SLOW IVP PRN (06:47)
--- NOTE | 2018-07-28 07:54 | PRG ---
DATE OF SERVICE: 07/28/2018 SUBJECTIVE: The patient without complaints, doing well. OBJECTIVE: VITAL SIGNS: Stable. He is afebrile. ABDOMEN: Soft, nontender, and nondistended. SP tube site is clean, dry, and intact. I did exchange the suprapubic tube yesterday, had some hematuria subsequently clear. : Wound VAC taken down, wound expected. The wound skin edges are healing well, it appears healthy. No further debridement of the skin edges is required. At the right upper quadrant of the incision, I did debride some devitalized tissue on Tuesday. There was some serous discharge from this site. I did debride further probing into the right upper aspect of the incision with no further loculated area appreciated. Some devitalized tissue was debrided at bedside. The rest of the incision has good granulating tissue. The left testicle still remains free-floating. The right testicle is now invaginated and granulating tissue looking well. No foul smelling discharge. Surrounding crepitus is appreciated. IMPRESSION AND PLAN: Mr. Orlando is a 52-year-old male with history of poorly controlled diabetes, hepatitis C, presented with necrotizing fasciitis of perineum and scrotum. He is postop day #13, wide debridement, postop day #12 re- debridement, suprapubic tube, diverting colostomy. SP tube exchange yesterday, 20-Indonesian 30 mL balloon. continue h wound VAC on Tuesday, Tuesday, and Tuesday. His wound is stable enough to be discharged. Await snf placement to be finalized. Hopefully, the patient will find placement sometime next week. He will need to continue his IV PICC line antibiotic, wound VAC on Tuesday, Tuesday, and Tuesday, strict control of his diabetes with sliding scale insulin. The patient is surgically stable. Dr. Cárdenas from [place] [facility] covering me for acute p.r.n. issues if needed. Continue present management. Job ID: [id number] [facility]
[2018-07-28] MEDS: Folic Acid 1 MG TAB PO SCH (09:09)
[2018-07-28] MEDS: Saccharomyces boulardii 250 MG CAP PO SCH (09:09)
[2018-07-28] MEDS: Multivit, Therapeutic 1 TAB PO SCH (09:09)
[2018-07-28] MEDS: Famotidine 20 MG TAB PO SCH ×2 (09:09→20:45)
[2018-07-28] MEDS: metroNIDAZOLE 500 MG TAB PO SCH ×3 (09:09→20:45)
[2018-07-28] MEDS: Fluconazole In NaCl,Iso-Osm 400 MG in Premix Bag 1 BAG IVPB SCH (09:10)
[2018-07-28] MEDS: Enoxaparin Sodium 40 MG/0.4 ML SYRINGE SC SCH (09:10)
[2018-07-28] MEDS: Polyethylene Glycol 3350 17 GM Packet PO SCH (09:11)
[2018-07-28] MEDS: Thiamine HCl 200 MG/2 ML VIAL SLOW IVP SCH (09:11)
[2018-07-28] MEDS: Magnesium Chloride 64 MG TAB PO SCH ×2 (09:31→20:45)
[2018-07-28] MEDS: Insulin Glargine 20 UNITS in Pre-Filled Syringe 1 EACH SC SCH (09:32)
[2018-07-28] MEDS: cefTRIAXone\\ROCEPHIN 1 GM in Sodium Chloride 0.9% 100 ML IVPB SCH (15:24)
[2018-07-28] MEDS: Insulin Regular 300 UNITS/3 ML VIAL SC PRN (18:01)
--- NOTE | 2018-07-28 22:45 | PDOC.PN ---
- Subjective Encounter Start Date: 07/28/18 Encounter Start Time: 12:30 Patient seen and examined for Sepsis. Doing well. Pain controlled. No new complaints. No overnight events - Objective Resuscitation Status - Order Detail: 07/15/18 21:39 Resuscitation Status Routine Resuscitation Status: FULL: Full Resuscitation MAR Reviewed: Yes Vital Signs & Weight: Vital Signs (12 hours) Temp Pulse Resp BP Pulse Ox 07/28/18 20:00 98.2 F 73 16 122/84 95 07/28/18 16:31 98.3 F 74 16 113/76 93 L 07/28/18 12:00 98.5 F 80 18 111/75 92 L Weight Admit Weight 190 lb 11.198 oz Weight 187 lb Most Recent Monitor Data Heart Rate from ECG 77 NIBP 140/87 NIBP BP-Mean 104 Respiration from ECG 26 SpO2 99 I&O: 07/27/18 07/28/18 07/29/18 06:59 06:59 06:59 Intake Total 1900 2080 1020 Output Total 1650 2710 1200 Balance 250 -630 -180 Result Diagrams: 07/26/18 05:17 07/26/18 05:17 Additional Labs: Accuchecks 07/28/18 07/28/18 07/28/18 15:31 12:04 05:26 POC Glucose 158 H 186 H 138 H Phys Exam - Physical Examination Constitutional: NAD Respiratory: no wheezing, no rhonchi Cardiovascular: RRR, no rub Gastrointestinal: soft, non-tender, positive bowel sounds Musculoskeletal: no edema Neurological: moves all 4 limbs Dx/Plan - Plan DVT proph w/lovenox, DVT proph w/SCDs IMPRESSION: Severe sepsis with acute organ dysfunction secondary to Scrotal/Perineal Nectrotizing fascitis. s/p Suprapubic Catheter/Colostomy Uncontrolled diabetes mellitus type 1 requiring Insulin drip - on Lantus/ sliding scale Hyponatremia/Hypokalemia/Hypomagnesemia Anemia, probably chronic. Chronic hepatitis C with ?cirrhosis Tobacco dependence. Counselled. Thrombocytopenia. s/p Acute hypoxic respiratory failure requring [facility] ventilation - resolved Acute kidney injury/Metabolic acidosis - resolved PLAN: Cont Ceftriaxone/PO Flagyl/Fluconazole per ID recs Cont Lantus/sliding scale Await SNF approval Cont Wound care/Wound Vac Cont other meds as below Review of Systems - Review of Systems Respiratory: negative: Cough, Dry, Shortness of Breath, Hemoptysis, SOB with Excertion, Pleuritic Pain, Sputum, Wheezing Cardiovascular: negative: chest pain, palpitations, orthopnea, paroxysmal nocturnal dyspnea, edema, light headedness, other - Medications/Allergies Allergies/Adverse Reactions: Allergies Allergy/AdvReac Type Severity Reaction Status Date / Time No Known Drug Allergies Allergy Verified 07/16/18 01:27 Medications: Current Medications Acetaminophen (Tylenol) 650 mg [place] Q4H PRN PRN Reason: Headache/Fever/Mild Pain (1-3) Last Admin: 07/17/18 00:58 Dose: 650 mg Hydrocodone Bitart/Acetaminophen ([place] 5/325) 1 tab PO Q4H PRN PRN Reason: Moderate Pain (4-6) Last Admin: 07/28/18 17:30 Dose: 1 tab Albuterol/Ipratropium (Duoneb) 3 ml NEB [id number] PRN PRN Reason: Dyspnea Calcium Carbonate (Tums) 1,000 mg PO Q4H PRN PRN Reason: Heartburn or Indigestion Dextrose/Water (Dextrose 50%) 25 gm SLOW IVP PRN PRN PRN Reason: Hypoglycemia Enoxaparin Sodium (Lovenox) 40 mg SC 0900 [facility] Last Admin: 07/28/18 09:10 Dose: 40 mg Famotidine (Pepcid) 20 mg PO BID [facility] Last Admin: 07/28/18 20:45 Dose: 20 mg Folic Acid (Folvite) 1 mg PO DAILY [facility] Last Admin: 07/28/18 09:09 Dose: 1 mg Glucagon (Glucagon) 1 mg IM PRN PRN PRN Reason: Hypoglycemia Dextrose/Water (D5w) 1,000 mls @ 0 mls/hr IV .Q0M PRN PRN Reason: Hypoglycemia Insulin Glargine 20 units/ (Miscellaneous Medication) 0.2 mls @ 0 mls/hr SC QAM [facility] Last Admin: 07/28/18 09:32 Dose: 0.2 mls Fluconazole/Sodium Chloride (400 mg/ Device) 200 mls @ 100 mls/hr IVPB DAILY [facility] Last Admin: 07/28/18 09:10 Dose: 200 mls Ceftriaxone Sodium 1 gm/ (Sodium Chloride) 100 mls @ 200 mls/hr IVPB Q24HR [facility] Last Admin: 07/28/18 15:24 Dose: 100 mls Insulin Human Regular (Humulin R) 0 units SC .MODERATE SLIDING SC PRN PRN Reason: Moderate Correctional Scale Last Admin: 07/28/18 18:01 Dose: 2 unit Lidocaine HCl (Xylocaine 4% Topical Nannette) 0 ml TOP [email or web address] [facility] Last Admin: 07/24/18 07:19 Dose: 1 applic Magnesium Chloride (Slow-Mag) 64 mg PO BID [facility] Last Admin: 07/28/18 20:45 Dose: 64 mg Metronidazole (Flagyl) 500 mg PO TID [facility] Last Admin: 07/28/18 20:45 Dose: 500 mg Mineral Oil/White Petrolatum (Systane Nighttime Eye Ointment) 0 gm EA EYE PRN PRN PRN Reason: Dry Eyes Morphine Sulfate (Morphine) 4 mg SLOW IVP Q2H PRN PRN Reason: Moderate to Severe Pain (6-10) Last Admin: 07/28/18 06:47 Dose: 4 mg Multivitamins (Theragran) 1 tab PO DAILY [facility] Last Admin: 07/28/18 09:09 Dose: 1 tab Polyethylene Glycol (Miralax) 17 gm PO DAILY [facility] Last Admin: 07/28/18 09:11 Dose: 17 gm Saccharomyces Boulardii (Florastor) 250 mg PO DAILY [facility] Last Admin: 07/28/18 09:09 Dose: 250 mg Sodium Chloride (Flush - Normal Saline) 10 ml IVF PRN PRN PRN Reason: Saline Flush Last Admin: 07/26/18 07:05 Dose: 10 ml Sodium Chloride (Flush - Normal Saline) 10 ml IVF Q12HR [facility] Last Admin: 07/28/18 20:45 Dose: 10 ml Sodium Chloride (Flush - Normal Saline) 10 ml IVF PRN PRN PRN Reason: Saline Flush Thiamine HCl (Thiamine Hcl) 100 mg SLOW IVP DAILY [facility] Last Admin: 07/28/18 09:11 Dose: 100 mg
[2018-07-29] MEDS: HYDROcodone/Acetaminophen 5/325 mg Tablet PO PRN ×4 (04:07→20:07)
[2018-07-29] MEDS ORDERED: Morphine 4 MG/ML VIAL SLOW IVP PRN (07:56)
[2018-07-29] MEDS: Thiamine HCl 200 MG/2 ML VIAL SLOW IVP SCH (09:40)
[2018-07-29] MEDS: Magnesium Chloride 64 MG TAB PO SCH ×2 (09:40→20:08)
[2018-07-29] MEDS: metroNIDAZOLE 500 MG TAB PO SCH ×3 (09:41→20:08)
[2018-07-29] MEDS: Multivit, Therapeutic 1 TAB PO SCH (09:41)
[2018-07-29] MEDS: Famotidine 20 MG TAB PO SCH ×2 (09:41→20:08)
[2018-07-29] MEDS: Folic Acid 1 MG TAB PO SCH (09:41)
[2018-07-29] MEDS: Saccharomyces boulardii 250 MG CAP PO SCH (09:42)
[2018-07-29] MEDS: Fluconazole In NaCl,Iso-Osm 400 MG in Premix Bag 1 BAG IVPB SCH (09:42)
[2018-07-29] MEDS: Polyethylene Glycol 3350 17 GM Packet PO SCH (09:42)
[2018-07-29] MEDS: Insulin Glargine 20 UNITS in Pre-Filled Syringe 1 EACH SC SCH (09:42)
[2018-07-29] MEDS: Enoxaparin Sodium 40 MG/0.4 ML SYRINGE SC SCH (09:42)
[2018-07-29] MEDS: Insulin Regular 300 UNITS/3 ML VIAL SC PRN ×2 (12:16→18:38)
[2018-07-29] MEDS: cefTRIAXone\\ROCEPHIN 1 GM in Sodium Chloride 0.9% 100 ML IVPB SCH (15:29)
--- NOTE | 2018-07-29 22:22 | PDOC.PN ---
- Subjective Encounter Start Date: 07/29/18 Encounter Start Time: 18:10 Patient seen and examined for Sepsis. Doing well. Pain controlled on current meds. No new complaints. No overnight events - Objective Resuscitation Status - Order Detail: 07/15/18 21:39 Resuscitation Status Routine Resuscitation Status: FULL: Full Resuscitation MAR Reviewed: Yes Vital Signs & Weight: Vital Signs (12 hours) Temp Pulse Resp BP Pulse Ox 07/29/18 20:00 97.5 F L 78 16 109/77 95 07/29/18 15:49 97.5 F L 77 18 112/73 95 07/29/18 10:47 98.3 F 84 16 112/83 94 L Weight Admit Weight 190 lb 11.198 oz Weight 189 lb 3.2 oz Most Recent Monitor Data Heart Rate from ECG 77 NIBP 140/87 NIBP BP-Mean 104 Respiration from ECG 26 SpO2 99 I&O: 07/28/18 07/29/18 07/30/18 06:59 06:59 06:59 Intake Total 2080 1920 1020 Output Total 2710 2725 725 Balance -630 -805 295 Result Diagrams: 07/30/18 05:00 07/30/18 05:00 Additional Labs: Accuchecks 07/29/18 07/29/18 07/29/18 20:56 16:24 10:52 POC Glucose 158 H 170 H 219 H 07/28/18 21:16 POC Glucose 105 Phys Exam - Physical Examination Constitutional: NAD Respiratory: no wheezing, no rhonchi Cardiovascular: RRR, no rub Gastrointestinal: soft, non-tender, positive bowel sounds Musculoskeletal: no edema Dx/Plan - Plan DVT proph w/lovenox, DVT proph w/SCDs IMPRESSION: Severe sepsis with acute organ dysfunction secondary to Scrotal/Perineal Nectrotizing fascitis. s/p Suprapubic Catheter/Colostomy Uncontrolled diabetes mellitus type 1 requiring Insulin drip - on Lantus/ sliding scale Hyponatremia/Hypokalemia/Hypomagnesemia Anemia, probably chronic. Chronic hepatitis C with ?cirrhosis Tobacco dependence. Counselled. Thrombocytopenia. s/p Acute hypoxic respiratory failure requring [facility] ventilation - resolved Acute kidney injury/Metabolic acidosis - resolved PLAN: Cont Atbx (Ceftriaxone/PO Flagyl/Fluconazole per ID recs) Cont current dose of Lantus/sliding scale Await SNF approval - Stable for dc Cont Wound care Review of Systems - Review of Systems Respiratory: negative: Cough, Dry, Shortness of Breath, Hemoptysis, SOB with Excertion, Pleuritic Pain, Sputum, Wheezing Cardiovascular: negative: chest pain, palpitations, orthopnea, paroxysmal nocturnal dyspnea, edema, light headedness, other Gastrointestinal: negative: Nausea, Vomiting, Abdominal Pain, Diarrhea, Constipation, Melena, Hematochezia, Other - Medications/Allergies Allergies/Adverse Reactions: Allergies Allergy/AdvReac Type Severity Reaction Status Date / Time No Known Drug Allergies Allergy Verified 07/16/18 01:27 Medications: Current Medications Acetaminophen (Tylenol) 650 mg [place] Q4H PRN PRN Reason: Headache/Fever/Mild Pain (1-3) Last Admin: 07/17/18 00:58 Dose: 650 mg Hydrocodone Bitart/Acetaminophen ([place] 5/325) 1 tab PO Q4H PRN PRN Reason: Moderate Pain (4-6) Last Admin: 07/29/18 20:07 Dose: 1 tab Albuterol/Ipratropium (Duoneb) 3 ml NEB [id number] PRN PRN Reason: Dyspnea Calcium Carbonate (Tums) 1,000 mg PO Q4H PRN PRN Reason: Heartburn or Indigestion Dextrose/Water (Dextrose 50%) 25 gm SLOW IVP PRN PRN PRN Reason: Hypoglycemia Enoxaparin Sodium (Lovenox) 40 mg SC 0900 [facility] Last Admin: 07/29/18 09:42 Dose: 40 mg Famotidine (Pepcid) 20 mg PO BID [facility] Last Admin: 07/29/18 20:08 Dose: 20 mg Folic Acid (Folvite) 1 mg PO DAILY [facility] Last Admin: 07/29/18 09:41 Dose: 1 mg Glucagon (Glucagon) 1 mg IM PRN PRN PRN Reason: Hypoglycemia Dextrose/Water (D5w) 1,000 mls @ 0 mls/hr IV .Q0M PRN PRN Reason: Hypoglycemia Insulin Glargine 20 units/ (Miscellaneous Medication) 0.2 mls @ 0 mls/hr SC QAM [facility] Last Admin: 07/29/18 09:42 Dose: 0.2 mls Fluconazole/Sodium Chloride (400 mg/ Device) 200 mls @ 100 mls/hr IVPB DAILY [facility] Last Admin: 07/29/18 09:42 Dose: 200 mls Ceftriaxone Sodium 1 gm/ (Sodium Chloride) 100 mls @ 200 mls/hr IVPB Q24HR [facility] Last Admin: 07/29/18 15:29 Dose: 100 mls Insulin Human Regular (Humulin R) 0 units SC .MODERATE SLIDING SC PRN PRN Reason: Moderate Correctional Scale Last Admin: 07/29/18 18:38 Dose: 2 unit Lidocaine HCl (Xylocaine 4% Topical Nannette) 0 ml TOP [email or web address] [facility] Last Admin: 07/24/18 07:19 Dose: 1 applic Magnesium Chloride (Slow-Mag) 64 mg PO BID [facility] Last Admin: 07/29/18 20:08 Dose: 64 mg Metronidazole (Flagyl) 500 mg PO TID [facility] Last Admin: 07/29/18 20:08 Dose: 500 mg Mineral Oil/White Petrolatum (Systane Nighttime Eye Ointment) 0 gm EA EYE PRN PRN PRN Reason: Dry Eyes Morphine Sulfate (Morphine) 4 mg SLOW IVP Q2H PRN PRN Reason: Moderate to Severe Pain (6-10) Stop: 07/31/18 07:57 Multivitamins (Theragran) 1 tab PO DAILY [facility] Last Admin: 07/29/18 09:41 Dose: 1 tab Polyethylene Glycol (Miralax) 17 gm PO DAILY [facility] Last Admin: 07/29/18 09:42 Dose: 17 gm Saccharomyces Boulardii (Florastor) 250 mg PO DAILY [facility] Last Admin: 07/29/18 09:42 Dose: 250 mg Sodium Chloride (Flush - Normal Saline) 10 ml IVF PRN PRN PRN Reason: Saline Flush Last Admin: 07/26/18 07:05 Dose: 10 ml Sodium Chloride (Flush - Normal Saline) 10 ml IVF Q12HR [facility] Last Admin: 07/29/18 20:19 Dose: 10 ml Sodium Chloride (Flush - Normal Saline) 10 ml IVF PRN PRN PRN Reason: Saline Flush Thiamine HCl (Thiamine Hcl) 100 mg SLOW IVP DAILY [facility] Last Admin: 07/29/18 09:40 Dose: 100 mg
[2018-07-30] MEDS: HYDROcodone/Acetaminophen 5/325 mg Tablet PO PRN ×5 (01:30→21:08)
[2018-07-30 05:17] LABS: #Basophils 0.1 thou/uL (0.0-0.2); #Eosinphils 0.2 thou/uL (0.0-0.7); #Lymphocytes 2.1 thou/uL (1.20-3.40); #Monocytes 0.5 thou/uL (0.11-0.59); #Neutrophils 2.2 thou/uL (1.40-6.50); %Eosinophils 4.8 % (0.0-10.0); %Lymphocytes 40.7 % (21.0-51.0); %Monocytes 10.2 % (0.0-10.0); %Neutrophils 43.3 % (42.0-75.0); Hemoglobin 10.9 g/dL (14.0-18.0); Mean Corpuscular HGB CONC 32.7 g/dL (32.0-36.0); Mean Corpuscular Hemoglobin 28.3 pg (27.0-31.0); Mean Corpuscular Volume 86.5 fL (78.0-98.0); Mean Platelet Volume 5.8 fL (7.4-10.4); Platelet Count 388 thou/uL (130-400); RBC Distribution Width 13.4 % (11.5-14.5); Red Blood Cell (RBC) Count 3.86 mill/uL (4.70-6.10); White Blood Cell (WBC) Count 5.2 thou/uL (4.8-10.8)
[2018-07-30 05:44] LABS: Anion Gap 9 mmol/L (10-20); BUN (Urea Nitrogen) 11 mg/dL (8.4-25.7); Calc. Creatinine Clearance 119 mL/min (70-130); Carbon Dioxide 27 mmol/L (22-29); Chloride 103 mmol/L (98-107); Estimated GFR-MDRD Greater than 90; Glucose 134 mg/dL (70-105); Magnesium 1.5 mg/dL (1.6-2.6); Potassium 4.6 mmol/L (3.5-5.1); Sodium 134 mmol/L (136-145)
[2018-07-30] MEDS: Magnesium Chloride 64 MG TAB PO SCH ×2 (09:13→21:06)
[2018-07-30] MEDS: Insulin Glargine 20 UNITS in Pre-Filled Syringe 1 EACH SC SCH (09:13)
[2018-07-30] MEDS: Thiamine HCl 200 MG/2 ML VIAL SLOW IVP SCH (09:14)
[2018-07-30] MEDS: metroNIDAZOLE 500 MG TAB PO SCH ×3 (09:14→21:05)
[2018-07-30] MEDS: Folic Acid 1 MG TAB PO SCH (09:14)
[2018-07-30] MEDS: Enoxaparin Sodium 40 MG/0.4 ML SYRINGE SC SCH (09:14)
[2018-07-30] MEDS: Saccharomyces boulardii 250 MG CAP PO SCH (09:14)
[2018-07-30] MEDS: Polyethylene Glycol 3350 17 GM Packet PO SCH (09:15)
[2018-07-30] MEDS: Multivit, Therapeutic 1 TAB PO SCH (09:15)
[2018-07-30] MEDS: Fluconazole In NaCl,Iso-Osm 400 MG in Premix Bag 1 BAG IVPB SCH (09:15)
[2018-07-30] MEDS: Famotidine 20 MG TAB PO SCH ×2 (09:15→21:06)
[2018-07-30] MEDS ORDERED: Magnesium Sulfate 2 GM in Sodium Chloride 0.9% 100 ML IVPB SCH (12:15)
[2018-07-30] MEDS ORDERED: Magnesium 2 GM/50 ML 2 GM in Premix Bag 1 BAG IVPB SCH (12:30)
[2018-07-30] MEDS: Insulin Regular 300 UNITS/3 ML VIAL SC PRN (12:50)
[2018-07-30] MEDS: cefTRIAXone\\ROCEPHIN 1 GM in Sodium Chloride 0.9% 100 ML IVPB SCH (15:53)
[2018-07-30] MEDS ORDERED: Morphine 2 MG/ML SYRINGE SLOW IVP PRN (15:59)
--- NOTE | 2018-07-30 22:46 | PDOC.PN ---
- Subjective Encounter Start Date: 07/30/18 Encounter Start Time: 09:30 Patient seen and examined for Sepsis/nec fasc. No new complaints. No overnight events - Objective Resuscitation Status - Order Detail: 07/15/18 21:39 Resuscitation Status Routine Resuscitation Status: FULL: Full Resuscitation MAR Reviewed: Yes Vital Signs & Weight: Vital Signs (12 hours) Temp Pulse Resp BP Pulse Ox 07/30/18 20:00 97.4 F L 78 20 110/72 95 07/30/18 16:43 97.9 F 75 16 103/71 94 L 07/30/18 11:16 98.3 F 86 18 116/79 94 L Weight Admit Weight 190 lb 11.198 oz Weight 188 lb 8 oz Most Recent Monitor Data Heart Rate from ECG 77 NIBP 140/87 NIBP BP-Mean 104 Respiration from ECG 26 SpO2 99 I&O: 07/29/18 07/30/18 07/31/18 06:59 06:59 06:59 Intake Total 1920 1920 1200 Output Total 2725 1475 900 Balance -805 445 300 Result Diagrams: 07/30/18 05:00 07/30/18 05:00 Additional Labs: Accuchecks 07/30/18 07/30/18 07/30/18 20:26 16:48 11:17 POC Glucose 182 H 128 H 239 H 07/30/18 05:30 POC Glucose 124 H Phys Exam - Physical Examination Constitutional: NAD Respiratory: no wheezing, no rhonchi Cardiovascular: RRR, no rub Gastrointestinal: soft, positive bowel sounds Musculoskeletal: no edema Dx/Plan - Plan DVT proph w/lovenox, DVT proph w/SCDs IMPRESSION: Severe sepsis with acute organ dysfunction secondary to Scrotal/Perineal Nectrotizing fascitis. s/p Suprapubic Catheter/Colostomy Uncontrolled diabetes mellitus type 1 requiring Insulin drip - on Lantus/ sliding scale Hyponatremia/Hypokalemia/Hypomagnesemia Anemia, probably chronic. Chronic hepatitis C with ?cirrhosis Tobacco dependence. Counselled. Thrombocytopenia. s/p Acute hypoxic respiratory failure requring [facility] ventilation - resolved Acute kidney injury/Metabolic acidosis - resolved PLAN: Replace Magnessium Cont Atbx (Ceftriaxone/PO Flagyl/Fluconazole) Cont Lantus/sliding scale Await SNF approval - Stable for dc Cont Wound care/vac Laboratory Tests 07/30/18 05:00 Magnesium 1.5 L Review of Systems - Review of Systems Respiratory: negative: Cough, Dry, Shortness of Breath, Hemoptysis, SOB with Excertion, Pleuritic Pain, Sputum, Wheezing Cardiovascular: negative: chest pain, palpitations, orthopnea, paroxysmal nocturnal dyspnea, edema, light headedness, other - Medications/Allergies Allergies/Adverse Reactions: Allergies Allergy/AdvReac Type Severity Reaction Status Date / Time No Known Drug Allergies Allergy Verified 07/16/18 01:27 Medications: Current Medications Acetaminophen (Tylenol) 650 mg [place] Q4H PRN PRN Reason: Headache/Fever/Mild Pain (1-3) Last Admin: 07/17/18 00:58 Dose: 650 mg Hydrocodone Bitart/Acetaminophen ([place] 5/325) 1 tab PO Q4H PRN PRN Reason: Moderate Pain (4-6) Last Admin: 07/30/18 21:08 Dose: 1 tab Albuterol/Ipratropium (Duoneb) 3 ml NEB [id number] PRN PRN Reason: Dyspnea Calcium Carbonate (Tums) 1,000 mg PO Q4H PRN PRN Reason: Heartburn or Indigestion Dextrose/Water (Dextrose 50%) 25 gm SLOW IVP PRN PRN PRN Reason: Hypoglycemia Enoxaparin Sodium (Lovenox) 40 mg SC 0900 [facility] Last Admin: 07/30/18 09:14 Dose: 40 mg Famotidine (Pepcid) 20 mg PO BID [facility] Last Admin: 07/30/18 21:06 Dose: 20 mg Folic Acid (Folvite) 1 mg PO DAILY [facility] Last Admin: 07/30/18 09:14 Dose: 1 mg Glucagon (Glucagon) 1 mg IM PRN PRN PRN Reason: Hypoglycemia Dextrose/Water (D5w) 1,000 mls @ 0 mls/hr IV .Q0M PRN PRN Reason: Hypoglycemia Insulin Glargine 20 units/ (Miscellaneous Medication) 0.2 mls @ 0 mls/hr SC QAM [facility] Last Admin: 07/30/18 09:13 Dose: 0.2 mls Ceftriaxone Sodium 1 gm/ (Sodium Chloride) 100 mls @ 200 mls/hr IVPB Q24HR [facility] Last Admin: 07/30/18 15:53 Dose: 100 mls Insulin Human Regular (Humulin R) 0 units SC .MODERATE SLIDING SC PRN PRN Reason: Moderate Correctional Scale Last Admin: 07/30/18 12:50 Dose: 4 unit Lidocaine HCl (Xylocaine 4% Topical Nannette) 0 ml TOP [email or web address] [facility] Last Admin: 07/24/18 07:19 Dose: 1 applic Magnesium Chloride (Slow-Mag) 64 mg PO BID [facility] Last Admin: 07/30/18 21:06 Dose: 64 mg Metronidazole (Flagyl) 500 mg PO TID [facility] Last Admin: 07/30/18 21:05 Dose: 500 mg Mineral Oil/White Petrolatum (Systane Nighttime Eye Ointment) 0 gm EA EYE PRN PRN PRN Reason: Dry Eyes Morphine Sulfate (Morphine) 4 mg SLOW IVP Q2H PRN PRN Reason: Moderate to Severe Pain (6-10) Stop: 07/31/18 07:57 Morphine Sulfate (Morphine) 4 mg SLOW IVP Q4H PRN PRN Reason: Severe Pain (7-10) Stop: 08/03/18 16:00 Multivitamins (Theragran) 1 tab PO DAILY [facility] Last Admin: 07/30/18 09:15 Dose: 1 tab Polyethylene Glycol (Miralax) 17 gm PO DAILY [facility] Last Admin: 07/30/18 09:15 Dose: 17 gm Saccharomyces Boulardii (Florastor) 250 mg PO DAILY [facility] Last Admin: 07/30/18 09:14 Dose: 250 mg Sodium Chloride (Flush - Normal Saline) 10 ml IVF PRN PRN PRN Reason: Saline Flush Last Admin: 07/26/18 07:05 Dose: 10 ml Sodium Chloride (Flush - Normal Saline) 10 ml IVF Q12HR [facility] Last Admin: 07/30/18 21:11 Dose: 10 ml Sodium Chloride (Flush - Normal Saline) 10 ml IVF PRN PRN PRN Reason: Saline Flush Thiamine HCl (Thiamine Hcl) 100 mg SLOW IVP DAILY [facility] Last Admin: 07/30/18 09:14 Dose: 100 mg
[2018-07-31] MEDS: HYDROcodone/Acetaminophen 5/325 mg Tablet PO PRN ×5 (02:11→23:29)
[2018-07-31] MEDS: Morphine 2 MG/ML SYRINGE SLOW IVP PRN (06:52)
--- NOTE | 2018-07-31 07:29 | PRG ---
DATE OF SERVICE: 07/31/2018 SUBJECTIVE: The patient without complaints. PHYSICAL EXAMINATION: VITAL SIGNS: Stable. ABDOMEN: Soft. SP tube is clean, dry, and intact. : Wound VAC is taken down. There was good contracture of the right hemiscrotum. Imaged the right testicle is invaginated. The left testicle remains somewhat free-floating, however, there is great granulating tissue coming in. Overall, the wound is progressing well. No debridement required; turned over to wound care team to replace the wound VAC. IMPRESSION AND PLAN: Mr. Orlando is a 52-year-old male with history of necrotizing fasciitis of the scrotum, perineum status post wide debridement, exam under anesthesia, suprapubic tube, diverting colostomy. He has a PICC line, on Rocephin, Diflucan, and Flagyl. On sliding scale insulin. Await prison placement to continue wound VAC Tuesday, Tuesday, Tuesday and IV antibiotics. Wound is stable for the patient for discharge when prison available. Job ID: [id number] [facility]
[2018-07-31] MEDS: Insulin Glargine 20 UNITS in Pre-Filled Syringe 1 EACH SC SCH (08:31)
[2018-07-31] MEDS: Enoxaparin Sodium 40 MG/0.4 ML SYRINGE SC SCH (08:31)
[2018-07-31] MEDS: Folic Acid 1 MG TAB PO SCH (08:31)
[2018-07-31] MEDS: Famotidine 20 MG TAB PO SCH ×2 (08:31→20:12)
[2018-07-31] MEDS: metroNIDAZOLE 500 MG TAB PO SCH ×3 (08:32→20:12)
[2018-07-31] MEDS: Saccharomyces boulardii 250 MG CAP PO SCH (08:32)
[2018-07-31] MEDS: Multivit, Therapeutic 1 TAB PO SCH (08:32)
[2018-07-31] MEDS: Polyethylene Glycol 3350 17 GM Packet PO SCH (08:32)
[2018-07-31] MEDS: Magnesium Chloride 64 MG TAB PO SCH ×2 (08:32→20:12)
[2018-07-31] MEDS: Thiamine HCl 200 MG/2 ML VIAL SLOW IVP SCH (08:33)
[2018-07-31] MEDS: cefTRIAXone\\ROCEPHIN 1 GM in Sodium Chloride 0.9% 100 ML IVPB SCH (14:05)
[2018-07-31] MEDS: Insulin Regular 300 UNITS/3 ML VIAL SC PRN ×2 (16:57→21:18)
--- NOTE | 2018-07-31 18:04 | PDOC.PN ---
- Subjective Encounter Start Date: 07/31/18 Encounter Start Time: 17:30 Patient seen and examined for Sepsis. Feels the same. No new complaints. No overnight events - Objective Resuscitation Status - Order Detail: 07/15/18 21:39 Resuscitation Status Routine Resuscitation Status: FULL: Full Resuscitation MAR Reviewed: Yes Vital Signs & Weight: Vital Signs (12 hours) Temp Pulse Resp BP Pulse Ox 07/31/18 16:28 97.6 F 76 18 105/72 94 L 07/31/18 12:31 98.3 F 80 18 111/77 94 L 07/31/18 08:00 97.9 F 86 18 122/79 95 Weight Admit Weight 190 lb 11.198 oz Weight 174 lb 8 oz Most Recent Monitor Data Heart Rate from ECG 77 NIBP 140/87 NIBP BP-Mean 104 Respiration from ECG 26 SpO2 99 I&O: 07/30/18 07/31/18 08/01/18 06:59 06:59 06:59 Intake Total 1920 1700 Output Total 1475 2200 Balance 445 -500 Result Diagrams: 07/30/18 05:00 07/30/18 05:00 Additional Labs: Accuchecks 07/31/18 07/31/18 07/31/18 15:53 10:47 08:21 POC Glucose 241 H 175 H 123 H 07/31/18 07/30/18 05:38 20:26 POC Glucose 143 H 182 H Phys Exam - Physical Examination Constitutional: NAD Respiratory: no wheezing, no rhonchi Cardiovascular: RRR, no rub Gastrointestinal: soft, non-tender, positive bowel sounds Musculoskeletal: no edema Neurological: moves all 4 limbs Dx/Plan - Plan DVT proph w/lovenox, DVT proph w/SCDs IMPRESSION: Severe sepsis with acute organ dysfunction secondary to Scrotal/Perineal Nectrotizing fascitis. s/p Suprapubic Catheter/Colostomy Uncontrolled diabetes mellitus type 1 requiring Insulin drip - on Lantus/ sliding scale Hyponatremia/Hypokalemia/Hypomagnesemia Anemia, probably chronic. Chronic hepatitis C with ?cirrhosis Tobacco dependence. Counselled. Thrombocytopenia. s/p Acute hypoxic respiratory failure requring [facility] ventilation - resolved Acute kidney injury/Metabolic acidosis - resolved PLAN: Cont Atbx (Ceftriaxone/PO Flagyl/Fluconazole) Cont Lantus/sliding scale Cont Wound care/vac Await SNF approval - Stable for dc Review of Systems - Review of Systems Respiratory: negative: Cough, Dry, Shortness of Breath, Hemoptysis, SOB with Excertion, Pleuritic Pain, Sputum, Wheezing Cardiovascular: negative: chest pain, palpitations, orthopnea, paroxysmal nocturnal dyspnea, edema, light headedness, other Gastrointestinal: negative: Nausea, Vomiting, Abdominal Pain, Diarrhea, Constipation, Melena, Hematochezia, Other - Medications/Allergies Allergies/Adverse Reactions: Allergies Allergy/AdvReac Type Severity Reaction Status Date / Time No Known Drug Allergies Allergy Verified 07/16/18 01:27 Medications: Current Medications Acetaminophen (Tylenol) 650 mg [place] Q4H PRN PRN Reason: Headache/Fever/Mild Pain (1-3) Last Admin: 07/17/18 00:58 Dose: 650 mg Hydrocodone Bitart/Acetaminophen ([place] 5/325) 1 tab PO Q4H PRN PRN Reason: Moderate Pain (4-6) Last Admin: 07/31/18 14:06 Dose: 1 tab Albuterol/Ipratropium (Duoneb) 3 ml NEB [id number] PRN PRN Reason: Dyspnea Calcium Carbonate (Tums) 1,000 mg PO Q4H PRN PRN Reason: Heartburn or Indigestion Dextrose/Water (Dextrose 50%) 25 gm SLOW IVP PRN PRN PRN Reason: Hypoglycemia Enoxaparin Sodium (Lovenox) 40 mg SC 0900 [facility] Last Admin: 07/31/18 08:31 Dose: 40 mg Famotidine (Pepcid) 20 mg PO BID [facility] Last Admin: 07/31/18 08:31 Dose: 20 mg Folic Acid (Folvite) 1 mg PO DAILY [facility] Last Admin: 07/31/18 08:31 Dose: 1 mg Glucagon (Glucagon) 1 mg IM PRN PRN PRN Reason: Hypoglycemia Dextrose/Water (D5w) 1,000 mls @ 0 mls/hr IV .Q0M PRN PRN Reason: Hypoglycemia Insulin Glargine 20 units/ (Miscellaneous Medication) 0.2 mls @ 0 mls/hr SC QAM [facility] Last Admin: 07/31/18 08:31 Dose: 0.2 mls Ceftriaxone Sodium 1 gm/ (Sodium Chloride) 100 mls @ 200 mls/hr IVPB Q24HR [facility] Last Admin: 07/31/18 14:05 Dose: 100 mls Insulin Human Regular (Humulin R) 0 units SC .MODERATE SLIDING SC PRN PRN Reason: Moderate Correctional Scale Last Admin: 07/31/18 16:57 Dose: 4 unit Lidocaine HCl (Xylocaine 4% Topical Nannette) 0 ml TOP [email or web address] [facility] Last Admin: 07/24/18 07:19 Dose: 1 applic Magnesium Chloride (Slow-Mag) 64 mg PO BID [facility] Last Admin: 07/31/18 08:32 Dose: 64 mg Metronidazole (Flagyl) 500 mg PO TID [facility] Last Admin: 07/31/18 14:06 Dose: 500 mg Mineral Oil/White Petrolatum (Systane Nighttime Eye Ointment) 0 gm EA EYE PRN PRN PRN Reason: Dry Eyes Morphine Sulfate (Morphine) 4 mg SLOW IVP Q4H PRN PRN Reason: Severe Pain (7-10) Stop: 08/03/18 16:00 Morphine Sulfate (Morphine) 2 mg SLOW IVP Q4H PRN PRN Reason: Moderate Pain (4-6) Last Admin: 07/31/18 06:52 Dose: 2 mg Multivitamins (Theragran) 1 tab PO DAILY [facility] Last Admin: 07/31/18 08:32 Dose: 1 tab Polyethylene Glycol (Miralax) 17 gm PO DAILY [facility] Last Admin: 07/31/18 08:32 Dose: 17 gm Saccharomyces Boulardii (Florastor) 250 mg PO DAILY [facility] Last Admin: 07/31/18 08:32 Dose: 250 mg Sodium Chloride (Flush - Normal Saline) 10 ml IVF Q12HR [facility] Last Admin: 07/31/18 08:32 Dose: 10 ml Sodium Chloride (Flush - Normal Saline) 10 ml IVF PRN PRN PRN Reason: Saline Flush Thiamine HCl (Thiamine Hcl) 100 mg SLOW IVP DAILY [facility] Last Admin: 07/31/18 08:33 Dose: 100 mg
[2018-07-31] MEDS ORDERED: Dextrose 5% in Water 1,000 ML IV PRN (21:10)
[2018-07-31] MEDS ORDERED: HumaLOG 300 UNITS/3 ML VIAL SC PRN (21:10)
[2018-07-31] MEDS ORDERED: Dextrose 50% Abboject 50 ML SYRINGE SLOW IVP PRN (21:10)
[2018-08-01] MEDS: HYDROcodone/Acetaminophen 5/325 mg Tablet PO PRN ×4 (04:19→20:09)
[2018-08-01] MEDS: Enoxaparin Sodium 40 MG/0.4 ML SYRINGE SC SCH (08:25)
[2018-08-01] MEDS: Polyethylene Glycol 3350 17 GM Packet PO SCH (08:25)
[2018-08-01] MEDS: Magnesium Chloride 64 MG TAB PO SCH ×2 (08:25→20:09)
[2018-08-01] MEDS: Saccharomyces boulardii 250 MG CAP PO SCH (08:26)
[2018-08-01] MEDS: Famotidine 20 MG TAB PO SCH ×2 (08:26→20:09)
[2018-08-01] MEDS: Folic Acid 1 MG TAB PO SCH (08:26)
[2018-08-01] MEDS: Thiamine HCl 200 MG/2 ML VIAL SLOW IVP SCH (08:26)
[2018-08-01] MEDS: Multivit, Therapeutic 1 TAB PO SCH (08:26)
[2018-08-01] MEDS: metroNIDAZOLE 500 MG TAB PO SCH ×3 (08:26→20:08)
[2018-08-01] MEDS: Insulin Glargine 20 UNITS in Pre-Filled Syringe 1 EACH SC SCH (10:09)
--- NOTE | 2018-08-01 12:53 | PDOC.PN ---
- Subjective Encounter Start Date: 08/01/18 Encounter Start Time: 12:52 Patient seen and examined for Sepsis. Doing well. Pain controlled. No new complaints. No overnight events - Objective Resuscitation Status - Order Detail: 07/15/18 21:39 Resuscitation Status Routine Resuscitation Status: FULL: Full Resuscitation MAR Reviewed: Yes Vital Signs & Weight: Vital Signs (12 hours) Temp Pulse Resp BP Pulse Ox 08/01/18 11:31 97.9 F 78 18 95/62 95 08/01/18 07:50 98.1 F 76 16 96/63 94 L 08/01/18 04:26 97.7 F 76 18 102/64 97 Weight Admit Weight 190 lb 11.198 oz Weight 175 lb Most Recent Monitor Data Heart Rate from ECG 77 NIBP 140/87 NIBP BP-Mean 104 Respiration from ECG 26 SpO2 99 I&O: 07/31/18 08/01/18 08/02/18 06:59 06:59 06:59 Intake Total 1700 1640 Output Total 2200 1450 Balance -500 190 Result Diagrams: 07/30/18 05:00 07/30/18 05:00 Additional Labs: Accuchecks 08/01/18 08/01/18 07/31/18 11:32 05:25 21:03 POC Glucose 220 H 128 H 239 H 07/31/18 15:53 POC Glucose 241 H Phys Exam - Physical Examination Constitutional: NAD Respiratory: no wheezing, no rhonchi Cardiovascular: RRR, no rub Gastrointestinal: soft, non-tender, positive bowel sounds Colostomy + Musculoskeletal: no edema Neurological: moves all 4 limbs Dx/Plan - Plan DVT proph w/lovenox, DVT proph w/SCDs IMPRESSION: Severe sepsis with acute organ dysfunction secondary to Scrotal/Perineal Nectrotizing fascitis. s/p Suprapubic Catheter/Colostomy Uncontrolled diabetes mellitus type 1 requiring Insulin drip - on Lantus/ sliding scale Hyponatremia/Hypokalemia/Hypomagnesemia Anemia, probably chronic. Chronic hepatitis C with ?cirrhosis Tobacco dependence. Counselled. Thrombocytopenia. 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 PLAN: Cont Ceftriaxone/PO Flagyl until August [address] Iyer Cont Lantus with sliding scale Cont Wound care/vac Await SNF approval - Stable for dc Review of Systems - Review of Systems Respiratory: negative: Cough, Dry, Shortness of Breath, Hemoptysis, SOB with Excertion, Pleuritic Pain, Sputum, Wheezing Cardiovascular: negative: chest pain, palpitations, orthopnea, paroxysmal nocturnal dyspnea, edema, light headedness, other Gastrointestinal: negative: Nausea, Vomiting, Abdominal Pain, Diarrhea, Constipation, Melena, Hematochezia, Other - Medications/Allergies Allergies/Adverse Reactions: Allergies Allergy/AdvReac Type Severity Reaction Status Date / Time No Known Drug Allergies Allergy Verified 07/16/18 01:27 Medications: Current Medications Acetaminophen (Tylenol) 650 mg MA Q4H PRN PRN Reason: Headache/Fever/Mild Pain (1-3) Last Admin: 07/17/18 00:58 Dose: 650 mg Hydrocodone Bitart/Acetaminophen ([place] 5/325) 1 tab PO Q4H PRN PRN Reason: Moderate Pain (4-6) Last Admin: 08/01/18 08:42 Dose: 1 tab Albuterol/Ipratropium (Duoneb) 3 ml NEB [id number] PRN PRN Reason: Dyspnea Calcium Carbonate (Tums) 1,000 mg PO Q4H PRN PRN Reason: Heartburn or Indigestion Dextrose/Water (Dextrose 50%) 25 gm SLOW IVP PRN PRN PRN Reason: Hypoglycemia Enoxaparin Sodium (Lovenox) 40 mg SC 0900 [facility] Last Admin: 08/01/18 08:25 Dose: 40 mg Famotidine (Pepcid) 20 mg PO BID [facility] Last Admin: 08/01/18 08:26 Dose: 20 mg Folic Acid (Folvite) 1 mg PO DAILY [facility] Last Admin: 08/01/18 08:26 Dose: 1 mg Glucagon (Glucagon) 1 mg IM PRN PRN PRN Reason: Hypoglycemia Insulin Glargine 20 units/ (Miscellaneous Medication) 0.2 mls @ 0 mls/hr SC QAM [facility] Last Admin: 08/01/18 10:09 Dose: 0.2 mls Ceftriaxone Sodium 1 gm/ (Sodium Chloride) 100 mls @ 200 mls/hr IVPB Q24HR [facility] Last Admin: 07/31/18 14:05 Dose: 100 mls Dextrose/Water (D5w) 1,000 mls @ 0 mls/hr IV .Q0M PRN PRN Reason: Hypoglycemia Insulin Human Lispro (Humalog) 0 units SC .MILD SLIDING SCALE PRN PRN Reason: Mild Correctional Scale Last Admin: 08/01/18 11:37 Dose: 3 unit Insulin Human Regular (Humulin R) 0 units SC .MODERATE SLIDING SC PRN PRN Reason: Moderate Correctional Scale Last Admin: 07/31/18 21:18 Dose: 4 unit Lidocaine HCl (Xylocaine 4% Topical Nannette) 0 ml TOP [email or web address] [facility] Last Admin: 07/24/18 07:19 Dose: 1 applic Magnesium Chloride (Slow-Mag) 64 mg PO BID [facility] Last Admin: 08/01/18 08:25 Dose: 64 mg Metronidazole (Flagyl) 500 mg PO TID [facility] Last Admin: 08/01/18 08:26 Dose: 500 mg Mineral Oil/White Petrolatum (Systane Nighttime Eye Ointment) 0 gm EA EYE PRN PRN PRN Reason: Dry Eyes Morphine Sulfate (Morphine) 4 mg SLOW IVP Q4H PRN PRN Reason: Severe Pain (7-10) Stop: 08/03/18 16:00 Morphine Sulfate (Morphine) 2 mg SLOW IVP Q4H PRN PRN Reason: Moderate Pain (4-6) Last Admin: 07/31/18 06:52 Dose: 2 mg Multivitamins (Theragran) 1 tab PO DAILY [facility] Last Admin: 08/01/18 08:26 Dose: 1 tab Polyethylene Glycol (Miralax) 17 gm PO DAILY [facility] Last Admin: 08/01/18 08:25 Dose: 17 gm Saccharomyces Boulardii (Florastor) 250 mg PO DAILY [facility] Last Admin: 08/01/18 08:26 Dose: 250 mg Sodium Chloride (Flush - Normal Saline) 10 ml IVF Q12HR [facility] Last Admin: 08/01/18 08:27 Dose: 10 ml Sodium Chloride (Flush - Normal Saline) 10 ml IVF PRN PRN PRN Reason: Saline Flush Thiamine HCl (Thiamine Hcl) 100 mg SLOW IVP DAILY [facility] Last Admin: 08/01/18 08:26 Dose: 100 mg
--- NOTE | 2018-08-01 14:14 | PRG ---
DATE OF SERVICE: 08/01/2018 SUBJECTIVE: The patient without complaints. OBJECTIVE: VITAL SIGNS: Stable. ABDOMEN: Soft. Suprapubic tube site is clean, dry, and intact. : Wound VAC remains in place. IMPRESSION AND PLAN: Mr. Orlando is a 52-year-old male with: 1. Hepatitis C. 2. History of poorly controlled diabetes. 3. Presented with necrotizing fasciitis of scrotum and perineum, status post wide debridement, urinary diversion with SP tube, colon diversion with diverting colostomy. He is doing well. Wound appears to be granulating. We await placement to continue wound VAC Tuesday, Tuesday, Tuesday and IV antibiotics of Rocephin, Diflucan, and Flagyl. Continue sliding scale insulin. Job ID: [id number]
[2018-08-01] MEDS: cefTRIAXone\\ROCEPHIN 1 GM in Sodium Chloride 0.9% 100 ML IVPB SCH (15:10)
[2018-08-01] MEDS: Insulin Regular 300 UNITS/3 ML VIAL SC PRN (21:15)
[2018-08-02] MEDS: HYDROcodone/Acetaminophen 5/325 mg Tablet PO PRN ×5 (00:26→18:23)
[2018-08-02] MEDS: Morphine 2 MG/ML SYRINGE SLOW IVP PRN (06:48)
--- NOTE | 2018-08-02 07:44 | PRG ---
DATE OF SERVICE: 08/02/2018 SUBJECTIVE: The patient without complaints. OBJECTIVE: VITAL SIGNS: Stable. Sugars running in the upper 200s. ABDOMEN: Soft. SP tube site is clean, dry, and intact. Colostomy with air and stool. : Wound VAC removed and wound inspected. There is ongoing progression of his wound with good granulating tissue. The edges of the skin remain viable. I did debride some eschar in the right upper quadrant edge of the incision; however, this was minimal. Wound probed with no evidence of loculated cavity of concern. Wound Care team at bedside replacing the wound VAC. IMPRESSION AND PLAN: Mr. Orlando is a 52-year-old male with, 1. History of poorly-controlled diabetes, presenting A1c of 14. 2. History of hepatitis C. 3. Presented with necrotizing fasciitis of scrotum and perineum, status post wide debridement, urinary diversion, SP tube, colon diversion with diverting colostomy. His wound is looking well. Await placement. Per nursing staff, he may be discharged to [facility] today. Do not discharge the patient until dispo provided for followup appointment. He will need to continue his IV triple antibiotic therapy per Infectious Disease with Rocephin, Diflucan, and Flagyl. Pending discharge, please contact Dr. Iyer for course of antibiotic regimen. Job ID: [id number]
[2018-08-02] MEDS: Thiamine HCl 200 MG/2 ML VIAL SLOW IVP SCH (08:05)
[2018-08-02] MEDS: Famotidine 20 MG TAB PO SCH ×2 (08:06→20:10)
[2018-08-02] MEDS: Multivit, Therapeutic 1 TAB PO SCH (08:06)
[2018-08-02] MEDS: Polyethylene Glycol 3350 17 GM Packet PO SCH (08:06)
[2018-08-02] MEDS: Folic Acid 1 MG TAB PO SCH (08:06)
[2018-08-02] MEDS: Saccharomyces boulardii 250 MG CAP PO SCH (08:06)
[2018-08-02] MEDS: Magnesium Chloride 64 MG TAB PO SCH ×2 (08:06→20:10)
[2018-08-02] MEDS: metroNIDAZOLE 500 MG TAB PO SCH ×3 (08:06→20:10)
[2018-08-02] MEDS: Enoxaparin Sodium 40 MG/0.4 ML SYRINGE SC SCH (08:06)
[2018-08-02] MEDS: Insulin Glargine 20 UNITS in Pre-Filled Syringe 1 EACH SC SCH (08:06)
[2018-08-02] MEDS: Insulin Regular 300 UNITS/3 ML VIAL SC PRN (11:36)
--- NOTE | 2018-08-02 11:47 | PDOC.PN ---
- Subjective Encounter Start Date: 08/02/18 Encounter Start Time: 10:30 Patient seen and examined for Sepsis/[place]niers gangrene. No fever/chills. Pain controlled. No new complaints. No overnight events - Objective Resuscitation Status - Order Detail: 07/15/18 21:39 Resuscitation Status Routine Resuscitation Status: FULL: Full Resuscitation MAR Reviewed: Yes Vital Signs & Weight: Vital Signs (12 hours) Temp Pulse Resp BP Pulse Ox 08/02/18 08:42 98.3 F 79 18 109/76 95 08/02/18 03:53 98.2 F 72 16 98/63 96 08/02/18 00:21 97.7 F 72 16 112/76 97 Weight Admit Weight 190 lb 11.198 oz Weight 175 lb Most Recent Monitor Data Heart Rate from ECG 77 NIBP 140/87 NIBP BP-Mean 104 Respiration from ECG 26 SpO2 99 I&O: 08/01/18 08/02/18 08/03/18 06:59 06:59 06:59 Intake Total 1640 1740 Output Total 1450 1925 Balance 190 -185 Result Diagrams: 07/30/18 05:00 07/30/18 05:00 Additional Labs: Accuchecks 08/02/18 08/02/18 08/01/18 11:12 05:53 20:54 POC Glucose 245 H 98 289 H 08/01/18 15:42 POC Glucose 117 H Phys Exam - Physical Examination Constitutional: NAD Respiratory: no wheezing, no rhonchi Cardiovascular: RRR, no rub Gastrointestinal: soft, non-tender, positive bowel sounds Musculoskeletal: no edema Neurological: moves all 4 limbs Dx/Plan - Plan DVT proph w/lovenox, DVT proph w/SCDs IMPRESSION: Severe sepsis with acute organ dysfunction secondary to Scrotal/Perineal Nectrotizing fascitis. s/p Suprapubic Catheter/Colostomy Uncontrolled diabetes mellitus type 1 requiring Insulin drip - on Lantus/ sliding scale Hyponatremia/Hypokalemia/Hypomagnesemia - replaced Anemia, probably chronic. Chronic hepatitis C with ?cirrhosis - GI f/u as outpt Tobacco dependence. Counselled. Thrombocytopenia. 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 PLAN: Cont Ceftriaxone/PO Flagyl until August [address] Iyer Check labs including Mg in 2-3 days Cont 20 units of Lantus with sliding scale Cont Wound care/vac Await SNF approval - Stable for dc Review of Systems - Review of Systems Respiratory: negative: Cough, Dry, Shortness of Breath, Hemoptysis, SOB with Excertion, Pleuritic Pain, Sputum, Wheezing Cardiovascular: negative: chest pain, palpitations, orthopnea, paroxysmal nocturnal dyspnea, edema, light headedness, other Gastrointestinal: negative: Nausea, Vomiting, Abdominal Pain, Diarrhea, Constipation, Melena, Hematochezia, Other - Medications/Allergies Allergies/Adverse Reactions: Allergies Allergy/AdvReac Type Severity Reaction Status Date / Time No Known Drug Allergies Allergy Verified 07/16/18 01:27 Medications: Current Medications Acetaminophen (Tylenol) 650 mg [place] Q4H PRN PRN Reason: Headache/Fever/Mild Pain (1-3) Last Admin: 07/17/18 00:58 Dose: 650 mg Hydrocodone Bitart/Acetaminophen ([place] 5/325) 1 tab PO Q4H PRN PRN Reason: Moderate Pain (4-6) Last Admin: 08/02/18 08:50 Dose: 1 tab Albuterol/Ipratropium (Duoneb) 3 ml NEB [id number] PRN PRN Reason: Dyspnea Calcium Carbonate (Tums) 1,000 mg PO Q4H PRN PRN Reason: Heartburn or Indigestion Dextrose/Water (Dextrose 50%) 25 gm SLOW IVP PRN PRN PRN Reason: Hypoglycemia Enoxaparin Sodium (Lovenox) 40 mg SC 0900 [facility] Last Admin: 08/02/18 08:06 Dose: 40 mg Famotidine (Pepcid) 20 mg PO BID [facility] Last Admin: 08/02/18 08:06 Dose: 20 mg Folic Acid (Folvite) 1 mg PO DAILY [facility] Last Admin: 08/02/18 08:06 Dose: 1 mg Glucagon (Glucagon) 1 mg IM PRN PRN PRN Reason: Hypoglycemia Insulin Glargine 20 units/ (Miscellaneous Medication) 0.2 mls @ 0 mls/hr SC QAM [facility] Last Admin: 08/02/18 08:06 Dose: 0.2 mls Ceftriaxone Sodium 1 gm/ (Sodium Chloride) 100 mls @ 200 mls/hr IVPB Q24HR [facility] Last Admin: 08/01/18 15:10 Dose: 100 mls Dextrose/Water (D5w) 1,000 mls @ 0 mls/hr IV .Q0M PRN PRN Reason: Hypoglycemia Insulin Human Regular (Humulin R) 0 units SC .MODERATE SLIDING SC PRN PRN Reason: Moderate Correctional Scale Last Admin: 08/02/18 11:36 Dose: 4 unit Insulin Human Regular (Humulin R) 0 units SC .BEDTIME SLIDING SC PRN PRN Reason: Bedtime Correctional Scale Lidocaine HCl (Xylocaine 4% Topical Nannette) 0 ml TOP [email or web address] [facility] Last Admin: 07/24/18 07:19 Dose: 1 applic Magnesium Chloride (Slow-Mag) 64 mg PO BID [facility] Last Admin: 08/02/18 08:06 Dose: 64 mg Metronidazole (Flagyl) 500 mg PO TID [facility] Last Admin: 08/02/18 08:06 Dose: 500 mg Mineral Oil/White Petrolatum (Systane Nighttime Eye Ointment) 0 gm EA EYE PRN PRN PRN Reason: Dry Eyes Morphine Sulfate (Morphine) 4 mg SLOW IVP Q4H PRN PRN Reason: Severe Pain (7-10) Stop: 08/03/18 16:00 Morphine Sulfate (Morphine) 2 mg SLOW IVP Q4H PRN PRN Reason: Moderate Pain (4-6) Last Admin: 08/02/18 06:48 Dose: 2 mg Multivitamins (Theragran) 1 tab PO DAILY [facility] Last Admin: 08/02/18 08:06 Dose: 1 tab Polyethylene Glycol (Miralax) 17 gm PO DAILY [facility] Last Admin: 08/02/18 08:06 Dose: 17 gm Saccharomyces Boulardii (Florastor) 250 mg PO DAILY [facility] Last Admin: 08/02/18 08:06 Dose: 250 mg Sodium Chloride (Flush - Normal Saline) 10 ml IVF Q12HR [facility] Last Admin: 08/02/18 08:07 Dose: 10 ml Sodium Chloride (Flush - Normal Saline) 10 ml IVF PRN PRN PRN Reason: Saline Flush Last Admin: 08/02/18 06:49 Dose: 10 ml Thiamine HCl (Thiamine Hcl) 100 mg SLOW IVP DAILY [facility] Last Admin: 08/02/18 08:05 Dose: 100 mg
[2018-08-02] MEDS: cefTRIAXone\\ROCEPHIN 1 GM in Sodium Chloride 0.9% 100 ML IVPB SCH (15:17)
[2018-08-03] MEDS: HYDROcodone/Acetaminophen 5/325 mg Tablet PO PRN ×5 (01:21→21:45)
--- NOTE | 2018-08-03 07:41 | PRG ---
DATE OF SERVICE: 08/03/2018 SUBJECTIVE: The patient without complaints. OBJECTIVE: VITAL SIGNS: Stable. ABDOMEN: Soft. Suprapubic tube site is clean, dry, and intact. : Wound VAC is in place. LABORATORY DATA: No new labs. IMPRESSION AND PLAN: Mr. Orlando is a 52-year-old male with: 1. History of poorly-controlled diabetes, admitting A1c of 14. 2. History of hepatitis C. 3. Presented with necrotizing fasciitis of scrotum/perineum, status post wide debridement, urinary diversion with SP tube, diverting colostomy. His wound is progressing well. He is [facility] wound VAC on Tuesday, Tuesday, and Tuesday. For Infectious Disease, Dr. Iyer. He will continue his IV antibiotic until august 16. Tentative follow up with me next Tuesday, pending discharge. Hopefully, the patient can be discharged either today or tomorrow to [facility] as planned. Job ID: [id number]
[2018-08-03] MEDS: Saccharomyces boulardii 250 MG CAP PO SCH (08:20)
[2018-08-03] MEDS: Folic Acid 1 MG TAB PO SCH (08:20)
[2018-08-03] MEDS: Multivit, Therapeutic 1 TAB PO SCH (08:20)
[2018-08-03] MEDS: metroNIDAZOLE 500 MG TAB PO SCH ×3 (08:20→20:34)
[2018-08-03] MEDS: Magnesium Chloride 64 MG TAB PO SCH ×2 (08:20→20:34)
[2018-08-03] MEDS: Famotidine 20 MG TAB PO SCH ×2 (08:20→20:34)
[2018-08-03] MEDS: Thiamine HCl 200 MG/2 ML VIAL SLOW IVP SCH (08:21)
[2018-08-03] MEDS: Enoxaparin Sodium 40 MG/0.4 ML SYRINGE SC SCH (08:21)
[2018-08-03] MEDS: Insulin Glargine 20 UNITS in Pre-Filled Syringe 1 EACH SC SCH (08:21)
[2018-08-03] MEDS: Polyethylene Glycol 3350 17 GM Packet PO SCH (08:21)
[2018-08-03] MEDS: Insulin Regular 300 UNITS/3 ML VIAL SC PRN ×2 (12:40→17:56)
[2018-08-03] MEDS: cefTRIAXone\\ROCEPHIN 1 GM in Sodium Chloride 0.9% 100 ML IVPB SCH (14:31)
--- NOTE | 2018-08-03 15:42 | PRG ---
DATE OF SERVICE: 08/03/2018 SUBJECTIVE: The patient is seen and examined at bedside. He does not have much complaints to offer. OBJECTIVE: VITAL SIGNS: Blood pressure is 96/68, pulse is 74, temperature is 98.4, respiratory rate is 18, and O2 saturation is 94% on room air. HEENT: His head is atraumatic and normocephalic. He is blind on the left, he does not have any eyeball in the socket. Oral mucosa is moist. NECK: Supple. LUNGS: Clear. HEART: S1 and S2 are normal. No S3. No S4. ABDOMEN: He has a colostomy in place and suprapubic catheter. Bowel sounds are present. No organomegaly. EXTREMITIES: No clubbing, cyanosis, or edema. NEUROLOGIC: He is alert and oriented x4. There are no any motor deficits. LABORATORY DATA: None. Glycemia is ranging from 78 to 245. IMPRESSION: 1. Severe sepsis with acute organ dysfunction secondary to scrotal/perineal necrotizing fasciitis, status post suprapubic catheter and colostomy. 2. Uncontrolled diabetes mellitus, type 1, requiring insulin drip, on insulin Lantus and sliding scale. 3. Hyponatremia. 4. Hypokalemia. 5. Hypomagnesemia, replaced. 6. Anemia. 7. Chronic hepatitis C with questionable cirrhosis. GI to follow up on outpatient basis. 8. Tobacco dependence. 9. Thrombocytopenia. 10. Status post acute hypoxic respiratory failure, requiring mechanical ventilation, resolved. 11. Acute kidney injury/metabolic acidosis, resolved. 12. Left eye blindness with visual impairment in the right eye. PLAN: 1. To continue IV ceftriaxone and p.o. Flagyl until August [address] Iyer. 2. Follow up weekly labs. 3. Continue Lantus and sliding scale. 4. Continue wound VAC three times a week. We are waiting for approval from [facility], and as soon as this is arranged, he will be transferred there. Job ID: [id number]
[2018-08-04] MEDS: HYDROcodone/Acetaminophen 5/325 mg Tablet PO PRN ×5 (02:13→23:12)
[2018-08-04] MEDS: Morphine 2 MG/ML SYRINGE SLOW IVP PRN (07:06)
--- NOTE | 2018-08-04 07:47 | PRG ---
DATE OF SERVICE: 08/04/2018 SUBJECTIVE: The patient without complaints, doing well. PHYSICAL EXAMINATION: VITAL SIGNS: Stable. ABDOMEN: Soft, nontender, nondistended. Colostomy with urine stool. Urine output clear. Suprapubic tube site is clean, dry, and intact. : Wound VAC is removed. Wound inspected and assessed. There is good granulating tissue coming in. Progression of wound contracture. However, the left testicle remains free-floating, however with progressive adherence. There is no foul smelling discharge or loculated fluid collection of concern. Minimal eschar at the right upper skin edge, which was debrided at bedside. Wound is repacked to wet-to- dry. Await wound care service to return for wound VAC replacement this morning. IMPRESSION AND PLAN: Mr. Orlando is a 52-year-old male with: 1. History of hepatitis C. 2. History of poorly controlled diabetes with presenting hemoglobin A1c of 14. 3. Presented 07/15 with necrotizing fasciitis of scrotum and perineum. On , he did undergo emergent wide debridement. He did return to OR on 07/16 for reassessment of wound, further debridement, diverting colostomy, suprapubic tube placement . He will continue his urinary diversion with SP tube colostomy until wound has healed. He will be discharged to [facility] this morning. Of note, his suprapubic tube was exchanged 07/27 uneventfully, 20-Tai[place]ese 30 mL. The patient is surgically stable for discharge to skilled nursing. He will continue his IV PICC line until 08/16 per Infectious Disease, a wound VAC is to continue Tuesday, Tuesday, Tuesday until further notice from . He will see [place] 08/16 for wound assessment. Job ID: [id number] [facility]
[2018-08-04] MEDS: Magnesium Chloride 64 MG TAB PO SCH ×2 (08:54→20:42)
[2018-08-04] MEDS: Thiamine HCl 200 MG/2 ML VIAL SLOW IVP SCH (08:54)
[2018-08-04] MEDS: Insulin Glargine 20 UNITS in Pre-Filled Syringe 1 EACH SC SCH (08:54)
[2018-08-04] MEDS: Enoxaparin Sodium 40 MG/0.4 ML SYRINGE SC SCH (08:54)
[2018-08-04] MEDS: Polyethylene Glycol 3350 17 GM Packet PO SCH (08:54)
[2018-08-04] MEDS: metroNIDAZOLE 500 MG TAB PO SCH ×3 (08:55→20:43)
[2018-08-04] MEDS: Folic Acid 1 MG TAB PO SCH (08:55)
[2018-08-04] MEDS: Multivit, Therapeutic 1 TAB PO SCH (08:55)
[2018-08-04] MEDS: Saccharomyces boulardii 250 MG CAP PO SCH (08:55)
[2018-08-04] MEDS: Famotidine 20 MG TAB PO SCH ×2 (08:55→20:43)
[2018-08-04] MEDS: Insulin Regular 300 UNITS/3 ML VIAL SC PRN (11:21)
[2018-08-04] MEDS: cefTRIAXone\\ROCEPHIN 1 GM in Sodium Chloride 0.9% 100 ML IVPB SCH (15:32)
--- NOTE | 2018-08-04 22:15 | PRG ---
DATE OF SERVICE: 08/04/2018 SUBJECTIVE: The patient is seen and examined at the bedside. He is doing well. He does not have much complaints to offer. OBJECTIVE: VITAL SIGNS: Blood pressure is 113/77, pulse is 78, respiratory rate is 18, temperature is 98 and O2 saturation is 98% on room air. HEENT: He does not have left eyeball. His oral mucosa is moist. NECK: Supple. LUNGS: Clear. HEART: S1, S2 normal. ABDOMEN: He has suprapubic catheter. He has colostomy bag. Bowel sounds are present. No organomegaly. EXTREMITIES: No clubbing, cyanosis, or edema. He has a wound VAC applied to his scrotum. NEUROLOGIC: He moves his all four extremities. LABORATORY DATA: None. IMPRESSION: 1. Severe sepsis with acute organ dysfunction secondary to scrotal/perineal necrotizing fasciitis, status post suprapubic catheter and colostomy placement. 2. Uncontrolled diabetes mellitus . 3. Hyponatremia. 4. Hypokalemia. 5. Hypomagnesemia, replaced. 6. Anemia. 7. Chronic hepatitis C with possible cirrhosis. GI to follow up on outpatient basis. 8. Tobacco dependence. 9. Thrombocytopenia. 10. Status post acute hypoxic respiratory failure, requiring mechanical ventilation, resolved. 11. Acute kidney injury/metabolic acidosis, resolved. 12. Left eye blindness with visual impairment in the right eye. PLAN: Plan is to discharge him to [facility] when he has accepted with Flagyl p.o. and ceftriaxone IV until August 16. Follow up with lab CBC, BMP, and CRP weekly. Continue insulin Lantus 20 units and continue wound VAC 3 times a week. Job ID: [id number]
[2018-08-05] MEDS: HYDROcodone/Acetaminophen 5/325 mg Tablet PO PRN ×5 (04:05→22:39)
[2018-08-05] MEDS: Thiamine HCl 200 MG/2 ML VIAL SLOW IVP SCH (08:36)
[2018-08-05] MEDS: Insulin Glargine 20 UNITS in Pre-Filled Syringe 1 EACH SC SCH (08:36)
[2018-08-05] MEDS: Enoxaparin Sodium 40 MG/0.4 ML SYRINGE SC SCH (08:38)
[2018-08-05] MEDS: Polyethylene Glycol 3350 17 GM Packet PO SCH (08:38)
[2018-08-05] MEDS: Saccharomyces boulardii 250 MG CAP PO SCH (08:40)
[2018-08-05] MEDS: Multivit, Therapeutic 1 TAB PO SCH (08:40)
[2018-08-05] MEDS: Magnesium Chloride 64 MG TAB PO SCH ×2 (08:40→21:31)
[2018-08-05] MEDS: metroNIDAZOLE 500 MG TAB PO SCH ×3 (08:40→21:28)
[2018-08-05] MEDS: Folic Acid 1 MG TAB PO SCH (08:40)
[2018-08-05] MEDS: Famotidine 20 MG TAB PO SCH ×2 (08:41→21:28)
[2018-08-05] MEDS: Insulin Regular 300 UNITS/3 ML VIAL SC PRN ×2 (12:45→21:27)
--- NOTE | 2018-08-05 13:51 | PRG ---
DATE OF SERVICE: 08/05/2018 SUBJECTIVE: The patient is seen and examined at the bedside. There is nothing new on him. We are waiting for the [facility] to approve his transfer. So far, we did not get any message yet. OBJECTIVE: VITAL SIGNS: Blood pressure is 97/59, pulse is 75, temperature is 97.4, respiratory rate is 18, O2 saturation is 93% on room air. HEENT: His right eye shows normal response to light. Sclera is nonicteric. There is no left eyeball in the orbit. Oral mucosa is moist. NECK: Supple. LUNGS: Clear. HEART: S1 and S2 normal. ABDOMEN: Colostomy bag in place. : Suprapubic catheter in place. Scrotum wound VAC in place. NEUROLOGIC: He follows my commands. He moves his extremities. There is no any motor deficit. LABORATORY DATA: Showed glycemia ranging from 159 to 232. IMPRESSION: 1. Severe sepsis with acute organ dysfunction secondary to scrotal/perineal necrotizing fasciitis, status post suprapubic catheter and colostomy placement. 2. Uncontrolled diabetes mellitus. We will increase his long-acting insulin to 30 units once a day. 3. Hyponatremia, resolved. 4. Hypokalemia, resolved. 5. Hypomagnesemia, resolved. 6. Anemia. 7. Chronic hepatitis C with possible cirrhosis. 8. Tobacco dependence. 9. Thrombocytopenia. 10. Status post acute hypoxic respiratory failure requiring mechanical ventilation, resolved. 11. Acute kidney injury/metabolic acidosis, resolved. 12. Left eye blindness with visual impairment in the right eye. PLAN: Go up on his long-acting insulin to 30 units every morning. Continue the rest of his regimen with Flagyl and ceftriaxone until August 16, with lab work, CBC, BMP, and CRP weekly. Continue wound VAC. Continue current regimen. Transfer him to [facility] when he is approved. Job ID: [id number]
[2018-08-05] MEDS: cefTRIAXone\\ROCEPHIN 1 GM in Sodium Chloride 0.9% 100 ML IVPB SCH (15:21)
[2018-08-06] MEDS: HYDROcodone/Acetaminophen 5/325 mg Tablet PO PRN ×5 (05:05→21:26)
[2018-08-06] MEDS: Insulin Regular 300 UNITS/3 ML VIAL SC PRN ×3 (05:55→21:28)
[2018-08-06] MEDS: Magnesium Chloride 64 MG TAB PO SCH ×2 (08:24→21:14)
[2018-08-06] MEDS: Enoxaparin Sodium 40 MG/0.4 ML SYRINGE SC SCH (08:24)
[2018-08-06] MEDS: Polyethylene Glycol 3350 17 GM Packet PO SCH (08:24)
[2018-08-06] MEDS: Thiamine HCl 200 MG/2 ML VIAL SLOW IVP SCH (08:24)
[2018-08-06] MEDS: metroNIDAZOLE 500 MG TAB PO SCH ×3 (08:25→21:14)
[2018-08-06] MEDS: Saccharomyces boulardii 250 MG CAP PO SCH (08:25)
[2018-08-06] MEDS: Famotidine 20 MG TAB PO SCH ×2 (08:25→21:14)
[2018-08-06] MEDS: Folic Acid 1 MG TAB PO SCH (08:25)
[2018-08-06] MEDS: Multivit, Therapeutic 1 TAB PO SCH (08:25)
[2018-08-06] MEDS: Insulin Glargine 30 UNITS in Pre-Filled Syringe SC SCH (09:42)
[2018-08-06] MEDS: cefTRIAXone\\ROCEPHIN 1 GM in Sodium Chloride 0.9% 100 ML IVPB SCH (14:43)
--- NOTE | 2018-08-06 16:11 | PRG ---
DATE OF SERVICE: 08/06/2018 SUBJECTIVE: The patient is seen and examined at the bedside. He does not have much complaints to offer. Nothing unexpected happened overnight. OBJECTIVE: VITAL SIGNS: Blood pressure 98/63, pulse is 81, temperature is 98.4, respirations 16, O2 saturation is 96% on room air. HEENT: Head is atraumatic and normocephalic. He does not have left eye. LUNGS: Clear. HEART: S1 and S2 normal. ABDOMEN: The colostomy is in place and suprapubic catheter is in place. The wound VAC is in place on his scrotum. EXTREMITIES: No clubbing, cyanosis, or edema. NEUROLOGIC: Intact. LABORATORY DATA: None. IMPRESSION: 1. Severe sepsis with acute growing organ dysfunction secondary to scrotal/perineal necrotizing fasciitis, status post suprapubic catheter and colostomy placement. 2. Uncontrolled diabetes mellitus. The dose on his long-acting insulin was increased to 30 units once a day. 3. Hyponatremia, resolved. 4. Hypokalemia, resolved. 5. Hypomagnesemia, resolved. 6. Anemia. 7. Chronic hepatitis C with possible cirrhosis. 8. Tobacco dependence. 9. 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 10. Status post acute hypoxemic respiratory failure requiring mechanical ventilation, resolved. 11. Acute kidney injury/metabolic acidosis, resolved. 12. Left eye blindness with visual impairment in the right eye. PLAN: Plan is to continue current regimen. He is supposed to be on Flagyl and ceftriaxone until August 16 and lab work weekly CBC, BMP, and CRP while [facility]. Also, we are going to continue wound VAC and we are waiting for [facility] to give us approval. Job ID: [id number]
[2018-08-07] MEDS: HYDROcodone/Acetaminophen 5/325 mg Tablet PO PRN ×6 (01:54→22:38)
[2018-08-07] MEDS: Insulin Regular 300 UNITS/3 ML VIAL SC PRN (06:14)
[2018-08-07 06:56] VITALS: BMI 26.6
[2018-08-07] MEDS: Morphine 2 MG/ML SYRINGE SLOW IVP PRN ×2 (07:12→23:26)
[2018-08-07] MEDS: metroNIDAZOLE 500 MG TAB PO SCH ×3 (08:43→20:29)
[2018-08-07] MEDS: Folic Acid 1 MG TAB PO SCH (08:43)
[2018-08-07] MEDS: Saccharomyces boulardii 250 MG CAP PO SCH (08:43)
[2018-08-07] MEDS: Multivit, Therapeutic 1 TAB PO SCH (08:44)
[2018-08-07] MEDS: Insulin Glargine 30 UNITS in Pre-Filled Syringe SC SCH (08:44)
[2018-08-07] MEDS: Famotidine 20 MG TAB PO SCH ×2 (08:44→20:29)
[2018-08-07] MEDS: Polyethylene Glycol 3350 17 GM Packet PO SCH (08:44)
[2018-08-07] MEDS: Enoxaparin Sodium 40 MG/0.4 ML SYRINGE SC SCH (08:44)
[2018-08-07] MEDS: Magnesium Chloride 64 MG TAB PO SCH ×2 (08:44→20:49)
[2018-08-07] MEDS: Thiamine HCl 200 MG/2 ML VIAL SLOW IVP SCH (08:45)
--- NOTE | 2018-08-07 09:22 | PRG ---
DATE OF SERVICE: 08/07/2018 SUBJECTIVE: The patient is doing well without complaints. Events over the weekend reviewed. No acute issues of concern. He remains afebrile. OBJECTIVE: VITAL SIGNS: Stable. I's and O's are 1100 in and 2000 out. ABDOMEN: Soft, nontender, and nondistended. Colostomy with air and stool. Suprapubic tube site is clean, dry, and intact, adequately secured with StatLock x2. : Wound VAC removed. Local topical anesthesia with lidocaine applied. Wound unpacked. He has good viable skin edges. There was excellent granulating pink tissue coming in with no evidence of fluctuance. Contracture of his wound continues. The right testicle is invaginated. Left testicle is mildly free floating; however, continues to demonstrate adherence. No loculated cavity is appreciated. PERTINENT LABORATORY DATA: No new labs of concern. IMPRESSION AND PLAN: Mr. Orlando is a 52-year-old male with history of; 1. Hepatitis C. 2. Poorly controlled diabetes with admitting hemoglobin A1c of 14. 3. He presented on 07/15 with necrotizing fasciitis of scrotum and perineum status post I and D, wide debridement on 07/15. 4. On 07/16, for exam under anesthesia, status post diverting colostomy, suprapubic tube. 5. Suprapubic tube exchanged on 07/27 with 20-Bruneian 30 mL with no significant issues. He is stable for discharge. He will continue his PICC line for IV Rocephin and Flagyl per Infectious Disease until 08/16. His discharge was held on Tuesday due to intermediate issues. Per case management, it appears the patient will be discharged to for [facility] today and orders are to continue for wound VAC Tuesday, Tuesday, and Tuesday, IV antibiotics until 08/16 per Infectious Disease. He does have a followup appointment with me next Tuesday for wound assessment, 08/16 at 4 p.m. Continue SP tube. Orders in chart. Job ID: [id number] MTDD
--- NOTE | 2018-08-07 13:30 | PDOC.PN ---
- Subjective Encounter Start Date: 08/07/18 Encounter Start Time: 10:00 Subjective: no sob, is slowly getting better -: can mobilize himself to bedside commode -: has itching/redness due to psoriasis and is wanting 1% steroid cream - Objective Resuscitation Status - Order Detail: 07/15/18 21:39 Resuscitation Status Routine Resuscitation Status: FULL: Full Resuscitation MAR Reviewed: Yes Vital Signs & Weight: Vital Signs (12 hours) Temp Pulse Resp BP Pulse Ox 08/07/18 10:55 97.6 F 84 16 106/70 95 08/07/18 08:43 96 08/07/18 07:50 97.8 F 80 20 122/78 96 08/07/18 04:00 98.4 F 75 16 96/65 96 Weight Admit Weight 190 lb 11.198 oz Weight 180 lb Most Recent Monitor Data Heart Rate from ECG 77 NIBP 140/87 NIBP BP-Mean 104 Respiration from ECG 26 SpO2 99 I&O: 08/06/18 08/07/18 08/08/18 06:59 06:59 06:59 Intake Total 2200 1100 Output Total 1750 2000 Balance 450 -900 Result Diagrams: 07/30/18 05:00 07/30/18 05:00 Additional Labs: Accuchecks 08/07/18 08/07/18 08/06/18 11:31 05:41 21:29 POC Glucose 82 227 H 245 H 08/06/18 15:33 POC Glucose 99 Phys Exam - Physical Examination HEENT: PERRLA, moist MMs Neck: no JVD, supple Respiratory: no wheezing, no rales Cardiovascular: RRR, no significant murmur Gastrointestinal: soft, non-tender, positive bowel sounds perineal area in wound vac Musculoskeletal: no edema, pulses present Neurological: non-focal, moves all 4 limbs Psychiatric: normal affect, A&O x 3 Dx/Plan (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 - KARLA GANGRENE Status: Acute Comment: s/p debridement, transverse colon colostomy, spc+, wound in vac (2) Sepsis Code(s): A41.9 - SEPSIS, UNSPECIFIED ORGANISM Status: Resolved Qualifiers: Sepsis type: sepsis due to unspecified organism Qualified Code(s): A41.9 - Sepsis, unspecified organism Comment: sec to above (3) DM type 2 (diabetes mellitus, type 2) Status: Chronic Qualifiers: Diabetes mellitus plugger insulin use: without plugger use Diabetes mellitus complication status: with unspecified complications Qualified Code(s) : E11.8 - Type 2 diabetes mellitus with unspecified complications (4) Thrombocytopenia Code(s): D69.6 - THROMBOCYTOPENIA, UNSPECIFIED Status: Chronic (5) H/O psoriasis Code(s): Z87.2 - PERSONAL HISTORY OF DISEASES OF THE SKIN, SUBCU Status: Chronic (6) Anemia Code(s): D64.9 - ANEMIA, UNSPECIFIED Status: Acute Comment: ac blood loss anemia (7) Chronic hepatitis C Code(s): B18.2 - CHRONIC VIRAL HEPATITIS C Status: Chronic Qualifiers: Hepatic coma status: without hepatic coma Qualified Code(s): B18.2 - Chronic viral hepatitis C - Plan is on ceftriaxone, flagyl to continue till 08/16 -: has picc line, awaiting placement -: continue lantus -: may apply topical steroids to chest and extremities but not to face/perineu -: -m and inguinal areas. * . Review of Systems - Medications/Allergies Allergies/Adverse Reactions: Allergies Allergy/AdvReac Type Severity Reaction Status Date / Time No Known Drug Allergies Allergy Verified 07/16/18 01:27 Medications: Current Medications Acetaminophen (Tylenol) 650 mg ID Q4H PRN PRN Reason: Headache/Fever/Mild Pain (1-3) Last Admin: 07/17/18 00:58 Dose: 650 mg Hydrocodone Bitart/Acetaminophen ([place] 5/325) 1 tab PO Q4H PRN PRN Reason: Moderate Pain (4-6) Last Admin: 08/07/18 10:22 Dose: 1 tab Albuterol/Ipratropium (Duoneb) 3 ml NEB [id number] PRN PRN Reason: Dyspnea Calcium Carbonate (Tums) 1,000 mg PO Q4H PRN PRN Reason: Heartburn or Indigestion Dextrose/Water (Dextrose 50%) 25 gm SLOW IVP PRN PRN PRN Reason: Hypoglycemia Enoxaparin Sodium (Lovenox) 40 mg SC 0900 [facility] Last Admin: 08/07/18 08:44 Dose: 40 mg Famotidine (Pepcid) 20 mg PO BID [facility] Last Admin: 08/07/18 08:44 Dose: 20 mg Folic Acid (Folvite) 1 mg PO DAILY [facility] Last Admin: 08/07/18 08:43 Dose: 1 mg Glucagon (Glucagon) 1 mg IM PRN PRN PRN Reason: Hypoglycemia Ceftriaxone Sodium 1 gm/ (Sodium Chloride) 100 mls @ 200 mls/hr IVPB Q24HR [facility] Last Admin: 08/06/18 14:43 Dose: 100 mls Dextrose/Water (D5w) 1,000 mls @ 0 mls/hr IV .Q0M PRN PRN Reason: Hypoglycemia Insulin Glargine 30 units/ (Miscellaneous Medication) 0.3 mls @ 0 mls/hr SC QAM [facility] Last Admin: 08/07/18 08:44 Dose: 0.3 mls Insulin Human Regular (Humulin R) 0 units SC .MODERATE SLIDING SC PRN PRN Reason: Moderate Correctional Scale Last Admin: 08/07/18 06:14 Dose: 4 unit Insulin Human Regular (Humulin R) 0 units SC .BEDTIME SLIDING SC PRN PRN Reason: Bedtime Correctional Scale Last Admin: 08/06/18 21:28 Dose: 2 unit Lidocaine HCl (Xylocaine 4% Topical Nannette) 0 ml TOP [email or web address] [facility] Last Admin: 07/24/18 07:19 Dose: 1 applic Magnesium Chloride (Slow-Mag) 64 mg PO BID [facility] Last Admin: 08/07/18 08:44 Dose: 64 mg Metronidazole (Flagyl) 500 mg PO TID [facility] Last Admin: 08/07/18 08:43 Dose: 500 mg Mineral Oil/White Petrolatum (Systane Nighttime Eye Ointment) 0 gm EA EYE PRN PRN PRN Reason: Dry Eyes Morphine Sulfate (Morphine) 2 mg SLOW IVP Q4H PRN PRN Reason: Moderate Pain (4-6) Last Admin: 08/07/18 07:12 Dose: 2 mg Multivitamins (Theragran) 1 tab PO DAILY [facility] Last Admin: 08/07/18 08:44 Dose: 1 tab Polyethylene Glycol (Miralax) 17 gm PO DAILY [facility] Last Admin: 08/07/18 08:44 Dose: 17 gm Saccharomyces Boulardii (Florastor) 250 mg PO DAILY [facility] Last Admin: 08/07/18 08:43 Dose: 250 mg Sodium Chloride (Flush - Normal Saline) 10 ml IVF Q12HR [facility] Last Admin: 08/07/18 08:45 Dose: 10 ml Sodium Chloride (Flush - Normal Saline) 10 ml IVF PRN PRN PRN Reason: Saline Flush Last Admin: 08/02/18 06:49 Dose: 10 ml Thiamine HCl (Thiamine Hcl) 100 mg SLOW IVP DAILY [facility] Last Admin: 08/07/18 08:45 Dose: 100 mg
[2018-08-07] MEDS: cefTRIAXone\\ROCEPHIN 1 GM in Sodium Chloride 0.9% 100 ML IVPB SCH (14:34)
[2018-08-07] MEDS: Hydrocortisone 1% Cream 30 GM TUBE TOP SCH (14:40)
[2018-08-07] MEDS ORDERED: Hydrocortisone 1% Cream 1.5 GM Packet TOP SCH (21:00)
[2018-08-08] MEDS: HYDROcodone/Acetaminophen 5/325 mg Tablet PO PRN ×4 (02:44→14:02)
[2018-08-08 08:52] LABS: #Basophils 0.1 thou/uL (0.0-0.2); #Eosinphils 0.4 thou/uL (0.0-0.7); #Lymphocytes 2.3 thou/uL (1.20-3.40); #Monocytes 0.4 thou/uL (0.11-0.59); #Neutrophils 1.9 thou/uL (1.40-6.50); %Eosinophils 7.1 % (0.0-10.0); %Lymphocytes 45.1 % (21.0-51.0); %Neutrophils 38.8 % (42.0-75.0); Hemoglobin 11.6 g/dL (14.0-18.0); Mean Corpuscular HGB CONC 33.4 g/dL (32.0-36.0); Mean Corpuscular Hemoglobin 28.3 pg (27.0-31.0); Mean Corpuscular Volume 84.9 fL (78.0-98.0); Mean Platelet Volume 6.6 fL (7.4-10.4); Platelet Count 207 thou/uL (130-400); RBC Distribution Width 13.3 % (11.5-14.5); Red Blood Cell (RBC) Count 4.08 mill/uL (4.70-6.10)
[2018-08-08 09:06] LABS: ALT (SGPT) 21 U/L (8-55); AST (SGOT) 25 U/L (5-34); Albumin 3.5 g/dL (3.5-5.0); Alkaline Phosphatase 79 U/L (40-150); Anion Gap 10 mmol/L (10-20); BUN (Urea Nitrogen) 18 mg/dL (8.4-25.7); Bilirubin, Total 0.4 mg/dL (0.2-1.2); CRP (Inflammatory) Less than 0.50 mg/dL (= or < 0.5); Calc. Creatinine Clearance 116 mL/min (70-130); Calcium 9.2 mg/dL (7.8-10.44); Carbon Dioxide 23 mmol/L (22-29); Chloride 107 mmol/L (98-107); Estimated GFR-MDRD Greater than 90; Globulin 3.4 g/dL (2.4-3.5); Glucose 96 mg/dL (70-105); Protein, Total 6.9 g/dL (6.0-8.3); Sodium 136 mmol/L (136-145)
[2018-08-08] MEDS: Magnesium Chloride 64 MG TAB PO SCH (09:06)
[2018-08-08] MEDS: Polyethylene Glycol 3350 17 GM Packet PO SCH (09:06)
[2018-08-08] MEDS: Enoxaparin Sodium 40 MG/0.4 ML SYRINGE SC SCH (09:06)
[2018-08-08] MEDS: Insulin Glargine 30 UNITS in Pre-Filled Syringe SC SCH (09:06)
[2018-08-08] MEDS: Famotidine 20 MG TAB PO SCH (09:07)
[2018-08-08] MEDS: Thiamine HCl 200 MG/2 ML VIAL SLOW IVP SCH (09:07)
[2018-08-08] MEDS: Multivit, Therapeutic 1 TAB PO SCH (09:07)
[2018-08-08] MEDS: Hydrocortisone 1% Cream 30 GM TUBE TOP SCH (09:07)
[2018-08-08] MEDS: Folic Acid 1 MG TAB PO SCH (09:07)
[2018-08-08] MEDS: metroNIDAZOLE 500 MG TAB PO SCH (09:07)
[2018-08-08] MEDS: Saccharomyces boulardii 250 MG CAP PO SCH (09:07)
--- NOTE | 2018-08-08 09:36 | PRG ---
DATE OF SERVICE: 08/08/2018 SUBJECTIVE: The patient is complaining of discomfort at the wound VAC site. He states that it may be put on too tight. Otherwise, he is doing well. We are awaiting to disposition to correction today; per nursing staff, likely discharge this morning. OBJECTIVE: VITAL SIGNS: His vital signs are stable. ABDOMEN: Soft. SP tube site is clean, dry, and intact. Colostomy is viable with stool and gas. GENITOURINARY: Wound VAC is appropriately positioned, with good seal. ASSESSMENT AND PLAN: 1. Mr. Orlando is a 52-year-old male with history of hepatitis C. 2. History of poorly-controlled diabetes with admitting A1c of 14. 3. The patient presented on July 15 with necrotizing fasciitis of scrotum and perineum, status post wide debridement on July 15. 4. On July 16, underwent exam under anesthesia, status post diverting colostomy and suprapubic tube. 5. Suprapubic tube exchange on July 27, 20-Vietnamese, 30 mL. The patient's wound is looking well. He will be discharged to [facility] today. We will continue his wound VAC on Tuesday, Tuesday, and Tuesday and IV antibiotics until August 16 with Rocephin and Flagyl for infectious disease. He will continue his SP tube; wound VAC change Tuesday, Tuesday, Tuesday; and colostomy until wound has completely healed. appointment in chart for next Tuesday. Job ID: [id number] MTDD
[2018-08-08 11:44] VITALS: BP 106/73; TEMP 98.5
[2018-08-08] MEDS: Insulin Regular 300 UNITS/3 ML VIAL SC PRN (11:48)
--- NOTE | 2018-08-08 12:25 | PDOC.PN ---
- Subjective Encounter Start Date: 08/08/18 Encounter Start Time: 09:00 Subjective: feels better, says his skin itching is better with steroid cream - Objective Resuscitation Status - Order Detail: 07/15/18 21:39 Resuscitation Status Routine Resuscitation Status: FULL: Full Resuscitation MAR Reviewed: Yes Vital Signs & Weight: Vital Signs (12 hours) Temp Pulse Resp BP Pulse Ox 08/08/18 11:07 98.5 F 86 18 106/73 96 08/08/18 09:07 95 08/08/18 07:23 98.6 F 74 18 122/79 95 08/08/18 04:12 98.6 F 73 16 117/79 96 Weight Admit Weight 190 lb 11.198 oz Weight 180 lb Most Recent Monitor Data Heart Rate from ECG 77 NIBP 140/87 NIBP BP-Mean 104 Respiration from ECG 26 SpO2 99 I&O: 08/07/18 08/08/18 08/09/18 06:59 06:59 06:59 Intake Total 1100 2250 Output Total 1999 2175 Balance -900 75 Result Diagrams: 08/08/18 08:31 08/08/18 08:31 Additional Labs: Accuchecks 08/08/18 08/08/18 08/07/18 11:11 05:38 20:51 POC Glucose 200 H 124 H 170 H 08/07/18 15:36 POC Glucose 81 Phys Exam - Physical Examination HEENT: PERRLA, moist MMs Neck: no JVD, supple Respiratory: no wheezing, no rales Cardiovascular: RRR, no significant murmur Gastrointestinal: soft, non-tender, positive bowel sounds wound vac to perineal wound Musculoskeletal: no edema, pulses present Neurological: non-focal, moves all 4 limbs Psychiatric: normal affect, A&O x 3 Dx/Plan (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 - KARLA GANGRENE Status: Acute Comment: s/p debridement, transverse colon colostomy, spc+, wound in vac (2) Sepsis Code(s): A41.9 - SEPSIS, UNSPECIFIED ORGANISM Status: Resolved Qualifiers: Sepsis type: sepsis due to unspecified organism Qualified Code(s): A41.9 - Sepsis, unspecified organism Comment: sec to above (3) DM type 2 (diabetes mellitus, type 2) Status: Chronic Qualifiers: Diabetes mellitus care home insulin use: without superintendent container terminal use Diabetes mellitus complication status: with unspecified complications Qualified Code(s) : E11.8 - Type 2 diabetes mellitus with unspecified complications (4) Thrombocytopenia Code(s): D69.6 - THROMBOCYTOPENIA, UNSPECIFIED Status: Chronic (5) H/O psoriasis Code(s): Z87.2 - PERSONAL HISTORY OF DISEASES OF THE SKIN, SUBCU Status: Chronic (6) Anemia Code(s): D64.9 - ANEMIA, UNSPECIFIED Status: Acute Comment: ac blood loss anemia (7) Chronic hepatitis C Code(s): B18.2 - CHRONIC VIRAL HEPATITIS C Status: Chronic Qualifiers: Hepatic coma status: without hepatic coma Qualified Code(s): B18.2 - Chronic viral hepatitis C - Plan hemostable -: may dc to swing bed if accepted -: to continue antibiotics till -: lantus, steroid cream for top appl * .
--- NOTE | 2018-08-09 12:40 | DIS ---
DATE OF ADMISSION: 07/15/2018 DATE OF DISCHARGE: 08/08/2018 DISCHARGE DISPOSITION: To [facility]. PRIMARY DISCHARGE DIAGNOSES: Karla gangrene, status post debridement, transverse colon colostomy for diversion, suprapubic catheter placed to help with wound healing, sepsis secondary to above. SECONDARY DISCHARGE DIAGNOSES: Diabetes mellitus type 2, chronic thrombocytopenia, history of psoriasis, acute blood loss anemia, and chronic hepatitis C. PROCEDURES DONE DURING HOSPITALIZATION: The patient had abdominal and pelvic CAT scan done on the day of admission, which showed bilateral hydroceles with gas present in the scrotum bilaterally. Findings are likely related to gas-forming organism secondary to infection. Severe bilateral hip osteoarthritis with questionable osteonecrosis involving the superior aspect of each femoral head. Findings of cirrhosis were seen. He had a rigid cystoscopy and placement of suprapubic tube and debridement of the perineal area by Dr. Knight for scrotal perineal necrotizing fasciitis. This was done on 07/16/2018. The patient had a loop transverse colostomy through a mini-laparotomy incision to divert the fecal stream from the anus by Dr. Stuart on 07/16/2018. He had a PICC line placed on 07/21/2018 by Interventional Radiology in the left upper extremity. The perineal wound grew Staph aureus, E coli, presumptive Karina albicans, Streptococcus anginosus group; had a white count of 11.3 on the day of admission with discharge numbers of 5.0, H and H was 12.4 on admission, which dropped down to 9.1 on the with discharge numbers of 11.6; platelet count was 126 on admission with discharge numbers of 207; had a blood gas done on admission, which showed a pH of 7.17, pCO2 of 40, PO2 of 110, bicarb was 14 on the blood gas on admission. Discharge BUN and creatinine are 14 and 0.8. Discharge albumin is 3.5. Liver enzymes were within normal limits on the day of discharge and creatinine of 1.6 on the day of admission. CRP was 0.5 on the day of discharge. HIV 1 and 2 antigen and antibody were nonreactive. DISCHARGE MEDICATIONS: 1. Flagyl 500 mg p.o. three times daily until 08/16/2018. 2. Ceftriaxone 1 g IV daily until 08/16/2018. 3. Pepcid 20 mg twice daily. 4. Folic acid 1 mg daily. 5. Hydrocortisone 1% cream to be applied topically for psoriasis and to avoid face groin and inguinal areas. 6. Lantus 30 units subcu every morning. 7. Multivitamin one tab daily. 8. MiraLAX 17 g daily. 9. Florastor 250 mg p.o. daily. 10. Zinc sulfate 220 mg p.o. daily. 11. Vitamin C 500 mg p.o. daily. ALLERGIES: NO KNOWN DRUG ALLERGIES. INPATIENT CONSULT: 1. Dr. Knight for Urology. 2. Dr. Heart for Pulmonology and Critical Care. 3. Dr. Stuart for General Surgery. 4. Dr. Iyer for Infectious Disease. DISCHARGE PLAN: The patient to follow up with Dr. Knight on 08/16/2018 at 1:45 p.m. BRIEF COURSE DURING HOSPITALIZATION: The patient initially was brought to emergency room with complaints of scrotal swelling over 4 to 5 days' duration. He was found to have had Karla gangrene and was in severe septic shock with acute respiratory failure and had to be intubated on arrival. The patient was taken immediately to operating room after initial CAT scan revealed gas in the perineum and scrotal area. He has had debridement of the area along with placement of suprapubic catheter and diverting transverse colon colostomy for healing of the area. The patient was placed on broad-spectrum IV antibiotics and has had consultation with Dr. Iyer as well. His cultures grew polymicrobial nirav. He has been on ceftriaxone and Flagyl at the time of discharge. He needs to continue this until the . He was successfully extubated and then was transferred to [facility] floor. He has had PICC line placed and was awaiting placement. Wound care with wound VAC for outpatient use has been arranged. He is being discharged to [facility] for further care, Wound Care and IV antibiotic therapy. He needs to follow up with Dr. Knight on 08/16/2018. The patient's diabetes type 1 was uncontrolled on admission, but has been stable on current Lantus insulin. He is hemodynamically stable and is ambulating minimally in the room prior to discharge. He is also tolerating oral solid diet. His colostomy is working well as well. A total of 40 minutes was spent on discharge plan. Please see a [id number] documentation [facility] Job ID: [id number] MTDD
== END 2018-08-08 14:24 | DRG 853 ==
LOC: ERS 14:41 → SDC 18:25 → ERS 18:25 → SDC 19:03 → CCU 20:44 → SURG A 07-20 19:03
PROVIDERS: ADMIT Internal Medicine; ATTEND Internal Medicine
PROC: 0JBB0ZZ Excision of Perineum Subcutaneous Tissue and Fascia, Open Approach (ICD-10-PCS; principal; 2018-07-15)
PROC: 5A1945Z Respiratory Ventilation, 24-96 Consecutive Hours (ICD-10-PCS; 2018-07-15)
PROC: 0D1L0Z4 Bypass Transverse Colon to Cutaneous, Open Approach (ICD-10-PCS; 2018-07-16)
PROC: 0T9B30Z Drainage of Bladder with Drainage Device, Percutaneous Approach (ICD-10-PCS; 2018-07-16)
PROC: 0TJB8ZZ Inspection of Bladder, Via Natural or Artificial Opening Endoscopic (ICD-10-PCS; 2018-07-16)
PROC: 0HB9XZZ Excision of Perineum Skin, External Approach (ICD-10-PCS; 2018-07-16)
PROC: 02H633Z Insertion of Infusion Device into Right Atrium, Percutaneous Approach (ICD-10-PCS; 2018-07-16)
PROC: 3E033XZ Introduction of Vasopressor into Peripheral Vein, Percutaneous Approach (ICD-10-PCS; 2018-07-16)
PROC: 02HV33Z Insertion of Infusion Device into Superior Vena Cava, Percutaneous Approach (ICD-10-PCS; 2018-07-21)
PROC: 0T2BX0Z Change Drainage Device in Bladder, External Approach (ICD-10-PCS; 2018-07-27)
DX: A41.9 Sepsis, unspecified organism (principal); J96.01 Acute respiratory failure with hypoxia; M72.6 Necrotizing fasciitis; R65.21 Severe sepsis with septic shock; N17.9 Acute kidney failure, unspecified; E87.2 Acidosis; E87.1 Hypo-osmolality and hyponatremia; D62 Acute posthemorrhagic anemia; B37.89 Other sites of candidiasis; I95.9 Hypotension, unspecified; E10.65 Type 1 diabetes mellitus with hyperglycemia; D69.59 Other secondary thrombocytopenia; J44.9 Chronic obstructive pulmonary disease, unspecified; E83.42 Hypomagnesemia; K74.60 Unspecified cirrhosis of liver; N49.3 Fournier gangrene; B18.2 Chronic viral hepatitis C; E86.0 Dehydration; F17.220 Nicotine dependence, chewing tobacco, uncomplicated; E87.6 Hypokalemia; L40.9 Psoriasis, unspecified; M16.0 Bilateral primary osteoarthritis of hip; B95.61 Methicillin susceptible Staphylococcus aureus infection as the cause of diseases classified elsewhere; B96.20 Unspecified Escherichia coli [E. coli] as the cause of diseases classified elsewhere; B95.4 Other streptococcus as the cause of diseases classified elsewhere; Z90.01 Acquired absence of eye; Z79.4 Long term (current) use of insulin
CPT/HCPCS: 36415; 36416; 36569; 71045; 74177; 80048; 80053; 80202; 81003; 82010; 82533; 82550; 82805; 83036; 83605; 83735; 84100; 84484; 85007; 85025; 85027; 85610; 85730; 86140; 87040; 87070; 87077; 87186; 87205; 87389; 94002; 94003; 94640; 94760; 96365; 96367; A4216; C1751; J0696; J1450; J1644; J1650; J1815; J1825; J1940; J1956; J2001; J2060; J2185; J2270; J2310; J2405; J2543; J2704; J2765; J3010; J3370; J3411; J3475; J3480; J3490; J7050; J7620; Q9966; S0028

== ENCOUNTER 2018-11-28 10:36 | Inpatient (IN) | payer OTHER, SELFPAY ==
[2018-11-28 11:43] LABS: #Eosinphils 0.1 thou/uL (0.0-0.7); #Lymphocytes 0.8 thou/uL (1.20-3.40); #Monocytes 0.8 thou/uL (0.11-0.59); #Neutrophils 8.2 thou/uL (1.40-6.50); %Basophils 0.3 % (0.0-1.0); %Eosinophils 0.7 % (0.0-10.0); %Lymphocytes 8.3 % (21.0-51.0); %Monocytes 7.8 % (0.0-10.0); %Neutrophils 82.9 % (42.0-75.0); Mean Corpuscular Hemoglobin 27.2 pg (27.0-31.0); Mean Corpuscular Volume 80.2 fL (78.0-98.0); Mean Platelet Volume 5.9 fL (7.4-10.4); Platelet Count 206 thou/uL (130-400); White Blood Cell (WBC) Count 9.9 thou/uL (4.8-10.8)
[2018-11-28 12:07] LABS: Bilirubin Negative (Negative); Blood, Urine 1+ (Negative); Clarity Turbid (Clear); Glucose, Urine (Dipstick) Greater than 1000 mg/dL (Negative); Leukocyte Negative Leu/uL (Negative); Nitrite Negative (Negative); Protein, Urine (Dipstick) 30 mg/dL (Neg-Trace); RBC/HPF 0-3 HPF (0-3); Urobilinogen Normal mg/dL (Less than 2)
[2018-11-28 12:19] LABS: Bacteria/HPF 1+ HPF (None Seen)
[2018-11-28 12:29] LABS: ALT (SGPT) 18 U/L (8-55); AST (SGOT) 16 U/L (5-34); Albumin 3.2 g/dL (3.5-5.0); Alkaline Phosphatase 117 U/L (40-150); Anion Gap 12 mmol/L (10-20); BUN (Urea Nitrogen) 16 mg/dL (8.4-25.7); Bilirubin, Total 0.7 mg/dL (0.2-1.2); Calc. Creatinine Clearance 0 mL/min (70-130); Calcium 9.5 mg/dL (7.8-10.44); Carbon Dioxide 21 mmol/L (22-29); Chloride 97 mmol/L (98-107); Estimated GFR-MDRD 59; Globulin 3.4 g/dL (2.4-3.5); Glucose 439 mg/dL (70-105); Lipase 15 U/L (8-78); Protein, Total 6.6 g/dL (6.0-8.3); Sodium 127 mmol/L (136-145)
[2018-11-28 12:32] LABS: Potassium 2.7 mmol/L (3.5-5.1)
[2018-11-28] MEDS ORDERED: Potassium Chloride 20 MEQ TAB ONE (12:56)
[2018-11-28] MEDS ORDERED: Potassium Chloride 20 MEQ in Premix Bag 1 BAG IVPB SCH (13:15)
--- NOTE | 2018-11-28 13:46 | CT ---
CT OF THE ABDOMEN AND PELVIS WITH IV CONTRAST INDICATION: History of ileostomy and colostomy one month ago without bowel movements COMPARISON: July 15, 2018 FINDINGS: ABDOMEN: Lung bases: There are calcified Liver: There is a nodular contour to the liver suspicious for underlying cirrhosis Gallbladder: Contracted Pancreas: Normal. Adrenal glands: Normal. Spleen: Enlarged measuring 14 cm. Kidneys: Normal. Retroperitoneum of the upper abdomen: There are severe vascular calcifications seen involving the vis ualized vasculature. No pathologically enlarged lymph nodes are evident. Pelvis: Small and large bowel: There is a upper midline diverting transverse colostomy. There is a mild amoun t of retained stool within the proximal transverse colon, ascending colon and cecum. The small bowel is of normal caliber. The descending colon is decompressed. Bladder: Normal. Rectal and perirectal soft tissues:Normal. Reproductive structures: There is a 3.0 x 5.5 cm fluid collection seen along the left aspect of the p theo, adjacent to the prostate gland, on image 85 of series 2. There is a peripherally enhancing 4.6 cm fluid collection involving the right aspect the prostate gland extending into the periprosthet ic soft tissues measuring 6.6 cm in its greatest craniocaudad dimensions. Free fluid in pelvis: No free fluid is evident. Lymphadenopathy pelvis: No lymphadenopathy is evident. Osseous structures: There is osteonecrosis with severe osteoarthrosis involving both femoral heads. T here is partial collapse of both femoral heads. There is diffuse osteopenia. There are scattered degenerative and osteoarthritic change. There is a right unilateral pars defect at L5 with grade 1 a nterolisthesis. IMPRESSION: 1. Diverting transverse midline colostomy with mild amount of retained stool within the upstream larg e bowel. 2. Periprosthetic fluid collections are nonspecific but are suspicious for prosthetic and periprosthe tic abscesses. Recommend correlation with the clinical exam and urology consultation. 3. Cirrhosis with findings of portal hypertension.
[2018-11-28] MEDS ORDERED: Piperacillin/Tazobactam 4.5 GM VIAL ONE (14:28)
[2018-11-28] MEDS ORDERED: Heparin 1,000 UNITS/ML VIAL ONE (15:00)
[2018-11-28] MEDS ORDERED: ISOVUE-370 76%-LOCM 1 ML ONE (15:26)
[2018-11-28] MEDS ORDERED: Iothalamate Meglumine 60% 50 ML VIAL FS ONE (15:29)
[2018-11-28] MEDS ORDERED: Dextrose 50% Abboject 50 ML SYRINGE SLOW IVP PRN (15:33)
[2018-11-28] MEDS ORDERED: HYDROcodone/Acetaminophen 5/325 mg Tablet PO PRN (15:33)
[2018-11-28] MEDS ORDERED: Dextrose 5% in Water 1,000 ML IV PRN (15:33)
[2018-11-28] MEDS ORDERED: Ondansetron ODT 4 MG TAB PO PRN (15:33)
[2018-11-28] MEDS ORDERED: Magnesium 2 GM/50 ML 2 GM in Premix Bag 1 BAG IVPB SCH ×2 (15:45→20:00)
[2018-11-28] MEDS ORDERED: Insulin Glargine 30 UNITS in Pre-Filled Syringe 1 EACH SC SCH (15:45)
[2018-11-28] MEDS ORDERED: Insulin Regular 300 UNITS/3 ML VIAL ONE (16:30)
[2018-11-28] MEDS ORDERED: SODIUM CHLORIDE 0.9% IRR SCH (17:00)
[2018-11-28] MEDS ORDERED: GENTAMICIN SULFATE IRR SCH (17:00)
[2018-11-28] MEDS ORDERED: Lidocaine 1% PF 5 ML VIAL ONE (17:41)
[2018-11-28] MEDS ORDERED: Succinylcholine Chloride 20 MG/ML 10 ml SYRINGE FS ONE (17:41)
[2018-11-28] MEDS ORDERED: PROPOFOL 200 MG/20 ML VIAL ONE (17:41)
[2018-11-28] MEDS ORDERED: Fentanyl 100 MCG/2 ML VIAL ONE ×2 (17:56→18:35)
[2018-11-28] MEDS: Lactated Ringer's 1,000 ML IV SCH ×3 (19:32→22:54)
[2018-11-28] MEDS: Potassium Chloride 20 MEQ TAB PO SCH ×2 (19:34→20:08)
[2018-11-28] MEDS ORDERED: Acetaminophen 1,000 MG in Premix Bag 1 BAG IVPB SCH (20:00)
[2018-11-28] MEDS: Famotidine 20 MG TAB PO SCH (20:08)
[2018-11-28] MEDS: Docusate 100 MG CAP PO SCH (20:08)
[2018-11-28] MEDS: Piperacillin/Tazobactam 4.5 GM in Sodium Chloride 0.9% 100 ML IVPB SCH (20:12)
[2018-11-28] MEDS: Famotidine/PF 20 mg/2ml Vial SLOW IVP SCH (20:31)
[2018-11-28 20:39] LABS: Anion Gap 13 mmol/L (10-20); BUN (Urea Nitrogen) 12 mg/dL (8.4-25.7); Calc. Creatinine Clearance 0 mL/min (70-130); Calcium 8.9 mg/dL (7.8-10.44); Carbon Dioxide 19 mmol/L (22-29); Chloride 104 mmol/L (98-107); Estimated GFR-MDRD 88; Glucose 228 mg/dL (70-105); Magnesium 1.7 mg/dL (1.6-2.6); Sodium 133 mmol/L (136-145)
[2018-11-28 20:56] VITALS: BMI 27.5
--- NOTE | 2018-11-28 21:35 | CON ---
DATE OF CONSULTATION: 11/28/2018 REASON FOR CONSULT: Periprostatic, prostatic abscess, history of Karla gangrene. HISTORY OF PRESENT ILLNESS: Mr. Orlando is a 53-year-old male, whom I had seen initially back in July 15, 2018 as he presented with severe necrotizing fasciitis of scrotum and perineum. He presented with hemoglobin A1c with known history of diabetes, had been noncompliant, history of hepatitis C, untreated alcohol abuse. He underwent diverting colostomy, suprapubic tube diversion, multiple debridements. He had a wound VAC for an extended period of time and wound VAC has been removed , he has done well and SP tube was removed as PVR was minimal, as well as has an appointment with General Surgery for diverting colostomy reversal. However, he did not present to his appointment with General surgery and myself today, presented to the emergency room instead as he had 4-5 day history of perineal anal discomfort. As he thought that he was constipated, he gave himself a suppository and passed 2 hard bowel movements. He is known to have a colostomy, which demonstrates somewhat hard bowel movement. His presenting blood sugar is over 400, states that he was never provided medications since he was discharged from the alf with full knowledge that he has been advised to follow up with outlying clinics to resume his insulin. He is hemodynamically stable with no significant leukocytosis; however , CT of the abdomen and pelvis with IV contrast demonstrates a 3 x 5.5 cm fluid collection adjacent to the prostate gland, and also a 2nd fluid collection from the peripheral area of the prostate measuring 4.6 x 6.6 cm, suspicious for prostatic and periprostatic abscess. He denies dysuria, sensation of incomplete void and states that he has been urinating without significant issues. PAST MEDICAL HISTORY: Includes history of diabetes, poorly controlled, noncompliant, hepatitis C, history of alcohol use, cirrhosis, asthma, COPD, history of Karla gangrene of the scrotum, perineum in June 2018. PAST SURGICAL HISTORY: 1. Left eye surgery secondary to trauma, jaw surgery secondary to trauma, hip replacement. 2. Wide debridement of necrotizing fasciitis, June 2018. He also underwent cysto, suprapubic tube placement, July 16, 2018 with diverting colostomy. ALLERGIES: TO MACROBID. REVIEW OF SYSTEMS: Ten-point review of systems as above, otherwise noncontributory. PHYSICAL EXAMINATION: VITAL SIGNS: His vital signs are stable. It is 110/64, 86, 18, pain rated 7-9 on the pain scale, temperature of 97.8. HEENT: Grossly unremarkable. HEART: Regular rate. LUNGS: Clear. ABDOMEN: Soft, colostomy with air and stool that is mildly hard. He does have some chronic irritative changes of his groin. : Uncircumcised meatus is grossly unremarkable. Testes are descended. Incision from his previous Karla gangrene necrotizing fasciitis incision is well healed, coapting with minimal superficial changes of the skin with no active drainage or fluctuance of the perineum. A gentle DIGNA demonstrates minimal tenderness. EXTREMITIES: Contracted lower extremities. No clubbing or edema is appreciated. PERTINENT LABORATORY DATA: Sodium 127, potassium 2.7, BUN 16, creatinine 1.2. Hemoglobin A1c in August 2018 is 7.9, however, his previous A1c is 14. UA demonstrates 30 protein, 46 wbcs, 11-20 epithelials, 1+ bacteria, 1+ yeast. IMAGING: CT of the abdomen and pelvis with contrast demonstrates 3 x 5.5 cm fluid collection in the left aspect of the pelvis adjacent to the prostate. Second fluid collection 4.6 x 6.6 cm in the right aspect of the prostate gland extending into the periprostatic soft tissue. Per my review, the bladder is not significantly distended. IMPRESSION AND PLAN: 1. Mr. Orlando is a 53-year-old male with history of poorly-controlled diabetes. 2. Hepatitis C. 3. History of noncompliance. 4. History of alcohol abuse. 5. History of necrotizing fasciitis of the perineum, scrotum, June 2018, status post suprapubic tube wide debridement, diverting colostomy. This event has healed and his suprapubic tube was removed, diverting colostomy was planned to be reversed. He presents for perirectal perineal pain demonstrating fluid collection near the prostate that are consistent with periprostatic abscess. I informed the patient that we will proceed with exam under anesthesia, we will attempt transrectal ultrasound, needle aspiration of fluid drainage and obtain appropriate cultures, possible transurethral resection, if refractory was reviewed. I also informed him that diverting suprapubic tube would also be indicated at this time. He desires to proceed. Vancomycin, Zosyn provided by the ER, he has been n.p.o. We will need to be admitted to medical service due to history of diabetes, noncompliant. Job ID: [id number] [facility]
[2018-11-28] MEDS ORDERED: Potassium Chloride 20 MEQ TAB PO SCH (22:15)
--- NOTE | 2018-11-28 23:04 | OP ---
DATE OF PROCEDURE: 11/28/2018 PREOPERATIVE DIAGNOSES: 1. A 53-year-old male with history of poorly-controlled diabetes, history of Karla's gangrene of the scrotum, perineum, June 2018, status post suprapubic tube wide debridement, diverting colostomy. 2. Patient re-presents with periprostatic abscess with blood sugars over 400. POSTOPERATIVE DIAGNOSES: 1. A 53-year-old male with history of poorly-controlled diabetes, history of Karla's gangrene of the scrotum, perineum, June 2018, status post suprapubic tube wide debridement, diverting colostomy. 2. Patient re-presents with periprostatic abscess with blood sugars over 400. PROCEDURES PERFORMED: Cystoscopy, 20-Lithuanian suprapubic tube placement, transrectal ultrasound, needle aspiration of periprostatic abscess. ANESTHESIA: General. COMPLICATIONS: None apparent. DISPOSITION: To recovery room in stable condition. INTRAOPERATIVE FINDINGS: Periprostatic abscess, needle aspiration with pus component noted. Cystoscopy demonstrates bilobar hyperplasia mildly obstructing. Bladder grossly unremarkable. No evidence of urethral stricture. SPECIMENS: Periprostatic abscess fluid for culture, anaerobic and aerobic. INDICATIONS FOR PROCEDURE AND HISTORY: Mr. Orlando is a 53-year-old male with history of hepatitis C, alcohol abuse, poorly-controlled diabetes. He presented back in June with hemoglobin A1c of 14, blood sugar over 600, and necrotizing fasciitis of perineum, scrotum. He underwent wide debridement, underwent diverting colostomy, and suprapubic tube. He had wound VAC for extended period of time, this was discontinued as his wound had completely healed with no evidence of significant purulent drainage. His diverting colostomy was scheduled for consultation to be reversed; however, he presented to the emergency room today due to perirectal perineal pain. CT obtained by the emergency room demonstrates periprostatic fluid collection consistent with abscess. He remains hemodynamically stable and advised regarding trial of transrectal ultrasound drainage. I recommend repeating cystoscopy and suprapubic tube. Indications reviewed and he desires to proceed. Risks and complications including, but not limited to, bleeding, pain, infection, injury to adjacent organs, sepsis, possible secondary procedure was reviewed with him in detail and he desired to proceed. DESCRIPTION OF PROCEDURE: After an informed consent signed, the patient was taken to the operating room, placed in a supine position with general endotracheal anesthesia administered. He received Zosyn and vancomycin in the emergency room. He was placed in a left lateral decubitus position and using a transrectal ultrasound probe, an ultrasound of the prostate was performed. We did find a fluid collection consistent with the CT scan on bilateral periprosthetic area. The right area was drained first and it was aspirated with approximately 20 to 30 mL of pustular drainage. Compression of the fluid cavity was noted and we did irrigate this area with solution of 250 mg of gentamicin diluted in 500 mL. We irrigated the area gently with gentamicin after it was completely decompressed and no further pus was subsequently seen. Cultures were appropriately sent. The contralateral side, there was a right periprosthetic fluid collection and we attempted to aspirate. We did not obtain significant amount of drainage from the right side of the fluid collection. We aspirated with antibiotic irrigation and appeared loculated. However, decreased size of the fluid collection was noted on the ultrasound. As I could not further aspirate the fluid cavity with an 18-gauge needle through the transrectal ultrasound probe, the procedure was subsequently terminated. He was then placed in a supine position, subsequently placed in dorsal lithotomy. Genital and abdomen areas formally prepped and draped and a cystoscopy was performed with a 21-Lithuanian cystoscope. There was a mild resistance at the meatus, however, scope was easily maneuvered with no evidence of urethral stricture. The bilobar hyperplasia mildly obstructing was noted. The super verumontanum length was approximately 3 cm. Bladder was entered, which demonstrated no evidence of bladder stones, trabeculation. We performed an ultrasound with the bladder distended to the level of the umbilicus. No bowel contents were seen between bladder and the skin level. A spinal needle was then placed at the level of the previous suprapubic tube site which was seen on cystoscopy. An 11 blade was then utilized to make a skin incision and using a Cook trocar suprapubic tube, we punctured a suprapubic tube cystotomy at the level of the bladder under direct visualization. A 0.35 Sensor wire was then placed into the bladder. Using NephroMax balloon dilator 30-Lithuanian, we dilated the suprapubic tube tract. Subsequently, I was able to pass a 20-Lithuanian 10 mL suprapubic tube easily and 10 mL insufflated into the balloon. This was sutured to skin using 2-0 nylon and attached to gravity bag demonstrating clear output. He was transported to the recovery room in stable condition. I will obtain a followup CT of the pelvis tomorrow morning for staging. Infectious Disease consultation will be obtained as he will most likely require a PICC line. Job ID: [id number] MTDD
[2018-11-29] MEDS: Potassium Chloride 20 MEQ TAB PO SCH ×4 (00:13→18:22)
[2018-11-29] MEDS: Lactated Ringer's 1,000 ML IV SCH ×4 (00:14→17:38)
[2018-11-29] MEDS: Piperacillin/Tazobactam 4.5 GM in Sodium Chloride 0.9% 100 ML IVPB SCH (02:26)
[2018-11-29] MEDS: Morphine 4 MG/ML VIAL SLOW IVP PRN ×5 (03:53→21:21)
[2018-11-29 06:39] LABS: #Eosinphils 0.1 thou/uL (0.0-0.7); #Lymphocytes 0.9 thou/uL (1.20-3.40); #Monocytes 0.5 thou/uL (0.11-0.59); #Neutrophils 7.2 thou/uL (1.40-6.50); %Basophils 0.2 % (0.0-1.0); %Eosinophils 0.8 % (0.0-10.0); %Lymphocytes 10.1 % (21.0-51.0); %Monocytes 5.9 % (0.0-10.0); Hemoglobin 10.9 g/dL (14.0-18.0); Mean Corpuscular HGB CONC 33.8 g/dL (32.0-36.0); Mean Corpuscular Hemoglobin 27.2 pg (27.0-31.0); Mean Corpuscular Volume 80.5 fL (78.0-98.0); Mean Platelet Volume 6.1 fL (7.4-10.4); Platelet Count 167 thou/uL (130-400); RBC Distribution Width 12.9 % (11.5-14.5); Red Blood Cell (RBC) Count 4.03 mill/uL (4.70-6.10); White Blood Cell (WBC) Count 8.7 thou/uL (4.8-10.8)
[2018-11-29] MEDS ORDERED: Magnesium 2 GM/50 ML 2 GM in Premix Bag 1 BAG IVPB SCH (07:00)
--- NOTE | 2018-11-29 07:09 | PDOC.HOSPP ---
- Subjective Encounter Date: 11/29/18 Encounter Time: 07:05 Subjective: 53 y/o male with uncontrolled DM, recent Necrotizin fascitis of the scrotum requiring suprapubic cath and diverting colostomy and several debribements admitted with anal pain and found to have periprostatic abscess and hyperglycemia. S/p suprapubic actheter and aspiration of periprostatic abscess. Remained afebrile and feeling better. No nausea, vomiting, chest pain or focal weakness - Objective Vital Signs & Weight: Vital Signs (12 hours) Temp Pulse Resp BP Pulse Ox 11/29/18 03:00 98.2 F 76 16 98/53 L 98 11/28/18 23:00 97.4 F L 73 16 99/53 L 97 Weight Weight 180 lb 15.992 oz I&O: 11/28/18 11/29/18 11/30/18 06:59 06:59 06:59 Intake Total 2550 Output Total 1350 Balance 1200 Result Diagrams: 11/29/18 06:17 11/28/18 19:51 Additional Labs: Accuchecks 11/29/18 11/28/18 11/28/18 05:55 20:39 14:04 POC Glucose 203 H 218 H 430 H Hospitalist ROS - Medication Medications: Active Medications Generic Name Dose Route Start Last Admin Trade Name Joshq PRN Reason Stop Dose Admin Docusate Sodium 100 mg 11/28/18 21:00 11/28/18 20:08 Colace PO 100 mg BID LEONIDAS Administration Famotidine 20 mg 11/28/18 21:00 11/28/18 20:31 Pepcid SLOW IVP Not Given Q12HR LEONIDAS Famotidine 20 mg 11/28/18 21:00 11/28/18 20:08 Pepcid PO 20 mg BID LEONIDAS Administration Lactated Ringer's 1,000 mls @ 250 mls/hr 11/28/18 15:45 11/29/18 00:14 Lactated Ringer's IV 1,000 mls .Q4H LEONIDAS Administration Acetaminophen 1,000 mg/ Device 100 mls @ 400 mls/hr 11/28/18 20:00 11/28/18 22:56 IVPB 11/29/18 23:59 100 mls NOW LEONIDAS Administration Morphine Sulfate 4 mg 11/28/18 18:25 11/29/18 03:53 Morphine SLOW IVP 4 mg Q2H PRN Administration Severe Pain (7-10) - Exam General Appearance: awake alert Eye: anicteric sclera ENT: normocephalic atraumatic Neck: supple, symmetric Heart: RRR Respiratory: CTAB, no wheezes, no rales, no ronchi, normal chest expansion, no tachypnea Gastrointestinal: soft, non-tender, non-distended, normal bowel sounds Gastrointestinal - other findings: suprapubic cath and colostomy noted Extremities: no cyanosis, no edema Skin - other findings: groin area erythematous rash with some excoriations Neurological: CN's grossly intact, no focal deficits Psychiatric: A&O x 3 Hosp A/P (1) Prostatic abscess Code(s): N41.2 - ABSCESS OF PROSTATE Status: Acute (2) Perianal abscess Code(s): K61.0 - ANAL ABSCESS Status: Acute (3) Hyponatremia Code(s): E87.1 - HYPO-OSMOLALITY AND HYPONATREMIA Status: Acute (4) Hypokalemia Code(s): E87.6 - HYPOKALEMIA Status: Acute (5) Hypomagnesemia Code(s): E83.42 - HYPOMAGNESEMIA Status: Acute (6) DKA (diabetic ketoacidosis) Code(s): E11.10 - TYPE 2 DIABETES MELLITUS WITH KETOACIDOSIS WITHOUT COMA Status: Acute (7) JUNO (acute kidney injury) Code(s): N17.9 - ACUTE KIDNEY FAILURE, UNSPECIFIED Status: Acute (8) Non-compliance Code(s): Z91.19 - PATIENT'S NONCOMPLIANCE W OTH MEDICAL TREATMENT AND REGIMEN Status: Acute (9) Intertriginous candidiasis Code(s): B37.2 - CANDIDIASIS OF SKIN AND NAIL Status: Acute (10) Anemia Code(s): D64.9 - ANEMIA, UNSPECIFIED Status: Acute (11) Uncontrolled diabetes mellitus Code(s): E11.65 - TYPE 2 DIABETES MELLITUS WITH HYPERGLYCEMIA Status: Acute (12) Chronic hepatitis C Code(s): B18.2 - CHRONIC VIRAL HEPATITIS C Status: Chronic Qualifiers: Hepatic coma status: without hepatic coma Qualified Code(s): B18.2 - Chronic viral hepatitis C (13) H/O psoriasis Code(s): Z87.2 - PERSONAL HISTORY OF DISEASES OF THE SKIN, SUBCU Status: Chronic - Plan Continue broad spectrum antibiotics. Aggressive IV fluid and insulin therapy to continue Replete serum potassium and magnesium Resume diet once cleared by urology Other treatments as per Urology and Gen surgery
--- NOTE | 2018-11-29 07:14 | HP ---
PRIMARY CARE PHYSICIAN: Mauricio Ivey MD CHIEF COMPLAINT: Worsening rectal pain. HISTORY OF PRESENT ILLNESS: A 53-year-old male patient with known history of diabetes, chronic hepatitis C with liver cirrhosis, as well as COPD, who recently was treated in this hospital for necrotizing fascitis of the scrotum, that required diversion colostomy, who presented with worsening rectal pain since about 4 days. The patient reported worsening pain since about 4 days, as well as feeling of constipation. He subsequently took a suppository, following which he passed some hard stool through the anal area. The patient reported that he has been having poor oral intake in the last several days associated with decreased output from his colostomy. The [facility] was [facility] about last month, but he reported that he was not given any prescription, hence he has not been taking any medication since about a month. He, however, denied nausea, vomiting, abdominal pain, fever, chest pain, cough, leg swelling, chest pain, palpitation, focal weakness, dysuria or hematuria. He said that he was unable to follow up with General Surgery or the PCP due to transportation issues. On presentation here to the ER, the patient was found to have hypokalemia, hyponatremia, and hyperglycemia. He was started on IV fluids and received some potassium supplementation. Further evaluation with CT scan of the abdomen and pelvis showed charli-prostate abscesses. Urology and General Surgery have been contacted and the patient is about to go to OR for drainage of the periprostatic abscess by urologist. The patient also has been started on IV antibiotics. He is therefore for admission to the hospital for further evaluation and treatment. Rectal pain is said to be severe, rated at 9/10, and is worse with movement and with coughing. PAST MEDICAL HISTORY: 1. Diabetes. 2. COPD. 3. Asthma. 4. Hepatitis C infection. 5. Liver cirrhosis. 6. Karla gangrene. PAST SURGICAL HISTORY: 1. Diversion colostomy. 2. Debridement of Karla gangrene. 3. Left eye removal. 4. Bilateral arm surgery. FAMILY HISTORY: Father had liver cirrhosis from alcohol use. Mother had no significant past medical history. Father is , but mother is still alive at age 82. SOCIAL HISTORY: The patient lives with mother and sister. The patient is a smoker. This is really unclear. He told me he stopped smoking 7 years ago, but told the ER physician that he still smokes. He also told me that he stopped smoking 2 years ago, but told the ER physician that he still smokes occasionally. He denied recreational drug use. He wants to be full code and sister is the surrogate decision maker. ALLERGIES: NO KNOWN DRUG ALLERGIES REPORTED. CURRENT HOME MEDICATIONS: None. Review of medical records showed that the patient should be on Lantus 30 units daily in the morning as well as folic acid, Pepcid, and zinc sulfate. However, the patient stated when he was discharged from the [facility] recently, he was not given any prescription, hence has not been on any medication. REVIEW OF SYSTEMS: A 12-point review of system performed was negative, other than pertinent positives and negatives included in the History of Present Illness. PHYSICAL EXAMINATION: VITAL SIGNS: Blood pressure 110/64, pulse 86, respiratory rate 18, SpO2 98% on room air. Pain 7/10, temperature 98.5. GENERAL: Middle-aged male, in mild painful distress. Afebrile. Anicteric. Acyanotic. HEENT: Normocephalic, atraumatic. Oral mucosa is mildly dry. NECK: Supple, nontender with no obvious JVD. No lymphadenopathy or masses appreciated. CARDIOVASCULAR: Regular rhythm and rate with normal heart sounds 1 and 2. No obvious murmur was appreciated. RESPIRATORY: Good air entry bilaterally with no obvious crackle or rhonchi or use of accessory muscles. GASTROINTESTINAL: Abdomen is full, soft, nontender, nondistended with normal bowel sounds. Colostomy is noted. UROGENITAL: Mild erythema of the scrotum, as well as intertriginous, erythematous rash is noted. EXTREMITIES: Grossly normal looking atraumatic with no edema or erythema. CENTRAL NERVOUS SYSTEM: Conscious and alert, oriented x3 with appropriate mental status. Cranial nerves 2 through 12 are grossly intact. The patient moves all extremities. DIAGNOSTIC DATA: CBC showed WBC count of 9.9, hemoglobin of 12.0, MCV of 80.2, platelet of 206. CMP showed sodium 127, potassium 2.7, chloride 97, CO2 21, BUN 16, creatinine 1.26, glucose 439, calcium 9.5, total bilirubin 0.7, AST 16, ALT 18, alkaline phosphatase 117, total protein 6.6, albumin 3.2, globulin 3.4. Of note, baseline creatinine ranges from 0.7 to 0.8. Serum lipase is 15. Magnesium is 1.7. Urinalysis showed yellow turbid urine with pH of 6.5, specific gravity of 1.023, protein 30 mg/dL, glucose greater than a 1000 mg/dL. Urine ketones positive at 10 mg/dL, nitrite is negative, as well as bilirubin and leukocyte esterase. Microscopy showed 0 to 3 RBC's, 4 to 6 WBC's, and 11-20 squamous cells. EKG showed normal sinus rhythm with rate of 91. No obvious ischemic changes were noted. CT scan of the abdomen and pelvis with IV contrast showed diverting transverse midline colostomy with mild amount of retained stool within the upstream large bowel. Periprostatic fluid collections suspicious for prostatic and periprostatic abscess noted, as well as features of liver cirrhosis with portal hypertension. ASSESSMENT: 1. Prostatic and periprostatic abscess. 2. Uncontrolled diabetes mellitus with diabetic ketoacidosis. 3. Acute kidney injury: Due to volume depletion from poor oral intake as well as hyperglycemia-induced diuresis. 4. Hypokalemia: Most likely poor oral intake as well as hyperglycemia-induced diuresis. 5. Hyponatremia: Due to volume depletion with appropriate ADH secretion. 6. Noncompliance with medication. 7. Recent Karla gangrene. 8. Status post diversion colitis for Karla gangrene. 9. Compensated liver cirrhosis with portal hypertension. 10. Chronically hepatitis C infection. 11. Chronic obstructive pulmonary disease without acute exacerbation. PLAN: 1. We will admit the patient to the floor after drainage of periprostatic abscess. 2. Broad-spectrum antibiotic therapy with Zosyn and Levaquin will be continued. 3. IV fluid therapy with lactated Ringer's at 200 mL/h will be commenced. 4. We will also restart insulin therapy. 5. General Surgery consult has been requested for management of colostomy with a view to doing revision given that Karla gangrene has healed. 6. Start nystatin topical for intertriginous candidiasis. 7. We will consult social work job titles and Case Management to help with discharge planning. 8. It is expected that the patient will be hospitalized for more than 3 midnights. Code status is full code. The patient's sister is the surrogate decision maker. Job ID: [id number]
[2018-11-29 07:18] LABS: ALT (SGPT) 18 U/L (8-55); AST (SGOT) 21 U/L (5-34); Albumin 2.8 g/dL (3.5-5.0); Alkaline Phosphatase 103 U/L (40-150); Anion Gap 9 mmol/L (10-20); BUN (Urea Nitrogen) 10 mg/dL (8.4-25.7); Bilirubin, Total 0.6 mg/dL (0.2-1.2); Calc. Creatinine Clearance 105 mL/min (70-130); Calcium 8.5 mg/dL (7.8-10.44); Carbon Dioxide 20 mmol/L (22-29); Chloride 108 mmol/L (98-107); Estimated GFR-MDRD 85; Globulin 2.9 g/dL (2.4-3.5); Glucose 221 mg/dL (70-105); Potassium 4.1 mmol/L (3.5-5.1); Protein, Total 5.7 g/dL (6.0-8.3); Sodium 133 mmol/L (136-145)
[2018-11-29 07:41] LABS: Phosphorus 1.4 mg/dL (2.3-4.7)
--- NOTE | 2018-11-29 07:48 | PRG ---
DATE OF SERVICE: 11/29/2018 SUBJECTIVE: The patient feels better, he says that perirectal and perineal pain has significantly improved. OBJECTIVE: VITAL SIGNS: Stable. Temperature 97.4, 76, 19, 98, and blood pressure 98/53. I's and O's 2350 in, 1350 out. He is positive 1.2 L. ABDOMEN: Soft, suprapubic tube site is clean, dry, and intact with no active bleeding. Urine output clear. No rigidity. No rebound. PERTINENT LABORATORY DATA: White count 8.7, hemoglobin 10.9, and platelet 167. Sodium 133, creatinine 0.9, blood sugar running 430 to 221. Culture from aspiration of periprosthetic abscess pending, so far many gram-negative rods. Anaerobic results are pending. IMPRESSION AND PLAN: 1. Mr. Orlando is a 53-year-old male with history of poorly-controlled diabetes, non-compliant, prior history of A1c 14. 2. Hepatitis C. 3. Alcohol abuse. 4. History of Karla gangrene of the scrotum, perineum in 06/2018 with diverting colostomy, presents with periprosthetic abscess. On postop day #1, status post transrectal ultrasound, needle aspiration of periprosthetic abscess, suprapubic tube. I was able to successfully drain the right side of the periprosthetic abscess, suboptimal drainage of the left, as it appears to be somewhat loculated. Appropriate culture has been sent. will review CT with radiologist. Pending review of CT. will continue to monitor patient on broad-spectrum antibiotics and staging CT on interval basis is advised. I will switch his antibiotics to meropenem and vancomycin based on his prior culture. Antibiotics can be adjusted. Pending Infectious Disease, Dr. Iyer's input. Continue present management. Strict control of diabetes is advised. Job ID: [id number] [facility]
[2018-11-29] MEDS: Famotidine/PF 20 mg/2ml Vial SLOW IVP SCH ×2 (07:55→21:40)
[2018-11-29] MEDS: Famotidine 20 MG TAB PO SCH ×2 (07:57→21:15)
[2018-11-29 08:49] LABS: INR-International Normal Ratio 1.2; PTT 27.5 SEC (22.9-36.1); Prothrombin Time 15.1 SEC (12.0-14.7)
--- NOTE | 2018-11-29 08:55 | CT ---
EXAM: CT Pelvis WO Con PROVIDED CLINICAL HISTORY: Postdrainage of periprosthetic abscess. COMPARISON: CT abdomen and pelvis on 11/28/2018 FINDINGS: There has been interval placement of a suprapubic catheter when compared to the prior exam. The urina ry bladder is mostly decompressed. Previously described fluid collections adjacent to either side of the prostate gland and extending in a perirectal location are again seen. Punctate foci of gas are seen within the areas of the collection likely due to interval treatment. The collection in the left hemipelvis previously measure d 5.5 cm x 3 cm and now measures 5.4 cm x 2.8 cm. The collection just to the right side of the prostate gland is difficult to accurately measure but subjectively does appear mildly decreased in si ze. The collection surrounding the rectum is also again seen but does appear slightly diminished in size. Minimal inflammatory stranding is seen in a presacral location, slightly increased from prior e xam. No enlarged lymph nodes are seen by CT size criteria. Vascular calcifications are seen in the abdominal aorta and involving the iliac and femoral arteries. The appendix is visualized and normal in caliber. Again noted is osteonecrosis involving the bilateral hips with associated severe bilateral hip osteoa rthritis. IMPRESSION: 1. Periprostatic and perirectal fluid collections are again seen which now contain punctate foci of g as likely related to interval treatment. Portions of the collection do appear smaller in size compared to the prior exam. Findings are again worrisome for abscess collection. 2. Mild presacral inflammatory stranding and edema.
[2018-11-29] MEDS ORDERED: Midazolam HCl 2 mg/2 ml Vial ONE (10:30)
[2018-11-29] MEDS ORDERED: Fentanyl 100 MCG/2 ML VIAL ONE (10:30)
[2018-11-29] MEDS ORDERED: Sodium Bicarbonate 2.5 MEQ/5 ML VIAL ONE (10:30)
[2018-11-29] MEDS: Vancomycin HCl 1.25 GM in Sodium Chloride 0.9% 250 ML 250 ML IVPB SCH (11:03)
[2018-11-29] MEDS: Tamsulosin HCl 0.4 MG CAP PO SCH (11:05)
[2018-11-29] MEDS: Docusate 100 MG CAP PO SCH ×2 (11:06→21:15)
[2018-11-29] MEDS: Hydrocortisone 1% Cream 30 GM TUBE TOP SCH ×2 (11:07→21:15)
[2018-11-29] MEDS: Insulin Glargine 30 UNITS in Pre-Filled Syringe 1 EACH SC SCH (13:44)
[2018-11-29] MEDS ORDERED: Meropenem 2 GM in Admixture Fee 1 EACH IVPB SCH (14:00)
--- NOTE | 2018-11-29 14:18 | CT ---
EXAM: CT Peritoneal Abscess Drainage PROVIDED CLINICAL HISTORY: Periprostatic and perirectal fluid collections. Reported abscess based on previous sampling. However, collection was unable to be aspirated completely. Percutaneous aspiration was requested COMPARISON: CT pelvis on 11/28/2018 and 11/29/2018. TECHNIQUE: The procedure including the risks and complications were explained to the patient, and informed conse nt was obtained. Patient was placed on the CT scan table in the prone position. The left perirectal and periprostatic collection was localized, and an area was marked and then meticulously prepped and draped in usual sterile fashion. The skin and subcutaneous tissues were infiltrated with buffered 1% lidocaine for local anesthesia. A small skin incision was made. A 19-gauge [employer] needle with 5 Pashto sheath was then advanced into the left-sided periprostatic collection utilizing CT guidance. Position of the tip of the needle was confirmed within the collection with [address] images. A total of 8 mL of purulent fluid was aspirated. No additional fluid was able to be aspirated at this time. The needle was remove d, and hemostasis was achieved with direct pressure. Follow-up CT scan examination does demonstrate mild decrease in size of the left periprostatic fluid collection, but the collection does persist. A dry sterile dressing was placed at puncture site. The patient tolerated the procedure well and with out immediate complication. IMPRESSION: Periprostatic and perirectal fluid collection with punctate focus of gas seen in the collections. CT- guided percutaneous needle aspiration of the collection on the left was performed, and approximately 8 mL of purulent fluid was aspirated. Collection was unable to be aspirated in its enti rety. The specimen was sent for labs.
[2018-11-29] MEDS: Meropenem 2 GM in Sodium Chloride 0.9% 100 ML IVPB SCH ×2 (17:36→21:16)
[2018-11-29] MEDS ORDERED: Potassium Chloride 20 MEQ TAB PO SCH (18:00)
[2018-11-29] MEDS: HumaLOG 300 UNITS/3 ML VIAL SC PRN (19:05)
[2018-11-30] MEDS: Lactated Ringer's 1,000 ML IV SCH ×5 (00:10→20:19)
--- NOTE | 2018-11-30 00:12 | CON ---
DATE OF CONSULTATION: REASON FOR CONSULTATION: Periprostatic abscess. HISTORY OF PRESENT ILLNESS: A 53-year-old, who is known to me from prior admission in June 2018, when he developed Karla gangrene in perineal area. The patient underwent extensive surgical intervention by Dr. Knight, and initial findings include necrotizing fasciitis of the scrotum and perineum. There was evidence of necrotic skin in the mid scrotal wall as well as in the right upper scrotum. There was pustular discharge in perineum, approximately the size of an index finger about 2 cm above the anus. The defect of the perineum was extended anteriorly and superiorly to the mid scrotal wall. One day later, the patient had a revision with a rigid cystoscopy. General Surgery was consulted as the inferior margin of the wound was very close to the anal canal. The patient received broad-spectrum antimicrobial therapy. The microbiology then included anaerobes, Staph aureus, Karina, and Streptococcus anginosus in various different samples. The patient this time was admitted with worsening pain in the rectal area, which he felt was due to constipation. A CT scan showed, however, evidence of periprostatic abscess. Dr. Knight performed an I and D of the site after suprapubic catheter placement and the patient also had a cystoscopy to assist with suprapubic catheter placement. He had 2 areas of abscess drained through the rectum approach using a transrectal ultrasound probe. Currently, he is still having some pain but much better than previously. No headaches, visual symptoms, sore throat, odynophagia, or dysphagia. No vomiting, hematemesis, melena, or hematochezia. No cough or dyspnea. No chest pain. No abdominal pain. Perineum pain as expected, but much improved. PAST MEDICAL HISTORY: Includes diabetes, type 2; COPD; asthma; hep C, untreated; liver cirrhosis; and Karla gangrene. SURGICAL HISTORY: Colostomy with diversion, which was already taken down and left eye removal. FAMILY HISTORY: Liver cirrhosis and alcoholism. SOCIAL HISTORY: Lives with mother. Quit smoking two years ago. Has a history of intravenous drug use, but has been abstinent for many years reportedly. Also states that he quit drinking alcoholic beverages. ALLERGIES: NO KNOWN DRUG ALLERGIES. CURRENT MEDICATIONS: 1. Tylenol. 2. Dextrose. 3. Colace. 4. Lovenox. 5. Pepcid. 6. Insulin. 7. Meropenem. 8. Vancomycin. PHYSICAL EXAMINATION: VITAL SIGNS: T-max 98.4, blood pressure 118/60, pulse 82, respirations 18, and O2 sat 95%. GENERAL: Appears in no distress, chronically ill appearing. Suprapubic catheter, peripheral IV access. No lymphadenopathy. HEENT: Ocular movements conjugate. Has a prosthetic eye on the left side. Oral cavity with numerous missing teeth, remainder ones with quite a bit of decay and gum disease. NECK: Supple. No jugular venous distention or carotid bruits. HEART: S1 and S2. Regular rate. No S3 or S4. ABDOMEN: Soft, not distended. : No bladder distention. EXTREMITIES: No joint inflammatory activity. Pulses 1+ in dorsalis pedis. Moves all extremities equally with no limitations. NEURO: Cognitive function appears to be intact. LABORATORY DATA: White cell count 9.9, hemoglobin 12, and platelets 206. Followup white cell count 8.7. INR 1.2. Sodium 133 and creatinine 0.92. Liver profile normal. Albumin 2.8. Urinalysis, 4 to 6 wbc's. Microbiology with presumptive E coli from the perirectal abscess. IMAGING STUDY: Includes an abdomen and pelvis CT and this demonstrated vascular calcifications and a 3 x 5 cm fluid collection seen along the left aspect of the pelvis adjacent to the prostate gland with a peripherally enhancing 4.6 cm fluid collection involving the right aspect of the prostate gland extending into the periprostatic soft tissues. So, this appears there is a prostate abscess that extended into the periprostatic tissues not the other way around and there does not seem to be any relationship to the gastrointestinal tract. ASSESSMENT: 1. Chronic hepatitis C, untreated with liver cirrhosis. 2. History of alcoholism and history of IV drug use, which is in remission at this time. 3. Recent episode of Karla gangrene with perineal involvement. 4. Current prostate abscess with extension into the periprostatic tissues, status post drainage using rectal ultrasound probe and a needle aspiration. The patient will require protracted antimicrobial therapy administered either via the oral route if the organism is susceptible to quinolones or will require PICC line placement and IV antimicrobial therapy administration if it is an ESBL type organism or resistant to quinolones. Penetration in prostatic gland tissue is going to be a problem, and we will follow up and then determine the nature of the regimen and duration. Job ID: [id number]
[2018-11-30 01:21] LABS: Vancomycin, Trough 6.9 ug/mL
[2018-11-30] MEDS ORDERED: Vancomycin HCl 1.25 GM in Sodium Chloride 0.9% 250 ML 250 ML IVPB SCH (02:00)
[2018-11-30] MEDS: Vancomycin HCl 1.25 GM in Sodium Chloride 0.9% 250 ML 250 ML IVPB SCH (03:55)
[2018-11-30] MEDS: Morphine 4 MG/ML VIAL SLOW IVP PRN ×3 (04:31→09:27)
[2018-11-30] MEDS: Meropenem 2 GM in Sodium Chloride 0.9% 100 ML IVPB SCH ×3 (06:42→21:40)
[2018-11-30 06:57] LABS: #Eosinphils 0.1 thou/uL (0.0-0.7); #Lymphocytes 0.9 thou/uL (1.20-3.40); #Monocytes 0.5 thou/uL (0.11-0.59); #Neutrophils 7.5 thou/uL (1.40-6.50); %Eosinophils 1.6 % (0.0-10.0); %Lymphocytes 9.9 % (21.0-51.0); %Monocytes 5.4 % (0.0-10.0); %Neutrophils 83.1 % (42.0-75.0); Mean Corpuscular HGB CONC 32.1 g/dL (32.0-36.0); Mean Corpuscular Hemoglobin 26.3 pg (27.0-31.0); Mean Corpuscular Volume 81.9 fL (78.0-98.0); Mean Platelet Volume 6.4 fL (7.4-10.4); Platelet Count 146 thou/uL (130-400); RBC Distribution Width 13.4 % (11.5-14.5); Red Blood Cell (RBC) Count 4.16 mill/uL (4.70-6.10)
[2018-11-30 07:03] LABS: Albumin 2.7 g/dL (3.5-5.0); Anion Gap 10 mmol/L (10-20); BUN (Urea Nitrogen) 5 mg/dL (8.4-25.7); BUN/Creatinine Ratio 6.49; Calc. Creatinine Clearance 126 mL/min (70-130); Calcium 8.4 mg/dL (7.8-10.44); Carbon Dioxide 19 mmol/L (22-29); Chloride 106 mmol/L (98-107); Estimated GFR-MDRD Greater than 90; Glucose 114 mg/dL (70-105); Potassium 4.1 mmol/L (3.5-5.1); Sodium 131 mmol/L (136-145)
[2018-11-30 07:11] LABS: Phosphorus 1.3 mg/dL (2.3-4.7)
[2018-11-30] MEDS ORDERED: Potassium Phosphate 30 MMOL in Sodium Chloride 0.9% 500 ML IVPB SCH (07:15)
--- NOTE | 2018-11-30 08:29 | PDOC.HOSPP ---
- Subjective Encounter Date: 11/30/18 Encounter Time: 08:29 Subjective: 53 y/o male with uncontrolled DM, recent Necrotizin fascitis of the scrotum requiring suprapubic cath and diverting colostomy and several debribements admitted with anal pain and found to have periprostatic abscess and hyperglycemia. S/p suprapubic catheter and aspiration of periprostatic abscess. No new problem. Remained afebrile. No nausea, vomiting, chest pain or focal weakness. - Objective Vital Signs & Weight: Weight Admit Weight 180 lb 15.84 oz Weight 180 lb 15.84 oz I&O: 11/29/18 11/30/18 12/01/18 06:59 06:59 06:59 Intake Total 2550 2000 Output Total 1350 3075 Balance 1200 -1075 Result Diagrams: 11/30/18 06:37 11/30/18 06:37 Additional Labs: Accuchecks 11/30/18 11/29/18 11/29/18 06:00 19:48 16:48 POC Glucose 112 H 203 H 227 H 11/29/18 11/28/18 11/28/18 10:56 17:21 16:28 POC Glucose 182 H 269 H 357 H Hospitalist ROS - Medication Medications: Active Medications Generic Name Dose Route Start Last Admin Trade Name Freq PRN Reason Stop Dose Admin Docusate Sodium 100 mg 11/28/18 21:00 11/29/18 21:15 Colace PO 100 mg BID LEONIDAS Administration Famotidine 20 mg 11/28/18 21:00 11/29/18 21:40 Pepcid SLOW IVP Not Given Q12HR LEONIDAS Famotidine 20 mg 11/28/18 21:00 11/29/18 21:15 Pepcid PO 20 mg BID LEONIDAS Administration Hydrocortisone/Aloe 0 gm 11/29/18 09:00 11/29/18 21:15 Hydrocortisone 1% Cream TOP 1 applic Q12HR LEONIDAS Administration Insulin Glargine 30 units/ 0.3 mls @ 0 mls/hr 11/29/18 09:00 11/29/18 13:44 Miscellaneous Medication SC 0.3 mls QAM LEONIDAS Administration Meropenem 2 gm/ Sodium 100 mls @ 100 mls/hr 11/29/18 14:00 11/30/18 06:42 Chloride IVPB 100 mls Q8HR LEONIDAS Administration Insulin Human Lispro 0 units 11/28/18 15:33 11/29/18 19:05 Humalog SC 4 unit .MODERATE SLIDING SC PRN Administration Moderate Correctional Scale Morphine Sulfate 4 mg 11/28/18 18:25 11/30/18 04:31 Morphine SLOW IVP 4 mg Q2H PRN Administration Severe Pain (7-10) Tamsulosin HCl 0.4 mg 11/29/18 09:00 11/29/18 11:05 Flomax PO 0.4 mg DAILY LEONIDAS Administration - Exam General Appearance: awake alert Eye: anicteric sclera ENT: normocephalic atraumatic Neck: supple, symmetric Heart: RRR Respiratory: CTAB Gastrointestinal: soft, non-tender, non-distended, normal bowel sounds Gastrointestinal - other findings: suprapubic cath and colostomy noted. Extremities: no cyanosis, no edema Skin - other findings: erythematous rash around the groin area as well pappules and plaques noted Neurological: CN's grossly intact Psychiatric: A&O x 3 Hosp A/P (1) Prostatic abscess Code(s): N41.2 - ABSCESS OF PROSTATE Status: Acute (2) Perianal abscess Code(s): K61.0 - ANAL ABSCESS Status: Acute (3) Hyponatremia Code(s): E87.1 - HYPO-OSMOLALITY AND HYPONATREMIA Status: Acute (4) Hypokalemia Code(s): E87.6 - HYPOKALEMIA Status: Acute (5) Hypomagnesemia Code(s): E83.42 - HYPOMAGNESEMIA Status: Acute (6) DKA (diabetic ketoacidosis) Code(s): E11.10 - TYPE 2 DIABETES MELLITUS WITH KETOACIDOSIS WITHOUT COMA Status: Acute (7) JUNO (acute kidney injury) Code(s): N17.9 - ACUTE KIDNEY FAILURE, UNSPECIFIED Status: Acute (8) Non-compliance Code(s): Z91.19 - PATIENT'S NONCOMPLIANCE W OTH MEDICAL TREATMENT AND REGIMEN Status: Acute (9) Intertriginous candidiasis Code(s): B37.2 - CANDIDIASIS OF SKIN AND NAIL Status: Acute (10) Anemia Code(s): D64.9 - ANEMIA, UNSPECIFIED Status: Acute (11) Uncontrolled diabetes mellitus Code(s): E11.65 - TYPE 2 DIABETES MELLITUS WITH HYPERGLYCEMIA Status: Acute (12) Chronic hepatitis C Code(s): B18.2 - CHRONIC VIRAL HEPATITIS C Status: Chronic Qualifiers: Hepatic coma status: without hepatic coma Qualified Code(s): B18.2 - Chronic viral hepatitis C (13) Psoriasis Code(s): L40.9 - PSORIASIS, UNSPECIFIED Status: Acute - Plan Continue broad spectrum antibiotics. Continue meropenem and DC vanc in line with microbe susceptibility Replete serum phosphate Diuet as tolerated. Colostomy care to continue Other treatments as per Urology and Gen surgery
[2018-11-30] MEDS: Insulin Glargine 30 UNITS in Pre-Filled Syringe 1 EACH SC SCH (09:28)
[2018-11-30] MEDS: Hydrocortisone 1% Cream 30 GM TUBE TOP SCH ×2 (09:28→20:22)
[2018-11-30] MEDS: Tamsulosin HCl 0.4 MG CAP PO SCH (09:29)
[2018-11-30] MEDS: Famotidine 20 MG TAB PO SCH ×2 (09:29→20:18)
[2018-11-30] MEDS: Sodium Bicarbonate Tab 325 MG TAB PO SCH ×2 (09:29→20:18)
[2018-11-30] MEDS: Docusate 100 MG CAP PO SCH ×2 (09:29→20:19)
--- NOTE | 2018-11-30 09:39 | PRG ---
DATE OF SERVICE: 11/30/2018 SUBJECTIVE: The patient without complaints, has some perirectal pain; however, this has improved. 98.6, 83, 97, and 100/60. I's and O's 2000 in and 3 L out. Urine output is clear. Morning labs; white count 9, hemoglobin is 11, and platelets 146. Creatinine 0.77. Blood sugar running 180s to 200s. Culture from perirectal abscess demonstrates Klebsiella, multi-drug resistant, sensitive to meropenem. The patient is currently on meropenem and vancomycin. IMPRESSION AND PLAN: 1. A 53-year-old male with history of hepatitis C. 2. Alcohol abuse. 3. History of necrotizing fasciitis of scrotum and perineum in June 2018 with diverting colostomy, status post suprapubic tube. 4. He presents with perirectal, periprosthetic abscess, status post cysto, suprapubic tube replacement, transrectal ultrasound aspiration. I was unable to drain the left side of the component of the abscess. IR did attempt and had 8 mL removed. He is currently on appropriate antibiotic therapy with meropenem, vancomycin. Dr. Iyer has seen the patient, and the patient will most likely require IV PICC line. Recommend General Surgery evaluation to assess for further input of treatment of perirectal abscess. If no further surgical intervention is warranted by General Surgery, monitor patient with appropriate antibiotic therapy and staging CT as needed. Job ID: [id number] MTDD
[2018-11-30] MEDS: Nystatin Powder 15 GM BOT TOP SCH ×2 (10:25→20:22)
[2018-11-30] MEDS: Famotidine/PF 20 mg/2ml Vial SLOW IVP SCH ×2 (10:35→23:22)
[2018-11-30] MEDS: Acetaminophen 325 MG TAB PO PRN ×2 (13:11→20:18)
--- NOTE | 2018-11-30 18:31 | PRG ---
DATE OF SERVICE: 11/30/2018 SUBJECTIVE: The patient has not had any respiratory symptoms. No vomiting. No abdominal pain. OBJECTIVE: VITAL SIGNS: Temperature max 98.6, BP 107/65, pulse 82, and respirations 18. SKIN: With suprapubic catheter, colostomy. LUNGS: Clear. HEART: S1 and S2, regular rate. ABDOMEN: Soft. EXTREMITIES: Moves extremities equally. LABORATORY DATA: White cell count is 9.0, hemoglobin 11, platelets 146. Creatinine 0.77. Microbiology showed highly resistant Klebsiella oxytoca except for amikacin and meropenem. ASSESSMENT AND DISCUSSION: Chronic hepatitis C untreated with liver cirrhosis, alcoholism history in remission, recent episode of Karla gangrene with perineal involvement, prostate abscess with extension. Periprostatic tissues with highly resistant Klebsiella oxytoca. The patient will have a PICC line inserted, only protracted IV meropenem or ertapenem. Discussed with Dr. Knight. Further surgical debridement might be needed, but we will see if he responds to just clinical antimicrobial therapy administration. Job ID: [id number]
[2018-12-01] MEDS: Acetaminophen 325 MG TAB PO PRN ×4 (00:58→23:35)
[2018-12-01] MEDS: Morphine 4 MG/ML VIAL SLOW IVP PRN ×3 (01:06→23:40)
[2018-12-01] MEDS: Lactated Ringer's 1,000 ML IV SCH ×4 (01:10→23:36)
[2018-12-01 05:11] LABS: #Eosinphils 0.1 thou/uL (0.0-0.7); #Lymphocytes 1.2 thou/uL (1.20-3.40); #Monocytes 0.5 thou/uL (0.11-0.59); #Neutrophils 6.4 thou/uL (1.40-6.50); %Basophils 0.1 % (0.0-1.0); %Eosinophils 1.4 % (0.0-10.0); %Lymphocytes 14.7 % (21.0-51.0); %Monocytes 6.4 % (0.0-10.0); %Neutrophils 77.4 % (42.0-75.0); Hemoglobin 10.5 g/dL (14.0-18.0); Mean Corpuscular HGB CONC 33.4 g/dL (32.0-36.0); Mean Corpuscular Hemoglobin 27.4 pg (27.0-31.0); Mean Corpuscular Volume 81.9 fL (78.0-98.0); Mean Platelet Volume 6.3 fL (7.4-10.4); Platelet Count 149 thou/uL (130-400); RBC Distribution Width 13.2 % (11.5-14.5); Red Blood Cell (RBC) Count 3.83 mill/uL (4.70-6.10); White Blood Cell (WBC) Count 8.2 thou/uL (4.8-10.8)
[2018-12-01] MEDS: Meropenem 2 GM in Sodium Chloride 0.9% 100 ML IVPB SCH ×3 (05:15→22:20)
[2018-12-01 05:40] LABS: Albumin 2.5 g/dL (3.5-5.0); Anion Gap 8 mmol/L (10-20); BUN (Urea Nitrogen) 6 mg/dL (8.4-25.7); Calc. Creatinine Clearance 129 mL/min (70-130); Calcium 8.1 mg/dL (7.8-10.44); Carbon Dioxide 23 mmol/L (22-29); Chloride 103 mmol/L (98-107); Estimated GFR-MDRD Greater than 90; Glucose 195 mg/dL (70-105); Phosphorus 3.6 mg/dL (2.3-4.7); Potassium 3.8 mmol/L (3.5-5.1); Sodium 130 mmol/L (136-145)
--- NOTE | 2018-12-01 06:27 | PDOC.HOSPP ---
- Subjective Encounter Date: 12/01/18 Encounter Time: 06:26 Subjective: 53 y/o male with uncontrolled DM, recent Necrotizin fascitis of the scrotum requiring suprapubic cath and diverting colostomy and several debribements admitted with anal pain and found to have periprostatic/perianal abscess and hyperglycemia. S/p suprapubic catheter and aspiration of periprostatic abscess. Having worsening perianal pain since yesterday. No adequately controlled with morphine. No new problem. Remained afebrile. No nausea, vomiting, chest pain or focal weakness. - Objective Vital Signs & Weight: Vital Signs (12 hours) Temp Pulse Resp BP Pulse Ox 11/30/18 20:00 95 11/30/18 19:26 98.7 F 80 18 95/71 95 Weight Admit Weight 180 lb 15.84 oz Weight 180 lb 15.84 oz I&O: 11/29/18 11/30/18 12/01/18 06:59 06:59 06:59 Intake Total 2550 2000 750 Output Total 1350 3075 3125 Balance 4678 -7571 -3558 Result Diagrams: 12/01/18 04:57 12/01/18 04:57 Additional Labs: Accuchecks 11/30/18 11/30/18 11/30/18 20:07 16:14 11:05 POC Glucose 199 H 162 H 182 H Hospitalist ROS - Medication Medications: Active Medications Generic Name Dose Route Start Last Admin Trade Name Freq PRN Reason Stop Dose Admin Acetaminophen 650 mg 11/28/18 15:33 12/01/18 06:19 Tylenol PO 650 mg Q4H PRN Administration Headache/Fever/Mild Pain (1-3) Docusate Sodium 100 mg 11/28/18 21:00 11/30/18 20:19 Colace PO 100 mg BID LEONIDAS Administration Famotidine 20 mg 11/28/18 21:00 11/30/18 23:22 Pepcid SLOW IVP Not Given Q12HR LEONIDAS Famotidine 20 mg 11/28/18 21:00 11/30/18 20:18 Pepcid PO 20 mg BID LEONIDAS Administration Hydrocortisone/Aloe 0 gm 11/29/18 09:00 11/30/18 20:22 Hydrocortisone 1% Cream TOP 1 applic Q12HR LEONIDAS Administration Insulin Glargine 30 units/ 0.3 mls @ 0 mls/hr 11/29/18 09:00 11/30/18 09:28 Miscellaneous Medication SC 0.3 mls QAM LEONIDAS Administration Meropenem 2 gm/ Sodium 100 mls @ 100 mls/hr 11/29/18 14:00 12/01/18 05:15 Chloride IVPB 100 mls Q8HR LEONIDAS Administration Lactated Ringer's 1,000 mls @ 125 mls/hr 11/30/18 08:25 12/01/18 06:18 Lactated Ringer's IV 1,000 mls .Q8H LEONIDAS Administration Insulin Human Lispro 0 units 11/28/18 15:33 11/29/18 19:05 Humalog SC 4 unit .MODERATE SLIDING SC PRN Administration Moderate Correctional Scale Morphine Sulfate 4 mg 11/28/18 18:25 12/01/18 01:06 Morphine SLOW IVP 4 mg Q2H PRN Administration Severe Pain (7-10) Nystatin 0 gm 11/30/18 09:00 11/30/18 20:22 Mycostatin Powder TOP 1 applic BID LEONIDAS Administration Sodium Bicarbonate 650 mg 11/30/18 09:00 11/30/18 20:18 Bicarbonate, Sodium PO 650 mg BID LEONIDAS Administration Tamsulosin HCl 0.4 mg 11/29/18 09:00 11/30/18 09:29 Flomax PO 0.4 mg DAILY LEONIDAS Administration - Exam General Appearance: awake alert Eye: anicteric sclera ENT: normocephalic atraumatic Neck: supple, symmetric Heart: RRR Respiratory: no wheezes, no rales, no ronchi, normal chest expansion Gastrointestinal: soft, non-tender, non-distended, normal bowel sounds Gastrointestinal - other findings: Suprapubic ctheter and colosctomy noted Extremities: no cyanosis, no edema Neurological: CN's grossly intact, no focal deficits Psychiatric: A&O x 3 Hosp A/P (1) Prostatic abscess Code(s): N41.2 - ABSCESS OF PROSTATE Status: Acute (2) Perianal abscess Code(s): K61.0 - ANAL ABSCESS Status: Acute (3) Hyponatremia Code(s): E87.1 - HYPO-OSMOLALITY AND HYPONATREMIA Status: Acute (4) Hypokalemia Code(s): E87.6 - HYPOKALEMIA Status: Acute (5) Hypomagnesemia Code(s): E83.42 - HYPOMAGNESEMIA Status: Acute (6) DKA (diabetic ketoacidosis) Code(s): E11.10 - TYPE 2 DIABETES MELLITUS WITH KETOACIDOSIS WITHOUT COMA Status: Acute (7) JUNO (acute kidney injury) Code(s): N17.9 - ACUTE KIDNEY FAILURE, UNSPECIFIED Status: Acute (8) Non-compliance Code(s): Z91.19 - PATIENT'S NONCOMPLIANCE W OTH MEDICAL TREATMENT AND REGIMEN Status: Acute (9) Intertriginous candidiasis Code(s): B37.2 - CANDIDIASIS OF SKIN AND NAIL Status: Acute (10) Anemia Code(s): D64.9 - ANEMIA, UNSPECIFIED Status: Acute (11) Uncontrolled diabetes mellitus Code(s): E11.65 - TYPE 2 DIABETES MELLITUS WITH HYPERGLYCEMIA Status: Acute (12) Chronic hepatitis C Code(s): B18.2 - CHRONIC VIRAL HEPATITIS C Status: Chronic Qualifiers: Hepatic coma status: without hepatic coma Qualified Code(s): B18.2 - Chronic viral hepatitis C (13) Psoriasis Code(s): L40.9 - PSORIASIS, UNSPECIFIED Status: Acute (14) Acute pain Code(s): R52 - PAIN, UNSPECIFIED Status: Acute - Plan Continue meropenem Diet as tolerated. Add toradol for worsening pain. Colostomy care to continue Get urine sodium and osmolality as well as plasma osmalality for hyponatrtemia Awaiting surgery input. Awaiting PICC line placement.
[2018-12-01] MEDS ORDERED: Ketorolac Tromethamine 30 MG/ML VIAL IVP SCH (06:30)
[2018-12-01] MEDS: Enoxaparin Sodium 40 MG/0.4 ML SYRINGE SC SCH (07:39)
--- NOTE | 2018-12-01 07:43 | PRG ---
DATE OF SERVICE: 12/01/2018 SUBJECTIVE: Complaint of perirectal pain, no fever, or chills. OBJECTIVE: VITAL SIGNS: Stable. Is and Os; 750 in, 3125 out, per suprapubic tube, clear. ABDOMEN: Soft, nontender, nondistended. : Testes and scrotum are unremarkable. No evidence of scrotal or perineal fluctuance. He has point tenderness in the perirectal gluteal region. No harish pus is appreciated; however, there is a soft tissue prominence in this region. PERTINENT LABORATORY DATA: White count 8, hemoglobin 12, and platelet 449, creatinine 0.7. Culture from transrectal ultrasound, drainage of periprostatic abscess demonstrates Klebsiella, multi-drug resistant sensitive to meropenem. He is on IV meropenem. Infectious Disease is following. Vancomycin has been discontinued by Dr. Iyer. IMPRESSION AND PLAN: Mr. Orlando is a 53-year-old male with history of hepatitis C, poorly controlled diabetes, prior history of necrotizing fasciitis of the scrotum and perineum, June 2018. He re-presented with periprostatic, perirectal abscess. I attempted a transrectal ultrasound and aspiration of one of his fluid pockets in the perirectal region. Cultures as above, on appropriate antibiotic therapy. Second fluid collection in the perirectal region was drained suboptimally, attempted by IR to be drained, 8 mL evacuated. The patient complaining of progressive perirectal pain. Stat CT of the pelvis with and without contrast obtained. He remains hemodynamically stable; however, recommend General Surgery consultation as he may require debridement by General Surgery. Strict control is his sugars is of utmost importance. Job ID: [id number] [facility]
[2018-12-01] MEDS ORDERED: Magnesium Sulfate 4 GM in Sodium Chloride 0.9% 250 ML 250 ML IVPB SCH (08:15)
[2018-12-01] MEDS: Sodium Bicarbonate Tab 325 MG TAB PO SCH ×2 (09:00→23:37)
[2018-12-01] MEDS: Famotidine 20 MG TAB PO SCH ×2 (09:46→23:36)
[2018-12-01] MEDS: Famotidine/PF 20 mg/2ml Vial SLOW IVP SCH ×2 (09:46→23:41)
[2018-12-01] MEDS: Docusate 100 MG CAP PO SCH ×2 (09:46→23:37)
[2018-12-01] MEDS: Tamsulosin HCl 0.4 MG CAP PO SCH (09:48)
[2018-12-01] MEDS: Nystatin Powder 15 GM BOT TOP SCH ×2 (09:48→23:42)
[2018-12-01] MEDS: Insulin Glargine 30 UNITS in Pre-Filled Syringe 1 EACH SC SCH (09:48)
[2018-12-01] MEDS: Hydrocortisone 1% Cream 30 GM TUBE TOP SCH ×2 (09:48→23:42)
[2018-12-01] MEDS ORDERED: Fentanyl 100 MCG/2 ML VIAL ONE ×3 (10:13→12:52)
[2018-12-01] MEDS ORDERED: Iopamidol 370 76% 100 ML VIAL ONE (10:26)
--- NOTE | 2018-12-01 11:40 | CT ---
CT OF THE PELVIS WITH IV CONTRAST: INDICATION: Evaluate perirectal abscess. COMPARISON: Noncontrast CT of the pelvis dated 11/29/2018, CT of the abdomen and pelvis dated 11/28/2018, and CT charli renal abscess drainage dated 11/29/2018. FINDINGS: The fluid and gas collection seen on the left hemipelvis extending down into the left perianal region likely reflecting a dissecting intraperitoneal perianal abscess is not appreciably changed in size w ith associated gas. Fluid and gas collection extending from the right posterolateral aspect of the p rostate is not appreciably changed in size measuring 5.8 x 1.9 cm. The left perianal abscess extendi ng intrapelvic measures approximately 7.5 x 6.5 x 2 cm. There is a suprapubic catheter now in place. Osseous structures appear unchanged from the comparison. IMPRESSION: 1. No appreciable interval change in size of the large dissecting perianal abscess extending into th e left aspect of the hemipelvis. 2. No appreciable change in size of the right-sided prostatic abscess. 3. New suprapubic bladder catheter. POS: OFF
[2018-12-01] MEDS ORDERED: Promethazine HCl 25 MG/ML VIAL SLOW IVP PRN (12:24)
[2018-12-01] MEDS ORDERED: Ondansetron HCl/PF 4 MG/2 ML Vial IVP PRN (12:24)
[2018-12-01] MEDS ORDERED: Promethazine HCl 25 MG/ML VIAL IM PRN (12:24)
[2018-12-01] MEDS ORDERED: Ondansetron PF 4 MG/2 ML Vial ONE (12:25)
[2018-12-01] MEDS ORDERED: PROPOFOL 200 MG/20 ML VIAL ONE (12:25)
[2018-12-01] MEDS ORDERED: Lidocaine 1% PF 5 ML VIAL ONE (12:25)
[2018-12-01] MEDS ORDERED: Succinylcholine Chloride 20 MG/ML 10 ml SYRINGE FS ONE (12:25)
--- NOTE | 2018-12-01 14:16 | SPC ---
Sonographic guided left upper extremity PICC placement HISTORY: Abscess. FINDINGS: After explaining the procedure and answering all questions, the left upper extremity was pr epped and draped in usual sterile fashion. Sterile technique, buffered local anesthesia, sonographic guidance, and a 22-gauge needle were used to carefully access the left brachial vein. Sta ndard technique was used to place the tip of a 5 Chinese single lumen PICC so that the tip lies at the level of the superior vena cava. The catheter was flushed and secured externally. Patient tolerat ed the procedure well and was returned in unchanged condition. Fluoroscopy time 0.1 minutes. IMPRESSION: Left upper extremity PICC is ready for use.
[2018-12-01] MEDS: Ketorolac Tromethamine 30 MG/ML VIAL IVP SCH ×3 (14:36→23:29)
--- NOTE | 2018-12-01 22:26 | OP ---
DATE OF PROCEDURE: 12/01/2018 PREOPERATIVE DIAGNOSIS: Perirectal abscess. POSTOPERATIVE DIAGNOSIS: Perirectal abscess. PROCEDURE PERFORMED: Incision and drainage of perirectal abscess. ANESTHESIA: General endotracheal. ESTIMATED BLOOD LOSS: Less than 5 mL. COUNTS: Sponge and instrument counts were verified as correct x2. COMPLICATIONS: None apparent at the time of operation. 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 The patient presented with a painful perirectal region. Clinical radiographic examination was consistent with bilateral perirectal abscesses for which the patient was brought to the operating room for incision and drainage. Findings are consistent with large bilateral perirectal abscesses which were confluent. The abscesses were intersphincteric in position. DESCRIPTION OF PROCEDURE: Informed consent was obtained from the patient and he was brought to the operating room and placed in supine position. Following general anesthesia, a Aguayo catheter was inserted and the patient was placed in prone karen-knife position. Anorectal region was widely, sterilely prepped and draped in usual fashion. Flocculent mass is palpated in the left perirectal region and using a 15 scalpel, incision was made over the dome of this flocculent mass. A hemostat was then used to enter the abscess cavity. Large amount of purulent pus was encountered. The cavity is probed and tunneled past midline to the left perirectal region. There was a large perirectal abscess which was intersphincteric in position. A large amount of pus having been evacuated. Culture was taken. The abscess cavity was copiously irrigated with saline and then packed with wet-to-dry Kerlix gauze. 4 x 4 gauze and ABD pad were placed over this and mesh pants were then applied. The patient was then flipped back to the supine position and tolerated the operation without any apparent complication. Following extubation, the patient was transported to the recovery room in stable condition. Job ID: [id number]
[2018-12-02 04:58] LABS: Albumin 2.3 g/dL (3.5-5.0); Anion Gap 11 mmol/L (10-20); BUN (Urea Nitrogen) 8 mg/dL (8.4-25.7); BUN/Creatinine Ratio 9.09; Calc. Creatinine Clearance 110 mL/min (70-130); Carbon Dioxide 24 mmol/L (22-29); Chloride 101 mmol/L (98-107); Estimated GFR-MDRD 90; Glucose 322 mg/dL (70-105); Phosphorus 3.5 mg/dL (2.3-4.7); Potassium 3.9 mmol/L (3.5-5.1); Sodium 132 mmol/L (136-145)
[2018-12-02] MEDS: Morphine 4 MG/ML VIAL SLOW IVP PRN ×4 (06:44→22:03)
[2018-12-02] MEDS: Acetaminophen 325 MG TAB PO PRN ×4 (06:48→22:04)
[2018-12-02] MEDS ORDERED: Bisacodyl 10 MG SUPP PR PRN (07:38)
[2018-12-02] MEDS ORDERED: Calcium Carbonate 500 MG ChewTAB PO PRN (07:38)
[2018-12-02] MEDS ORDERED: Senokot S 8.6-50 MG TAB PO PRN (07:38)
[2018-12-02] MEDS ORDERED: Diabetic Tussin 200 MG/10 ML UDCUP PO PRN (07:38)
[2018-12-02] MEDS ORDERED: hydrALAZINE 20 MG/ML VIAL SLOW IVP PRN (07:38)
[2018-12-02] MEDS ORDERED: Ondansetron PF 4 MG/2 ML Vial IVP PRN (07:38)
[2018-12-02] MEDS ORDERED: Loratadine 10 MG TAB PO PRN (07:38)
[2018-12-02] MEDS ORDERED: Artificial Tears 18 DROP/0.9 ML EA EYE PRN (07:38)
[2018-12-02] MEDS ORDERED: Cepastat Lozenges 1 LOZ PO PRN (07:38)
[2018-12-02] MEDS ORDERED: Zolpidem Tartrate 5 MG TAB PO PRN (07:38)
[2018-12-02] MEDS ORDERED: Loperamide HCl 2 MG CAP PO PRN (07:38)
[2018-12-02] MEDS ORDERED: Sodium Chloride 0.65% Nasal 44 ML BOT EA NARE PRN (07:38)
[2018-12-02] MEDS: Meropenem 2 GM in Sodium Chloride 0.9% 100 ML IVPB SCH ×3 (08:49→20:59)
[2018-12-02] MEDS: Saccharomyces boulardii 250 MG CAP PO SCH (08:51)
[2018-12-02] MEDS: Ascorbic Acid 500 mg Chewable Tablet PO SCH (08:51)
[2018-12-02] MEDS: Sodium Bicarbonate Tab 325 MG TAB PO SCH ×2 (08:51→20:58)
[2018-12-02] MEDS: Folic Acid 1 MG TAB PO SCH (08:51)
[2018-12-02] MEDS: Famotidine 20 MG TAB PO SCH ×2 (08:51→20:58)
[2018-12-02] MEDS: Multivitamin W/ Minerals 1 TAB PO SCH (08:51)
[2018-12-02] MEDS: Tamsulosin HCl 0.4 MG CAP PO SCH (08:51)
[2018-12-02] MEDS: Docusate 100 MG CAP PO SCH ×2 (08:51→21:14)
[2018-12-02] MEDS: Enoxaparin Sodium 40 MG/0.4 ML SYRINGE SC SCH (08:52)
[2018-12-02] MEDS: Lactated Ringer's 1,000 ML IV SCH ×3 (08:52→20:58)
[2018-12-02] MEDS: Nystatin Powder 15 GM BOT TOP SCH ×2 (09:00→21:00)
[2018-12-02] MEDS: Hydrocortisone 1% Cream 30 GM TUBE TOP SCH ×2 (09:00→21:00)
[2018-12-02] MEDS ORDERED: Morphine 4 MG/ML VIAL SLOW IVP SCH (09:15)
[2018-12-02] MEDS ORDERED: Ketorolac Tromethamine 30 MG/ML VIAL IVP SCH (09:15)
[2018-12-02] MEDS: Insulin Glargine 30 UNITS in Pre-Filled Syringe 1 EACH SC SCH (09:59)
[2018-12-02] MEDS: Polyethylene Glycol 3350 17 GM Packet PO SCH (10:00)
[2018-12-02] MEDS ORDERED: Morphine 4 MG/ML VIAL IV SCH (10:00)
[2018-12-02] MEDS: Zinc Sulfate 220 MG CAP PO SCH (10:00)
[2018-12-02] MEDS: Lidocaine 4% Topical Sol 50 ML BOT TOP SCH (10:46)
--- NOTE | 2018-12-02 11:56 | PDOC.HOSPP ---
- Subjective Encounter Date: 12/02/18 Encounter Time: 07:00 Subjective: per pt morphin does not work well for pain but tylenol works ok, this morning he was upset but no overnight event - Objective Vital Signs & Weight: Vital Signs (12 hours) Temp Pulse Resp BP Pulse Ox 12/02/18 07:48 98.7 F 61 16 115/71 93 L Weight Admit Weight 180 lb 15.84 oz Weight 180 lb 15.84 oz I&O: 12/01/18 12/02/18 12/03/18 06:59 06:59 06:59 Intake Total 750 Output Total 9724 8664 Balance -9474 -4360 Result Diagrams: 12/01/18 04:57 12/02/18 04:12 Additional Labs: Accuchecks 12/02/18 12/01/18 12/01/18 05:16 20:08 16:14 POC Glucose 338 H 183 H 136 H 12/01/18 14:43 POC Glucose 143 H Radiology Reviewed by me: Yes (old test reviewed) Hospitalist ROS - Review of Systems Constitutional: denies: fever, chills, sweats, weakness, malaise, other Respiratory: denies: cough, dry, shortness of breath, hemoptysis, SOB with excertion, pleuritic pain, sputum, wheezing, other Cardiovascular: denies: chest pain, palpitations, orthopnea, paroxysmal noc. dyspnea, edema, light headedness, other Gastrointestinal: denies: nausea, vomitting, abdominal pain, diarrhea, constipation, melena, hematochezia, other Genitourinary: denies: dysuria, frequency, incontinence, hematuria, retention, other Skin: denies: rash, lesions, susie, bruising, other - Medication Medications: Active Medications Generic Name Dose Route Start Last Admin Trade Name Freq PRN Reason Stop Dose Admin Acetaminophen 650 mg 11/28/18 15:33 12/02/18 10:41 Tylenol PO 650 mg Q4H PRN Administration Headache/Fever/Mild Pain (1-3) Ascorbic Acid 500 mg 12/02/18 09:00 12/02/18 08:51 Vitamin C PO 500 mg DAILY LEONIDAS Administration Docusate Sodium 100 mg 11/28/18 21:00 12/02/18 08:51 Colace PO 100 mg BID LEONIDAS Administration Enoxaparin Sodium 40 mg 11/29/18 09:00 12/02/18 08:52 Lovenox SC 40 mg 0900 LEONIDAS Administration Famotidine 20 mg 11/28/18 21:00 12/02/18 08:51 Pepcid PO 20 mg BID LEONIDAS Administration Folic Acid 1 mg 12/02/18 09:00 12/02/18 08:51 Folvite PO 1 mg DAILY LEONIDAS Administration Hydrocortisone/Aloe 0 gm 11/29/18 09:00 12/01/18 23:42 Hydrocortisone 1% Cream TOP 1 applic Q12HR LEONIDAS Administration Insulin Glargine 30 units/ 0.3 mls @ 0 mls/hr 11/29/18 09:00 12/02/18 09:59 Miscellaneous Medication SC 0.3 mls QAM LEONIDAS Administration Meropenem 2 gm/ Sodium 100 mls @ 100 mls/hr 11/29/18 14:00 12/02/18 08:49 Chloride IVPB 100 mls Q8HR LEONIDAS Administration Lactated Ringer's 1,000 mls @ 125 mls/hr 11/30/18 08:25 12/02/18 08:52 Lactated Ringer's IV Not Given .Q8H LEONIDAS Insulin Human Lispro 0 units 11/28/18 15:33 11/29/18 19:05 Humalog SC 4 unit .MODERATE SLIDING SC PRN Administration Moderate Correctional Scale Iron/Minerals/Multivitamins 1 tab 12/02/18 09:00 12/02/18 08:51 Theragran M PO 1 tab DAILY LEONIDAS Administration Ketorolac Tromethamine 30 mg 12/02/18 09:15 12/02/18 10:41 Toradol IVP 12/02/18 12:00 30 mg NOW LEONIDAS Administration Lidocaine HCl 0 ml 12/02/18 10:00 12/02/18 10:46 Xylocaine 4% Topical Nannette TOP 1 applic ASDIR LEONIDAS Administration Morphine Sulfate 4 mg 11/28/18 18:25 12/02/18 08:47 Morphine SLOW IVP 4 mg Q2H PRN Administration Severe Pain (7-10) Morphine Sulfate 4 mg 12/02/18 10:00 12/02/18 10:43 Morphine IV 12/02/18 12:00 4 mg NOW LEONIDAS Administration Nystatin 0 gm 11/30/18 09:00 12/01/18 23:42 Mycostatin Powder TOP 1 applic BID LEONIDAS Administration Polyethylene Glycol 17 gm 12/02/18 09:00 12/02/18 10:00 Miralax PO Not Given DAILY LEONIDAS Saccharomyces Boulardii 250 mg 12/02/18 09:00 12/02/18 08:51 Florastor PO 250 mg DAILY LEONIDAS Administration Sodium Bicarbonate 650 mg 11/30/18 09:00 12/02/18 08:51 Bicarbonate, Sodium PO 650 mg BID LEONIDAS Administration Sodium Chloride 10 ml 11/28/18 18:25 12/02/18 08:48 Flush - Normal Saline IVF 10 ml PRN PRN Administration Saline Flush Tamsulosin HCl 0.4 mg 11/29/18 09:00 12/02/18 08:51 Flomax PO 0.4 mg DAILY LEONIDAS Administration Zinc Sulfate 220 mg 12/02/18 09:00 12/02/18 10:00 Zinc Sulfate PO 220 mg DAILY LEONIDAS Administration - Exam General Appearance: NAD, awake alert Eye: PERRL, anicteric sclera ENT: normocephalic atraumatic, no oropharyngeal lesions Neck: supple, symmetric, no JVD, no thyromegaly Heart: RRR, no murmur, no gallops, no rubs Respiratory: CTAB, no wheezes, no rales, no ronchi Gastrointestinal: soft, non-tender, non-distended, normal bowel sounds Extremities: no cyanosis, no clubbing, no edema Skin: normal turgor, no lesions, no rashes Neurological: CN's grossly intact, normal sensation to touch, no focal deficits Musculoskeletal: normal tone, normal strength Psychiatric: normal affect, normal behavior Hosp A/P (1) Sepsis Code(s): A41.9 - SEPSIS, UNSPECIFIED ORGANISM Status: Acute Qualifiers: Sepsis type: sepsis due to unspecified organism Qualified Code(s): A41.9 - Sepsis, unspecified organism (2) Stephenie-rectal abscess Code(s): K61.1 - RECTAL ABSCESS Status: Acute Plan: s/p I & D (3) Prostatic abscess Code(s): N41.2 - ABSCESS OF PROSTATE Status: Acute Plan: s/p I & D (4) Chronic hepatitis C Code(s): B18.2 - CHRONIC VIRAL HEPATITIS C Status: Chronic Qualifiers: Hepatic coma status: without hepatic coma Qualified Code(s): B18.2 - Chronic viral hepatitis C (5) DM type 2 (diabetes mellitus, type 2) Status: Chronic Qualifiers: Diabetes mellitus nursing home insulin use: without vermin exterminator use Diabetes mellitus complication status: with unspecified complications - Plan old records reviewed/req, sears catheter, continue antibiotics, social media intern , DVT proph w/lovenox at this point he needs wound care, i have added toradol for pain control, continue meropenam, he will need vermin exterminator antibiotics as per ID recommendation and arrangement for outpt antibiotics is pending. Urology, general surgery and ID recommendation appreciated. medication reviewed as above symptomatic treatment
[2018-12-02] MEDS: HumaLOG 300 UNITS/3 ML VIAL SC PRN (13:41)
--- NOTE | 2018-12-02 14:52 | PRG ---
DATE OF SERVICE: 12/02/2018 SUBJECTIVE: The patient states he is feeling much better. He is having much less pain in the perineal and perirectal area. He states he is no longer having malaise. He denies any bladder spasms. His Aguayo catheter has been removed, but his SP tube continues to be to gravity drainage. OBJECTIVE: VITAL SIGNS: Temperature 98.7, pulse 61, respirations 16, blood pressure 115/71, and saturation 92% on room air. GENERAL: No apparent distress. Communicative and alert. CARDIOVASCULAR: Regular rate and rhythm. ABDOMEN: Soft, nontender, and nondistended. Positive bowel sounds. Colostomy in place with SP tube also in place, draining clear yellow urine. : Rectal area is dressed currently. Dressings were not taken down since they had recently been applied. There is no apparent cellulitis or crepitus in the surrounding tissues. EXTREMITIES: No clubbing, cyanosis, or edema. LABORATORY DATA: On laboratory evaluation, a full set of labs are in the [employer] system, which I have reviewed. Of note, the patient's hemoglobin is 10.5, white count of 8.2. Creatinine of 0.88, blood sugar is currently 228. ASSESSMENT AND PLAN: A 53-year-old white male with poorly-controlled diabetes, extremely high blood sugar levels on admission with perirectal abscess, which was recently debrided by Dr. Stuart. The patient has indwelling SP tube. Aguayo catheter has been removed. We will leave the wound care to Dr. Stuart since this is primarily a perirectal abscess without significant urinary involvement. Recommendation is to keep SP tube in place. Dr. Knight will manage this as an outpatient and make determination if this can be removed in the future. For the time being, the patient should remain on antibiotics with wound care. Continue SP tube to gravity drainage. I will continue to see the patient tomorrow and then Dr. Knight will resume care on Tuesday. Job ID: [id number]
--- NOTE | 2018-12-02 18:15 | PRG ---
DATE OF SERVICE: 12/02/2018 SUBJECTIVE: The patient is currently on the Oncology floor. He is here as overflow due to bed availability on the surgical floor. He is postop day 1, status post incision and drainage of a perirectal abscess. This morning he is due to have his dressing changed. We have adjusted pain medications to assist with this. Overnight, he had no issues. Prior to his dressing change, his pain was controlled. He was tolerating a diet. OBJECTIVE: VITAL SIGNS: Temperature is 98.7, heart rate 61, blood pressure 115/71, respirations 16, oxygen saturation 93% on room air. GENERAL: The patient is resting comfortably in bed. He is somewhat anxious as they attempted to do his dressing change without adequate pain control. Again, this has been addressed. We talked to him about it and we assured him that tomorrow we will premedicate him before they attempt this. LUNGS: Clear to auscultation bilaterally. HEART: Regular rate and rhythm. ABDOMEN: Soft, flat, nontender with active bowel sounds. Postop dressing is clean, dry, and intact. LABORATORY FINDINGS: Sodium 132, potassium 3.9, chloride 101, CO2 of 24, BUN 8, creatinine 0.88, glucose 322, phosphorus 3.5. There are no radiographs reviewed this morning. ASSESSMENT/PLAN: 1. History of previous Karla gangrene. 2. Currently perirectal abscesses. 3. Status post incision and drainage of perirectal abscess. 4. Acute pain secondary to above. PLAN: Plan will be to do daily dressing changes, eventually change to wound VAC and arrange for placement. The patient will remain on the appropriate antibiotics for a long-term. The patient has a PICC line in place and we will follow cultures and sensitivities for antibiotic treatment. Evaluation and examination were done with Dr. Stuart this morning during rounds. Job ID: [id number]
--- NOTE | 2018-12-03 01:02 | EKG ---
Test Reason : Blood Pressure : / mmHG Vent. Rate : 091 BPM Atrial Rate : 091 BPM P-R Int : 160 ms QRS Dur : 094 ms QT Int : 362 ms P-R-T Axes : 077 070 042 degrees QTc Int : 445 ms Normal sinus rhythm Possible Left atrial enlargement Borderline ECG Confirmed by TOM DOUGLAS ([id number]), writer editor TYLER CARMONA ([id number]) on 12/03/2018 1:02:06 AM Referred By: Confirmed By:TOM DOUGLAS
[2018-12-03] MEDS: Ketorolac Tromethamine 30 MG/ML VIAL IVP PRN (01:53)
[2018-12-03] MEDS: Lactated Ringer's 1,000 ML IV SCH (05:44)
[2018-12-03] MEDS: Meropenem 2 GM in Sodium Chloride 0.9% 100 ML IVPB SCH ×3 (05:44→22:59)
[2018-12-03] MEDS: Morphine 4 MG/ML VIAL SLOW IVP PRN ×3 (05:59→20:05)
[2018-12-03] MEDS: Acetaminophen 325 MG TAB PO PRN ×4 (05:59→20:08)
[2018-12-03] MEDS: Saccharomyces boulardii 250 MG CAP PO SCH (09:23)
[2018-12-03] MEDS: Sodium Bicarbonate Tab 325 MG TAB PO SCH ×2 (09:23→20:08)
[2018-12-03] MEDS: Famotidine 20 MG TAB PO SCH ×2 (09:23→20:09)
[2018-12-03] MEDS: Multivitamin W/ Minerals 1 TAB PO SCH (09:23)
[2018-12-03] MEDS: Folic Acid 1 MG TAB PO SCH (09:23)
[2018-12-03] MEDS: Ascorbic Acid 500 mg Chewable Tablet PO SCH (09:23)
[2018-12-03] MEDS: Tamsulosin HCl 0.4 MG CAP PO SCH (09:23)
[2018-12-03] MEDS: Docusate 100 MG CAP PO SCH ×2 (09:24→20:09)
[2018-12-03] MEDS: Enoxaparin Sodium 40 MG/0.4 ML SYRINGE SC SCH (09:24)
[2018-12-03] MEDS: Polyethylene Glycol 3350 17 GM Packet PO SCH (09:24)
[2018-12-03] MEDS: Zinc Sulfate 220 MG CAP PO SCH (09:24)
[2018-12-03] MEDS: Insulin Glargine 30 UNITS in Pre-Filled Syringe 1 EACH SC SCH (09:25)
[2018-12-03] MEDS: Morphine 2 MG/ML SYRINGE SLOW IVP PRN ×2 (10:24→10:25)
[2018-12-03] MEDS: Lidocaine 4% Topical Sol 50 ML BOT TOP SCH (10:28)
[2018-12-03] MEDS ORDERED: Morphine 4 MG/ML VIAL SLOW IVP SCH (10:30)
[2018-12-03] MEDS: Nystatin Powder 15 GM BOT TOP SCH ×2 (11:00→20:10)
[2018-12-03] MEDS: Hydrocortisone 1% Cream 30 GM TUBE TOP SCH ×2 (11:00→20:10)
--- NOTE | 2018-12-03 11:49 | PDOC.HOSPP ---
- Subjective Encounter Date: 12/03/18 Encounter Time: 07:00 Subjective: Patient seen and examined. No new complaints. No overnight events - Objective Vital Signs & Weight: Vital Signs (12 hours) Temp Pulse Resp BP Pulse Ox 12/03/18 07:58 98.4 F 76 16 132/76 93 L 12/03/18 07:20 74 16 92 L Weight Admit Weight 180 lb 15.84 oz Weight 180 lb 15.84 oz I&O: 12/02/18 12/03/18 12/04/18 06:59 06:59 06:59 Output Total 2800 2700 Balance -2800 -2700 Result Diagrams: 12/01/18 04:57 12/02/18 04:12 Additional Labs: Accuchecks 12/03/18 12/02/18 12/02/18 04:52 20:52 15:52 POC Glucose 143 H 196 H 158 H 12/02/18 12:25 POC Glucose 228 H Hospitalist ROS - Review of Systems ENT: denies: ear pain, ear discharge, nose pain, nose discharge, nose congestion , mouth pain, mouth swelling, throat pain, throat swelling, other Respiratory: denies: cough, dry, shortness of breath, hemoptysis, SOB with excertion, pleuritic pain, sputum, wheezing, other Cardiovascular: denies: chest pain, palpitations, orthopnea, paroxysmal noc. dyspnea, edema, light headedness, other Gastrointestinal: denies: nausea, vomitting, abdominal pain, diarrhea, constipation, melena, hematochezia, other Genitourinary: denies: dysuria, frequency, incontinence, hematuria, retention, other Musculoskeletal: denies: neck pain, shoulder pain, arm pain, back pain, hand pain, leg pain, foot pain, other - Medication Medications: Active Medications Generic Name Dose Route Start Last Admin Trade Name Freq PRN Reason Stop Dose Admin Acetaminophen 650 mg 11/28/18 15:33 12/03/18 10:25 Tylenol PO 650 mg Q4H PRN Administration Headache/Fever/Mild Pain (1-3) Albuterol/Ipratropium 3 ml 12/02/18 13:00 12/03/18 07:20 Duoneb NEB 3 ml [id number] LEONIDAS Administration Ascorbic Acid 500 mg 12/02/18 09:00 12/03/18 09:23 Vitamin C PO 500 mg DAILY LEONIDAS Administration Docusate Sodium 100 mg 11/28/18 21:00 12/03/18 09:24 Colace PO 100 mg BID LEONIDAS Administration Enoxaparin Sodium 40 mg 11/29/18 09:00 12/03/18 09:24 Lovenox SC 40 mg 0900 LEONIDAS Administration Famotidine 20 mg 11/28/18 21:00 12/03/18 09:23 Pepcid PO 20 mg BID [facility] Administration Folic Acid 1 mg 12/02/18 09:00 12/03/18 09:23 Folvite PO 1 mg DAILY LEONIDAS Administration Hydrocortisone/Aloe 0 gm 11/29/18 09:00 12/02/18 21:00 Hydrocortisone 1% Cream TOP 1 applic Q12HR LEONIDAS Administration Insulin Glargine 30 units/ 0.3 mls @ 0 mls/hr 11/29/18 09:00 12/03/18 09:25 Miscellaneous Medication SC 0.3 mls QAM LEONIDAS Administration Meropenem 2 gm/ Sodium 100 mls @ 100 mls/hr 11/29/18 14:00 12/03/18 05:44 Chloride IVPB 100 mls Q8HR LEONIDAS Administration Insulin Human Lispro 0 units 11/28/18 15:33 12/02/18 13:41 Humalog SC 4 unit .MODERATE SLIDING SC PRN Administration Moderate Correctional Scale Iron/Minerals/Multivitamins 1 tab 12/02/18 09:00 12/03/18 09:23 Theragran M PO 1 tab DAILY LEONIDAS Administration Ketorolac Tromethamine 15 mg 12/02/18 16:00 12/03/18 01:53 Toradol IVP 12/07/18 16:01 15 mg Q6H PRN Administration Pain Lidocaine HCl 0 ml 12/02/18 10:00 12/03/18 10:28 Xylocaine 4% Topical Nannette TOP 1 applic ASDIR LEONIDAS Administration Morphine Sulfate 2 mg 11/28/18 18:25 12/03/18 10:25 Morphine SLOW IVP 2 mg Q2H PRN Administration Moderate Pain (4-6) Morphine Sulfate 4 mg 11/28/18 18:25 12/03/18 05:59 Morphine SLOW IVP 4 mg Q2H PRN Administration Severe Pain (7-10) Morphine Sulfate 4 mg 12/03/18 10:30 12/03/18 10:24 Morphine SLOW IVP 12/03/18 12:30 4 mg NOW LEONIDAS Administration Nystatin 0 gm 11/30/18 09:00 12/02/18 21:00 Mycostatin Powder TOP 1 applic BID LEONIDAS Administration Polyethylene Glycol 17 gm 12/02/18 09:00 12/03/18 09:24 Miralax PO 17 gm DAILY LEONIDAS Administration Saccharomyces Boulardii 250 mg 12/02/18 09:00 12/03/18 09:23 Florastor PO 250 mg DAILY LEONIDAS Administration Sodium Bicarbonate 650 mg 11/30/18 09:00 12/03/18 09:23 Bicarbonate, Sodium PO 650 mg BID LEONIDAS Administration Sodium Chloride 10 ml 11/28/18 18:25 12/03/18 10:29 Flush - Normal Saline IVF 10 ml PRN PRN Administration Saline Flush Tamsulosin HCl 0.4 mg 11/29/18 09:00 12/03/18 09:23 Flomax PO 0.4 mg DAILY LEONIDAS Administration Zinc Sulfate 220 mg 12/02/18 09:00 12/03/18 09:24 Zinc Sulfate PO 220 mg DAILY LEONIDAS Administration - Exam General Appearance: NAD, awake alert Eye: PERRL, anicteric sclera ENT: normocephalic atraumatic, no oropharyngeal lesions Neck: supple, symmetric, no JVD, no thyromegaly, no carotid bruit Heart: RRR, no murmur, no gallops Respiratory: CTAB, no wheezes, no rales, no ronchi Gastrointestinal: soft, non-tender, non-distended, normal bowel sounds, no palpable masses Extremities: no cyanosis, no clubbing, no edema Skin: normal turgor, no lesions Neurological: CN's grossly intact, normal sensation to touch, no focal deficits Musculoskeletal: normal tone, normal strength Psychiatric: normal affect, normal behavior Hosp A/P (1) Sepsis Code(s): A41.9 - SEPSIS, UNSPECIFIED ORGANISM Status: Resolved Qualifiers: Sepsis type: sepsis due to unspecified organism Qualified Code(s): A41.9 - Sepsis, unspecified organism (2) Stephenie-rectal abscess Code(s): K61.1 - RECTAL ABSCESS Status: Acute (3) Prostatic abscess Code(s): N41.2 - ABSCESS OF PROSTATE Status: Acute (4) Chronic hepatitis C Code(s): B18.2 - CHRONIC VIRAL HEPATITIS C Status: Chronic Qualifiers: Hepatic coma status: without hepatic coma Qualified Code(s): B18.2 - Chronic viral hepatitis C (5) DM type 2 (diabetes mellitus, type 2) Status: Chronic Qualifiers: 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 medication reviewed as above symptomatic treatment consider sears removal before discharge
--- NOTE | 2018-12-03 12:03 | PRG ---
DATE OF SERVICE: 12/03/2018 SUBJECTIVE: The patient states he is feeling fine. He had his dressing changed and inspected by Dr. Stuart this morning. He has already taken shower and has all his dressings redone. As such, I was not able to examine his wound, but per the patient, he stated that Dr. Stuart was very pleased with how everything was healing up. OBJECTIVE: VITAL SIGNS: Temperature 98.4, pulse 76, respirations 16, blood pressure 132/76, saturation 92% on room air. GENERAL: No apparent distress. CARDIOVASCULAR: Regular rate and rhythm. ABDOMEN: Soft, nontender, and nondistended. Positive bowel sounds. SP tube in place with clear yellow urine. Dressings in the perineal area were not fully evaluated as the patient is currently sitting on a stool, shaving at the sink. EXTREMITIES: No clubbing, cyanosis, or edema. LABORATORY DATA: On laboratory evaluation, there are no new labs other than blood glucose, which is now 143. Bacterial cultures from perirectal abscess are growing Klebsiella oxytoca, which appears to be sensitive to only amikacin, cefoxitin, and meropenem. There is a high probability that the patient will likely require a PICC line with IV antibiotics for outpatient treatment, although I will defer this to the surgical team. Glycemic control is imperative. Dr. Knight will resume care tomorrow. No further changes in today's plan. Job ID: [id number]
[2018-12-03] MEDS: HumaLOG 300 UNITS/3 ML VIAL SC PRN ×2 (14:12→22:58)
--- NOTE | 2018-12-03 14:48 | PRG ---
DATE OF SERVICE: 12/03/2018 SUBJECTIVE: Mr. Orlando is a 53-year-old, status post incision and drainage of bilateral perirectal abscesses. I saw the patient today during wound dressings. The previous packings were removed, and there is no significant active gross purulence. The patient remains hemodynamically stable and afebrile. OBJECTIVE: CURRENT VITAL SIGNS: Blood pressure 132/76, pulse 76, respiratory rate is 16, temperature 98.4 degrees Fahrenheit, oxygen saturation 93% on room air. We will continue current dressing with wet-to-dry sterile gauze strips. No further surgical indication is warranted. Job ID: [id number]
[2018-12-04] MEDS: Morphine 4 MG/ML VIAL SLOW IVP PRN ×4 (00:16→20:07)
[2018-12-04] MEDS: Acetaminophen 325 MG TAB PO PRN (00:17)
[2018-12-04] MEDS: Ketorolac Tromethamine 30 MG/ML VIAL IVP PRN ×3 (04:03→22:54)
[2018-12-04] MEDS: Meropenem 2 GM in Sodium Chloride 0.9% 100 ML IVPB SCH ×3 (05:35→22:53)
--- NOTE | 2018-12-04 08:13 | PRG ---
DATE OF SERVICE: 12/04/2018 SUBJECTIVE: The patient is feeling okay. Denies fever, chills, or myalgia. OBJECTIVE: VITAL SIGNS: Are stable. He is afebrile. I's and O's 720 in, 2950 out. ABDOMEN: Soft, SP tube drains clear yellow urine. : Scrotal exam demonstrates no fluctuance, induration of concern. He has a healing incision line from previous wound VAC with superficial denudement of the skin. Topical dressing p.r.n. is advised as wound care is following. His perirectal wound inspected. No surrounding erythema. Wound inspected with purulent discharge and gauze re-packed. No active purulent discharge is appreciated. PERTINENT LABORATORY DATA: White count 8 and hemoglobin 10. His blood sugars running anywhere from 300 to 206. IMPRESSION AND PLAN: Mr. Orlando is a 53-year-old male with history of hepatitis C. 1. History of diabetes, noncompliant. 2. History of necrotizing fasciitis of the perineum, scrotum, status post wide debridement suprapubic tube in June 2018. 3. Current admission due to perirectal abscess, status post cysto, replacement of suprapubic tube, transrectal ultrasound, attempted needle drainage with suboptimal. Underwent General Surgery evaluation with incision and drainage of perirectal abscess. The patient is clinically stable. Wound care for General Surgery. Continue suprapubic tube for urinary diversion. Continue targeted IV antibiotic therapy. Infectious Disease has been consulted. PICC line for IV, prolonged antibiotic therapy is advised. The patient will need placement as he needs strict control of his diabetes to prevent recurrence of his pelvic abscess. Job ID: [id number] [facility]
[2018-12-04] MEDS: Tamsulosin HCl 0.4 MG CAP PO SCH (08:22)
[2018-12-04] MEDS: Saccharomyces boulardii 250 MG CAP PO SCH (08:22)
[2018-12-04] MEDS: Docusate 100 MG CAP PO SCH ×2 (08:23→20:01)
[2018-12-04] MEDS: Polyethylene Glycol 3350 17 GM Packet PO SCH (08:23)
[2018-12-04] MEDS: Ascorbic Acid 500 mg Chewable Tablet PO SCH (08:23)
[2018-12-04] MEDS: Multivitamin W/ Minerals 1 TAB PO SCH (08:23)
[2018-12-04] MEDS: Famotidine 20 MG TAB PO SCH ×2 (08:23→20:01)
[2018-12-04] MEDS: Sodium Bicarbonate Tab 325 MG TAB PO SCH ×2 (08:23→20:01)
[2018-12-04] MEDS: Folic Acid 1 MG TAB PO SCH (08:23)
[2018-12-04] MEDS: Insulin Glargine 30 UNITS in Pre-Filled Syringe 1 EACH SC SCH (08:24)
[2018-12-04] MEDS: Zinc Sulfate 220 MG CAP PO SCH (08:26)
[2018-12-04] MEDS ORDERED: Morphine 4 MG/ML VIAL SLOW IVP SCH (08:30)
[2018-12-04] MEDS: Nystatin Powder 15 GM BOT TOP SCH ×2 (08:54→20:01)
[2018-12-04] MEDS: Hydrocortisone 1% Cream 30 GM TUBE TOP SCH ×2 (08:54→20:02)
[2018-12-04] MEDS: Enoxaparin Sodium 40 MG/0.4 ML SYRINGE SC SCH (09:06)
--- NOTE | 2018-12-04 13:02 | PDOC.HOSPP ---
- Subjective Encounter Date: 12/04/18 Encounter Time: 13:00 Subjective: persistant rectal pain - Objective Vital Signs & Weight: Vital Signs (12 hours) Temp Pulse Resp BP Pulse Ox 12/04/18 08:00 97.8 F 81 18 140/68 92 L 12/04/18 07:58 73 16 96 Weight Admit Weight 180 lb 15.84 oz Weight 180 lb 15.84 oz I&O: 12/03/18 12/04/18 12/05/18 06:59 06:59 06:59 Intake Total 720 Output Total 2700 2950 Balance -6093 -1095 Result Diagrams: 12/01/18 04:57 12/02/18 04:12 Additional Labs: Accuchecks 12/04/18 12/04/18 12/03/18 11:07 05:59 20:12 POC Glucose 150 H 101 206 H 12/03/18 17:02 POC Glucose 135 H Hospitalist ROS - Medication Medications: Active Medications Generic Name Dose Route Start Last Admin Trade Name Freq PRN Reason Stop Dose Admin Acetaminophen 650 mg 11/28/18 15:33 12/04/18 00:17 Tylenol PO 650 mg Q4H PRN Administration Headache/Fever/Mild Pain (1-3) Albuterol/Ipratropium 3 ml 12/02/18 13:00 12/04/18 07:58 Duoneb NEB 3 ml [id number] LEONIDAS Administration Ascorbic Acid 500 mg 12/02/18 09:00 12/04/18 08:23 Vitamin C PO 500 mg DAILY LEONIDAS Administration Docusate Sodium 100 mg 11/28/18 21:00 12/04/18 08:23 Colace PO 100 mg BID LEONIDAS Administration Enoxaparin Sodium 40 mg 11/29/18 09:00 12/04/18 09:06 Lovenox SC 40 mg 0900 LEONIDAS Administration Famotidine 20 mg 11/28/18 21:00 12/04/18 08:23 Pepcid PO 20 mg BID LEONIDAS Administration Folic Acid 1 mg 12/02/18 09:00 12/04/18 08:23 Folvite PO 1 mg DAILY LEONIDAS Administration Hydrocortisone/Aloe 0 gm 11/29/18 09:00 12/04/18 08:54 Hydrocortisone 1% Cream TOP 1 applic Q12HR LEONIDAS Administration Insulin Glargine 30 units/ 0.3 mls @ 0 mls/hr 11/29/18 09:00 12/04/18 08:24 Miscellaneous Medication SC 0.3 mls QAM LEONIDAS Administration Meropenem 2 gm/ Sodium 100 mls @ 100 mls/hr 11/29/18 14:00 12/04/18 05:35 Chloride IVPB 100 mls Q8HR LEONIDAS Administration Insulin Human Lispro 0 units 11/28/18 15:33 12/03/18 14:12 Humalog SC 2 unit .MODERATE SLIDING SC PRN Administration Moderate Correctional Scale Insulin Human Lispro 0 units 11/28/18 15:33 12/03/18 22:58 Humalog SC 2 unit .BEDTIME SLIDING SC PRN Administration Bedtime Correctional Scale Iron/Minerals/Multivitamins 1 tab 12/02/18 09:00 12/04/18 08:23 Theragran M PO 1 tab DAILY LEONIDAS Administration Ketorolac Tromethamine 15 mg 12/02/18 16:00 12/04/18 04:03 Toradol IVP 12/07/18 16:01 15 mg Q6H PRN Administration Pain Lidocaine HCl 0 ml 12/02/18 10:00 12/03/18 10:28 Xylocaine 4% Topical Nannette TOP 1 applic ASDIR LEONIDAS Administration Morphine Sulfate 2 mg 11/28/18 18:25 12/03/18 10:25 Morphine SLOW IVP 2 mg Q2H PRN Administration Moderate Pain (4-6) Morphine Sulfate 4 mg 11/28/18 18:25 12/04/18 03:56 Morphine SLOW IVP 4 mg Q2H PRN Administration Severe Pain (7-10) Nystatin 0 gm 11/30/18 09:00 12/04/18 08:54 Mycostatin Powder TOP 1 applic BID LEONIDAS Administration Polyethylene Glycol 17 gm 12/02/18 09:00 12/04/18 08:23 Miralax PO 17 gm DAILY LEONIDAS Administration Saccharomyces Boulardii 250 mg 12/02/18 09:00 12/04/18 08:22 Florastor PO 250 mg DAILY LEONIDAS Administration Sodium Bicarbonate 650 mg 11/30/18 09:00 12/04/18 08:23 Bicarbonate, Sodium PO 650 mg BID LEONIDAS Administration Sodium Chloride 10 ml 11/28/18 18:25 12/04/18 08:33 Flush - Normal Saline IVF 10 ml PRN PRN Administration Saline Flush Tamsulosin HCl 0.4 mg 11/29/18 09:00 12/04/18 08:22 Flomax PO 0.4 mg DAILY LEONIDAS Administration Zinc Sulfate 220 mg 12/02/18 09:00 12/04/18 08:26 Zinc Sulfate PO 220 mg DAILY LEONIDAS Administration - Exam Neck: no JVD Heart: RRR, no murmur Respiratory: CTAB Gastrointestinal: soft, non-tender, normal bowel sounds Gastrointestinal - other findings: wound vac to perineum Hosp A/P (1) Non-compliance Code(s): Z91.19 - PATIENT'S NONCOMPLIANCE W OTH MEDICAL TREATMENT AND REGIMEN Status: Acute (2) Stephenie-rectal abscess Code(s): K61.1 - RECTAL ABSCESS Status: Acute (3) Chronic hepatitis C Code(s): B18.2 - CHRONIC VIRAL HEPATITIS C Status: Chronic Qualifiers: Hepatic coma status: without hepatic coma Qualified Code(s): B18.2 - Chronic viral hepatitis C (4) DM type 2 (diabetes mellitus, type 2) Status: Chronic Qualifiers: 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 accu/ss/etc for DM
--- NOTE | 2018-12-04 13:23 | PRG ---
DATE OF SERVICE: 12/04/2018 SUBJECTIVE: Mr. Orlando does not have pain. No respiratory symptoms. No vomiting. No diarrhea. OBJECTIVE: VITAL SIGNS: T-max 98.4, blood pressure 140/68, pulse 81, respirations 18, O2 saturation 96%. GENERAL: Appears in no distress. LUNGS: Clear breath sounds. HEART: S1 and S2, regular rate. ABDOMEN: Soft. Not distended or tender. : Indwelling Aguayo catheter. EXTREMITIES: Peripheral IV access. NEUROLOGIC: Cognitive function appears to be intact. LABORATORY DATA: White cell count 8.2, hemoglobin 10.5, platelets 149. Creatinine 0.8. Microbiology with a quite resistant strain of Klebsiella species, susceptible to meropenem, cefoxitin, and amikacin. ASSESSMENT AND DISCUSSION: Chronic hep C, untreated, with liver cirrhosis; alcoholism, in remission; Karla gangrene, recently treated; and now with perineal abscess, prostate abscess with extension, status post drainage both by aspiration as well as open drainage by surgeon. The operative note by Dr. Stuart was reviewed. Anorectal region was prepped. The flocculent mass was palpated in the left perirectal region. A large amount of purulent exudate was found. The cavity tunneled past midline to the left perirectal region. The large perirectal abscess which was intersphincteric in position. Cultures were submitted. Those have yielded the same organism. Looking at the previous organisms isolated from the June admission, none of the organisms matched the one that is present at this time. There is a culture from urine from September, which has the same organism isolated, which is the highly resistant Klebsiella, so it is possible that this reflects a prostatic abscess with extraprostatic extension. The patient will continue on meropenem through a PICC line for protracted period of time, probably at least 4 weeks, monitoring labs and progress of the wound area. Job ID: [id number] [facility]
--- NOTE | 2018-12-04 13:54 | PRG ---
DATE OF SERVICE: 12/04/2018 SUBJECTIVE: The patient remains on the Oncology floor. He is status post irrigation and debridement of bilateral perirectal abscesses. He has been undergoing wet-to-dry dressing changes, which his pain control is better during these periods. He is otherwise tolerating a diet and has been working on getting out of bed and working with therapy. The patient has a PICC line and is receiving IV antibiotics. OBJECTIVE: VITAL SIGNS: Temperature is 97.8, heart rate 81, blood pressure 140/60, respirations 18, and oxygen saturation 92% on room air. GENERAL: The patient is resting comfortably in bed. He is currently undergoing dressing change by the Wound Care team. Dr. Baron who was rounding this morning, observed the dressing change and agreed that there was no purulent discharge and the wound is continuing to progress in a positive direction. ASSESSMENT: Status post incision and drainage of bilateral perirectal abscesses. PLAN: Plan will be to continue daily dressing changes per wound care team. Target directed antibiotics. The patient also has suprapubic catheter in place. This will be managed by Urology. There are no further surgical indications at this time. Job ID: [id number]
--- NOTE | 2018-12-05 00:56 | PRG ---
DATE OF SERVICE: 12/05/2018 SUBJECTIVE: Mr. Orlando is a 53-year-old male. The patient remained in Oncology floor, status post irrigation and debridement of bilateral perirectal abscess. He has been undergoing wet-to-dry dressing change. He reports pain is better controlled. He tolerated regular diet. OBJECTIVE: GENERAL: The patient is lying down in bed, in no acute distress. VITAL SIGNS: Stable. LUNGS: Clear bilaterally. HEART: Regular rate and rhythm. ABDOMEN: Soft, nondistended. Dressing clean, dry, and intact. I did not attempt to remove the dressing. PLAN: Will be continue supportive care. Continue pain control and continue dressing change per Wound Care service. Continue IV antibiotics. Job ID: [id number]
[2018-12-05] MEDS: Meropenem 2 GM in Sodium Chloride 0.9% 100 ML IVPB SCH ×3 (05:35→21:49)
--- NOTE | 2018-12-05 07:52 | PRG ---
DATE OF SERVICE: 12/05/2018 SUBJECTIVE: The patient without complaints. OBJECTIVE: VITAL SIGNS: Stable, afebrile. I's and O's 1400 in, 6 L out. ABDOMEN: Soft, nontender, nondistended. Suprapubic tube site is clean, dry, and intact. Draining clear yellow urine. : No evidence of fluctuance, scrotal or perineal mass. healing incision from previous wound VAC and debridement. Perirectal dressing changed by Wound Care, followed by General Surgery. LABORATORY DATA: No new labs. IMPRESSION: 1. Mr. Orlando is a 53-year-old male with history of hepatitis C. 2. History of diabetes, noncompliant. 3. History of necrotizing fasciitis of the perineum and scrotum status post wide debridement suprapubic tube, June 2018. 4. Current admission due to perirectal abscess, status post cysto, replacement of suprapubic tube, transrectal ultrasound, attempted needle drainage of suboptimal drainage, therefore underwent general surgery eval, I and D performed successfully. Currently on wet-to-dry. The patient has PICC line, IV meropenem per Infectious Disease. Will need long-term placement as he needs strict control of his blood sugars and wound care. We will continue suprapubic tube until wound is stable. Staging CT if clinically indicated. Job ID: [id number] [facility]TD[facility]
[2018-12-05] MEDS: Lidocaine 4% Topical Sol 50 ML BOT TOP SCH (08:25)
[2018-12-05] MEDS: Polyethylene Glycol 3350 17 GM Packet PO SCH (08:39)
[2018-12-05] MEDS: Multivitamin W/ Minerals 1 TAB PO SCH (08:41)
[2018-12-05] MEDS: Docusate 100 MG CAP PO SCH ×2 (08:41→20:50)
[2018-12-05] MEDS: Famotidine 20 MG TAB PO SCH ×2 (08:41→20:50)
[2018-12-05] MEDS: Ascorbic Acid 500 mg Chewable Tablet PO SCH (08:41)
[2018-12-05] MEDS: Sodium Bicarbonate Tab 325 MG TAB PO SCH ×2 (08:41→20:50)
[2018-12-05] MEDS: Tamsulosin HCl 0.4 MG CAP PO SCH (08:41)
[2018-12-05] MEDS: Folic Acid 1 MG TAB PO SCH (08:41)
[2018-12-05] MEDS: Hydrocortisone 1% Cream 30 GM TUBE TOP SCH ×2 (08:42→20:49)
[2018-12-05] MEDS: Nystatin Powder 15 GM BOT TOP SCH ×2 (08:42→20:48)
[2018-12-05] MEDS: Zinc Sulfate 220 MG CAP PO SCH (08:43)
[2018-12-05] MEDS: Saccharomyces boulardii 250 MG CAP PO SCH (08:43)
[2018-12-05] MEDS: Enoxaparin Sodium 40 MG/0.4 ML SYRINGE SC SCH (09:00)
[2018-12-05] MEDS: Ketorolac Tromethamine 30 MG/ML VIAL IVP PRN ×2 (09:36→20:54)
[2018-12-05] MEDS: Insulin Glargine 30 UNITS in Pre-Filled Syringe 1 EACH SC SCH (09:37)
--- NOTE | 2018-12-05 13:22 | PDOC.HOSPP ---
- Subjective Encounter Date: 12/05/18 Encounter Time: 13:20 Subjective: pain controlled - Objective Vital Signs & Weight: Vital Signs (12 hours) Temp Pulse Resp BP Pulse Ox 12/05/18 08:00 97.7 F 76 18 129/78 94 L 12/05/18 07:22 68 16 95 Weight Admit Weight 180 lb 15.84 oz Weight 180 lb 15.84 oz I&O: 12/04/18 12/05/18 12/06/18 06:59 06:59 06:59 Intake Total 720 1400 720 Output Total 2950 6000 Balance -2230 -4600 720 Result Diagrams: 12/01/18 04:57 12/02/18 04:12 Additional Labs: Accuchecks 12/05/18 12/04/18 12/04/18 05:06 19:21 16:09 POC Glucose 138 H 198 H 101 Hospitalist ROS - Medication Medications: Active Medications Generic Name Dose Route Start Last Admin Trade Name Freq PRN Reason Stop Dose Admin Acetaminophen 650 mg 11/28/18 15:33 12/04/18 00:17 Tylenol PO 650 mg Q4H PRN Administration Headache/Fever/Mild Pain (1-3) Albuterol/Ipratropium 3 ml 12/02/18 13:00 12/05/18 07:22 Duoneb NEB 3 ml [id number] LEONIDAS Administration Ascorbic Acid 500 mg 12/02/18 09:00 12/05/18 08:41 Vitamin C PO 500 mg DAILY LEONIDAS Administration Docusate Sodium 100 mg 11/28/18 21:00 12/05/18 08:41 Colace PO 100 mg BID LEONIDAS Administration Enoxaparin Sodium 40 mg 11/29/18 09:00 12/04/18 09:06 Lovenox SC 40 mg 0900 LEONIDAS Administration Famotidine 20 mg 11/28/18 21:00 12/05/18 08:41 Pepcid PO 20 mg BID LEONIDAS Administration Folic Acid 1 mg 12/02/18 09:00 12/05/18 08:41 Folvite PO 1 mg DAILY LEONIDAS Administration Hydrocortisone/Aloe 0 gm 11/29/18 09:00 12/05/18 08:42 Hydrocortisone 1% Cream TOP 1 applic Q12HR LEONIDAS Administration Insulin Glargine 30 units/ 0.3 mls @ 0 mls/hr 11/29/18 09:00 12/05/18 09:37 Miscellaneous Medication SC 0.3 mls QAM LEONIDAS Administration Meropenem 2 gm/ Sodium 100 mls @ 100 mls/hr 11/29/18 14:00 12/05/18 05:35 Chloride IVPB 100 mls Q8HR LEONIDAS Administration Insulin Human Lispro 0 units 11/28/18 15:33 12/03/18 14:12 Humalog SC 2 unit .MODERATE SLIDING SC PRN Administration Moderate Correctional Scale Insulin Human Lispro 0 units 11/28/18 15:33 12/03/18 22:58 Humalog SC 2 unit .BEDTIME SLIDING SC PRN Administration Bedtime Correctional Scale Iron/Minerals/Multivitamins 1 tab 12/02/18 09:00 12/05/18 08:41 Theragran M PO 1 tab DAILY LEONIDAS Administration Ketorolac Tromethamine 15 mg 12/02/18 16:00 12/05/18 09:36 Toradol IVP 12/07/18 16:01 15 mg Q6H PRN Administration Pain Lidocaine HCl 0 ml 12/02/18 10:00 12/05/18 08:25 Xylocaine 4% Topical Nannette TOP 1 applic ASDIR LEONIDAS Administration Morphine Sulfate 2 mg 11/28/18 18:25 12/03/18 10:25 Morphine SLOW IVP 2 mg Q2H PRN Administration Moderate Pain (4-6) Morphine Sulfate 4 mg 11/28/18 18:25 12/04/18 20:07 Morphine SLOW IVP 4 mg Q2H PRN Administration Severe Pain (7-10) Nystatin 0 gm 11/30/18 09:00 12/05/18 08:42 Mycostatin Powder TOP 1 applic BID LEONIDAS Administration Polyethylene Glycol 17 gm 12/02/18 09:00 12/05/18 08:39 Miralax PO 17 gm DAILY LEONIDAS Administration Saccharomyces Boulardii 250 mg 12/02/18 09:00 12/05/18 08:43 Florastor PO 250 mg DAILY LEONIDAS Administration Sodium Bicarbonate 650 mg 11/30/18 09:00 12/05/18 08:41 Bicarbonate, Sodium PO 650 mg BID LEONIDAS Administration Sodium Chloride 10 ml 11/28/18 18:25 12/04/18 16:17 Flush - Normal Saline IVF 10 ml PRN PRN Administration Saline Flush Tamsulosin HCl 0.4 mg 11/29/18 09:00 12/05/18 08:41 Flomax PO 0.4 mg DAILY LEONIDAS Administration Zinc Sulfate 220 mg 12/02/18 09:00 12/05/18 08:43 Zinc Sulfate PO 220 mg DAILY LEONIDAS Administration - Exam Neck: no JVD Heart: RRR, no murmur Respiratory: CTAB Gastrointestinal: soft, normal bowel sounds Extremities: no edema Hosp A/P (1) Bacteremia due to other bacteria Code(s): R78.81 - BACTEREMIA; B96.89 - OTH BACTERIAL AGENTS THE CAUSE OF DISEASES CLASSD ELSWHR Status: Acute (2) Non-compliance Code(s): Z91.19 - PATIENT'S NONCOMPLIANCE W OTH MEDICAL TREATMENT AND REGIMEN Status: Acute (3) Stephenie-rectal abscess Code(s): K61.1 - RECTAL ABSCESS Status: Acute (4) Chronic hepatitis C Code(s): B18.2 - CHRONIC VIRAL HEPATITIS C Status: Chronic Qualifiers: Hepatic coma status: without hepatic coma Qualified Code(s): B18.2 - Chronic viral hepatitis C (5) DM type 2 (diabetes mellitus, type 2) Status: Chronic Qualifiers: Diabetes mellitus [facility] insulin use: without ferry terminal supervisor use Diabetes mellitus complication status: without complication Qualified Code(s): E11.9 - Type 2 diabetes mellitus without complications (6) Thrombocytopenia Code(s): D69.6 - THROMBOCYTOPENIA, UNSPECIFIED Status: Chronic (7) Colostomy in place Code(s): Z93.3 - COLOSTOMY STATUS Status: Acute - Plan bacteremia- klebsiella. perirectal abcess- cont iv antibx x 4 weeks total, wound care. accu/ss/etc for Dm 2. placement
[2018-12-05] MEDS: Morphine 4 MG/ML VIAL SLOW IVP PRN (15:01)
[2018-12-05] MEDS: HumaLOG 300 UNITS/3 ML VIAL SC PRN ×2 (17:43→20:49)
[2018-12-06] MEDS: Ketorolac Tromethamine 30 MG/ML VIAL IVP PRN ×3 (03:35→23:43)
[2018-12-06] MEDS: HumaLOG 300 UNITS/3 ML VIAL SC PRN ×3 (05:33→19:13)
[2018-12-06] MEDS: Meropenem 2 GM in Sodium Chloride 0.9% 100 ML IVPB SCH ×3 (05:34→21:14)
--- NOTE | 2018-12-06 08:07 | PRG ---
DATE OF SERVICE: 12/06/2018 SUBJECTIVE: The patient is stable, states that he has some perirectal discomfort, however, this has no acute change. OBJECTIVE: VITAL SIGNS: Are stable. Temperature 99, pulse 82, respirations 16 , oxygen saturation 92% on room air, and blood pressure 91/52. I's and O's 1981 in, 2000 of clear dilute urine. ABDOMEN: Soft, colostomy with air and stool. Suprapubic tube site is clean, dry, and intact. Dressing in place. : Stable. Prior scrotal I and D incision is well healed with some irritative changes of the superficial area; however, there is no evidence of cellulitis, fluctuance in the scrotal, perineum of concern. LABORATORY DATA: No new labs. Culture demonstrating Klebsiella on appropriate antibiotic regimen. IMPRESSION AND PLAN: Mr. Orlando is a 53-year-old male with this hepatitis C, history of diabetes, noncompliant. 1. Necrotizing fasciitis of perineum, status post wide debridement. 2. History of perirectal abscess, status post cysto, suprapubic tube, transrectal ultrasound, attempted drainage, status post debridement, incision and drainage of perirectal abscess by General Surgery. Continue IV meropenem per Infectious Disease. Appreciate Dr. Iyer input. Four weeks of antibiotics. Would be prudent to perform a staging CT prior to removal of a suprapubic tube in the next week or two to assess for persistent fluid collection of concern. Wound change per General Surgery and Wound Care. Job ID: [id number] [facility]
[2018-12-06] MEDS: Zinc Sulfate 220 MG CAP PO SCH (08:23)
[2018-12-06] MEDS: Famotidine 20 MG TAB PO SCH ×2 (08:24→20:30)
[2018-12-06] MEDS: Sodium Bicarbonate Tab 325 MG TAB PO SCH ×2 (08:24→20:29)
[2018-12-06] MEDS: Docusate 100 MG CAP PO SCH ×2 (08:24→20:30)
[2018-12-06] MEDS: Ascorbic Acid 500 mg Chewable Tablet PO SCH (08:24)
[2018-12-06] MEDS: Multivitamin W/ Minerals 1 TAB PO SCH (08:24)
[2018-12-06] MEDS: Saccharomyces boulardii 250 MG CAP PO SCH (08:24)
[2018-12-06] MEDS: Tamsulosin HCl 0.4 MG CAP PO SCH (08:24)
[2018-12-06] MEDS: Enoxaparin Sodium 40 MG/0.4 ML SYRINGE SC SCH (08:25)
[2018-12-06] MEDS: Folic Acid 1 MG TAB PO SCH (08:25)
[2018-12-06] MEDS: Polyethylene Glycol 3350 17 GM Packet PO SCH (08:25)
[2018-12-06] MEDS: Hydrocortisone 1% Cream 30 GM TUBE TOP SCH ×2 (09:00→20:31)
[2018-12-06] MEDS: Nystatin Powder 15 GM BOT TOP SCH ×2 (09:00→20:31)
[2018-12-06 09:11] LABS: Fungus Stain Final report (.)
[2018-12-06] MEDS ORDERED: Morphine 4 MG/ML VIAL SLOW IVP PRN (09:21)
[2018-12-06] MEDS: Morphine 4 MG/ML VIAL SLOW IVP PRN ×2 (09:48→16:07)
[2018-12-06] MEDS: Acetaminophen 325 MG TAB PO PRN ×2 (11:06→16:07)
[2018-12-06] MEDS: Insulin Glargine 30 UNITS in Pre-Filled Syringe 1 EACH SC SCH (11:06)
--- NOTE | 2018-12-06 11:22 | PDOC.HOSPP ---
- Subjective Encounter Date: 12/06/18 Encounter Time: 11:20 Subjective: i want a Dr who can do everything - Objective Vital Signs & Weight: Vital Signs (12 hours) Temp Pulse Resp BP Pulse Ox 12/06/18 08:00 98.6 F 70 16 121/65 92 L 12/06/18 06:46 68 12 97 Weight Admit Weight 180 lb 15.84 oz Weight 180 lb 15.84 oz I&O: 12/05/18 12/06/18 12/07/18 06:59 06:59 06:59 Intake Total 1400 1981 Output Total 6000 2850 Balance -2860 -269 Result Diagrams: 12/01/18 04:57 12/02/18 04:12 Additional Labs: Accuchecks 12/06/18 12/05/18 12/05/18 05:24 19:40 15:43 POC Glucose 162 H 232 H 222 H 12/05/18 12:14 POC Glucose 205 H Hospitalist ROS - Medication Medications: Active Medications Generic Name Dose Route Start Last Admin Trade Name Freq PRN Reason Stop Dose Admin Acetaminophen 650 mg 11/28/18 15:33 12/06/18 11:06 Tylenol PO 650 mg Q4H PRN Administration Headache/Fever/Mild Pain (1-3) Albuterol/Ipratropium 3 ml 12/02/18 13:00 12/06/18 06:46 Duoneb NEB 3 ml [id number] LEONIDAS Administration Ascorbic Acid 500 mg 12/02/18 09:00 12/06/18 08:24 Vitamin C PO 500 mg DAILY LEONIDAS Administration Docusate Sodium 100 mg 11/28/18 21:00 12/06/18 08:24 Colace PO 100 mg BID LEONIDAS Administration Enoxaparin Sodium 40 mg 11/29/18 09:00 12/06/18 08:25 Lovenox SC 40 mg 0900 LEONIDAS Administration Famotidine 20 mg 11/28/18 21:00 12/06/18 08:24 Pepcid PO 20 mg BID LEONIDAS Administration Folic Acid 1 mg 12/02/18 09:00 12/06/18 08:25 Folvite PO 1 mg DAILY LEONIDAS Administration Hydrocortisone/Aloe 0 gm 11/29/18 09:00 12/05/18 20:49 Hydrocortisone 1% Cream TOP 1 applic Q12HR LEONIDAS Administration Insulin Glargine 30 units/ 0.3 mls @ 0 mls/hr 11/29/18 09:00 12/06/18 11:06 Miscellaneous Medication SC 0.3 mls QAM LEONIDAS Administration Meropenem 2 gm/ Sodium 100 mls @ 100 mls/hr 11/29/18 14:00 12/06/18 05:34 Chloride IVPB 100 mls Q8HR LEONIDAS Administration Insulin Human Lispro 0 units 11/28/18 15:33 12/06/18 05:33 Humalog SC 2 unit .MODERATE SLIDING SC PRN Administration Moderate Correctional Scale Insulin Human Lispro 0 units 11/28/18 15:33 12/05/18 20:49 Humalog SC 2 unit .BEDTIME SLIDING SC PRN Administration Bedtime Correctional Scale Iron/Minerals/Multivitamins 1 tab 12/02/18 09:00 12/06/18 08:24 Theragran M PO 1 tab DAILY LEONIDAS Administration Ketorolac Tromethamine 15 mg 12/02/18 16:00 12/06/18 03:35 Toradol IVP 12/07/18 16:01 15 mg Q6H PRN Administration Pain Lidocaine HCl 0 ml 12/02/18 10:00 12/05/18 08:25 Xylocaine 4% Topical Nannette TOP 1 applic ASDIR LEONIDAS Administration Morphine Sulfate 2 mg 11/28/18 18:25 12/03/18 10:25 Morphine SLOW IVP 2 mg Q2H PRN Administration Moderate Pain (4-6) Morphine Sulfate 4 mg 11/28/18 18:25 12/06/18 09:48 Morphine SLOW IVP 4 mg Q2H PRN Administration Severe Pain (7-10) Nystatin 0 gm 11/30/18 09:00 12/05/18 20:48 Mycostatin Powder TOP Not Given BID LEONIDAS Polyethylene Glycol 17 gm 12/02/18 09:00 12/06/18 08:25 Miralax PO Not Given DAILY [facility] Saccharomyces Boulardii 250 mg 12/02/18 09:00 12/06/18 08:24 Florastor PO 250 mg DAILY LEONIDAS Administration Sodium Bicarbonate 650 mg 11/30/18 09:00 12/06/18 08:24 Bicarbonate, Sodium PO [address] [facility] Administration Sodium Chloride 10 ml 11/28/18 18:25 12/06/18 05:33 Flush - Normal Saline IVF 10 ml PRN PRN Administration Saline Flush Tamsulosin HCl 0.4 mg 11/29/18 09:00 12/06/18 08:24 Flomax PO 0.4 mg DAILY LEONIDAS Administration Zinc Sulfate 220 mg 12/02/18 09:00 12/06/18 08:23 Zinc Sulfate PO 220 mg DAILY LEONIDAS Administration - Exam Neck: no JVD Heart: RRR, no murmur Respiratory: CTAB Gastrointestinal: soft, non-distended, normal bowel sounds Extremities: no edema Hosp A/P (1) Bacteremia due to other bacteria Code(s): R78.81 - BACTEREMIA; B96.89 - OTH BACTERIAL AGENTS THE CAUSE OF DISEASES CLASSD ELSWHR Status: Acute (2) Non-compliance Code(s): Z91.19 - PATIENT'S NONCOMPLIANCE W OTH MEDICAL TREATMENT AND REGIMEN Status: Acute (3) Stephenie-rectal abscess Code(s): K61.1 - RECTAL ABSCESS Status: Acute (4) Chronic hepatitis C Code(s): B18.2 - CHRONIC VIRAL HEPATITIS C Status: Chronic Qualifiers: Hepatic coma status: without hepatic coma Qualified Code(s): B18.2 - Chronic viral hepatitis C (5) DM type 2 (diabetes mellitus, type 2) Status: Chronic Qualifiers: Diabetes mellitus shelter insulin use: without intermediate card tender use Diabetes mellitus complication status: without complication Qualified Code(s): E11.9 - Type 2 diabetes mellitus without complications (6) Thrombocytopenia Code(s): D69.6 - THROMBOCYTOPENIA, UNSPECIFIED Status: Chronic (7) Colostomy in place Code(s): Z93.3 - COLOSTOMY STATUS Status: Acute - Plan bacteremia- klebsiella. perirectal abcess- cont iv antibx x 4 weeks total, wound care. accu/ss/etc for Dm 2. placement
[2018-12-07] MEDS: HYDROcodone/Acetaminophen 5/325 mg Tablet PO PRN (04:32)
[2018-12-07] MEDS: Meropenem 2 GM in Sodium Chloride 0.9% 100 ML IVPB SCH ×3 (05:23→22:31)
[2018-12-07] MEDS: Nystatin Powder 15 GM BOT TOP SCH ×2 (09:00→20:41)
[2018-12-07] MEDS: Hydrocortisone 1% Cream 30 GM TUBE TOP SCH ×2 (09:00→20:41)
--- NOTE | 2018-12-07 09:15 | PRG ---
DATE OF SERVICE: 12/07/2018 SUBJECTIVE: The patient without new complaints. OBJECTIVE: VITAL SIGNS: Stable. I's and O's, urine output 1800 per SP tube. ABDOMEN: Soft, nontender, nondistended. SP tube site is clean, intact. : Demonstrates again, no evidence of perineal or scrotal fluctuance. Previous wound VAC site is well healed. Skin approximated, there was granulating eschar with no evidence of infection. EXTREMITIES: No cyanosis, clubbing, or edema. Rectal dressing is in place with gauze soaked with some purulent component. LABORATORY DATA: No new labs. IMPRESSION: Mr. Orlando is a 53-year-old male with past medical history of, 1. Hepatitis C. 2. Poorly-controlled diabetes. 3. Noncompliance. 4. History of necrotizing fasciitis of perineum and scrotum, status post wide debridement, June 2018, resolved. 5. Current admission due to perirectal abscess, status post cysto, suprapubic tube replacement, transrectal ultrasound, attempted drainage suboptimal. Therefore, he underwent perirectal I and D drainage by General Surgery. Wound Care for General Surgery/Wound Care. Await disposition, as he requires placement for strict control of his diabetes as he is noncompliant as an outpatient as he presented with glucose over 400. Disposition may be challenging due to his lack of insurance and refusal to present to previous detention. Staging CT would likely be required prior to disposition to re-stage. Continue IV meropenem minimum 4 weeks per Infectious Disease. Job ID: [id number] [facility]TDD
[2018-12-07] MEDS: Famotidine 20 MG TAB PO SCH ×2 (09:22→20:42)
[2018-12-07] MEDS: Sodium Bicarbonate Tab 325 MG TAB PO SCH ×2 (09:22→20:42)
[2018-12-07] MEDS: Tamsulosin HCl 0.4 MG CAP PO SCH (09:23)
[2018-12-07] MEDS: Folic Acid 1 MG TAB PO SCH (09:23)
[2018-12-07] MEDS: Multivitamin W/ Minerals 1 TAB PO SCH (09:24)
[2018-12-07] MEDS: Ascorbic Acid 500 mg Chewable Tablet PO SCH (09:24)
[2018-12-07] MEDS: Polyethylene Glycol 3350 17 GM Packet PO SCH (09:25)
[2018-12-07] MEDS: Docusate 100 MG CAP PO SCH ×2 (09:25→20:42)
[2018-12-07] MEDS: Saccharomyces boulardii 250 MG CAP PO SCH (09:25)
[2018-12-07] MEDS: Insulin Glargine 30 UNITS in Pre-Filled Syringe 1 EACH SC SCH (09:26)
[2018-12-07] MEDS: Enoxaparin Sodium 40 MG/0.4 ML SYRINGE SC SCH (09:27)
[2018-12-07] MEDS: Morphine 4 MG/ML VIAL SLOW IVP PRN ×3 (11:24→22:37)
[2018-12-07] MEDS: Zinc Sulfate 220 MG CAP PO SCH (11:25)
--- NOTE | 2018-12-07 11:41 | PDOC.HOSPP ---
- Subjective Encounter Date: 12/07/18 Encounter Time: 11:40 Subjective: no complaints - Objective Vital Signs & Weight: Vital Signs (12 hours) Temp Pulse Resp BP Pulse Ox 12/07/18 07:52 98.6 F 76 16 99/59 L 93 L 12/07/18 07:32 67 16 97 Weight Admit Weight 180 lb 15.84 oz Weight 180 lb 15.84 oz I&O: 12/06/18 12/07/18 12/08/18 06:59 06:59 06:59 Intake Total 1981 711 Output Total 2850 1800 Balance -054 -9929 Result Diagrams: 12/01/18 04:57 12/02/18 04:12 Additional Labs: Accuchecks 12/07/18 12/06/18 12/06/18 05:36 21:16 16:18 POC Glucose 114 H 138 H 188 H 12/06/18 12:36 POC Glucose 199 H Hospitalist ROS - Medication Medications: Active Medications Generic Name Dose Route Start Last Admin Trade Name Freq PRN Reason Stop Dose Admin Acetaminophen 650 mg 11/28/18 15:33 12/06/18 16:07 Tylenol PO 650 mg Q4H PRN Administration Headache/Fever/Mild Pain (1-3) Hydrocodone Bitart/Acetaminophen 1 tab 12/02/18 07:38 12/07/18 04:32 [place] 5/325 PO 1 tab Q4H PRN Administration Moderate Pain (4-6) Albuterol/Ipratropium 3 ml 12/02/18 13:00 12/07/18 07:32 Duoneb NEB 3 ml [id number] LEONIDAS Administration Ascorbic Acid 500 mg 12/02/18 09:00 12/07/18 09:24 Vitamin C PO 500 mg DAILY LEONIDAS Administration Docusate Sodium 100 mg 11/28/18 21:00 12/07/18 09:25 Colace PO 100 mg BID LEONIDAS Administration Enoxaparin Sodium 40 mg 11/29/18 09:00 12/07/18 09:27 Lovenox SC 40 mg 0900 LEONIDAS Administration Famotidine 20 mg 11/28/18 21:00 12/07/18 09:22 Pepcid PO 20 mg BID LEONIDAS Administration Folic Acid 1 mg 12/02/18 09:00 12/07/18 09:23 Folvite PO 1 mg DAILY LEONIDAS Administration Hydrocortisone/Aloe 0 gm 11/29/18 09:00 12/07/18 09:00 Hydrocortisone 1% Cream TOP Not Given Q12HR [facility] Insulin Glargine 30 units/ 0.3 mls @ 0 mls/hr 11/29/18 09:00 12/07/18 09:26 Miscellaneous Medication SC 0.3 mls QAM LEONIDAS Administration Meropenem 2 gm/ Sodium 100 mls @ 100 mls/hr 11/29/18 14:00 12/07/18 05:23 Chloride IVPB 100 mls Q8HR LEONIDAS Administration Insulin Human Lispro 0 units 11/28/18 15:33 12/06/18 19:13 Humalog SC 2 unit .MODERATE SLIDING SC PRN Administration Moderate Correctional Scale Insulin Human Lispro 0 units 11/28/18 15:33 12/05/18 20:49 Humalog SC 2 unit .BEDTIME SLIDING SC PRN Administration Bedtime Correctional Scale Iron/Minerals/Multivitamins 1 tab 12/02/18 09:00 12/07/18 09:24 Theragran M PO 1 tab DAILY LEONIDAS Administration Ketorolac Tromethamine 15 mg 12/02/18 16:00 12/06/18 23:43 Toradol IVP 12/07/18 16:01 15 mg Q6H PRN Administration Pain Lidocaine HCl 0 ml 12/02/18 10:00 12/05/18 08:25 Xylocaine 4% Topical Nannette TOP 1 applic ASDIR LEONIDAS Administration Morphine Sulfate 2 mg 11/28/18 18:25 12/03/18 10:25 Morphine SLOW IVP 2 mg Q2H PRN Administration Moderate Pain (4-6) Morphine Sulfate 4 mg 11/28/18 18:25 12/07/18 11:24 Morphine SLOW IVP 4 mg Q2H PRN Administration Severe Pain (7-10) Nystatin 0 gm 11/30/18 09:00 12/07/18 09:00 Mycostatin Powder TOP Not Given BID [facility] Polyethylene Glycol 17 gm 12/02/18 09:00 12/07/18 09:25 Miralax PO 17 gm DAILY LEONIDAS Administration Saccharomyces Boulardii 250 mg 12/02/18 09:00 12/07/18 09:25 Florastor PO 250 mg DAILY [facility] Administration Sodium Bicarbonate 650 mg 11/30/18 09:00 12/07/18 09:22 Bicarbonate, Sodium PO 650 mg BID LEONIDAS Administration Sodium Chloride 10 ml 11/28/18 18:25 12/07/18 05:23 Flush - Normal Saline IVF 10 ml PRN PRN Administration Saline Flush Tamsulosin HCl 0.4 mg 11/29/18 09:00 12/07/18 09:23 Flomax PO 0.4 mg DAILY LEONIDAS Administration Zinc Sulfate 220 mg 12/02/18 09:00 12/07/18 11:25 Zinc Sulfate PO 220 mg DAILY LEONIDAS Administration - Exam Neck: no JVD Heart: RRR, no murmur Respiratory: CTAB Gastrointestinal: soft, normal bowel sounds Extremities: no edema Hosp A/P (1) Bacteremia due to other bacteria Code(s): R78.81 - BACTEREMIA; B96.89 - OTH BACTERIAL AGENTS THE CAUSE OF DISEASES CLASSD [id number] Status: Acute (2) Non-compliance Code(s): Z91.19 - PATIENT'S NONCOMPLIANCE W OTH MEDICAL TREATMENT AND REGIMEN Status: Acute (3) Stephenie-rectal abscess Code(s): K61.1 - RECTAL ABSCESS Status: Acute (4) Chronic hepatitis C Code(s): B18.2 - CHRONIC VIRAL HEPATITIS C Status: Chronic Qualifiers: Hepatic coma status: without hepatic coma Qualified Code(s): B18.2 - Chronic viral hepatitis C (5) DM type 2 (diabetes mellitus, type 2) Status: Chronic Qualifiers: Diabetes mellitus computer terminal operator insulin use: without computer terminal operator use Diabetes mellitus complication status: without complication Qualified Code(s): E11.9 - Type 2 diabetes mellitus without complications (6) Thrombocytopenia Code(s): D69.6 - THROMBOCYTOPENIA, UNSPECIFIED Status: Chronic (7) Colostomy in place Code(s): Z93.3 - COLOSTOMY STATUS Status: Acute - Plan bacteremia- klebsiella. perirectal abcess- cont iv antibx x 4 weeks total, wound care. accu/ss/etc for Dm 2. placement
[2018-12-08] MEDS: Meropenem 2 GM in Sodium Chloride 0.9% 100 ML IVPB SCH ×3 (06:16→21:26)
[2018-12-08] MEDS: Morphine 4 MG/ML VIAL SLOW IVP PRN ×3 (06:21→15:16)
--- NOTE | 2018-12-08 07:45 | PRG ---
DATE OF SERVICE: 12/08/2018 SUBJECTIVE: The patient is resting, wound dressing per Wound Care, I and D by General surgery, Dr. Stuart, perirectal abscess. OBJECTIVE: VITAL SIGNS: Stable. He is afebrile. I's and O's; 1082 in, 2000 out. ABDOMEN: Soft. Suprapubic dressing is in place. No significant erythema. GENITOURINARY: Irritative changes of the scrotum with no evidence of fluctuance , induration, or cellulitic changes of concern. No perineal fluctuance is appreciated. Perirectal dressing inspected demonstrating some evidence of purulent discharge soaked into gauze. EXTREMITIES: No cyanosis, clubbing, or edema. LABORATORY DATA: No current labs. IMPRESSION AND PLAN: Mr. Orlando is a 53-year-old male with, 1. History of hepatitis C. 2. History of diabetes, noncompliant. 3. History of necrotizing fasciitis of the scrotum, perineum, status post wide debridement in June 2018, which has resolved. 4. Current admission due to perirectal abscess, status post cysto, suprapubic tube replacement, transrectal ultrasound drainage suboptimal, therefore underwent I and D of the perirectal abscess by General Surgery. Appreciate Infectious Disease consult, IV meropenem. patient has not been seen by General Surgery for the last few days. I did reach out to the PA, who will come inspect the patient. Disposition to detention pending as he needs strict control of his diabetes, which is imperative. Continue SP tube. Staging CT if clinically indicated. I do not anticipate the patient will be discharged over the weekend. Continue wound dressing per General Surgery/Wound Care. Dr. Hardwick covering me this weekend for p.r.n. issues if needed. Job ID: [id number] MTDD
[2018-12-08] MEDS ORDERED: Morphine 4 MG/ML VIAL SLOW IVP SCH (09:30)
[2018-12-08] MEDS: Zinc Sulfate 220 MG CAP PO SCH (09:50)
[2018-12-08] MEDS: Folic Acid 1 MG TAB PO SCH (09:51)
[2018-12-08] MEDS: Tamsulosin HCl 0.4 MG CAP PO SCH (09:51)
[2018-12-08] MEDS: Acetaminophen 325 MG TAB PO PRN ×2 (09:51→15:15)
[2018-12-08] MEDS: Ascorbic Acid 500 mg Chewable Tablet PO SCH (09:51)
[2018-12-08] MEDS: Multivitamin W/ Minerals 1 TAB PO SCH (09:51)
[2018-12-08] MEDS: Sodium Bicarbonate Tab 325 MG TAB PO SCH ×2 (09:51→21:25)
[2018-12-08] MEDS: Famotidine 20 MG TAB PO SCH ×2 (09:51→21:26)
[2018-12-08] MEDS: Saccharomyces boulardii 250 MG CAP PO SCH (09:51)
[2018-12-08] MEDS: Polyethylene Glycol 3350 17 GM Packet PO SCH (09:52)
[2018-12-08] MEDS: Enoxaparin Sodium 40 MG/0.4 ML SYRINGE SC SCH (09:52)
[2018-12-08] MEDS: Docusate 100 MG CAP PO SCH ×2 (09:52→21:25)
[2018-12-08] MEDS: Insulin Glargine 30 UNITS in Pre-Filled Syringe 1 EACH SC SCH (09:54)
--- NOTE | 2018-12-08 10:18 | PRG ---
DATE OF SERVICE: 12/08/2018 SUBJECTIVE: I was asked to see the patient by Dr. Knight post I and D of rectal abscess. The patient states the pain is better. Drainage is moderate. Bowels are working. OBJECTIVE: VITAL SIGNS: Temperature 97.6, pulse 88, and blood pressure 117/69. ABDOMEN: The wound is about a 5 cm incision, left anterior anus. The wall is granulating. There is some fibrinous exudate, but no evidence of cellulitis or infection. The wound was repacked by Wound Care. ASSESSMENT: Stable. PLAN: Continue wound care. Job ID: [id number]
[2018-12-08] MEDS: Hydrocortisone 1% Cream 30 GM TUBE TOP SCH ×2 (17:00→21:24)
[2018-12-08] MEDS: Nystatin Powder 15 GM BOT TOP SCH ×2 (17:00→21:24)
[2018-12-08] MEDS: HYDROcodone/Acetaminophen 5/325 mg Tablet PO PRN (22:35)
[2018-12-09] MEDS ORDERED: Ketorolac Tromethamine 30 MG/ML VIAL IVP SCH (01:15)
[2018-12-09 02:45] LABS: #Eosinphils 0.2 thou/uL (0.0-0.7); #Lymphocytes 1.2 thou/uL (1.20-3.40); #Monocytes 0.3 thou/uL (0.11-0.59); #Neutrophils 2.9 thou/uL (1.40-6.50); %Basophils 0.5 % (0.0-1.0); %Eosinophils 4.7 % (0.0-10.0); %Lymphocytes 25.8 % (21.0-51.0); %Monocytes 6.9 % (0.0-10.0); %Neutrophils 62.1 % (42.0-75.0); Hemoglobin 9.5 g/dL (14.0-18.0); Mean Corpuscular HGB CONC 33.1 g/dL (32.0-36.0); Mean Corpuscular Hemoglobin 27.1 pg (27.0-31.0); Mean Corpuscular Volume 81.8 fL (78.0-98.0); Platelet Count 238 thou/uL (130-400); RBC Distribution Width 13.4 % (11.5-14.5); Red Blood Cell (RBC) Count 3.51 mill/uL (4.70-6.10); White Blood Cell (WBC) Count 4.7 thou/uL (4.8-10.8)
[2018-12-09 03:39] LABS: ALT (SGPT) 23 U/L (8-55); AST (SGOT) 34 U/L (5-34); Albumin 2.9 g/dL (3.5-5.0); Alkaline Phosphatase 151 U/L (40-150); Anion Gap 12 mmol/L (10-20); BUN (Urea Nitrogen) 14 mg/dL (8.4-25.7); Bilirubin, Total 0.3 mg/dL (0.2-1.2); Calc. Creatinine Clearance 118 mL/min (70-130); Calcium 8.7 mg/dL (7.8-10.44); Carbon Dioxide 22 mmol/L (22-29); Chloride 104 mmol/L (98-107); Estimated GFR-MDRD Greater than 90; Globulin 3.2 g/dL (2.4-3.5); Glucose 107 mg/dL (70-105); Potassium 4.3 mmol/L (3.5-5.1); Protein, Total 6.1 g/dL (6.0-8.3); Sodium 134 mmol/L (136-145)
[2018-12-09] MEDS: Meropenem 2 GM in Sodium Chloride 0.9% 100 ML IVPB SCH ×3 (06:20→21:02)
[2018-12-09] MEDS: Polyethylene Glycol 3350 17 GM Packet PO SCH (08:58)
[2018-12-09] MEDS: Zinc Sulfate 220 MG CAP PO SCH (08:58)
[2018-12-09] MEDS: Sodium Bicarbonate Tab 325 MG TAB PO SCH ×2 (08:58→21:02)
[2018-12-09] MEDS: Enoxaparin Sodium 40 MG/0.4 ML SYRINGE SC SCH (08:58)
[2018-12-09] MEDS: Tamsulosin HCl 0.4 MG CAP PO SCH (08:59)
[2018-12-09] MEDS: Ascorbic Acid 500 mg Chewable Tablet PO SCH (08:59)
[2018-12-09] MEDS: Saccharomyces boulardii 250 MG CAP PO SCH (08:59)
[2018-12-09] MEDS: Morphine 4 MG/ML VIAL SLOW IVP PRN ×2 (08:59→15:43)
[2018-12-09] MEDS: Folic Acid 1 MG TAB PO SCH (08:59)
[2018-12-09] MEDS: Multivitamin W/ Minerals 1 TAB PO SCH (08:59)
[2018-12-09] MEDS: Acetaminophen 325 MG TAB PO PRN ×2 (08:59→15:42)
[2018-12-09] MEDS: Morphine 4 MG/ML VIAL IV PRN (09:00)
[2018-12-09] MEDS: Famotidine 20 MG TAB PO SCH ×2 (09:00→21:02)
[2018-12-09] MEDS: Docusate 100 MG CAP PO SCH ×2 (09:00→21:02)
[2018-12-09] MEDS: Lidocaine 4% Topical Sol 50 ML BOT TOP SCH (09:01)
[2018-12-09] MEDS: Insulin Glargine 30 UNITS in Pre-Filled Syringe 1 EACH SC SCH (09:05)
[2018-12-09] MEDS: Hydrocortisone 1% Cream 30 GM TUBE TOP SCH ×2 (09:10→21:03)
[2018-12-09] MEDS: Nystatin Powder 15 GM BOT TOP SCH ×2 (17:00→21:03)
[2018-12-10] MEDS: Ketorolac Tromethamine 30 MG/ML VIAL IVP PRN ×2 (00:07→20:26)
[2018-12-10] MEDS: Meropenem 2 GM in Sodium Chloride 0.9% 100 ML IVPB SCH ×3 (05:43→22:20)
[2018-12-10] MEDS: Morphine 4 MG/ML VIAL SLOW IVP PRN ×2 (05:47→20:27)
[2018-12-10] MEDS: Sodium Bicarbonate Tab 325 MG TAB PO SCH ×2 (09:26→20:28)
[2018-12-10] MEDS: Tamsulosin HCl 0.4 MG CAP PO SCH (09:27)
[2018-12-10] MEDS: Saccharomyces boulardii 250 MG CAP PO SCH (09:27)
[2018-12-10] MEDS: Multivitamin W/ Minerals 1 TAB PO SCH (09:27)
[2018-12-10] MEDS: Docusate 100 MG CAP PO SCH ×2 (09:27→20:28)
[2018-12-10] MEDS: Enoxaparin Sodium 40 MG/0.4 ML SYRINGE SC SCH (09:27)
[2018-12-10] MEDS: Famotidine 20 MG TAB PO SCH ×2 (09:27→20:28)
[2018-12-10] MEDS: Ascorbic Acid 500 mg Chewable Tablet PO SCH (09:27)
[2018-12-10] MEDS: Folic Acid 1 MG TAB PO SCH (09:27)
[2018-12-10] MEDS: Polyethylene Glycol 3350 17 GM Packet PO SCH (09:28)
[2018-12-10] MEDS: Insulin Glargine 30 UNITS in Pre-Filled Syringe 1 EACH SC SCH (09:29)
[2018-12-10] MEDS: Nystatin Powder 15 GM BOT TOP SCH ×2 (09:30→20:29)
[2018-12-10] MEDS: Hydrocortisone 1% Cream 30 GM TUBE TOP SCH ×2 (09:30→20:29)
[2018-12-10] MEDS: Zinc Sulfate 220 MG CAP PO SCH (09:36)
[2018-12-10] MEDS: HumaLOG 300 UNITS/3 ML VIAL SC PRN ×2 (11:35→20:37)
[2018-12-10] MEDS: HYDROcodone/Acetaminophen 5/325 mg Tablet PO PRN (11:38)
[2018-12-10] MEDS: Morphine 4 MG/ML VIAL IV PRN (12:37)
--- NOTE | 2018-12-10 14:14 | PRG ---
DATE OF SERVICE: 12/10/2018 SUBJECTIVE: The patient says he has no pain except when he has dressing changes, minimal drainage. Bowels are working. OBJECTIVE: VITAL SIGNS: Temperature 97.6, pulse 66, and blood pressure 110/56. There is no cellulitis. The wound looks clean, granulating well. ASSESSMENT: Status post incision and drainage of perirectal abscess, doing well. PLAN: Continue wound care. Awaiting transfer to rehab or jail. Job ID: [id number]
--- NOTE | 2018-12-10 16:35 | PDOC.HOSPP ---
- Subjective Encounter Date: 12/09/18 Encounter Time: 14:00 Subjective: pt up in bed no complains - Objective Vital Signs & Weight: Vital Signs (12 hours) Temp Pulse Resp BP Pulse Ox 12/10/18 14:19 76 18 99 12/10/18 08:00 97.6 F 66 18 110/56 L 96 12/10/18 07:44 66 18 99 Weight Admit Weight 180 lb 15.84 oz Weight 180 lb 15.84 oz I&O: 12/09/18 12/10/18 12/11/18 06:59 06:59 06:59 Intake Total 680 Output Total 1800 2950 Balance -1800 -2270 Result Diagrams: 12/09/18 02:40 12/09/18 02:40 Additional Labs: Accuchecks 12/10/18 12/10/18 12/09/18 11:08 05:48 20:30 POC Glucose 225 H 152 H 205 H 12/09/18 16:39 POC Glucose 128 H Hospitalist ROS - Review of Systems Respiratory: denies: cough, dry, shortness of breath, hemoptysis, SOB with excertion, pleuritic pain, sputum, wheezing, other Cardiovascular: denies: chest pain, palpitations, orthopnea, paroxysmal noc. dyspnea, edema, light headedness, other Gastrointestinal: denies: nausea, vomiting, abdominal pain, diarrhea, constipation, melena, hematochezia, other - Medication Medications: Active Medications Generic Name Dose Route Start Last Admin Trade Name Freq PRN Reason Stop Dose Admin Acetaminophen 650 mg 11/28/18 15:33 12/09/18 15:42 Tylenol PO 650 mg Q4H PRN Administration Headache/Fever/Mild Pain (1-3) Hydrocodone Bitart/Acetaminophen 1 tab 12/02/18 07:38 12/10/18 11:38 [place] 5/325 PO 1 tab Q4H PRN Administration Moderate Pain (4-6) Albuterol/Ipratropium 3 ml 12/02/18 13:00 12/10/18 14:19 Duoneb NEB 3 ml [id number] LEONIDAS Administration Ascorbic Acid 500 mg 12/02/18 09:00 12/10/18 09:27 Vitamin C PO 500 mg DAILY LEONIDAS Administration Docusate Sodium 100 mg 11/28/18 21:00 12/10/18 09:27 Colace PO 100 mg BID LEONIDAS Administration Enoxaparin Sodium 40 mg 11/29/18 09:00 12/10/18 09:27 Lovenox SC 40 mg 0900 LEONIDAS Administration Famotidine 20 mg 11/28/18 21:00 12/10/18 09:27 Pepcid PO 20 mg BID LEONIDAS Administration Folic Acid 1 mg 12/02/18 09:00 12/10/18 09:27 Folvite PO 1 mg DAILY LEONIDAS Administration Hydrocortisone/Aloe 0 gm 11/29/18 09:00 12/10/18 09:30 Hydrocortisone 1% Cream TOP 1 applic Q12HR LEONIDAS Administration Insulin Glargine 30 units/ 0.3 mls @ 0 mls/hr 11/29/18 09:00 12/10/18 09:29 Miscellaneous Medication SC 0.3 mls QAM LEONIDAS Administration Meropenem 2 gm/ Sodium 100 mls @ 100 mls/hr 11/29/18 14:00 12/10/18 14:32 Chloride IVPB 100 mls Q8HR LEONIDAS Administration Insulin Human Lispro 0 units 11/28/18 15:33 12/10/18 11:35 Humalog SC 4 unit .MODERATE SLIDING SC PRN Administration Moderate Correctional Scale Insulin Human Lispro 0 units 11/28/18 15:33 12/05/18 20:49 Humalog SC 2 unit .BEDTIME SLIDING SC PRN Administration Bedtime Correctional Scale Iron/Minerals/Multivitamins 1 tab 12/02/18 09:00 12/10/18 09:27 Theragran M PO 1 tab DAILY LEONIDAS Administration Ketorolac Tromethamine 15 mg 12/09/18 07:41 12/10/18 00:07 Toradol IVP 12/10/18 21:01 15 mg BID PRN Administration Pain Lidocaine HCl 0 ml 12/02/18 10:00 12/09/18 09:01 Xylocaine 4% Topical Nannette TOP 1 applic ASDIR LEONIDAS Administration Morphine Sulfate 4 mg 12/09/18 07:40 12/10/18 05:47 Morphine SLOW IVP 4 mg Q4H PRN Administration Moderate to Severe Pain (6-10) Morphine Sulfate 4 mg 12/09/18 08:30 12/10/18 12:37 Morphine IV 4 mg DAILYPRN PRN Administration WOUND CARE Nystatin 0 gm 11/30/18 09:00 12/10/18 09:30 Mycostatin Powder TOP 1 applic BID LEONIDAS Administration Polyethylene Glycol 17 gm 12/02/18 09:00 12/10/18 09:28 Miralax PO 17 gm DAILY LEONIDAS Administration Saccharomyces Boulardii 250 mg 12/02/18 09:00 12/10/18 09:27 Florastor PO 250 mg DAILY LEONIDAS Administration Sodium Bicarbonate 650 mg 11/30/18 09:00 12/10/18 09:26 Bicarbonate, Sodium PO 650 mg BID LEONIDAS Administration Sodium Chloride 10 ml 11/28/18 18:25 12/10/18 09:28 Flush - Normal Saline IVF 10 ml PRN PRN Administration Saline Flush Tamsulosin HCl 0.4 mg 11/29/18 09:00 12/10/18 09:27 Flomax PO 0.4 mg DAILY LEONIDAS Administration Zinc Sulfate 220 mg 12/02/18 09:00 12/10/18 09:36 Zinc Sulfate PO 220 mg DAILY LEONIDAS Administration - Exam Neck: negative: supple, symmetric, no JVD, no thyromegaly, no lymphadenopathy, no carotid bruit, JVD Heart: negative: RRR, no murmur, no gallops, no rubs, normal peripheral pulses, irregular, diminshed peripheral pulses, murmur present, II/IV, III/IV Respiratory: negative: CTAB, no wheezes, no rales, no ronchi, normal chest expansion, no tachypnea, normal percussion, rales, rhonchi, tachypneic, wheezes Hosp A/P (1) Stephenie-rectal abscess Code(s): K61.1 - RECTAL ABSCESS Status: Acute (2) Colostomy in place Code(s): Z93.3 - COLOSTOMY STATUS Status: Acute (3) Prostatic abscess Code(s): N41.2 - ABSCESS OF PROSTATE Status: Acute (4) Chronic hepatitis C Code(s): B18.2 - CHRONIC VIRAL HEPATITIS C Status: Chronic Qualifiers: Hepatic coma status: without hepatic coma Qualified Code(s): B18.2 - Chronic viral hepatitis C (5) DM type 2 (diabetes mellitus, type 2) Status: Chronic Qualifiers: Diabetes mellitus retirement insulin use: without termite exterminator use Diabetes mellitus complication status: without complication Qualified Code(s): E11.9 - Type 2 diabetes mellitus without complications - Plan will continue abx, pending placement.
--- NOTE | 2018-12-10 16:37 | PDOC.HOSPP ---
- Subjective Encounter Date: 12/08/18 Encounter Time: 11:45 Subjective: pt up in bed complains of pain to his rectal area - Objective Vital Signs & Weight: Vital Signs (12 hours) Temp Pulse Resp BP Pulse Ox 12/10/18 14:19 76 18 99 12/10/18 08:00 97.6 F 66 18 110/56 L 96 12/10/18 07:44 66 18 99 Weight Admit Weight 180 lb 15.84 oz Weight 180 lb 15.84 oz I&O: 12/09/18 12/10/18 12/11/18 06:59 06:59 06:59 Intake Total 680 Output Total 1800 2950 Balance -1800 -2270 Result Diagrams: 12/09/18 02:40 12/09/18 02:40 Additional Labs: Accuchecks 12/10/18 12/10/18 12/09/18 11:08 05:48 20:30 POC Glucose 225 H 152 H 205 H 12/09/18 16:39 POC Glucose 128 H Hospitalist ROS - Review of Systems Cardiovascular: denies: chest pain, palpitations, orthopnea, paroxysmal noc. dyspnea, edema, light headedness, other Gastrointestinal: denies: nausea, vomiting, abdominal pain, diarrhea, constipation, melena, hematochezia, other Genitourinary: denies: dysuria, frequency, incontinence, hematuria, retention, other Musculoskeletal: reports: other - Medication Medications: Active Medications Generic Name Dose Route Start Last Admin Trade Name Freq PRN Reason Stop Dose Admin Acetaminophen 650 mg 11/28/18 15:33 12/09/18 15:42 Tylenol PO 650 mg Q4H PRN Administration Headache/Fever/Mild Pain (1-3) Hydrocodone Bitart/Acetaminophen 1 tab 12/02/18 07:38 12/10/18 11:38 [employer] 5/325 PO 1 tab Q4H PRN Administration Moderate Pain (4-6) Albuterol/Ipratropium 3 ml 12/02/18 13:00 12/10/18 14:19 Duoneb NEB 3 ml [id number] LEONIDAS Administration Ascorbic Acid 500 mg 12/02/18 09:00 12/10/18 09:27 Vitamin C PO 500 mg DAILY LEONIDAS Administration Docusate Sodium 100 mg 11/28/18 21:00 12/10/18 09:27 Colace PO 100 mg BID LEONIDAS Administration Enoxaparin Sodium 40 mg 11/29/18 09:00 12/10/18 09:27 Lovenox SC 40 mg 0900 LEONIDAS Administration Famotidine 20 mg 11/28/18 21:00 12/10/18 09:27 Pepcid PO 20 mg BID LEONIDAS Administration Folic Acid 1 mg 12/02/18 09:00 12/10/18 09:27 Folvite PO 1 mg DAILY LEONIDAS Administration Hydrocortisone/Aloe 0 gm 11/29/18 09:00 12/10/18 09:30 Hydrocortisone 1% Cream TOP 1 applic Q12HR LEONIDAS Administration Insulin Glargine 30 units/ 0.3 mls @ 0 mls/hr 11/29/18 09:00 12/10/18 09:29 Miscellaneous Medication SC 0.3 mls QAM LEONIDAS Administration Meropenem 2 gm/ Sodium 100 mls @ 100 mls/hr 11/29/18 14:00 12/10/18 14:32 Chloride IVPB 100 mls Q8HR LEONIDAS Administration Insulin Human Lispro 0 units 11/28/18 15:33 12/10/18 11:35 Humalog SC 4 unit .MODERATE SLIDING SC PRN Administration Moderate Correctional Scale Insulin Human Lispro 0 units 11/28/18 15:33 12/05/18 20:49 Humalog SC 2 unit .BEDTIME SLIDING SC PRN Administration Bedtime Correctional Scale Iron/Minerals/Multivitamins 1 tab 12/02/18 09:00 12/10/18 09:27 Theragran M PO 1 tab DAILY LEONIDAS Administration Ketorolac Tromethamine 15 mg 12/09/18 07:41 12/10/18 00:07 Toradol IVP 12/10/18 21:01 15 mg BID PRN Administration Pain Lidocaine HCl 0 ml 12/02/18 10:00 12/09/18 09:01 Xylocaine 4% Topical Nannette TOP 1 applic ASDIR LEONIDAS Administration Morphine Sulfate 4 mg 12/09/18 07:40 12/10/18 05:47 Morphine SLOW IVP 4 mg Q4H PRN Administration Moderate to Severe Pain (6-10) Morphine Sulfate 4 mg 12/09/18 08:30 12/10/18 12:37 Morphine IV 4 mg DAILYPRN PRN Administration WOUND CARE Nystatin 0 gm 11/30/18 09:00 12/10/18 09:30 Mycostatin Powder TOP 1 applic BID LEONIDAS Administration Polyethylene Glycol 17 gm 12/02/18 09:00 12/10/18 09:28 Miralax PO 17 gm DAILY LEONIDAS Administration Saccharomyces Boulardii 250 mg 12/02/18 09:00 12/10/18 09:27 Florastor PO 250 mg DAILY LEONIDAS Administration Sodium Bicarbonate 650 mg 11/30/18 09:00 12/10/18 09:26 Bicarbonate, Sodium PO 650 mg BID LEONIDAS Administration Sodium Chloride 10 ml 11/28/18 18:25 12/10/18 09:28 Flush - Normal Saline IVF 10 ml PRN PRN Administration Saline Flush Tamsulosin HCl 0.4 mg 11/29/18 09:00 12/10/18 09:27 Flomax PO 0.4 mg DAILY LEONIDAS Administration Zinc Sulfate 220 mg 12/02/18 09:00 12/10/18 09:36 Zinc Sulfate PO 220 mg DAILY LEONIDAS Administration - Exam Heart: negative: RRR, no murmur, no gallops, no rubs, normal peripheral pulses, irregular, diminshed peripheral pulses, murmur present, II/IV, III/IV Respiratory: negative: CTAB, no wheezes, no rales, no ronchi, normal chest expansion, no tachypnea, normal percussion, rales, rhonchi, tachypneic, wheezes Gastrointestinal: negative: soft, non-tender, non-distended, normal bowel sounds , no palpable masses, no hepatomegaly, no splenomegaly, no bruit, no guarding, no rigidity, tender to palpation, distended, diminished bowl sounds, voluntary guarding Hosp A/P (1) Stephenie-rectal abscess Code(s): K61.1 - RECTAL ABSCESS Status: Acute (2) Colostomy in place Code(s): Z93.3 - COLOSTOMY STATUS Status: Acute (3) Prostatic abscess Code(s): N41.2 - ABSCESS OF PROSTATE Status: Acute (4) Chronic hepatitis C Code(s): B18.2 - CHRONIC VIRAL HEPATITIS C Status: Chronic Qualifiers: Hepatic coma status: without hepatic coma Qualified Code(s): B18.2 - Chronic viral hepatitis C (5) DM type 2 (diabetes mellitus, type 2) Status: Chronic Qualifiers: Diabetes mellitus fpc insulin use: without long chain dyeing machine operator use Diabetes mellitus complication status: without complication Qualified Code(s): E11.9 - Type 2 diabetes mellitus without complications - Plan 12/08 will add one dose of iv pain meds. continue abx. awaiting placement. 12/09will continue abx, pending placement.
--- NOTE | 2018-12-10 16:38 | PDOC.HOSPP ---
- Subjective Encounter Date: 12/10/18 Encounter Time: 10:00 Subjective: pt up in bed no complains - Objective Vital Signs & Weight: Vital Signs (12 hours) Temp Pulse Resp BP Pulse Ox 12/10/18 14:19 76 18 99 12/10/18 08:00 97.6 F 66 18 110/56 L 96 12/10/18 07:44 66 18 99 Weight Admit Weight 180 lb 15.84 oz Weight 180 lb 15.84 oz I&O: 12/09/18 12/10/18 12/11/18 06:59 06:59 06:59 Intake Total 680 Output Total 1800 2950 Balance -1800 -2270 Result Diagrams: 12/09/18 02:40 12/09/18 02:40 Additional Labs: Accuchecks 12/10/18 12/10/18 12/09/18 11:08 05:48 20:30 POC Glucose 225 H 152 H 205 H 12/09/18 16:39 POC Glucose 128 H Hospitalist ROS - Review of Systems Cardiovascular: denies: chest pain, palpitations, orthopnea, paroxysmal noc. dyspnea, edema, light headedness, other Gastrointestinal: denies: nausea, vomiting, abdominal pain, diarrhea, constipation, melena, hematochezia, other - Medication Medications: Active Medications Generic Name Dose Route Start Last Admin Trade Name Freq PRN Reason Stop Dose Admin Acetaminophen 650 mg 11/28/18 15:33 12/09/18 15:42 Tylenol PO 650 mg Q4H PRN Administration Headache/Fever/Mild Pain (1-3) Hydrocodone Bitart/Acetaminophen 1 tab 12/02/18 07:38 12/10/18 11:38 [place] 5/325 PO 1 tab Q4H PRN Administration Moderate Pain (4-6) Albuterol/Ipratropium 3 ml 12/02/18 13:00 12/10/18 14:19 Duoneb NEB 3 ml [id number] LEONIDAS Administration Ascorbic Acid 500 mg 12/02/18 09:00 12/10/18 09:27 Vitamin C PO 500 mg DAILY LEONIDAS Administration Docusate Sodium 100 mg 11/28/18 21:00 12/10/18 09:27 Colace PO 100 mg BID LEONIDAS Administration Enoxaparin Sodium 40 mg 11/29/18 09:00 12/10/18 09:27 Lovenox SC 40 mg 0900 LEONIDAS Administration Famotidine 20 mg 11/28/18 21:00 12/10/18 09:27 Pepcid PO 20 mg BID LEONIDAS Administration Folic Acid 1 mg 12/02/18 09:00 12/10/18 09:27 Folvite PO 1 mg DAILY LEONIDAS Administration Hydrocortisone/Aloe 0 gm 11/29/18 09:00 12/10/18 09:30 Hydrocortisone 1% Cream TOP 1 applic Q12HR LEONIDAS Administration Insulin Glargine 30 units/ 0.3 mls @ 0 mls/hr 11/29/18 09:00 12/10/18 09:29 Miscellaneous Medication SC 0.3 mls QAM LEONIDAS Administration Meropenem 2 gm/ Sodium 100 mls @ 100 mls/hr 11/29/18 14:00 12/10/18 14:32 Chloride IVPB 100 mls Q8HR LEONIDAS Administration Insulin Human Lispro 0 units 11/28/18 15:33 12/10/18 11:35 Humalog SC 4 unit .MODERATE SLIDING SC PRN Administration Moderate Correctional Scale Insulin Human Lispro 0 units 11/28/18 15:33 12/05/18 20:49 Humalog SC 2 unit .BEDTIME SLIDING SC PRN Administration Bedtime Correctional Scale Iron/Minerals/Multivitamins 1 tab 12/02/18 09:00 12/10/18 09:27 Theragran M PO 1 tab DAILY LEONIDAS Administration Ketorolac Tromethamine 15 mg 12/09/18 07:41 12/10/18 00:07 Toradol IVP 12/10/18 21:01 15 mg BID PRN Administration Pain Lidocaine HCl 0 ml 12/02/18 10:00 12/09/18 09:01 Xylocaine 4% Topical Nannette TOP 1 applic ASDIR LEONIDAS Administration Morphine Sulfate 4 mg 12/09/18 07:40 12/10/18 05:47 Morphine SLOW IVP 4 mg Q4H PRN Administration Moderate to Severe Pain (6-10) Morphine Sulfate 4 mg 12/09/18 08:30 12/10/18 12:37 Morphine IV 4 mg DAILYPRN PRN Administration WOUND CARE Nystatin 0 gm 11/30/18 09:00 12/10/18 09:30 Mycostatin Powder TOP 1 applic BID LEONIDAS Administration Polyethylene Glycol 17 gm 12/02/18 09:00 12/10/18 09:28 Miralax PO 17 gm DAILY LEONIDAS Administration Saccharomyces Boulardii 250 mg 12/02/18 09:00 12/10/18 09:27 Florastor PO 250 mg DAILY LEONIDAS Administration Sodium Bicarbonate 650 mg 11/30/18 09:00 12/10/18 09:26 Bicarbonate, Sodium PO 650 mg BID LEONIDAS Administration Sodium Chloride 10 ml 11/28/18 18:25 12/10/18 09:28 Flush - Normal Saline IVF 10 ml PRN PRN Administration Saline Flush Tamsulosin HCl 0.4 mg 11/29/18 09:00 12/10/18 09:27 Flomax PO 0.4 mg DAILY LEONIDAS Administration Zinc Sulfate 220 mg 12/02/18 09:00 12/10/18 09:36 Zinc Sulfate PO 220 mg DAILY LEONIDAS Administration - Exam Neck: negative: supple, symmetric, no JVD, no thyromegaly, no lymphadenopathy, no carotid bruit, JVD Heart: negative: RRR, no murmur, no gallops, no rubs, normal peripheral pulses, irregular, diminshed peripheral pulses, murmur present, II/IV, III/IV Respiratory: negative: CTAB, no wheezes, no rales, no ronchi, normal chest expansion, no tachypnea, normal percussion, rales, rhonchi, tachypneic, wheezes Hosp A/P (1) Stephenie-rectal abscess Code(s): K61.1 - RECTAL ABSCESS Status: Acute (2) Colostomy in place Code(s): Z93.3 - COLOSTOMY STATUS Status: Acute (3) Prostatic abscess Code(s): N41.2 - ABSCESS OF PROSTATE Status: Acute (4) Chronic hepatitis C Code(s): B18.2 - CHRONIC VIRAL HEPATITIS C Status: Chronic Qualifiers: Hepatic coma status: without hepatic coma Qualified Code(s): B18.2 - Chronic viral hepatitis C (5) DM type 2 (diabetes mellitus, type 2) Status: Chronic Qualifiers: Diabetes mellitus care home insulin use: without adjunct faculty for medical terminology use Diabetes mellitus complication status: without complication Qualified Code(s): E11.9 - Type 2 diabetes mellitus without complications - Plan will continue abx, pending placement. 12/10 will continue abx no new complains.
[2018-12-11] MEDS: Morphine 4 MG/ML VIAL SLOW IVP PRN (05:56)
[2018-12-11] MEDS: Meropenem 2 GM in Sodium Chloride 0.9% 100 ML IVPB SCH ×3 (05:57→21:37)
--- NOTE | 2018-12-11 08:13 | PRG ---
DATE OF SERVICE: 12/11/2018 SUBJECTIVE: The patient without complaints, no acute events over the weekend. Wound has been assessed by General Surgery, stable. OBJECTIVE: VITAL SIGNS: Stable. Afebrile. Urine output 900. ABDOMEN: Soft. SP tube site is clean, dry, and intact. Wound change per General Surgery or Wound Care, pictures reviewed demonstrating granulating tissue superficially. Currently, on IV meropenem. LABORATORY DATA: No new labs. IMPRESSION AND PLAN: A 53-year-old male with, 1. Past medical history of hepatitis C. 2. History of diabetes, noncompliant, uncontrolled. 3. History of necrotizing fasciitis of the scrotum, resolved, treated June 2018. 4. Current admission due to perirectal periprosthetic abscess, status post cystoscopy, suprapubic tube replacement, attempted transrectal ultrasound draining suboptimal. 5. Status post incision and drainage of perirectal abscess by General Surgery. Wound care per General Surgery. Continue IV meropenem per Infectious Disease. DISPOSITION: Still pending, challenging as he is uninsured, unfunded. I would recommend suprapubic tube exchange, staging pelvic CT prior to transfer to assess for stability of his wound. Job ID: [id number]
[2018-12-11] MEDS: Lidocaine 4% Topical Sol 50 ML BOT TOP SCH (09:04)
[2018-12-11] MEDS: Morphine 4 MG/ML VIAL IV PRN (09:04)
[2018-12-11] MEDS: Acetaminophen 325 MG TAB PO PRN (09:05)
[2018-12-11] MEDS: Multivitamin W/ Minerals 1 TAB PO SCH (09:48)
[2018-12-11] MEDS: Polyethylene Glycol 3350 17 GM Packet PO SCH (09:48)
[2018-12-11] MEDS: Folic Acid 1 MG TAB PO SCH (09:48)
[2018-12-11] MEDS: Docusate 100 MG CAP PO SCH ×2 (09:48→21:36)
[2018-12-11] MEDS: Ascorbic Acid 500 mg Chewable Tablet PO SCH (09:48)
[2018-12-11] MEDS: Saccharomyces boulardii 250 MG CAP PO SCH (09:48)
[2018-12-11] MEDS: Zinc Sulfate 220 MG CAP PO SCH (09:48)
[2018-12-11] MEDS: Tamsulosin HCl 0.4 MG CAP PO SCH (09:48)
[2018-12-11] MEDS: Famotidine 20 MG TAB PO SCH ×2 (09:48→21:36)
[2018-12-11] MEDS: Enoxaparin Sodium 40 MG/0.4 ML SYRINGE SC SCH (09:48)
[2018-12-11] MEDS: Sodium Bicarbonate Tab 325 MG TAB PO SCH ×2 (09:48→21:36)
[2018-12-11] MEDS: Nystatin Powder 15 GM BOT TOP SCH ×2 (09:49→21:37)
[2018-12-11] MEDS: Hydrocortisone 1% Cream 30 GM TUBE TOP SCH ×2 (09:49→21:37)
[2018-12-11] MEDS: Insulin Glargine 30 UNITS in Pre-Filled Syringe 1 EACH SC SCH (09:51)
--- NOTE | 2018-12-11 14:02 | PDOC.HOSPP ---
- Subjective Encounter Date: 12/11/18 Encounter Time: 11:30 Subjective: pt up in bed no complains. awaiting placement. - Objective Vital Signs & Weight: Vital Signs (12 hours) Temp Pulse Resp BP Pulse Ox 12/11/18 13:24 66 16 98 12/11/18 08:09 77 16 97 12/11/18 08:00 98.2 F 80 18 129/77 97 Weight Admit Weight 180 lb 15.84 oz Weight 180 lb 15.84 oz I&O: 12/10/18 12/11/18 12/12/18 06:59 06:59 06:59 Intake Total 680 1800 Output Total 2950 1450 Balance -2270 350 Result Diagrams: 12/09/18 02:40 12/09/18 02:40 Additional Labs: Accuchecks 12/11/18 12/11/18 12/10/18 11:11 06:06 22:23 POC Glucose 149 H 112 H 173 H 12/10/18 12/10/18 20:07 16:33 POC Glucose 311 H 100 Hospitalist ROS - Review of Systems Respiratory: denies: cough, dry, shortness of breath, hemoptysis, SOB with excertion, pleuritic pain, sputum, wheezing, other Cardiovascular: denies: chest pain, palpitations, orthopnea, paroxysmal noc. dyspnea, edema, light headedness, other Gastrointestinal: denies: nausea, vomiting, abdominal pain, diarrhea, constipation, melena, hematochezia, other - Medication Medications: Active Medications Generic Name Dose Route Start Last Admin Trade Name Freq PRN Reason Stop Dose Admin Acetaminophen 650 mg 11/28/18 15:33 12/11/18 09:05 Tylenol PO 650 mg Q4H PRN Administration Headache/Fever/Mild Pain (1-3) Hydrocodone Bitart/Acetaminophen 1 tab 12/02/18 07:38 12/10/18 11:38 Aspen 5/325 PO 1 tab Q4H PRN Administration Moderate Pain (4-6) Albuterol/Ipratropium 3 ml 12/02/18 13:00 12/11/18 13:24 Duoneb NEB 3 ml [id number] LEONIDAS Administration Ascorbic Acid 500 mg 12/02/18 09:00 12/11/18 09:48 Vitamin C PO 500 mg DAILY LEONIDAS Administration Docusate Sodium 100 mg 11/28/18 21:00 12/11/18 09:48 Colace PO 100 mg BID LEONIDAS Administration Enoxaparin Sodium 40 mg 11/29/18 09:00 12/11/18 09:48 Lovenox SC 40 mg 0900 LEONIDAS Administration Famotidine 20 mg 11/28/18 21:00 12/11/18 09:48 Pepcid PO 20 mg BID LEONIDAS Administration Folic Acid 1 mg 12/02/18 09:00 12/11/18 09:48 Folvite PO 1 mg DAILY LEONIDAS Administration Hydrocortisone/Aloe 0 gm 11/29/18 09:00 12/11/18 09:49 Hydrocortisone 1% Cream TOP 1 applic Q12HR LEONIDAS Administration Insulin Glargine 30 units/ 0.3 mls @ 0 mls/hr 11/29/18 09:00 12/11/18 09:51 Miscellaneous Medication SC 0.3 mls QAM LEONIDAS Administration Meropenem 2 gm/ Sodium 100 mls @ 100 mls/hr 11/29/18 14:00 12/11/18 05:57 Chloride IVPB 100 mls Q8HR LEONIDAS Administration Insulin Human Lispro 0 units 11/28/18 15:33 12/10/18 11:35 Humalog SC 4 unit .MODERATE SLIDING SC PRN Administration Moderate Correctional Scale Insulin Human Lispro 0 units 11/28/18 15:33 12/10/18 20:37 Humalog SC 4 unit .BEDTIME SLIDING SC PRN Administration Bedtime Correctional Scale Iron/Minerals/Multivitamins 1 tab 12/02/18 09:00 12/11/18 09:48 Theragran M PO 1 tab DAILY LEONIDAS Administration Lidocaine HCl 0 ml 12/02/18 10:00 12/11/18 09:04 Xylocaine 4% Topical Nannette TOP 1 applic ASDIR LEONIDAS Administration Morphine Sulfate 4 mg 12/09/18 07:40 12/11/18 05:56 Morphine SLOW IVP 4 mg Q4H PRN Administration Moderate to Severe Pain (6-10) Morphine Sulfate 4 mg 12/09/18 08:30 12/11/18 09:04 Morphine IV 4 mg DAILYPRN PRN Administration WOUND CARE Nystatin 0 gm 11/30/18 09:00 12/11/18 09:49 Mycostatin Powder TOP 1 applic BID LEONIDAS Administration Polyethylene Glycol 17 gm 12/02/18 09:00 12/11/18 09:48 Miralax PO 17 gm DAILY LEONIDAS Administration Saccharomyces Boulardii 250 mg 12/02/18 09:00 12/11/18 09:48 Florastor PO 250 mg DAILY LEONIDAS Administration Sodium Bicarbonate 650 mg 11/30/18 09:00 12/11/18 09:48 Bicarbonate, Sodium PO 650 mg BID LEONIDAS Administration Sodium Chloride 10 ml 11/28/18 18:25 12/11/18 09:49 Flush - Normal Saline IVF 10 ml PRN PRN Administration Saline Flush Tamsulosin HCl 0.4 mg 11/29/18 09:00 12/11/18 09:48 Flomax PO 0.4 mg DAILY LEONIDAS Administration Zinc Sulfate 220 mg 12/02/18 09:00 12/11/18 09:48 Zinc Sulfate PO 220 mg DAILY LEONIDAS Administration - Exam Neck: negative: supple, symmetric, no JVD, no thyromegaly, no lymphadenopathy, no carotid bruit, JVD Heart: negative: RRR, no murmur, no gallops, no rubs, normal peripheral pulses, irregular, diminshed peripheral pulses, murmur present, II/IV, III/IV Respiratory: negative: CTAB, no wheezes, no rales, no ronchi, normal chest expansion, no tachypnea, normal percussion, rales, rhonchi, tachypneic, wheezes Hosp A/P (1) Stephenie-rectal abscess Code(s): K61.1 - RECTAL ABSCESS Status: Acute (2) Colostomy in place Code(s): Z93.3 - COLOSTOMY STATUS Status: Acute (3) Prostatic abscess Code(s): N41.2 - ABSCESS OF PROSTATE Status: Acute (4) Chronic hepatitis C Code(s): B18.2 - CHRONIC VIRAL HEPATITIS C Status: Chronic Qualifiers: Hepatic coma status: without hepatic coma Qualified Code(s): B18.2 - Chronic viral hepatitis C (5) DM type 2 (diabetes mellitus, type 2) Status: Chronic Qualifiers: Diabetes mellitus terminal gauger supervisor insulin use: without terminal gauger supervisor use Diabetes mellitus complication status: without complication Qualified Code(s): E11.9 - Type 2 diabetes mellitus without complications - Plan will continue abx, pending placement. 12/10 will continue abx no new complains. 12/11 pt up in bed, doing well. waiting placement. blood sugars stable.
[2018-12-11] MEDS: HYDROcodone/Acetaminophen 5/325 mg Tablet PO PRN (17:18)
[2018-12-11] MEDS: HumaLOG 300 UNITS/3 ML VIAL SC PRN ×2 (17:18→17:21)
[2018-12-12] MEDS: Meropenem 2 GM in Sodium Chloride 0.9% 100 ML IVPB SCH ×3 (05:02→22:10)
--- NOTE | 2018-12-12 07:52 | PRG ---
DATE OF SERVICE: 12/12/2018 SUBJECTIVE: The patient without complaints. OBJECTIVE: VITAL SIGNS: Stable, afebrile. I's and O's, urine output 4400, - 2.2 L. ABDOMEN: Soft. SP tube site is clean, dry, and intact. : Scrotal area demonstrates no significant evidence of erythema, induration, or fluctuance. Perirectal dressing in place. Wound pictures reviewed. LABORATORY DATA: No new labs. IMPRESSION: A 53-year-old male with past medical history of, 1. Hepatitis C. 2. Diabetes noncompliant, uncontrolled. 3. History of necrotizing fasciitis of scrotum, treated, resolved, June 2018, current admission due to perirectal/periprostatic abscess status post incision and drainage by General Surgery. Continue IV meropenem per Infectious Disease. Wound Care management per General Surgery. 4. Status post cystoscopy, suprapubic tube, attempted transrectal ultrasound drainage. Disposition pending. PLAN: Pelvic CT prior to transfer, SP tube exchange. Do not discharge the patient unless it is okay with and General Surgery. Job ID: [id number] [facility]
[2018-12-12] MEDS: Morphine 4 MG/ML VIAL SLOW IVP PRN ×2 (09:05→22:14)
[2018-12-12] MEDS: Morphine 4 MG/ML VIAL IV PRN (09:07)
[2018-12-12] MEDS: Insulin Glargine 30 UNITS in Pre-Filled Syringe 1 EACH SC SCH (09:10)
[2018-12-12] MEDS: Tamsulosin HCl 0.4 MG CAP PO SCH (09:11)
[2018-12-12] MEDS: Docusate 100 MG CAP PO SCH ×2 (09:11→21:18)
[2018-12-12] MEDS: Sodium Bicarbonate Tab 325 MG TAB PO SCH ×3 (09:11→22:11)
[2018-12-12] MEDS: Zinc Sulfate 220 MG CAP PO SCH (09:11)
[2018-12-12] MEDS: Multivitamin W/ Minerals 1 TAB PO SCH (09:11)
[2018-12-12] MEDS: Saccharomyces boulardii 250 MG CAP PO SCH (09:11)
[2018-12-12] MEDS: Enoxaparin Sodium 40 MG/0.4 ML SYRINGE SC SCH (09:12)
[2018-12-12] MEDS: Ascorbic Acid 500 mg Chewable Tablet PO SCH (09:12)
[2018-12-12] MEDS: Folic Acid 1 MG TAB PO SCH (09:12)
[2018-12-12] MEDS: Polyethylene Glycol 3350 17 GM Packet PO SCH (09:12)
[2018-12-12] MEDS: Hydrocortisone 1% Cream 30 GM TUBE TOP SCH ×2 (09:30→21:18)
[2018-12-12] MEDS: Nystatin Powder 15 GM BOT TOP SCH ×2 (09:30→21:19)
[2018-12-12] MEDS: Famotidine 20 MG TAB PO SCH ×3 (09:32→22:11)
[2018-12-12] MEDS: HumaLOG 300 UNITS/3 ML VIAL SC PRN (13:41)
[2018-12-13] MEDS: Meropenem 2 GM in Sodium Chloride 0.9% 100 ML IVPB SCH ×3 (05:11→21:16)
--- NOTE | 2018-12-13 08:42 | PRG ---
DATE OF SERVICE: 12/13/2018 SUBJECTIVE: The patient without complaints. OBJECTIVE: VITAL SIGNS: Stable. ABDOMEN: Soft. No rigidity. No rebound. Suprapubic tube site is clean, dry, and intact. : Scrotal area demonstrates no evidence of fluctuance or induration. IMPRESSION: Mr. Orlando is a 53-year-old male with history of, 1. Hepatitis C. 2. Diabetes noncompliant, uncontrolled. 3. Prior history of Karla's of the scrotum, perineum resolved, status post wide debridement. 4. Current admission due to perirectal periprostatic abscess, incision and drainage by General Surgery, cystoscopy, attempted transrectal ultrasound drainage, suboptimal suprapubic tube replacement. As previous wound care per General Surgery, due to lack of funds, it appears the patient will be in-house for course of IV antibiotic therapy. PLAN: Staging pelvic CT in the next few days. Continue SP tube. Job ID: [id number] [facility]
[2018-12-13] MEDS: Zinc Sulfate 220 MG CAP PO SCH (09:16)
[2018-12-13] MEDS: Multivitamin W/ Minerals 1 TAB PO SCH (09:16)
[2018-12-13] MEDS: Saccharomyces boulardii 250 MG CAP PO SCH (09:16)
[2018-12-13] MEDS: Tamsulosin HCl 0.4 MG CAP PO SCH (09:16)
[2018-12-13] MEDS: Sodium Bicarbonate Tab 325 MG TAB PO SCH ×2 (09:16→21:17)
[2018-12-13] MEDS: Ascorbic Acid 500 mg Chewable Tablet PO SCH (09:16)
[2018-12-13] MEDS: Docusate 100 MG CAP PO SCH ×2 (09:16→21:17)
[2018-12-13] MEDS: Famotidine 20 MG TAB PO SCH ×2 (09:17→21:17)
[2018-12-13] MEDS: Folic Acid 1 MG TAB PO SCH (09:17)
[2018-12-13] MEDS: Polyethylene Glycol 3350 17 GM Packet PO SCH (09:17)
[2018-12-13] MEDS: Insulin Glargine 30 UNITS in Pre-Filled Syringe 1 EACH SC SCH (09:21)
--- NOTE | 2018-12-13 10:30 | PRG ---
DATE OF SERVICE: 12/13/2018 Mr. Orlando is a 53-year-old man with history of diabetes mellitus and perirectal abscess. The patient is postoperative day #12, status post incision and drainage of the said bilateral perirectal abscesses. I have examined him today at bedside. The wound is clean. Packings were removed. No residual purulence present. The patient has remained hemodynamically stable and afebrile since surgery. There is no induration around the wound itself. I am recommending no further packing. The patient is to use sitz baths 3 times daily and after any residual bowel movement per rectum, which will be very infrequent given the patient has a diverting loop transverse colostomy. Further antibiotic treatment is at the discretion of the Primary Service and Infectious Disease. No further surgical indication is warranted at this time. The patient may be discharged home at the discretion of Primary Service from surgical standpoint. The patient is to follow up with me in the surgery clinic in 2 to 3 weeks after discharge. Above findings and recommendations have been discussed with the patient in the presence of his nurse at bedside. The patient indicates understanding information given. I have answered his questions. Job ID: [id number]
[2018-12-13] MEDS: Enoxaparin Sodium 40 MG/0.4 ML SYRINGE SC SCH (11:48)
--- NOTE | 2018-12-13 15:17 | PDOC.HOSPP ---
- Subjective Encounter Date: 12/12/18 Encounter Time: 10:00 Subjective: pt up in bed no complains - Objective Vital Signs & Weight: Vital Signs (12 hours) Temp Pulse Resp BP Pulse Ox 12/13/18 08:00 97.4 F L 68 16 96/51 L 94 L 12/13/18 07:19 69 14 97 Weight Admit Weight 180 lb 15.84 oz Weight 180 lb 15.84 oz I&O: 12/12/18 12/13/18 12/14/18 06:59 06:59 06:59 Intake Total 2200 1940 Output Total 4400 2200 Balance -2200 -260 Result Diagrams: 12/09/18 02:40 12/09/18 02:40 Additional Labs: Accuchecks 12/13/18 12/13/18 12/12/18 11:07 05:29 20:10 POC Glucose 174 H 170 H 176 H 12/12/18 15:58 POC Glucose 121 H Hospitalist ROS - Review of Systems Cardiovascular: denies: chest pain, palpitations, orthopnea, paroxysmal noc. dyspnea, edema, light headedness, other Gastrointestinal: denies: nausea, vomiting, abdominal pain, diarrhea, constipation, melena, hematochezia, other Genitourinary: denies: dysuria, frequency, incontinence, hematuria, retention, other - Medication Medications: Active Medications Generic Name Dose Route Start Last Admin Trade Name Freq PRN Reason Stop Dose Admin Acetaminophen 650 mg 11/28/18 15:33 12/11/18 09:05 Tylenol PO 650 mg Q4H PRN Administration Headache/Fever/Mild Pain (1-3) Ascorbic Acid 500 mg 12/02/18 09:00 12/13/18 09:16 Vitamin C PO 500 mg DAILY LEONIDAS Administration Docusate Sodium 100 mg 11/28/18 21:00 12/13/18 09:16 Colace PO 100 mg BID LEONIDAS Administration Enoxaparin Sodium 40 mg 11/29/18 09:00 12/13/18 11:48 Lovenox SC 40 mg 0900 LEONIDAS Administration Famotidine 20 mg 11/28/18 21:00 12/13/18 09:17 Pepcid PO 20 mg BID LEONIDAS Administration Folic Acid 1 mg 12/02/18 09:00 12/13/18 09:17 Folvite PO 1 mg DAILY LEONIDAS Administration Hydrocortisone/Aloe 0 gm 09/04/19 09:00 12/12/18 21:18 Hydrocortisone 1% Cream TOP 1 applic Q12HR LEONIDAS Administration Insulin Glargine 30 units/ 0.3 mls @ 0 mls/hr 11/29/18 09:00 12/13/18 09:21 Miscellaneous Medication SC 0.3 mls QAM LEONIDAS Administration Meropenem 2 gm/ Sodium 100 mls @ 100 mls/hr 11/29/18 14:00 12/13/18 14:55 Chloride IVPB 100 mls Q8HR LEONIDAS Administration Insulin Human Lispro 0 units 11/28/18 15:33 12/12/18 13:41 Humalog SC 4 unit .MODERATE SLIDING SC PRN Administration Moderate Correctional Scale Insulin Human Lispro 0 units 11/28/18 15:33 12/10/18 20:37 Humalog SC 4 unit .BEDTIME SLIDING SC PRN Administration Bedtime Correctional Scale Iron/Minerals/Multivitamins 1 tab 12/02/18 09:00 12/13/18 09:16 Theragran M PO 1 tab DAILY LEONIDAS Administration Lidocaine HCl 0 ml 12/02/18 10:00 12/11/18 09:04 Xylocaine 4% Topical Nannette TOP 1 applic ASDIR LEONIDAS Administration Morphine Sulfate 4 mg 12/12/18 15:17 12/12/18 22:14 Morphine SLOW IVP 4 mg Q4H PRN Administration Mild-Moderate Pain (1-5) Nystatin 0 gm 11/30/18 09:00 12/12/18 21:19 Mycostatin Powder TOP 1 applic BID LEONIDAS Administration Polyethylene Glycol 17 gm 12/02/18 09:00 12/13/18 09:17 Miralax PO 17 gm DAILY LEONIDAS Administration Saccharomyces Boulardii 250 mg 12/02/18 09:00 12/13/18 09:16 Florastor PO 250 mg DAILY LEONIDAS Administration Sodium Bicarbonate 650 mg 11/30/18 09:00 12/13/18 09:16 Bicarbonate, Sodium PO 650 mg BID LEONIDAS Administration Sodium Chloride 10 ml 11/28/18 18:25 12/13/18 14:56 Flush - Normal Saline IVF 10 ml PRN PRN Administration Saline Flush Tamsulosin HCl 0.4 mg 11/29/18 09:00 12/13/18 09:16 Flomax PO 0.4 mg DAILY LEONIDAS Administration Zinc Sulfate 220 mg 12/02/18 09:00 12/13/18 09:16 Zinc Sulfate PO 220 mg DAILY LEONIDAS Administration - Exam Neck: negative: supple, symmetric, no JVD, no thyromegaly, no lymphadenopathy, no carotid bruit, JVD Heart: negative: RRR, no murmur, no gallops, no rubs, normal peripheral pulses, irregular, diminshed peripheral pulses, murmur present, II/IV, III/IV Respiratory: negative: CTAB, no wheezes, no rales, no ronchi, normal chest expansion, no tachypnea, normal percussion, rales, rhonchi, tachypneic, wheezes Hosp A/P (1) Stephenie-rectal abscess Code(s): K61.1 - RECTAL ABSCESS Status: Acute (2) Colostomy in place Code(s): Z93.3 - COLOSTOMY STATUS Status: Acute (3) Prostatic abscess Code(s): N41.2 - ABSCESS OF PROSTATE Status: Acute (4) Chronic hepatitis C Code(s): B18.2 - CHRONIC VIRAL HEPATITIS C Status: Chronic Qualifiers: Hepatic coma status: without hepatic coma Qualified Code(s): B18.2 - Chronic viral hepatitis C (5) DM type 2 (diabetes mellitus, type 2) Status: Chronic Qualifiers: 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 12/10 will continue abx no new complains. 12/11 pt up in bed, doing well. waiting placement. blood sugars stable. 12/12 pt up in bed no complains. will continue abx
[2018-12-13] MEDS: Nystatin Powder 15 GM BOT TOP SCH ×2 (16:00→21:17)
[2018-12-13] MEDS: Hydrocortisone 1% Cream 30 GM TUBE TOP SCH ×2 (16:00→21:17)
[2018-12-13] MEDS: Morphine 4 MG/ML VIAL SLOW IVP PRN (21:20)
[2018-12-14] MEDS: Meropenem 2 GM in Sodium Chloride 0.9% 100 ML IVPB SCH ×3 (05:41→21:23)
--- NOTE | 2018-12-14 09:01 | PRG ---
DATE OF SERVICE: 12/14/2018 SUBJECTIVE: The patient without complaints. OBJECTIVE: VITAL SIGNS: Stable and afebrile. ABDOMEN: Soft. Suprapubic tube site is clean, dry, and intact draining concentrated yellow urine. Scrotal exam is benign with no evidence of induration or erythema of concern. IMPRESSION AND PLAN: 1. Mr. Orlando is a 53-year-old male with history of hepatitis C, untreated. 2. Diabetes, noncompliant. Recommend the patient have disposition for outpatient surveillance of his diabetes, as he is noncompliant, once discharged, he does not take his insulin. Case Management should provide resources for this patient when he is discharged as he is high risk for readmission. 3. 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 4. Current admission due to perirectal periprosthetic abscess, I and D by General Surgery. 5. Cystoscopy, attempted transrectal ultrasound drainage, and SP tube replacement. He will require IV antibiotics, meropenem for four weeks per Infectious Disease. Due to lack of funds, the patient will need to be in-house for IV antibiotics and strict control of his diabetes. Certainly, placement can be found where IV antibiotics and strict control of his diabetes can be performed would be ideal. Continue present management. Job ID: [id number] [facility]
[2018-12-14] MEDS: Insulin Glargine 30 UNITS in Pre-Filled Syringe 1 EACH SC SCH (09:44)
[2018-12-14] MEDS: Enoxaparin Sodium 40 MG/0.4 ML SYRINGE SC SCH (09:45)
[2018-12-14] MEDS: Polyethylene Glycol 3350 17 GM Packet PO SCH (09:45)
[2018-12-14] MEDS: Sodium Bicarbonate Tab 325 MG TAB PO SCH ×2 (09:45→21:23)
[2018-12-14] MEDS: Famotidine 20 MG TAB PO SCH ×2 (09:46→21:23)
[2018-12-14] MEDS: Folic Acid 1 MG TAB PO SCH (09:46)
[2018-12-14] MEDS: Zinc Sulfate 220 MG CAP PO SCH (09:46)
[2018-12-14] MEDS: Saccharomyces boulardii 250 MG CAP PO SCH (09:46)
[2018-12-14] MEDS: Tamsulosin HCl 0.4 MG CAP PO SCH (09:46)
[2018-12-14] MEDS: Ascorbic Acid 500 mg Chewable Tablet PO SCH (09:46)
[2018-12-14] MEDS: Multivitamin W/ Minerals 1 TAB PO SCH (09:46)
[2018-12-14] MEDS: Docusate 100 MG CAP PO SCH ×2 (09:47→21:23)
[2018-12-14] MEDS: Hydrocortisone 1% Cream 30 GM TUBE TOP SCH ×2 (09:47→21:23)
[2018-12-14] MEDS: Nystatin Powder 15 GM BOT TOP SCH ×2 (09:48→21:23)
[2018-12-14] MEDS: HumaLOG 300 UNITS/3 ML VIAL SC PRN (16:32)
[2018-12-15] MEDS: Meropenem 2 GM in Sodium Chloride 0.9% 100 ML IVPB SCH ×3 (05:36→21:29)
--- NOTE | 2018-12-15 07:56 | PRG ---
DATE OF SERVICE: 12/15/2018 SUBJECTIVE: The patient without complaints. OBJECTIVE: VITAL SIGNS: Stable. ABDOMEN: Suprapubic tube site is clean, dry, and intact. GENITOURINARY: Scrotal area demonstrates no evidence of inflammation, induration of concern. Perirectal incision inspected demonstrating granulating tissue. He is on sitz baths with no dressing per General Surgery. LABORATORY DATA: No new labs. IMPRESSION AND PLAN: Mr. Orlando is a 53-year-old male with history of, 1. Hepatitis C, not treated. 2. Diabetes, uncontrolled. 3. History of scrotal Karla's, status post wide debridement, suprapubic tube resolved. 4. Current admission due to perirectal periprosthetic abscess, status post I and D by General Surgery. He is currently on sitz baths for Dr. Stuart, CT of the pelvis ordered today for staging his pelvis. The patient informed. Per Infectious Disease, he will require 4 weeks total of IV meropenem. Job ID: [id number]
[2018-12-15] MEDS: Morphine 4 MG/ML VIAL SLOW IVP PRN (09:25)
[2018-12-15] MEDS: Acetaminophen 325 MG TAB PO PRN (09:25)
--- NOTE | 2018-12-15 10:08 | CT ---
EXAM: CT Pelvis W Con PROVIDED CLINICAL HISTORY: Perirectal abscess COMPARISON: 12/01/2018 FINDINGS: The previously described multiloculated fluid collections within the perineal region are no longer vi sualized. There is minimal stranding of the left ischiorectal fossa fat with a tiny focus of soft tissue gas demonstrated. No residual fluid is evident. There is mural thickening involving the sigmoid and visualized descending colon. Vascular calcificati ons are noted. Suprapubic catheter with tip within the urinary bladder again demonstrated. Vascular calcifications are seen. 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 IMPRESSION: 1. Interval resolution of perineal fluid collections. 2. Findings suggesting nonspecific sigmoid and descending colitis.
[2018-12-15] MEDS: Docusate 100 MG CAP PO SCH ×2 (11:58→21:27)
[2018-12-15] MEDS ORDERED: Iopamidol 370 76% 100 ML VIAL ONE (11:58)
[2018-12-15] MEDS: Tamsulosin HCl 0.4 MG CAP PO SCH (11:58)
[2018-12-15] MEDS ORDERED: Iopamidol 370 76% 50 ML VIAL FS ONE (11:58)
[2018-12-15] MEDS: Saccharomyces boulardii 250 MG CAP PO SCH (11:59)
[2018-12-15] MEDS: Folic Acid 1 MG TAB PO SCH (11:59)
[2018-12-15] MEDS: Famotidine 20 MG TAB PO SCH ×2 (11:59→21:27)
[2018-12-15] MEDS: Polyethylene Glycol 3350 17 GM Packet PO SCH (11:59)
[2018-12-15] MEDS: Multivitamin W/ Minerals 1 TAB PO SCH (11:59)
[2018-12-15] MEDS: Ascorbic Acid 500 mg Chewable Tablet PO SCH (11:59)
[2018-12-15] MEDS: Hydrocortisone 1% Cream 30 GM TUBE TOP SCH ×2 (12:00→21:28)
[2018-12-15] MEDS: Enoxaparin Sodium 40 MG/0.4 ML SYRINGE SC SCH (12:00)
[2018-12-15] MEDS: Nystatin Powder 15 GM BOT TOP SCH ×2 (12:00→21:28)
[2018-12-15] MEDS: Zinc Sulfate 220 MG CAP PO SCH (12:01)
[2018-12-15] MEDS: Insulin Glargine 30 UNITS in Pre-Filled Syringe 1 EACH SC SCH (12:07)
[2018-12-15] MEDS: Sodium Bicarbonate Tab 325 MG TAB PO SCH ×2 (14:49→21:27)
[2018-12-15] MEDS: HumaLOG 300 UNITS/3 ML VIAL SC PRN (18:13)
--- NOTE | 2018-12-15 22:29 | PDOC.HOSPP ---
- Subjective Encounter Date: 12/14/18 Encounter Time: 10:00 Subjective: pt up in bed no complains, he does not have a ride to come to the hospital for abx - Objective Vital Signs & Weight: Vital Signs (12 hours) Temp Pulse Resp BP Pulse Ox 12/15/18 19:45 98.4 F 76 12 110/63 97 Weight Admit Weight 180 lb 15.84 oz Weight 180 lb 15.84 oz I&O: 12/14/18 12/15/18 12/16/18 06:59 06:59 06:59 Intake Total 700 1500 720 Output Total 2550 2400 675 Balance -1850 -900 45 Result Diagrams: 12/09/18 02:40 12/09/18 02:40 Additional Labs: Accuchecks 12/15/18 12/15/18 12/15/18 20:32 16:17 11:35 POC Glucose 203 H 193 H 163 H 12/15/18 05:39 POC Glucose 105 Hospitalist ROS - Review of Systems Cardiovascular: denies: chest pain, palpitations, orthopnea, paroxysmal noc. dyspnea, edema, light headedness, other Gastrointestinal: denies: nausea, vomiting, abdominal pain, diarrhea, constipation, melena, hematochezia, other - Medication Medications: Active Medications Generic Name Dose Route Start Last Admin Trade Name Kemal PRN Reason Stop Dose Admin Acetaminophen 650 mg 11/28/18 15:33 12/15/18 09:25 Tylenol PO 650 mg Q4H PRN Administration Headache/Fever/Mild Pain (1-3) Ascorbic Acid 500 mg 12/02/18 09:00 12/15/18 11:59 Vitamin C PO 500 mg DAILY LEONIDAS Administration Docusate Sodium 100 mg 11/28/18 21:00 12/15/18 21:27 Colace PO 100 mg BID LEONIDAS Administration Enoxaparin Sodium 40 mg 11/29/18 09:00 12/15/18 12:00 Lovenox SC 40 mg 899 LEONIDAS Administration Famotidine 20 mg 11/28/18 21:00 12/15/18 21:27 Pepcid PO 20 mg BID LEONIDAS Administration Folic Acid 1 mg 12/02/18 09:00 12/15/18 11:59 Folvite PO 1 mg DAILY LEONIDAS Administration Hydrocortisone/Aloe 0 gm 11/29/18 09:00 12/15/18 21:28 Hydrocortisone 1% Cream TOP 1 applic Q12HR LEONIDAS Administration Insulin Glargine 30 units/ 0.3 mls @ 0 mls/hr 11/29/18 09:00 12/15/18 12:07 Miscellaneous Medication SC 0.3 mls QAM LEONIDAS Administration Meropenem 2 gm/ Sodium 100 mls @ 100 mls/hr 11/29/18 14:00 12/15/18 21:29 Chloride IVPB 100 mls Q8HR LEONIDAS Administration Insulin Human Lispro 0 units 11/28/18 15:33 12/15/18 18:13 Humalog SC 2 unit .MODERATE SLIDING SC PRN Administration Moderate Correctional Scale Insulin Human Lispro 0 units 11/28/18 15:33 12/10/18 20:37 Humalog SC 4 unit .BEDTIME SLIDING SC PRN Administration Bedtime Correctional Scale Iron/Minerals/Multivitamins 1 tab 12/02/18 09:00 12/15/18 11:59 Theragran M PO 1 tab DAILY LEONIDAS Administration Lidocaine HCl 0 ml 12/02/18 10:00 12/11/18 09:04 Xylocaine 4% Topical Nannette TOP 1 applic ASDIR LEONIDAS Administration Morphine Sulfate 4 mg 12/12/18 15:17 12/15/18 09:25 Morphine SLOW IVP 4 mg Q4H PRN Administration Mild-Moderate Pain (1-5) Nystatin 0 gm 11/30/18 09:00 12/15/18 21:28 Mycostatin Powder TOP 1 applic BID LEONIDAS Administration Polyethylene Glycol 17 gm 12/02/18 09:00 12/15/18 11:59 Miralax PO 17 gm DAILY LEONIDAS Administration Saccharomyces Boulardii 250 mg 12/02/18 09:00 12/15/18 11:59 Florastor PO 250 mg DAILY LEONIDAS Administration Sodium Bicarbonate 650 mg 11/30/18 09:00 12/15/18 21:27 Bicarbonate, Sodium PO 650 mg BID LEONIDAS Administration Sodium Chloride 10 ml 11/28/18 18:25 12/15/18 14:51 Flush - Normal Saline IVF 10 ml PRN PRN Administration Saline Flush Tamsulosin HCl 0.4 mg 11/29/18 09:00 12/15/18 11:58 Flomax PO 0.4 mg DAILY LEONIDAS Administration Zinc Sulfate 220 mg 12/02/18 09:00 12/15/18 12:01 Zinc Sulfate PO 220 mg DAILY LEONIDAS Administration - Exam Neck: negative: supple, symmetric, no JVD, no thyromegaly, no lymphadenopathy, no carotid bruit, JVD Heart: negative: RRR, no murmur, no gallops, no rubs, normal peripheral pulses, irregular, diminshed peripheral pulses, murmur present, II/IV, III/IV Respiratory: negative: CTAB, no wheezes, no rales, no ronchi, normal chest expansion, no tachypnea, normal percussion, rales, rhonchi, tachypneic, wheezes Hosp A/P (1) Stephenie-rectal abscess Code(s): K61.1 - RECTAL ABSCESS Status: Acute (2) Colostomy in place Code(s): Z93.3 - COLOSTOMY STATUS Status: Acute (3) Prostatic abscess Code(s): N41.2 - ABSCESS OF PROSTATE Status: Acute (4) Chronic hepatitis C Code(s): B18.2 - CHRONIC VIRAL HEPATITIS C Status: Chronic Qualifiers: Hepatic coma status: without hepatic coma Qualified Code(s): B18.2 - Chronic viral hepatitis C (5) DM type 2 (diabetes mellitus, type 2) Status: Chronic Qualifiers: 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 12/10 will continue abx no new complains. 12/11 pt up in bed, doing well. waiting placement. blood sugars stable. 12/12 pt up in bed no complains. will continue abx 12/14 pt is suppose to get abx for 4 weeks, he will follow up with surgery in 2- 3 weeks. pt's packing has been removed. pt was could go home but he does not have a ride to come get his abx since he is unfunded.
[2018-12-16] MEDS: Meropenem 2 GM in Sodium Chloride 0.9% 100 ML IVPB SCH ×3 (05:28→21:41)
[2018-12-16] MEDS: Zinc Sulfate 220 MG CAP PO SCH (08:36)
[2018-12-16] MEDS: Sodium Bicarbonate Tab 325 MG TAB PO SCH ×2 (08:37→21:42)
[2018-12-16] MEDS: Enoxaparin Sodium 40 MG/0.4 ML SYRINGE SC SCH (08:38)
[2018-12-16] MEDS: Tamsulosin HCl 0.4 MG CAP PO SCH (08:38)
[2018-12-16] MEDS: Multivitamin W/ Minerals 1 TAB PO SCH (08:38)
[2018-12-16] MEDS: Polyethylene Glycol 3350 17 GM Packet PO SCH (08:38)
[2018-12-16] MEDS: Saccharomyces boulardii 250 MG CAP PO SCH (08:38)
[2018-12-16] MEDS: Docusate 100 MG CAP PO SCH ×2 (08:38→21:42)
[2018-12-16] MEDS: Famotidine 20 MG TAB PO SCH ×2 (08:38→21:42)
[2018-12-16] MEDS: Folic Acid 1 MG TAB PO SCH (08:39)
[2018-12-16] MEDS: Insulin Glargine 30 UNITS in Pre-Filled Syringe 1 EACH SC SCH (08:41)
[2018-12-16] MEDS: Ascorbic Acid 500 mg Chewable Tablet PO SCH (08:41)
[2018-12-16] MEDS: Hydrocortisone 1% Cream 30 GM TUBE TOP SCH ×2 (09:00→21:42)
[2018-12-16] MEDS: Nystatin Powder 15 GM BOT TOP SCH ×2 (09:00→21:42)
--- NOTE | 2018-12-16 10:41 | PDOC.HOSPP ---
- Subjective Encounter Date: 12/16/18 Encounter Time: 10:00 Subjective: Patient seen and examined for Sepsis. No new complaints. No N/V/D. No new complaints. No overnight events - Objective Vital Signs & Weight: Vital Signs (12 hours) Temp Pulse Resp BP Pulse Ox 12/16/18 07:50 97.4 F L 74 20 120/79 98 Weight Admit Weight 180 lb 15.84 oz Weight 180 lb 15.84 oz I&O: 12/15/18 12/16/18 12/17/18 06:59 06:59 06:59 Intake Total 1500 1880 Output Total 2400 1975 Balance -900 -95 Result Diagrams: 12/09/18 02:40 12/09/18 02:40 Additional Labs: Accuchecks 12/16/18 12/15/18 12/15/18 05:48 20:32 16:17 POC Glucose 145 H 203 H 193 H 12/15/18 11:35 POC Glucose 163 H Hospitalist ROS - Review of Systems Respiratory: denies: cough, dry, shortness of breath, hemoptysis, SOB with excertion, pleuritic pain, sputum, wheezing, other Cardiovascular: denies: chest pain, palpitations, orthopnea, paroxysmal noc. dyspnea, edema, light headedness, other - Medication Medications: Active Medications Generic Name Dose Route Start Last Admin Trade Name Freq PRN Reason Stop Dose Admin Acetaminophen 650 mg 11/28/18 15:33 12/15/18 09:25 Tylenol PO 650 mg Q4H PRN Administration Headache/Fever/Mild Pain (1-3) Ascorbic Acid 500 mg 12/02/18 09:00 12/16/18 08:41 Vitamin C PO 500 mg DAILY LEONIDAS Administration Docusate Sodium 100 mg 11/28/18 21:00 12/16/18 08:38 Colace PO 100 mg BID LEONIDAS Administration Enoxaparin Sodium 40 mg 11/29/18 09:00 12/16/18 08:38 Lovenox SC 40 mg 09 LEONIDAS Administration Famotidine 20 mg 11/28/18 21:00 12/16/18 08:38 Pepcid PO 20 mg BID LEONIDAS Administration Folic Acid 1 mg 12/02/18 09:00 12/16/18 08:39 Folvite PO 1 mg DAILY LEONIDAS Administration Hydrocortisone/Aloe 0 gm 11/29/18 09:00 12/15/18 21:28 Hydrocortisone 1% Cream TOP 1 applic Q12HR LEONIDAS Administration Insulin Glargine 30 units/ 0.3 mls @ 0 mls/hr 11/29/18 09:00 12/16/18 08:41 Miscellaneous Medication SC 0.3 mls QAM LEONIDAS Administration Meropenem 2 gm/ Sodium 100 mls @ 100 mls/hr 11/29/18 14:00 12/16/18 05:28 Chloride IVPB 100 mls Q8HR LEONIDAS Administration Insulin Human Lispro 0 units 11/28/18 15:33 12/15/18 18:13 Humalog SC 2 unit .MODERATE SLIDING SC PRN Administration Moderate Correctional Scale Insulin Human Lispro 0 units 11/28/18 15:33 12/10/18 20:37 Humalog SC 4 unit .BEDTIME SLIDING SC PRN Administration Bedtime Correctional Scale Iron/Minerals/Multivitamins 1 tab 12/02/18 09:00 12/16/18 08:38 Theragran M PO 1 tab DAILY LEONIDAS Administration Lidocaine HCl 0 ml 12/02/18 10:00 12/11/18 09:04 Xylocaine 4% Topical Nannette TOP 1 applic ASDIR LEONIDAS Administration Morphine Sulfate 4 mg 12/12/18 15:17 12/15/18 09:25 Morphine SLOW IVP 4 mg Q4H PRN Administration Mild-Moderate Pain (1-5) Nystatin 0 gm 11/30/18 09:00 12/15/18 21:28 Mycostatin Powder TOP 1 applic BID LEONIDAS Administration Polyethylene Glycol 17 gm 12/02/18 09:00 12/16/18 08:38 Miralax PO 17 gm DAILY LEONIDAS Administration Saccharomyces Boulardii 250 mg 12/02/18 09:00 12/16/18 08:38 Florastor PO 250 mg DAILY LEONIDAS Administration Senna/Docusate Sodium 2 tab 12/02/18 07:38 12/16/18 08:41 Senokot S PO 2 tab BID PRN Administration Constipation Sodium Bicarbonate 650 mg 11/30/18 09:00 12/16/18 08:37 Bicarbonate, Sodium PO 650 mg BID LEONIDAS Administration Sodium Chloride 10 ml 11/28/18 18:25 12/15/18 14:51 Flush - Normal Saline IVF 10 ml PRN PRN Administration Saline Flush Tamsulosin HCl 0.4 mg 11/29/18 09:00 12/16/18 08:38 Flomax PO 0.4 mg DAILY LEONIDAS Administration Zinc Sulfate 220 mg 12/02/18 09:00 12/16/18 08:36 Zinc Sulfate PO 220 mg DAILY LEONIDAS Administration - Exam General Appearance: NAD Neck: supple, no JVD Heart: RRR, no gallops Respiratory: CTAB, no rales Gastrointestinal: soft, non-tender, normal bowel sounds Gastrointestinal - other findings: Colostomy + Extremities: no edema Hosp A/P (1) Stephenie-rectal abscess Code(s): K61.1 - RECTAL ABSCESS Status: Acute (2) Chronic hepatitis C Code(s): B18.2 - CHRONIC VIRAL HEPATITIS C Status: Chronic Qualifiers: Hepatic coma status: without hepatic coma Qualified Code(s): B18.2 - Chronic viral hepatitis C (3) DM type 2 (diabetes mellitus, type 2) Status: Chronic Qualifiers: Diabetes mellitus oysterman insulin use: without prison use Diabetes mellitus complication status: without complication Qualified Code(s): E11.9 - Type 2 diabetes mellitus without complications (4) Anemia Code(s): D64.9 - ANEMIA, UNSPECIFIED Status: Chronic - Plan DVT proph w/lovenox Cont IV Meropenem per ID AM labs (No labs for last 5 days) Cont Sitz bath Cont Lantus with sliding scale Ambulate
[2018-12-16] MEDS: HumaLOG 300 UNITS/3 ML VIAL SC PRN ×3 (11:31→23:03)
--- NOTE | 2018-12-16 13:05 | PRG ---
DATE OF SERVICE: 12/16/2018 SUBJECTIVE: The patient without complaints. OBJECTIVE: VITAL SIGNS: Stable. He is afebrile. I's and O's, 1975 of clear yellow urine. ABDOMEN: Soft. SP tube site is clean, dry, and intact. GENITOURINARY: Scrotal exam is grossly unremarkable with no evidence of acute event or scrotal cellulitis or induration. DIAGNOSTIC DATA: I informed the patient regarding restaging CT of the pelvis obtained demonstrating resolution of perirectal periprosthetic abscess. IMPRESSION: Mr. Orlando is a 53-year-old male with; 1. History of hepatitis C, untreated. 2. Diabetes uncontrolled. 3. History of scrotal Karla's gangrene, status post wide debridement, suprapubic placement in June with resolution. PLAN: Current admission due to perirectal periprosthetic abscess, status post I and D by General Surgery. Staging pelvic CT demonstrates resolution. Per Infectious Disease, he will require 4 weeks of IV meropenem. The patient refusing to go to [facility]. Currently on admission day 18, will require 10 more days of IV meropenem per Infectious Disease. Continue SP tube for now and informed the patient that we will remove SP tube when the patient is ready for disposition for a voiding trial. Job ID: [id number]
[2018-12-17] MEDS: Meropenem 2 GM in Sodium Chloride 0.9% 100 ML IVPB SCH ×3 (06:05→21:30)
[2018-12-17 06:20] LABS: #Eosinphils 0.2 thou/uL (0.0-0.7); #Lymphocytes 1.5 thou/uL (1.20-3.40); #Monocytes 0.3 thou/uL (0.11-0.59); #Neutrophils 1.4 thou/uL (1.40-6.50); %Basophils 1.3 % (0.0-1.0); %Eosinophils 6.5 % (0.0-10.0); %Lymphocytes 42.8 % (21.0-51.0); %Monocytes 9.4 % (0.0-10.0); %Neutrophils 39.9 % (42.0-75.0); Hemoglobin 10.5 g/dL (14.0-18.0); Mean Corpuscular Hemoglobin 27.4 pg (27.0-31.0); Mean Platelet Volume 6.2 fL (7.4-10.4); Platelet Count 238 thou/uL (130-400); RBC Distribution Width 14.3 % (11.5-14.5); Red Blood Cell (RBC) Count 3.83 mill/uL (4.70-6.10); White Blood Cell (WBC) Count 3.6 thou/uL (4.8-10.8)
[2018-12-17 06:39] LABS: Albumin 3.4 g/dL (3.5-5.0); Anion Gap 10 mmol/L (10-20); BUN (Urea Nitrogen) 17 mg/dL (8.4-25.7); BUN/Creatinine Ratio 21.25; Calc. Creatinine Clearance 121 mL/min (70-130); Calcium 8.9 mg/dL (7.8-10.44); Carbon Dioxide 22 mmol/L (22-29); Chloride 111 mmol/L (98-107); Estimated GFR-MDRD Greater than 90; Glucose 96 mg/dL (70-105); Magnesium 1.8 mg/dL (1.6-2.6); Phosphorus 2.7 mg/dL (2.3-4.7); Sodium 139 mmol/L (136-145)
[2018-12-17] MEDS: Docusate 100 MG CAP PO SCH ×2 (09:03→21:30)
[2018-12-17] MEDS: Ascorbic Acid 500 mg Chewable Tablet PO SCH (09:03)
[2018-12-17] MEDS: Sodium Bicarbonate Tab 325 MG TAB PO SCH ×2 (09:03→21:29)
[2018-12-17] MEDS: Tamsulosin HCl 0.4 MG CAP PO SCH ×2 (09:03→17:38)
[2018-12-17] MEDS: Insulin Glargine 30 UNITS in Pre-Filled Syringe 1 EACH SC SCH (09:04)
[2018-12-17] MEDS: Saccharomyces boulardii 250 MG CAP PO SCH (09:04)
[2018-12-17] MEDS: Polyethylene Glycol 3350 17 GM Packet PO SCH (09:04)
[2018-12-17] MEDS: Multivitamin W/ Minerals 1 TAB PO SCH (09:04)
[2018-12-17] MEDS: Enoxaparin Sodium 40 MG/0.4 ML SYRINGE SC SCH (09:04)
[2018-12-17] MEDS: Folic Acid 1 MG TAB PO SCH (09:04)
--- NOTE | 2018-12-17 09:42 | PDOC.HOSPP ---
- Subjective Encounter Date: 12/17/18 Encounter Time: 07:10 Subjective: Patient seen and examined. No new complaints. No overnight events - Objective Vital Signs & Weight: Vital Signs (12 hours) Temp Pulse Resp BP Pulse Ox 12/17/18 07:46 98.3 F 65 16 103/63 98 Weight Admit Weight 180 lb 15.84 oz Weight 180 lb 15.84 oz I&O: 12/16/18 12/17/18 12/18/18 06:59 06:59 06:59 Intake Total 1880 Output Total 1975 2375 Balance -95 -4619 Result Diagrams: 12/17/18 06:10 12/17/18 06:10 Additional Labs: Accuchecks 12/17/18 12/16/18 12/16/18 06:03 20:48 16:30 POC Glucose 93 229 H 211 H 12/16/18 10:46 POC Glucose 170 H Hospitalist ROS - Review of Systems ENT: denies: ear pain, ear discharge, nose pain, nose discharge, nose congestion , mouth pain, mouth swelling, throat pain, throat swelling, other Respiratory: denies: cough, dry, shortness of breath, hemoptysis, SOB with excertion, pleuritic pain, sputum, wheezing, other Cardiovascular: denies: chest pain, palpitations, orthopnea, paroxysmal noc. dyspnea, edema, light headedness, other Gastrointestinal: denies: nausea, vomiting, abdominal pain, diarrhea, constipation, melena, hematochezia, other Genitourinary: denies: dysuria, frequency, incontinence, hematuria, retention, other Musculoskeletal: denies: neck pain, shoulder pain, arm pain, back pain, hand pain, leg pain, foot pain, other - Medication Medications: Active Medications Generic Name Dose Route Start Last Admin Trade Name Freq PRN Reason Stop Dose Admin Acetaminophen 650 mg 11/28/18 15:33 12/15/18 09:25 Tylenol PO 650 mg Q4H PRN Administration Headache/Fever/Mild Pain (1-3) Ascorbic Acid 500 mg 12/02/18 09:00 12/17/18 09:03 Vitamin C PO 500 mg DAILY LEONIDAS Administration Docusate Sodium 100 mg 11/28/18 21:00 12/17/18 09:03 Colace PO 100 mg BID LEONIDAS Administration Enoxaparin Sodium 40 mg 11/29/18 09:00 12/17/18 09:04 Lovenox SC 40 mg 0900 LEONIDAS Administration Famotidine 20 mg 11/28/18 21:00 12/16/18 21:42 Pepcid PO 20 mg BID LEONIDAS Administration Folic Acid 1 mg 12/02/18 09:00 12/17/18 09:04 Folvite PO 1 mg DAILY LEONIDAS Administration Hydrocortisone/Aloe 0 gm 11/29/18 09:00 12/16/18 21:42 Hydrocortisone 1% Cream TOP 1 applic Q12HR LEONIDAS Administration Insulin Glargine 30 units/ 0.3 mls @ 0 mls/hr 11/29/18 09:00 12/17/18 09:04 Miscellaneous Medication SC 0.3 mls QAM LEONIDAS Administration Meropenem 2 gm/ Sodium 100 mls @ 100 mls/hr 11/29/18 14:00 12/17/18 06:05 Chloride IVPB 100 mls Q8HR LEONIDAS Administration Insulin Human Lispro 0 units 11/28/18 15:33 12/16/18 18:06 Humalog SC 4 unit .MODERATE SLIDING SC PRN Administration Moderate Correctional Scale Insulin Human Lispro 0 units 11/28/18 15:33 12/16/18 23:03 Humalog SC 2 unit .BEDTIME SLIDING SC PRN Administration Bedtime Correctional Scale Iron/Minerals/Multivitamins 1 tab 12/02/18 09:00 12/17/18 09:04 Theragran M PO 1 tab DAILY LEONIDAS Administration Lidocaine HCl 0 ml 12/02/18 10:00 12/11/18 09:04 Xylocaine 4% Topical Nannette TOP 1 applic ASDIR LEONIDAS Administration Morphine Sulfate 4 mg 12/12/18 15:17 12/15/18 09:25 Morphine SLOW IVP 4 mg Q4H PRN Administration Mild-Moderate Pain (1-5) Nystatin 0 gm 11/30/18 09:00 12/16/18 21:42 Mycostatin Powder TOP 1 applic BID LEONIDAS Administration Polyethylene Glycol 17 gm 12/02/18 09:00 12/17/18 09:04 Miralax PO 17 gm DAILY LEONIDAS Administration Saccharomyces Boulardii 250 mg 12/02/18 09:00 12/17/18 09:04 Florastor PO 250 mg DAILY LEONIDAS Administration Senna/Docusate Sodium 2 tab 12/02/18 07:38 12/16/18 08:41 Senokot S PO 2 tab BID PRN Administration Constipation Sodium Bicarbonate 650 mg 11/30/18 09:00 12/17/18 09:03 Bicarbonate, Sodium PO 650 mg BID LEONIDAS Administration Sodium Chloride 10 ml 11/28/18 18:25 12/16/18 13:42 Flush - Normal Saline IVF 10 ml PRN PRN Administration Saline Flush Tamsulosin HCl 0.4 mg 11/29/18 09:00 12/17/18 09:03 Flomax PO 0.4 mg DAILY LEONIDAS Administration Zinc Sulfate 220 mg 12/02/18 09:00 12/16/18 08:36 Zinc Sulfate PO 220 mg DAILY LEONIDAS Administration - Exam General Appearance: NAD, awake alert Eye: PERRL, anicteric sclera ENT: normocephalic atraumatic, no oropharyngeal lesions Neck: supple, symmetric, no JVD, no thyromegaly Heart: RRR, no murmur, no gallops, no rubs, normal peripheral pulses Respiratory: CTAB, no wheezes, no rales, no ronchi Gastrointestinal: soft, non-tender, non-distended, normal bowel sounds Extremities: no cyanosis, no clubbing, no edema Skin: normal turgor, no lesions Neurological: cranial nerve grossly intact, no weakness, no focal deficits Musculoskeletal: normal tone, normal strength Hosp A/P (1) Stephenie-rectal abscess Code(s): K61.1 - RECTAL ABSCESS Status: Acute (2) Prostatic abscess Code(s): N41.2 - ABSCESS OF PROSTATE Status: Acute (3) Chronic hepatitis C Code(s): B18.2 - CHRONIC VIRAL HEPATITIS C Status: Chronic Qualifiers: Hepatic coma status: without hepatic coma Qualified Code(s): B18.2 - Chronic viral hepatitis C (4) DM type 2 (diabetes mellitus, type 2) Status: Chronic Qualifiers: Diabetes mellitus intermediate insulin use: without intermediate use Diabetes mellitus complication status: without complication Qualified Code(s): E11.9 - Type 2 diabetes mellitus without complications - Plan old records reviewed/req, continue antibiotics, senior professional services consultant continue wound care by nursing, sitz bath, pain is controlled with current meds continue meropenam for total 1 month as per ID and arrangement for outpt antibiotics is pending. medication reviewed as above symptomatic treatment
--- NOTE | 2018-12-17 11:32 | PRG ---
DATE OF SERVICE: 12/17/2018 SUBJECTIVE: No new complaints. OBJECTIVE: VITAL SIGNS: Stable. ABDOMEN: Soft, nontender, and nondistended. Suprapubic tube site is clean, dry , and intact. : Scrotal area demonstrates no evidence of fluctuance, induration of concern. LABORATORY DATA: No new labs. IMPRESSION AND PLAN: 1. Mr. Orlando is a 53-year-old male with hepatitis C, untreated. 2. Diabetes, uncontrolled. 3. History of scrotal Karla's, resolved, treated in June 2018. 4. Current admission due to perirectal abscess, I and D by General Surgery. Staging CT of the pelvis demonstrates resolution. Per Infectious Disease, requires 4 weeks of antibiotic therapy, currently on day 19. Await placement. Job ID: [id number] MTDD
[2018-12-17] MEDS: Hydrocortisone 1% Cream 30 GM TUBE TOP SCH ×2 (15:13→21:31)
[2018-12-17] MEDS: Famotidine 20 MG TAB PO SCH ×2 (15:13→21:30)
[2018-12-17] MEDS: Nystatin Powder 15 GM BOT TOP SCH ×2 (15:13→21:31)
[2018-12-17] MEDS: Zinc Sulfate 220 MG CAP PO SCH (17:38)
[2018-12-17] MEDS: HumaLOG 300 UNITS/3 ML VIAL SC PRN (17:39)
[2018-12-18] MEDS: Meropenem 2 GM in Sodium Chloride 0.9% 100 ML IVPB SCH ×3 (06:07→21:30)
--- NOTE | 2018-12-18 07:28 | PRG ---
DATE OF SERVICE: 12/18/2018 SUBJECTIVE: The patient without complaints. OBJECTIVE: VITAL SIGNS: Stable. ABDOMEN: Soft, nontender, nondistended. SP tube clear. IMPRESSION AND PLAN: 1. A 53-year-old male with history of hepatitis C. 2. Diabetes, uncontrolled. 3. History of Karla gangrene of the scrotum, resolved. 4. Perirectal abscess status post incision and drainage by General Surgery. Staging CT stable. The patient needs 4 weeks of IV meropenem on day 20. Job ID: [id number]
[2018-12-18] MEDS: Folic Acid 1 MG TAB PO SCH (08:47)
[2018-12-18] MEDS: Multivitamin W/ Minerals 1 TAB PO SCH (08:47)
[2018-12-18] MEDS: Docusate 100 MG CAP PO SCH ×2 (08:47→21:31)
[2018-12-18] MEDS: Ascorbic Acid 500 mg Chewable Tablet PO SCH (08:47)
[2018-12-18] MEDS: Polyethylene Glycol 3350 17 GM Packet PO SCH (08:47)
[2018-12-18] MEDS: Enoxaparin Sodium 40 MG/0.4 ML SYRINGE SC SCH (08:47)
[2018-12-18] MEDS: Sodium Bicarbonate Tab 325 MG TAB PO SCH ×2 (08:47→21:31)
[2018-12-18] MEDS: Famotidine 20 MG TAB PO SCH ×2 (08:47→21:31)
[2018-12-18] MEDS: Saccharomyces boulardii 250 MG CAP PO SCH (08:47)
[2018-12-18] MEDS: Zinc Sulfate 220 MG CAP PO SCH (08:48)
[2018-12-18] MEDS: Tamsulosin HCl 0.4 MG CAP PO SCH ×2 (08:48→18:03)
[2018-12-18] MEDS: Nystatin Powder 15 GM BOT TOP SCH ×2 (09:00→21:31)
[2018-12-18] MEDS: Hydrocortisone 1% Cream 30 GM TUBE TOP SCH ×2 (09:00→21:31)
[2018-12-18] MEDS: Insulin Glargine 30 UNITS in Pre-Filled Syringe 1 EACH SC SCH (11:35)
--- NOTE | 2018-12-18 15:46 | PDOC.HOSPP ---
- Subjective Encounter Date: 12/18/18 Encounter Time: 15:45 Subjective: Ms. Orlando was seen today in follow-up of charli-prostatic abscess. He says the rectal pain has improved. He has before more mobile. No new complaints. - Objective Vital Signs & Weight: Vital Signs (12 hours) Temp Pulse Resp BP Pulse Ox 12/18/18 07:58 97.7 F 69 18 139/80 98 Weight Admit Weight 180 lb 15.84 oz Weight 180 lb 15.84 oz I&O: 12/17/18 12/18/18 12/19/18 06:59 06:59 06:59 Output Total 8364 9083 Balance -2849 -6463 Result Diagrams: 12/17/18 06:10 12/17/18 06:10 Additional Labs: Accuchecks 12/18/18 12/18/18 12/17/18 11:17 05:29 20:14 POC Glucose 123 H 72 181 H 12/17/18 15:51 POC Glucose 167 H Hospitalist ROS - Medication Medications: Active Medications Generic Name Dose Route Start Last Admin Trade Name Freq PRN Reason Stop Dose Admin Acetaminophen 650 mg 11/28/18 15:33 12/15/18 09:25 Tylenol PO 650 mg Q4H PRN Administration Headache/Fever/Mild Pain (1-3) Ascorbic Acid 500 mg 12/02/18 09:00 12/18/18 08:47 Vitamin C PO 500 mg DAILY LEONIDAS Administration Docusate Sodium 100 mg 11/28/18 21:00 12/18/18 08:47 Colace PO 100 mg BID LEONIDAS Administration Enoxaparin Sodium 40 mg 11/29/18 09:00 12/18/18 08:47 Lovenox SC 40 mg 0900 LEONIDAS Administration Famotidine 20 mg 11/28/18 21:00 12/18/18 08:47 Pepcid PO 20 mg BID LEONIDAS Administration Folic Acid 1 mg 12/02/18 09:00 12/18/18 08:47 Folvite PO 1 mg DAILY LEONIDAS Administration Hydrocortisone/Aloe 0 gm 11/29/18 09:00 12/17/18 21:31 Hydrocortisone 1% Cream TOP 1 applic Q12HR LEONIDAS Administration Insulin Glargine 30 units/ 0.3 mls @ 0 mls/hr 11/29/18 09:00 12/18/18 11:35 Miscellaneous Medication SC 0.3 mls QAM LEONIDAS Administration Meropenem 2 gm/ Sodium 100 mls @ 100 mls/hr 11/29/18 14:00 12/18/18 06:07 Chloride IVPB 100 mls Q8HR LEONIDAS Administration Insulin Human Lispro 0 units 11/28/18 15:33 12/17/18 17:39 Humalog SC 2 unit .MODERATE SLIDING SC PRN Administration Moderate Correctional Scale Insulin Human Lispro 0 units 11/28/18 15:33 12/16/18 23:03 Humalog SC 2 unit .BEDTIME SLIDING SC PRN Administration Bedtime Correctional Scale Iron/Minerals/Multivitamins 1 tab 12/02/18 09:00 12/18/18 08:47 Theragran M PO 1 tab DAILY LEONIDAS Administration Lidocaine HCl 0 ml 12/02/18 10:00 12/11/18 09:04 Xylocaine 4% Topical Nanntete TOP 1 applic ASDIR LEONIDAS Administration Morphine Sulfate 4 mg 12/12/18 15:17 12/15/18 09:25 Morphine SLOW IVP 4 mg Q4H PRN Administration Mild-Moderate Pain (1-5) Nystatin 0 gm 11/30/18 09:00 12/17/18 21:31 Mycostatin Powder TOP 1 applic BID LEONIDAS Administration Polyethylene Glycol 17 gm 12/02/18 09:00 12/18/18 08:47 Miralax PO 17 gm DAILY LEONIDAS Administration Saccharomyces Boulardii 250 mg 12/02/18 09:00 12/18/18 08:47 Florastor PO 250 mg DAILY LEONIDAS Administration Senna/Docusate Sodium 2 tab 12/02/18 07:38 12/16/18 08:41 Senokot S PO 2 tab BID PRN Administration Constipation Sodium Bicarbonate 650 mg 11/30/18 09:00 12/18/18 08:47 Bicarbonate, Sodium PO 650 mg BID LEONIDAS Administration Sodium Chloride 10 ml 11/28/18 18:25 12/17/18 15:14 Flush - Normal Saline IVF 10 ml PRN PRN Administration Saline Flush Tamsulosin HCl 0.4 mg 11/29/18 09:00 12/18/18 08:48 Flomax PO 0.4 mg DAILY LEONIDAS Administration Tamsulosin HCl 0.4 mg 12/17/18 09:00 12/17/18 17:38 Flomax PO Not Given DAILY LEONIDAS Zinc Sulfate 220 mg 12/02/18 09:00 12/18/18 08:48 Zinc Sulfate PO 220 mg DAILY LEONIDAS Administration - Exam Eye: PERRL Heart: RRR, no murmur, no gallops, no rubs, normal peripheral pulses Respiratory: CTAB, no wheezes, no rales, no ronchi, normal chest expansion, no tachypnea, normal percussion Gastrointestinal: soft, non-tender, non-distended, normal bowel sounds, no palpable masses, no hepatomegaly, no splenomegaly Extremities: no cyanosis, no clubbing, no edema (wound photo was noted) Hosp A/P (1) Prostatic abscess Code(s): N41.2 - ABSCESS OF PROSTATE Status: Acute (2) Chronic hepatitis C Code(s): B18.2 - CHRONIC VIRAL HEPATITIS C Status: Chronic Qualifiers: Hepatic coma status: without hepatic coma Qualified Code(s): B18.2 - Chronic viral hepatitis C (3) DM type 2 (diabetes mellitus, type 2) Status: Chronic Qualifiers: Diabetes mellitus nursing home insulin use: without nursing home use Diabetes mellitus complication status: without complication Qualified Code(s): E11.9 - Type 2 diabetes mellitus without complications (4) Tobacco abuse Code(s): Z72.0 - TOBACCO USE Status: Chronic - Plan * Per-prostatic abscess- continue Meropenem IV * DM- blood glucose is stable * HTN- blood pressure is stable * Chronic Hepatitis C- stable * Awaiting arrangements for outpatient Antibiotics.
[2018-12-18] MEDS: HumaLOG 300 UNITS/3 ML VIAL SC PRN (18:43)
[2018-12-19] MEDS: Meropenem 2 GM in Sodium Chloride 0.9% 100 ML IVPB SCH ×3 (06:26→21:33)
[2018-12-19] MEDS: Ascorbic Acid 500 mg Chewable Tablet PO SCH (08:22)
[2018-12-19] MEDS: Tamsulosin HCl 0.4 MG CAP PO SCH ×2 (08:22→08:24)
[2018-12-19] MEDS: Folic Acid 1 MG TAB PO SCH (08:23)
[2018-12-19] MEDS: Sodium Bicarbonate Tab 325 MG TAB PO SCH ×2 (08:23→21:33)
[2018-12-19] MEDS: Saccharomyces boulardii 250 MG CAP PO SCH (08:23)
[2018-12-19] MEDS: Docusate 100 MG CAP PO SCH ×2 (08:23→21:33)
[2018-12-19] MEDS: Famotidine 20 MG TAB PO SCH ×2 (08:23→21:33)
[2018-12-19] MEDS: Multivitamin W/ Minerals 1 TAB PO SCH (08:23)
[2018-12-19] MEDS: Zinc Sulfate 220 MG CAP PO SCH (08:24)
[2018-12-19] MEDS: Polyethylene Glycol 3350 17 GM Packet PO SCH (08:25)
[2018-12-19] MEDS: Enoxaparin Sodium 40 MG/0.4 ML SYRINGE SC SCH (08:25)
[2018-12-19] MEDS: Nystatin Powder 15 GM BOT TOP SCH ×2 (08:33→21:34)
[2018-12-19] MEDS: Hydrocortisone 1% Cream 30 GM TUBE TOP SCH ×2 (08:34→21:34)
[2018-12-19] MEDS: Insulin Glargine 30 UNITS in Pre-Filled Syringe 1 EACH SC SCH (08:37)
--- NOTE | 2018-12-19 09:34 | PRG ---
DATE OF SERVICE: 12/19/2018 SUBJECTIVE: The patient without complaints. OBJECTIVE: VITAL SIGNS: Stable. ABDOMEN: Soft, nontender, and nondistended. Suprapubic tube site is clean, dry, and intact. I did plug his suprapubic tube today for a voiding trial as he has had a catheter for about [address] negative. GENITOURINARY: Scrotal area is well healed with no evidence of erythema, induration of concern. IMPRESSION: Mr. Orlando is a 53-year-old male with, 1. History of hepatitis C. 2. Diabetes, uncontrolled. 3. History of scrotal Karla's, status post debridement in June 2018, resolved. 4. Current admission due to perirectal abscess, status post I and D by General Surgery. PLAN: Staging CT demonstrates resolution. Suprapubic tube is plugged today. We will monitor his postvoid residual. He did not have significant issues with voiding in the past. If PVR minimal, we will discontinue suprapubic tube in the next day or two. Disposition pending. Previously, Infectious Disease recommend 4 weeks of antibiotics, apparently this has been increased to January 08. The patient can be discharged from urologic perspective anytime once suprapubic tube is removed. Job ID: [id number]
--- NOTE | 2018-12-19 17:14 | PDOC.HOSPP ---
- Subjective Encounter Date: 12/19/18 Encounter Time: 13:30 Subjective: Mr. Orlando was seen today in follow-up of charli-prostatic abscess. He does not have any new complaints. - Objective Vital Signs & Weight: Vital Signs (12 hours) Temp Pulse Resp BP Pulse Ox 12/19/18 09:45 98.2 F 78 18 125/68 99 12/19/18 08:00 99 Weight Admit Weight 180 lb 15.84 oz Weight 180 lb 15.84 oz I&O: 12/18/18 12/19/18 12/20/18 06:59 06:59 06:59 Intake Total 680 Output Total 5370 9255 Balance -2074 Result Diagrams: 12/17/18 06:10 12/17/18 06:10 Additional Labs: Accuchecks 12/19/18 12/19/18 12/18/18 11:52 05:59 22:08 POC Glucose 112 H 101 137 H 12/18/18 20:17 POC Glucose 197 H Hospitalist ROS - Medication Medications: Active Medications Generic Name Dose Route Start Last Admin Trade Name Freq PRN Reason Stop Dose Admin Acetaminophen 650 mg 11/28/18 15:33 12/15/18 09:25 Tylenol PO 650 mg Q4H PRN Administration Headache/Fever/Mild Pain (1-3) Ascorbic Acid 500 mg 12/02/18 09:00 12/19/18 08:22 Vitamin C PO 500 mg DAILY LEONIDAS Administration Docusate Sodium 100 mg 11/28/18 21:00 12/19/18 08:23 Colace PO 100 mg BID LEONIDAS Administration Enoxaparin Sodium 40 mg 11/29/18 09:00 12/19/18 08:25 Lovenox SC 40 mg 0900 LEONIDAS Administration Famotidine 20 mg 11/28/18 21:00 12/19/18 08:23 Pepcid PO 20 mg BID LEONIDAS Administration Folic Acid 1 mg 12/02/18 09:00 12/19/18 08:23 Folvite PO 1 mg DAILY LEONIDAS Administration Hydrocortisone/Aloe 0 gm 11/29/18 09:00 12/19/18 08:34 Hydrocortisone 1% Cream TOP 1 applic Q12HR LEONIDAS Administration Insulin Glargine 30 units/ 0.3 mls @ 0 mls/hr 11/29/18 09:00 12/19/18 08:37 Miscellaneous Medication SC 0.3 mls QAM LEONIDAS Administration Meropenem 2 gm/ Sodium 100 mls @ 100 mls/hr 11/29/18 14:00 12/19/18 14:45 Chloride IVPB 100 mls Q8HR LEONIDAS Administration Insulin Human Lispro 0 units 11/28/18 15:33 12/18/18 18:43 Humalog SC 2 unit .MODERATE SLIDING SC PRN Administration Moderate Correctional Scale Insulin Human Lispro 0 units 11/28/18 15:33 12/16/18 23:03 Humalog SC 2 unit .BEDTIME SLIDING SC PRN Administration Bedtime Correctional Scale Iron/Minerals/Multivitamins 1 tab 12/02/18 09:00 12/19/18 08:23 Theragran M PO 1 tab DAILY LEONIDAS Administration Lidocaine HCl 0 ml 12/02/18 10:00 12/11/18 09:04 Xylocaine 4% Topical Nannette TOP 1 applic ASDIR LEONIDAS Administration Morphine Sulfate 4 mg 12/12/18 15:17 12/15/18 09:25 Morphine SLOW IVP 4 mg Q4H PRN Administration Mild-Moderate Pain (1-5) Nystatin 0 gm 11/30/18 09:00 12/19/18 08:33 Mycostatin Powder TOP 1 applic BID LEONIDAS Administration Polyethylene Glycol 17 gm 12/02/18 09:00 12/19/18 08:25 Miralax PO 17 gm DAILY LEONIDAS Administration Saccharomyces Boulardii 250 mg 12/02/18 09:00 12/19/18 08:23 Florastor PO 250 mg DAILY LEONIDAS Administration Senna/Docusate Sodium 2 tab 12/02/18 07:38 12/16/18 08:41 Senokot S PO 2 tab BID PRN Administration Constipation Sodium Bicarbonate 650 mg 11/30/18 09:00 12/19/18 08:23 Bicarbonate, Sodium PO 650 mg BID LEONIDAS Administration Sodium Chloride 10 ml 11/28/18 18:25 12/18/18 15:50 Flush - Normal Saline IVF 10 ml PRN PRN Administration Saline Flush Tamsulosin HCl 0.4 mg 11/29/18 09:00 12/19/18 08:22 Flomax PO 0.4 mg DAILY LEONIDAS Administration Tamsulosin HCl 0.4 mg 12/17/18 09:00 12/19/18 08:24 Flomax PO Not Given DAILY LEONIDAS Zinc Sulfate 220 mg 12/02/18 09:00 12/19/18 08:24 Zinc Sulfate PO 220 mg DAILY LEONIDAS Administration - Exam Eye: PERRL, anicteric sclera Heart: RRR, no murmur, no gallops, no rubs, normal peripheral pulses Respiratory: CTAB, no wheezes, no rales, no ronchi, normal chest expansion, no tachypnea, normal percussion Gastrointestinal: soft, non-tender (colostomy site is intact), non-distended, normal bowel sounds, no palpable masses, no hepatomegaly, no splenomegaly Extremities: no cyanosis, no clubbing, no edema Hosp A/P (1) Prostatic abscess Code(s): N41.2 - ABSCESS OF PROSTATE Status: Acute (2) Chronic hepatitis C Code(s): B18.2 - CHRONIC VIRAL HEPATITIS C Status: Chronic Qualifiers: Hepatic coma status: without hepatic coma Qualified Code(s): B18.2 - Chronic viral hepatitis C (3) DM type 2 (diabetes mellitus, type 2) Status: Chronic Qualifiers: Diabetes mellitus skilled nursing insulin use: without skilled nursing use Diabetes mellitus complication status: without complication Qualified Code(s): E11.9 - Type 2 diabetes mellitus without complications (4) Tobacco abuse Code(s): Z72.0 - TOBACCO USE Status: Chronic - Plan * Per-prostatic abscess- continue Meropenem IV- discussed with Dr. Iyer, at the time of discharge he can be transitioned to Invanz * DM- blood glucose is stable * HTN- blood pressure is stable * Chronic Hepatitis C- stable * Discharge planning is in progress
[2018-12-20] MEDS: Meropenem 2 GM in Sodium Chloride 0.9% 100 ML IVPB SCH ×3 (05:42→21:56)
[2018-12-20] MEDS: Nystatin Powder 15 GM BOT TOP SCH ×2 (08:45→21:56)
[2018-12-20] MEDS: Hydrocortisone 1% Cream 30 GM TUBE TOP SCH ×2 (08:45→21:56)
[2018-12-20] MEDS: Tamsulosin HCl 0.4 MG CAP PO SCH ×2 (08:58→09:00)
[2018-12-20] MEDS: Multivitamin W/ Minerals 1 TAB PO SCH (08:58)
[2018-12-20] MEDS: Docusate 100 MG CAP PO SCH ×2 (08:59→21:55)
[2018-12-20] MEDS: Famotidine 20 MG TAB PO SCH ×2 (08:59→21:56)
[2018-12-20] MEDS: Ascorbic Acid 500 mg Chewable Tablet PO SCH (08:59)
[2018-12-20] MEDS: Saccharomyces boulardii 250 MG CAP PO SCH (08:59)
[2018-12-20] MEDS: Folic Acid 1 MG TAB PO SCH (09:00)
[2018-12-20] MEDS: Sodium Bicarbonate Tab 325 MG TAB PO SCH ×2 (09:00→21:55)
[2018-12-20] MEDS: Zinc Sulfate 220 MG CAP PO SCH (09:00)
[2018-12-20] MEDS: Insulin Glargine 30 UNITS in Pre-Filled Syringe 1 EACH SC SCH (09:01)
[2018-12-20] MEDS: Polyethylene Glycol 3350 17 GM Packet PO SCH (09:01)
[2018-12-20] MEDS: Enoxaparin Sodium 40 MG/0.4 ML SYRINGE SC SCH (09:01)
--- NOTE | 2018-12-20 09:19 | PRG ---
DATE OF SERVICE: 12/20/2018 SUBJECTIVE: The patient without complaints. PVR via SP tube monitored. No significant PVR of concern. OBJECTIVE: VITAL SIGNS: Stable. ABDOMEN: Soft, nontender, and nondistended. SP tube removed at bedside. : There is no evidence of scrotal excoriation of concern. LABORATORY DATA: No new labs. IMPRESSION AND PLAN: Mr. Orlando is a 53-year-old male with history; 1. Hepatitis C, untreated. 2. History of diabetes, uncontrolled. 3. History of necrotizing fasciitis of the scrotum, status post wide debridement, resolved in June 2018. 4. Current admission due to perirectal periprosthetic abscess, status post open I and D by General Surgery with CT demonstrating resolution. Suprapubic tube removed at bedside as he has no significant postvoid residual. The patient remains in abscess, he requires IV antibiotics per Infectious Disease recommendations. Job ID: [id number]
[2018-12-20] MEDS: HumaLOG 300 UNITS/3 ML VIAL SC PRN ×2 (12:12→17:02)
--- NOTE | 2018-12-20 16:37 | PDOC.HOSPP ---
- Subjective Encounter Date: 12/20/18 Encounter Time: 16:36 Subjective: Mr. Orlando was seen today in folow-up of per-prostatic abscess. He does not have any new complaints. - Objective Vital Signs & Weight: Vital Signs (12 hours) Temp Pulse Resp BP Pulse Ox 12/20/18 08:00 98.2 F 83 18 112/74 96 Weight Admit Weight 180 lb 15.84 oz Weight 180 lb 15.84 oz I&O: 12/19/18 12/20/18 12/21/18 06:59 06:59 06:59 Intake Total 680 1560 Output Total 2625 1790 Balance -7274 -736 Result Diagrams: 12/17/18 06:10 12/17/18 06:10 Additional Labs: Accuchecks 12/20/18 12/20/18 12/19/18 11:12 05:45 22:05 POC Glucose 200 H 104 158 H 12/19/18 17:45 POC Glucose 108 Hospitalist ROS - Medication Medications: Active Medications Generic Name Dose Route Start Last Admin Trade Name Freq PRN Reason Stop Dose Admin Acetaminophen 650 mg 11/28/18 15:33 12/15/18 09:25 Tylenol PO 650 mg Q4H PRN Administration Headache/Fever/Mild Pain (1-3) Ascorbic Acid 500 mg 12/02/18 09:00 12/20/18 08:59 Vitamin C PO 500 mg DAILY LEONIDAS Administration Docusate Sodium 100 mg 11/28/18 21:00 12/20/18 08:59 Colace PO 100 mg BID LEONIDAS Administration Enoxaparin Sodium 40 mg 11/29/18 09:00 12/20/18 09:01 Lovenox SC 40 mg 899 LEONIDAS Administration Famotidine 20 mg 11/28/18 21:00 12/20/18 08:59 Pepcid PO 20 mg BID LEONIDAS Administration Folic Acid 1 mg 12/02/18 09:00 12/20/18 09:00 Folvite PO 1 mg DAILY LEONIDAS Administration Hydrocortisone/Aloe 0 gm 11/29/18 09:00 12/20/18 08:45 Hydrocortisone 1% Cream TOP 1 applic Q12HR LEONIDAS Administration Insulin Glargine 30 units/ 0.3 mls @ 0 mls/hr 11/29/18 09:00 12/20/18 09:01 Miscellaneous Medication SC 0.3 mls QAM LEONIDAS Administration Meropenem 2 gm/ Sodium 100 mls @ 100 mls/hr 11/29/18 14:00 12/20/18 15:50 Chloride IVPB 100 mls Q8HR LEONIDAS Administration Insulin Human Lispro 0 units 11/28/18 15:33 12/20/18 12:12 Humalog SC 2 unit .MODERATE SLIDING SC PRN Administration Moderate Correctional Scale Insulin Human Lispro 0 units 11/28/18 15:33 12/16/18 23:03 Humalog SC 2 unit .BEDTIME SLIDING SC PRN Administration Bedtime Correctional Scale Iron/Minerals/Multivitamins 1 tab 12/02/18 09:00 12/20/18 08:58 Theragran M PO 1 tab DAILY LEONIDAS Administration Lidocaine HCl 0 ml 12/02/18 10:00 12/11/18 09:04 Xylocaine 4% Topical Nannette TOP 1 applic ASDIR LEONIDAS Administration Morphine Sulfate 4 mg 12/12/18 15:17 12/15/18 09:25 Morphine SLOW IVP 4 mg Q4H PRN Administration Mild-Moderate Pain (1-5) Nystatin 0 gm 11/30/18 09:00 12/20/18 08:45 Mycostatin Powder TOP 1 applic BID LEONIDAS Administration Polyethylene Glycol 17 gm 12/02/18 09:00 12/20/18 09:01 Miralax PO 17 gm DAILY LEONIDAS Administration Saccharomyces Boulardii 250 mg 12/02/18 09:00 12/20/18 08:59 Florastor PO 250 mg DAILY LEONIDAS Administration Senna/Docusate Sodium 2 tab 12/02/18 07:38 12/16/18 08:41 Senokot S PO 2 tab BID PRN Administration Constipation Sodium Bicarbonate 650 mg 11/30/18 09:00 12/20/18 09:00 Bicarbonate, Sodium PO 650 mg BID LEONIDAS Administration Sodium Chloride 10 ml 11/28/18 18:25 12/18/18 15:50 Flush - Normal Saline IVF 10 ml PRN PRN Administration Saline Flush Tamsulosin HCl 0.4 mg 11/29/18 09:00 12/20/18 08:58 Flomax PO 0.4 mg DAILY LEONDIAS Administration Tamsulosin HCl 0.4 mg 12/17/18 09:00 12/20/18 09:00 Flomax PO Not Given DAILY LEONIDAS Zinc Sulfate 220 mg 12/02/18 09:00 12/20/18 09:00 Zinc Sulfate PO 220 mg DAILY LEONIDAS Administration - Exam Eye: PERRL, anicteric sclera Heart: RRR, no murmur, no gallops, no rubs, normal peripheral pulses Respiratory: CTAB, wheezes (+ occassional wheeze, no rales) Gastrointestinal: soft, non-tender, non-distended, normal bowel sounds, no palpable masses, no hepatomegaly, no splenomegaly, no guarding, no rigidity Extremities: no cyanosis, no clubbing, no edema Hosp A/P (1) Prostatic abscess Code(s): N41.2 - ABSCESS OF PROSTATE Status: Acute (2) Chronic hepatitis C Code(s): B18.2 - CHRONIC VIRAL HEPATITIS C Status: Chronic Qualifiers: Hepatic coma status: without hepatic coma Qualified Code(s): B18.2 - Chronic viral hepatitis C (3) DM type 2 (diabetes mellitus, type 2) Status: Chronic Qualifiers: Diabetes mellitus senior care insulin use: without termite technician use Diabetes mellitus complication status: without complication Qualified Code(s): E11.9 - Type 2 diabetes mellitus without complications (4) Tobacco abuse Code(s): Z72.0 - TOBACCO USE Status: Chronic - Plan * Per-prostatic abscess- continue Meropenem IV * He had the removal of the suprapubic catheter * DM- blood glucose is stable * HTN- blood pressure is stable * Chronic Hepatitis C- stable * Discharge planning is in progress
[2018-12-21] MEDS: Meropenem 2 GM in Sodium Chloride 0.9% 100 ML IVPB SCH ×3 (05:39→22:31)
--- NOTE | 2018-12-21 07:55 | PRG ---
DATE OF SERVICE: 12/21/2018 SUBJECTIVE: Patient without complaints. OBJECTIVE: VITAL SIGNS: Stable. ABDOMEN: Soft. SP tube site is healed. No discharge. No erythema. : Scrotal exam is grossly unremarkable with no erythema or induration of concern. IMPRESSION AND PLAN: Mr. Orlando is a 53-year-old male with; 1. History of hepatitis C, untreated. 2. Diabetes, uncontrolled. 3. Prior history of Karla gangrene of the scrotum, status post wide debridement, June 2018 with resolution. 4. Current admission due to perirectal periprosthetic abscess, status post incision and drainage by General Surgery. I did attempt transrectal ultrasound drainage of the abscess, however, this was suboptimal; therefore, he underwent general surgery incision and drainage, which has resolved his perirectal periprosthetic abscess. He underwent voiding trial, suprapubic tube removed yesterday, there is no significant postvoid residual. From urologic perspective, patient can be discharged anytime , however, he requires IV meropenem for the next week or two per Infectious Disease. We will sign off. The patient advised to call me after discharge for a followup few weeks thereafter. Call if any questions or concerns. Job ID: [id number] MTDD
[2018-12-21] MEDS: Hydrocortisone 1% Cream 30 GM TUBE TOP SCH ×2 (09:00→20:54)
[2018-12-21] MEDS: Nystatin Powder 15 GM BOT TOP SCH ×2 (09:00→20:53)
[2018-12-21 10:18] LABS: #Eosinphils 0.1 thou/uL (0.0-0.7); #Lymphocytes 1.4 thou/uL (1.20-3.40); #Monocytes 0.3 thou/uL (0.11-0.59); #Neutrophils 1.2 thou/uL (1.40-6.50); %Basophils 0.4 % (0.0-1.0); %Eosinophils 4.8 % (0.0-10.0); %Lymphocytes 44.9 % (21.0-51.0); %Monocytes 10.6 % (0.0-10.0); %Neutrophils 39.3 % (42.0-75.0); Hemoglobin 10.6 g/dL (14.0-18.0); Mean Corpuscular HGB CONC 33.5 g/dL (32.0-36.0); Mean Corpuscular Volume 80.7 fL (78.0-98.0); Platelet Count 149 thou/uL (130-400); RBC Distribution Width 14.6 % (11.5-14.5); Red Blood Cell (RBC) Count 3.94 mill/uL (4.70-6.10); White Blood Cell (WBC) Count 3.1 thou/uL (4.8-10.8)
[2018-12-21 10:26] LABS: Anion Gap 8 mmol/L (10-20); BUN (Urea Nitrogen) 15 mg/dL (8.4-25.7); Calc. Creatinine Clearance 109 mL/min (70-130); Calcium 8.6 mg/dL (7.8-10.44); Carbon Dioxide 27 mmol/L (22-29); Chloride 107 mmol/L (98-107); Estimated GFR-MDRD 89; Glucose 177 mg/dL (70-105); Sodium 138 mmol/L (136-145)
[2018-12-21] MEDS: Famotidine 20 MG TAB PO SCH ×2 (10:27→20:55)
[2018-12-21] MEDS: Multivitamin W/ Minerals 1 TAB PO SCH (10:27)
[2018-12-21] MEDS: Folic Acid 1 MG TAB PO SCH (10:28)
[2018-12-21] MEDS: Tamsulosin HCl 0.4 MG CAP PO SCH ×2 (10:28→10:32)
[2018-12-21] MEDS: Ascorbic Acid 500 mg Chewable Tablet PO SCH (10:28)
[2018-12-21] MEDS: Sodium Bicarbonate Tab 325 MG TAB PO SCH ×2 (10:28→20:54)
[2018-12-21] MEDS: Saccharomyces boulardii 250 MG CAP PO SCH (10:28)
[2018-12-21] MEDS: Docusate 100 MG CAP PO SCH ×2 (10:28→20:55)
[2018-12-21] MEDS: Zinc Sulfate 220 MG CAP PO SCH (10:29)
[2018-12-21] MEDS: Enoxaparin Sodium 40 MG/0.4 ML SYRINGE SC SCH (10:29)
[2018-12-21] MEDS: Polyethylene Glycol 3350 17 GM Packet PO SCH (10:29)
[2018-12-21] MEDS: Insulin Glargine 30 UNITS in Pre-Filled Syringe 1 EACH SC SCH (10:30)
--- NOTE | 2018-12-21 12:22 | PDOC.HOSPP ---
- Subjective Encounter Date: 12/21/18 Encounter Time: 12:21 Subjective: Mr. Orlando was seen today in follow-up of charli-prostatic abscess. He does not have any new complaints. - Objective Vital Signs & Weight: Vital Signs (12 hours) Temp Pulse Resp BP Pulse Ox 12/21/18 07:27 98.8 F 74 16 100/58 L 92 L Weight Admit Weight 180 lb 15.84 oz Weight 180 lb 15.84 oz I&O: 12/20/18 12/21/18 12/22/18 06:59 06:59 06:59 Intake Total 1560 1620 Output Total 1790 1650 Balance -230 -30 Result Diagrams: 12/21/18 10:03 12/21/18 10:03 Additional Labs: Accuchecks 12/21/18 12/21/18 12/20/18 10:39 05:42 22:22 POC Glucose 164 H 70 135 H 12/20/18 12/20/18 19:52 16:56 POC Glucose 235 H 217 H Hospitalist ROS - Medication Medications: Active Medications Generic Name Dose Route Start Last Admin Trade Name Freq PRN Reason Stop Dose Admin Acetaminophen 650 mg 11/28/18 15:33 12/15/18 09:25 Tylenol PO 650 mg Q4H PRN Administration Headache/Fever/Mild Pain (1-3) Ascorbic Acid 500 mg 12/02/18 09:00 12/21/18 10:28 Vitamin C PO 500 mg DAILY LEONIDAS Administration Docusate Sodium 100 mg 11/28/18 21:00 12/21/18 10:28 Colace PO 100 mg BID LEONIDAS Administration Enoxaparin Sodium 40 mg 11/29/18 09:00 12/21/18 10:29 Lovenox SC 40 mg 09 LEONIDAS Administration Famotidine 20 mg 11/28/18 21:00 12/21/18 10:27 Pepcid PO 20 mg BID LEONIDAS Administration Folic Acid 1 mg 12/02/18 09:00 12/21/18 10:28 Folvite PO 1 mg DAILY LEONIDAS Administration Hydrocortisone/Aloe 0 gm 11/29/18 09:00 12/20/18 21:56 Hydrocortisone 1% Cream TOP 1 applic Q12HR LEONIDAS Administration Insulin Glargine 30 units/ 0.3 mls @ 0 mls/hr 11/29/18 09:00 12/21/18 10:30 Miscellaneous Medication SC 0.3 mls QAM LEONIDAS Administration Meropenem 2 gm/ Sodium 100 mls @ 100 mls/hr 11/29/18 14:00 12/21/18 05:39 Chloride IVPB 100 mls Q8HR LEONIDAS Administration Insulin Human Lispro 0 units 11/28/18 15:33 12/20/18 17:02 Humalog SC 4 unit .MODERATE SLIDING SC PRN Administration Moderate Correctional Scale Insulin Human Lispro 0 units 11/28/18 15:33 12/16/18 23:03 Humalog SC 2 unit .BEDTIME SLIDING SC PRN Administration Bedtime Correctional Scale Iron/Minerals/Multivitamins 1 tab 12/02/18 09:00 12/21/18 10:27 Theragran M PO 1 tab DAILY LEONIDAS Administration Lidocaine HCl 0 ml 12/02/18 10:00 12/11/18 09:04 Xylocaine 4% Topical Nannette TOP 1 applic ASDIR LEONIDAS Administration Morphine Sulfate 4 mg 12/12/18 15:17 12/15/18 09:25 Morphine SLOW IVP 4 mg Q4H PRN Administration Mild-Moderate Pain (1-5) Nystatin 0 gm 11/30/18 09:00 12/20/18 21:56 Mycostatin Powder TOP 1 applic BID LEONIDAS Administration Polyethylene Glycol 17 gm 12/02/18 09:00 12/21/18 10:29 Miralax PO 17 gm DAILY LEONIDAS Administration Saccharomyces Boulardii 250 mg 12/02/18 09:00 12/21/18 10:28 Florastor PO 250 mg DAILY LEONIDAS Administration Senna/Docusate Sodium 2 tab 12/02/18 07:38 12/16/18 08:41 Senokot S PO 2 tab BID PRN Administration Constipation Sodium Bicarbonate 650 mg 11/30/18 09:00 12/21/18 10:28 Bicarbonate, Sodium PO 650 mg BID LEONIDAS Administration Sodium Chloride 10 ml 11/28/18 18:25 12/18/18 15:50 Flush - Normal Saline IVF 10 ml PRN PRN Administration Saline Flush Tamsulosin HCl 0.4 mg 11/29/18 09:00 12/21/18 10:28 Flomax PO 0.4 mg DAILY LEONIDAS Administration Tamsulosin HCl 0.4 mg 12/17/18 09:00 12/21/18 10:32 Flomax PO Not Given DAILY LEONIDAS Zinc Sulfate 220 mg 12/02/18 09:00 12/21/18 10:29 Zinc Sulfate PO 220 mg DAILY LEONIDAS Administration - Exam Eye: PERRL, anicteric sclera Heart: RRR, no murmur, no gallops, no rubs, normal peripheral pulses Respiratory: CTAB, no wheezes, no rales, no ronchi, normal chest expansion, no tachypnea, normal percussion Gastrointestinal: soft, non-tender, non-distended, normal bowel sounds, no palpable masses, no hepatomegaly, no splenomegaly Extremities: no cyanosis, no clubbing, no edema Hosp A/P (1) Prostatic abscess Code(s): N41.2 - ABSCESS OF PROSTATE Status: Acute (2) Chronic hepatitis C Code(s): B18.2 - CHRONIC VIRAL HEPATITIS C Status: Chronic Qualifiers: Hepatic coma status: without hepatic coma Qualified Code(s): B18.2 - Chronic viral hepatitis C (3) DM type 2 (diabetes mellitus, type 2) Status: Chronic Qualifiers: Diabetes mellitus terminologist insulin use: without fdc use Diabetes mellitus complication status: without complication Qualified Code(s): E11.9 - Type 2 diabetes mellitus without complications (4) Tobacco abuse Code(s): Z72.0 - TOBACCO USE Status: Chronic - Plan * Continue the same recommendations * Per-prostatic abscess- continue Meropenem IV * DM- blood glucose is stable * HTN- blood pressure is stable * Chronic Hepatitis C- stable * Discharge planning is in progress
[2018-12-21] MEDS: HumaLOG 300 UNITS/3 ML VIAL SC PRN (17:50)
[2018-12-22] MEDS: Meropenem 2 GM in Sodium Chloride 0.9% 100 ML IVPB SCH ×3 (06:24→22:43)
[2018-12-22] MEDS: Sodium Bicarbonate Tab 325 MG TAB PO SCH ×2 (09:18→20:24)
[2018-12-22] MEDS: Saccharomyces boulardii 250 MG CAP PO SCH (09:18)
[2018-12-22] MEDS: Famotidine 20 MG TAB PO SCH ×2 (09:18→20:25)
[2018-12-22] MEDS: Enoxaparin Sodium 40 MG/0.4 ML SYRINGE SC SCH (09:18)
[2018-12-22] MEDS: Polyethylene Glycol 3350 17 GM Packet PO SCH (09:18)
[2018-12-22] MEDS: Ascorbic Acid 500 mg Chewable Tablet PO SCH (09:18)
[2018-12-22] MEDS: Tamsulosin HCl 0.4 MG CAP PO SCH ×2 (09:18→09:22)
[2018-12-22] MEDS: Docusate 100 MG CAP PO SCH ×2 (09:18→20:24)
[2018-12-22] MEDS: Folic Acid 1 MG TAB PO SCH (09:18)
[2018-12-22] MEDS: Multivitamin W/ Minerals 1 TAB PO SCH (09:18)
[2018-12-22] MEDS: Insulin Glargine 30 UNITS in Pre-Filled Syringe 1 EACH SC SCH (09:19)
[2018-12-22] MEDS: Zinc Sulfate 220 MG CAP PO SCH (09:21)
[2018-12-22] MEDS: Nystatin Powder 15 GM BOT TOP SCH ×2 (15:00→20:25)
[2018-12-22] MEDS: Hydrocortisone 1% Cream 30 GM TUBE TOP SCH ×2 (15:00→20:25)
--- NOTE | 2018-12-22 15:13 | PDOC.HOSPP ---
- Subjective Encounter Date: 12/22/18 Encounter Time: 15:12 Subjective: Mr. Orlando was seen today in follow-up of per-prostatic abscess. He does not have any complaints. - Objective Vital Signs & Weight: Vital Signs (12 hours) Temp Pulse Resp BP Pulse Ox 12/22/18 07:56 98.2 F 75 18 112/81 96 Weight Admit Weight 180 lb 15.84 oz Weight 180 lb 15.84 oz I&O: 12/21/18 12/22/18 12/23/18 06:59 06:59 06:59 Intake Total 1620 1660 Output Total 1650 2180 Balance -30 -520 Result Diagrams: 12/21/18 10:03 12/21/18 10:03 Additional Labs: Accuchecks 12/22/18 12/22/18 12/21/18 10:34 06:18 22:19 POC Glucose 185 H 150 H 144 H 12/21/18 16:08 POC Glucose 213 H Hospitalist ROS - Medication Medications: Active Medications Generic Name Dose Route Start Last Admin Trade Name Freq PRN Reason Stop Dose Admin Acetaminophen 650 mg 11/28/18 15:33 12/15/18 09:25 Tylenol PO 650 mg Q4H PRN Administration Headache/Fever/Mild Pain (1-3) Ascorbic Acid 500 mg 12/02/18 09:00 12/22/18 09:18 Vitamin C PO 500 mg DAILY LEONIDAS Administration Docusate Sodium 100 mg 11/28/18 21:00 12/22/18 09:18 Colace PO 100 mg BID LEONIDAS Administration Enoxaparin Sodium 40 mg 11/29/18 09:00 12/22/18 09:18 Lovenox SC 40 mg 09 LEONIDAS Administration Famotidine 20 mg 11/28/18 21:00 12/22/18 09:18 Pepcid PO 20 mg BID LEONIDAS Administration Folic Acid 1 mg 12/02/18 09:00 12/22/18 09:18 Folvite PO 1 mg DAILY LEONIDAS Administration Hydrocortisone/Aloe 0 gm 11/29/18 09:00 12/21/18 20:54 Hydrocortisone 1% Cream TOP 1 applic Q12HR LEONIDAS Administration Insulin Glargine 30 units/ 0.3 mls @ 0 mls/hr 11/29/18 09:00 12/22/18 09:19 Miscellaneous Medication SC 0.3 mls QAM LEONIDAS Administration Meropenem 2 gm/ Sodium 100 mls @ 100 mls/hr 11/29/18 14:00 12/22/18 06:24 Chloride IVPB 100 mls Q8HR LEONIDAS Administration Insulin Human Lispro 0 units 11/28/18 15:33 12/21/18 17:50 Humalog SC 4 unit .MODERATE SLIDING SC PRN Administration Moderate Correctional Scale Insulin Human Lispro 0 units 11/28/18 15:33 12/16/18 23:03 Humalog SC 2 unit .BEDTIME SLIDING SC PRN Administration Bedtime Correctional Scale Iron/Minerals/Multivitamins 1 tab 12/02/18 09:00 12/22/18 09:18 Theragran M PO 1 tab DAILY LEONIDAS Administration Lidocaine HCl 0 ml 12/02/18 10:00 12/11/18 09:04 Xylocaine 4% Topical Nannette TOP 1 applic ASDIR LEONIDAS Administration Morphine Sulfate 4 mg 12/12/18 15:17 12/15/18 09:25 Morphine SLOW IVP 4 mg Q4H PRN Administration Mild-Moderate Pain (1-5) Nystatin 0 gm 11/30/18 09:00 12/21/18 20:53 Mycostatin Powder TOP 1 applic BID LEONIDAS Administration Polyethylene Glycol 17 gm 12/02/18 09:00 12/22/18 09:18 Miralax PO Not Given DAILY [facility] Saccharomyces Boulardii 250 mg 12/02/18 09:00 12/22/18 09:18 Florastor PO 250 mg DAILY LEONIDAS Administration Senna/Docusate Sodium 2 tab 12/02/18 07:38 12/16/18 08:41 Senokot S PO 2 tab BID PRN Administration Constipation Sodium Bicarbonate 650 mg 11/30/18 09:00 12/22/18 09:18 Bicarbonate, Sodium PO 650 mg BID LEONIDAS Administration Sodium Chloride 10 ml 11/28/18 18:25 12/22/18 06:26 Flush - Normal Saline IVF 10 ml PRN PRN Administration Saline Flush Tamsulosin HCl 0.4 mg 11/29/18 09:00 12/22/18 09:18 Flomax PO 0.4 mg DAILY LEONIDAS Administration Tamsulosin HCl 0.4 mg 12/17/18 09:00 12/22/18 09:22 Flomax PO Not Given DAILY LEONIDAS Zinc Sulfate 220 mg 12/02/18 09:00 12/22/18 09:21 Zinc Sulfate PO 220 mg DAILY LEONIDAS Administration - Exam Eye: PERRL, anicteric sclera Heart: RRR, no murmur, no gallops, no rubs, normal peripheral pulses Respiratory: CTAB, no wheezes, no rales, no ronchi, normal chest expansion, no tachypnea, normal percussion Gastrointestinal: soft (Ostomy site is clear), non-tender, non-distended, normal bowel sounds, no palpable masses, no hepatomegaly, no splenomegaly, no guarding, no rigidity Extremities: no cyanosis, no clubbing, no edema Skin: normal turgor, no lesions Hosp A/P (1) Prostatic abscess Code(s): N41.2 - ABSCESS OF PROSTATE Status: Acute (2) Chronic hepatitis C Code(s): B18.2 - CHRONIC VIRAL HEPATITIS C Status: Chronic Qualifiers: Hepatic coma status: without hepatic coma Qualified Code(s): B18.2 - Chronic viral hepatitis C (3) DM type 2 (diabetes mellitus, type 2) Status: Chronic Qualifiers: Diabetes mellitus correction insulin use: without correction use Diabetes mellitus complication status: without complication Qualified Code(s): E11.9 - Type 2 diabetes mellitus without complications (4) Tobacco abuse Code(s): Z72.0 - TOBACCO USE Status: Chronic - Plan * Per-prostatic abscess- continue Meropenem IV * DM- blood glucose is stable * HTN- blood pressure is stable * Chronic Hepatitis C- stable * No new recommendations- continue the current management and awaiting safe discharge arrangements
[2018-12-23] MEDS: Meropenem 2 GM in Sodium Chloride 0.9% 100 ML IVPB SCH ×3 (05:39→21:27)
[2018-12-23] MEDS: HumaLOG 300 UNITS/3 ML VIAL SC PRN ×3 (05:46→21:33)
[2018-12-23] MEDS: Sodium Bicarbonate Tab 325 MG TAB PO SCH ×2 (08:40→20:22)
[2018-12-23] MEDS: Famotidine 20 MG TAB PO SCH ×2 (08:40→20:23)
[2018-12-23] MEDS: Saccharomyces boulardii 250 MG CAP PO SCH (08:40)
[2018-12-23] MEDS: Folic Acid 1 MG TAB PO SCH (08:40)
[2018-12-23] MEDS: Tamsulosin HCl 0.4 MG CAP PO SCH ×2 (08:40→08:42)
[2018-12-23] MEDS: Multivitamin W/ Minerals 1 TAB PO SCH (08:40)
[2018-12-23] MEDS: Ascorbic Acid 500 mg Chewable Tablet PO SCH (08:41)
[2018-12-23] MEDS: Polyethylene Glycol 3350 17 GM Packet PO SCH (08:41)
[2018-12-23] MEDS: Enoxaparin Sodium 40 MG/0.4 ML SYRINGE SC SCH (08:41)
[2018-12-23] MEDS: Docusate 100 MG CAP PO SCH ×2 (08:41→20:23)
[2018-12-23] MEDS: Zinc Sulfate 220 MG CAP PO SCH (08:41)
[2018-12-23] MEDS: Insulin Glargine 30 UNITS in Pre-Filled Syringe 1 EACH SC SCH (08:42)
[2018-12-23] MEDS: Hydrocortisone 1% Cream 30 GM TUBE TOP SCH ×2 (15:00→20:15)
[2018-12-23] MEDS: Nystatin Powder 15 GM BOT TOP SCH ×2 (15:00→20:15)
--- NOTE | 2018-12-23 16:36 | PDOC.HOSPP ---
- Subjective Encounter Date: 12/23/18 Encounter Time: 13:00 Subjective: Mr. Orlando was seen today in follow-up of charli-prostatic abscess. He does not have any new complaints. - Objective Vital Signs & Weight: Vital Signs (12 hours) Temp Pulse Resp BP Pulse Ox 12/23/18 07:50 97.6 F 73 16 119/70 96 Weight Admit Weight 180 lb 15.84 oz Weight 180 lb 15.84 oz I&O: 12/22/18 12/23/18 12/24/18 06:59 06:59 06:59 Intake Total 1660 460 Output Total 8373 425 850 Balance -520 -425 -390 Result Diagrams: 12/21/18 10:03 12/21/18 10:03 Additional Labs: Accuchecks 12/23/18 12/23/18 12/22/18 12:46 05:44 22:00 POC Glucose 142 H 181 H 199 H 12/22/18 18:51 POC Glucose 139 H Hospitalist ROS - Medication Medications: Active Medications Generic Name Dose Route Start Last Admin Trade Name Freq PRN Reason Stop Dose Admin Acetaminophen 650 mg 11/28/18 15:33 12/15/18 09:25 Tylenol PO 650 mg Q4H PRN Administration Headache/Fever/Mild Pain (1-3) Ascorbic Acid 500 mg 12/02/18 09:00 12/23/18 08:41 Vitamin C PO 500 mg DAILY LEONIDAS Administration Docusate Sodium 100 mg 11/28/18 21:00 12/23/18 08:41 Colace PO 100 mg BID LEONIDAS Administration Enoxaparin Sodium 40 mg 11/29/18 09:00 12/23/18 08:41 Lovenox SC 40 mg 09 LEONIDAS Administration Famotidine 20 mg 11/28/18 21:00 12/23/18 08:40 Pepcid PO 20 mg BID LEONIDAS Administration Folic Acid 1 mg 12/02/18 09:00 12/23/18 08:40 Folvite PO 1 mg DAILY LEONIDAS Administration Hydrocortisone/Aloe 0 gm 11/29/18 09:00 12/22/18 20:25 Hydrocortisone 1% Cream TOP Not Given Q12HR LEONIDAS Insulin Glargine 30 units/ 0.3 mls @ 0 mls/hr 11/29/18 09:00 12/23/18 08:42 Miscellaneous Medication SC 0.3 mls QAM LEONIDAS Administration Meropenem 2 gm/ Sodium 100 mls @ 100 mls/hr 11/29/18 14:00 12/23/18 15:52 Chloride IVPB 100 mls Q8HR LEONIDAS Administration Insulin Human Lispro 0 units 11/28/18 15:33 12/23/18 05:46 Humalog SC 2 unit .MODERATE SLIDING SC PRN Administration Moderate Correctional Scale Insulin Human Lispro 0 units 11/28/18 15:33 12/16/18 23:03 Humalog SC 2 unit .BEDTIME SLIDING SC PRN Administration Bedtime Correctional Scale Iron/Minerals/Multivitamins 1 tab 12/02/18 09:00 12/23/18 08:40 Theragran M PO 1 tab DAILY LEONIDAS Administration Lidocaine HCl 0 ml 12/02/18 10:00 12/11/18 09:04 Xylocaine 4% Topical Nannette TOP 1 applic ASDIR LEONIDAS Administration Nystatin 0 gm 11/30/18 09:00 12/22/18 20:25 Mycostatin Powder TOP Not Given BID LEONIDAS Polyethylene Glycol 17 gm 12/02/18 09:00 12/23/18 08:41 Miralax PO Not Given DAILY [facility] Saccharomyces Boulardii 250 mg 12/02/18 09:00 12/23/18 08:40 Florastor PO [address] [facility] Administration Senna/Docusate Sodium 2 tab 12/02/18 07:38 12/16/18 08:41 Senokot S PO 2 tab BID PRN Administration Constipation Sodium Bicarbonate 650 mg 11/30/18 09:00 12/23/18 08:40 Bicarbonate, Sodium PO [address] [facility] Administration Sodium Chloride 10 ml 11/28/18 18:25 12/23/18 15:53 Flush - Normal Saline IVF 10 ml PRN PRN Administration Saline Flush Tamsulosin HCl 0.4 mg 11/29/18 09:00 12/23/18 08:40 Flomax PO 0.4 mg DAILY LEONIDAS Administration Tamsulosin HCl 0.4 mg 12/17/18 09:00 12/23/18 08:42 Flomax PO Not Given DAILY LEONIDAS Zinc Sulfate 220 mg 12/02/18 09:00 12/23/18 08:41 Zinc Sulfate PO 220 mg DAILY LEONIDAS Administration - Exam Eye: PERRL, anicteric sclera Heart: RRR, no murmur, no gallops, no rubs, normal peripheral pulses Respiratory: CTAB, no wheezes, no rales, no ronchi, normal chest expansion, no tachypnea, normal percussion Gastrointestinal: soft, non-tender (ostomy site ok), non-distended, normal bowel sounds, no palpable masses, no hepatomegaly Extremities: no cyanosis, no clubbing, no edema Skin: normal turgor, no lesions, no rashes Hosp A/P (1) Prostatic abscess Code(s): N41.2 - ABSCESS OF PROSTATE Status: Acute (2) Chronic hepatitis C Code(s): B18.2 - CHRONIC VIRAL HEPATITIS C Status: Chronic Qualifiers: Hepatic coma status: without hepatic coma Qualified Code(s): B18.2 - Chronic viral hepatitis C (3) DM type 2 (diabetes mellitus, type 2) Status: Chronic Qualifiers: Diabetes mellitus exterminator termite insulin use: without exterminator termite use Diabetes mellitus complication status: without complication Qualified Code(s): E11.9 - Type 2 diabetes mellitus without complications (4) Tobacco abuse Code(s): Z72.0 - TOBACCO USE Status: Chronic - Plan * Per-prostatic abscess- continue Meropenem IV - the plan will be to transition him to Invanz upon discharge * DM- blood glucose is stable * HTN- blood pressure is stable * Chronic Hepatitis C- stable * No new recommendations- continue the current management and awaiting safe discharge arrangements- hopefully Outpatient IV antibiotics at our Infusion center, with vouchers for bus transportation.
[2018-12-24] MEDS: Meropenem 2 GM in Sodium Chloride 0.9% 100 ML IVPB SCH ×3 (05:49→21:45)
[2018-12-24] MEDS: Polyethylene Glycol 3350 17 GM Packet PO SCH (08:38)
[2018-12-24] MEDS: Docusate 100 MG CAP PO SCH ×2 (08:38→20:26)
[2018-12-24] MEDS: Multivitamin W/ Minerals 1 TAB PO SCH (08:38)
[2018-12-24] MEDS: Sodium Bicarbonate Tab 325 MG TAB PO SCH ×2 (08:38→20:26)
[2018-12-24] MEDS: Ascorbic Acid 500 mg Chewable Tablet PO SCH (08:38)
[2018-12-24] MEDS: Famotidine 20 MG TAB PO SCH ×2 (08:39→20:26)
[2018-12-24] MEDS: Folic Acid 1 MG TAB PO SCH (08:39)
[2018-12-24] MEDS: Zinc Sulfate 220 MG CAP PO SCH (08:39)
[2018-12-24] MEDS: Saccharomyces boulardii 250 MG CAP PO SCH (08:39)
[2018-12-24] MEDS: Tamsulosin HCl 0.4 MG CAP PO SCH ×2 (08:39→08:41)
[2018-12-24] MEDS: Enoxaparin Sodium 40 MG/0.4 ML SYRINGE SC SCH (08:40)
[2018-12-24] MEDS: Insulin Glargine 30 UNITS in Pre-Filled Syringe 1 EACH SC SCH (08:41)
[2018-12-24] MEDS: Hydrocortisone 1% Cream 30 GM TUBE TOP SCH ×2 (09:00→20:30)
[2018-12-24] MEDS: Nystatin Powder 15 GM BOT TOP SCH ×2 (09:00→20:30)
--- NOTE | 2018-12-24 15:48 | PDOC.HOSPP ---
- Subjective Subjective: Doing well. Denies any pain. No other complaints. - Objective Vital Signs & Weight: Vital Signs (12 hours) Temp Pulse Resp BP Pulse Ox 12/24/18 07:57 97.5 F L 64 18 122/73 98 Weight Admit Weight 180 lb 15.84 oz Weight 180 lb 15.84 oz I&O: 12/23/18 12/24/18 12/25/18 06:59 06:59 06:59 Intake Total 1525 Output Total 425 1725 Balance -425 -200 Result Diagrams: 12/21/18 10:03 12/21/18 10:03 Additional Labs: Accuchecks 12/24/18 12/24/18 12/23/18 11:44 05:52 21:34 POC Glucose 145 H 118 H 219 H 12/23/18 17:03 POC Glucose 160 H Hospitalist ROS - Medication Medications: Active Medications Generic Name Dose Route Start Last Admin Trade Name Freq PRN Reason Stop Dose Admin Acetaminophen 650 mg 11/28/18 15:33 12/15/18 09:25 Tylenol PO 650 mg Q4H PRN Administration Headache/Fever/Mild Pain (1-3) Ascorbic Acid 500 mg 12/02/18 09:00 12/24/18 08:38 Vitamin C PO 500 mg DAILY LEONIDAS Administration Docusate Sodium 100 mg 11/28/18 21:00 12/24/18 08:38 Colace PO 100 mg BID LEONIDAS Administration Enoxaparin Sodium 40 mg 11/29/18 09:00 12/24/18 08:40 Lovenox SC 40 mg 0900 LEONIDAS Administration Famotidine 20 mg 11/28/18 21:00 12/24/18 08:39 Pepcid PO 20 mg BID LEONIDAS Administration Folic Acid 1 mg 12/02/18 09:00 12/24/18 08:39 Folvite PO 1 mg DAILY LEONIDAS Administration Hydrocortisone/Aloe 0 gm 11/29/18 09:00 12/23/18 20:15 Hydrocortisone 1% Cream TOP Not Given Q12HR [facility] Insulin Glargine 30 units/ 0.3 mls @ 0 mls/hr 11/29/18 09:00 12/24/18 08:41 Miscellaneous Medication SC 0.3 mls QAM [facility] Administration Meropenem 2 gm/ Sodium 100 mls @ 100 mls/hr 11/29/18 14:00 12/24/18 15:41 Chloride IVPB 100 mls Q8HR LENOIDAS Administration Insulin Human Lispro 0 units 11/28/18 15:33 12/23/18 18:36 Humalog SC 2 unit .MODERATE SLIDING SC PRN Administration Moderate Correctional Scale Insulin Human Lispro 0 units 11/28/18 15:33 12/23/18 21:33 Humalog SC 2 unit .BEDTIME SLIDING SC PRN Administration Bedtime Correctional Scale Iron/Minerals/Multivitamins 1 tab 12/02/18 09:00 12/24/18 08:38 Theragran M PO 1 tab DAILY LEONIDAS Administration Lidocaine HCl 0 ml 12/02/18 10:00 12/11/18 09:04 Xylocaine 4% Topical Nannette TOP 1 applic ASDIR LEONIDAS Administration Nystatin 0 gm 11/30/18 09:00 12/23/18 20:15 Mycostatin Powder TOP Not Given BID LEONIDAS Polyethylene Glycol 17 gm 12/02/18 09:00 12/24/18 08:38 Miralax PO 17 gm DAILY LEONIDAS Administration Saccharomyces Boulardii 250 mg 12/02/18 09:00 12/24/18 08:39 Florastor PO 250 mg DAILY LEONIDAS Administration Senna/Docusate Sodium 2 tab 12/02/18 07:38 12/16/18 08:41 Senokot S PO 2 tab BID PRN Administration Constipation Sodium Bicarbonate 650 mg 11/30/18 09:00 12/24/18 08:38 Bicarbonate, Sodium PO 650 mg BID LEONIDAS Administration Sodium Chloride 10 ml 11/28/18 18:25 12/24/18 15:41 Flush - Normal Saline IVF 10 ml PRN PRN Administration Saline Flush Tamsulosin HCl 0.4 mg 11/29/18 09:00 12/24/18 08:39 Flomax PO 0.4 mg DAILY LEONIDAS Administration Tamsulosin HCl 0.4 mg 12/17/18 09:00 12/24/18 08:41 Flomax PO Not Given DAILY LEONIDAS Zinc Sulfate 220 mg 12/02/18 09:00 12/24/18 08:39 Zinc Sulfate PO 220 mg DAILY LEONIDAS Administration - Exam General Appearance: NAD, awake alert Heart: RRR, no murmur, no gallops, no rubs, normal peripheral pulses Respiratory: CTAB, no wheezes, no rales, no ronchi, normal chest expansion, no tachypnea, normal percussion Gastrointestinal: soft, non-tender, non-distended Gastrointestinal - other findings: Colostomy present with health stoma. Skin: normal turgor Skin - other findings: Surgical incision perirectal buttock looks ok. No drainage. Psychiatric: normal affect, normal behavior, A&O x 3 Hosp A/P (1) Colostomy in place Code(s): Z93.3 - COLOSTOMY STATUS Status: Acute (2) Non-compliance Code(s): Z91.19 - PATIENT'S NONCOMPLIANCE [facility] Status: Acute (3) Charli-rectal abscess Code(s): K61.1 - RECTAL ABSCESS Status: Acute (4) Prostatic abscess Code(s): N41.2 - ABSCESS OF PROSTATE Status: Acute (5) Anemia Code(s): D64.9 - ANEMIA, UNSPECIFIED Status: Chronic (6) Chronic hepatitis C Code(s): B18.2 - CHRONIC VIRAL HEPATITIS C Status: Chronic Qualifiers: Hepatic coma status: without hepatic coma Qualified Code(s): B18.2 - Chronic viral hepatitis C - Plan Had open drainage of charli-prostatic abscess. Cultures growing Klebsiella. Wound to heal by secondary intention. Stable. Today is day 20 of what will need to be at least 28 days of antibiotics. Discussed with Dr. Iyer. Working discharge.
[2018-12-24] MEDS: HumaLOG 300 UNITS/3 ML VIAL SC PRN (21:47)
[2018-12-25] MEDS: Meropenem 2 GM in Sodium Chloride 0.9% 100 ML IVPB SCH ×3 (06:22→22:05)
--- NOTE | 2018-12-25 10:04 | PDOC.HOSPP ---
- Subjective Encounter Date: 12/25/18 Encounter Time: 07:00 Subjective: Patient seen and examined. No new complaints. No overnight events - Objective Vital Signs & Weight: Vital Signs (12 hours) Temp Pulse Resp BP Pulse Ox 12/25/18 07:18 97.6 F 80 18 107/70 95 Weight Admit Weight 180 lb 15.84 oz Weight 180 lb 15.84 oz I&O: 12/24/18 12/25/18 12/26/18 06:59 06:59 06:59 Intake Total 1525 210 Output Total 1725 800 Balance -200 -590 Result Diagrams: 12/21/18 10:03 12/21/18 10:03 Additional Labs: Accuchecks 12/25/18 12/24/18 12/24/18 06:26 21:49 16:52 POC Glucose 100 229 H 161 H 12/24/18 11:44 POC Glucose 145 H Hospitalist ROS - Review of Systems ENT: denies: ear pain, ear discharge, nose pain, nose discharge, nose congestion , mouth pain, mouth swelling, throat pain, throat swelling, other Respiratory: denies: cough, dry, shortness of breath, hemoptysis, SOB with excertion, pleuritic pain, sputum, wheezing, other Cardiovascular: denies: chest pain, palpitations, orthopnea, paroxysmal noc. dyspnea, edema, light headedness, other Gastrointestinal: denies: nausea, vomiting, abdominal pain, diarrhea, constipation, melena, hematochezia, other Genitourinary: denies: dysuria, frequency, incontinence, hematuria, retention, other Musculoskeletal: denies: neck pain, shoulder pain, arm pain, back pain, hand pain, leg pain, foot pain, other - Medication Medications: Active Medications Generic Name Dose Route Start Last Admin Trade Name Freq PRN Reason Stop Dose Admin Acetaminophen 650 mg 11/28/18 15:33 12/15/18 09:25 Tylenol PO 650 mg Q4H PRN Administration Headache/Fever/Mild Pain (1-3) Ascorbic Acid 500 mg 12/02/18 09:00 12/24/18 08:38 Vitamin C PO 500 mg DAILY LEONIDAS Administration Docusate Sodium 100 mg 11/28/18 21:00 12/24/18 20:26 Colace PO 100 mg BID LEONIDAS Administration Enoxaparin Sodium 40 mg 11/29/18 09:00 12/24/18 08:40 Lovenox SC 40 mg 0900 LEONIDAS Administration Famotidine 20 mg 11/28/18 21:00 12/24/18 20:26 Pepcid PO 20 mg BID LEONIDAS Administration Folic Acid 1 mg 12/02/18 09:00 12/24/18 08:39 Folvite PO 1 mg DAILY LEONIDAS Administration Hydrocortisone/Aloe 0 gm 11/29/18 09:00 12/24/18 20:30 Hydrocortisone 1% Cream TOP Not Given Q12HR LEONIDAS Insulin Glargine 30 units/ 0.3 mls @ 0 mls/hr 11/29/18 09:00 12/24/18 08:41 Miscellaneous Medication SC 0.3 mls QAM LEONIDAS Administration Meropenem 2 gm/ Sodium 100 mls @ 100 mls/hr 11/29/18 14:00 12/25/18 06:22 Chloride IVPB 100 mls Q8HR LEONIDAS Administration Insulin Human Lispro 0 units 11/28/18 15:33 12/23/18 18:36 Humalog SC 2 unit .MODERATE SLIDING SC PRN Administration Moderate Correctional Scale Insulin Human Lispro 0 units 11/28/18 15:33 12/24/18 21:47 Humalog SC 2 unit .BEDTIME SLIDING SC PRN Administration Bedtime Correctional Scale Iron/Minerals/Multivitamins 1 tab 12/02/18 09:00 12/24/18 08:38 Theragran M PO 1 tab DAILY LEONIDAS Administration Lidocaine HCl 0 ml 12/02/18 10:00 12/11/18 09:04 Xylocaine 4% Topical Nannette TOP 1 applic ASDIR LEONIDAS Administration Nystatin 0 gm 11/30/18 09:00 12/24/18 20:30 Mycostatin Powder TOP Not Given BID LEONIDAS Polyethylene Glycol 17 gm 12/02/18 09:00 12/24/18 08:38 Miralax PO 17 gm DAILY LEONIDAS Administration Saccharomyces Boulardii 250 mg 12/02/18 09:00 12/24/18 08:39 Florastor PO 250 mg DAILY LEONIDAS Administration Senna/Docusate Sodium 2 tab 12/02/18 07:38 12/16/18 08:41 Senokot S PO 2 tab BID PRN Administration Constipation Sodium Bicarbonate 650 mg 11/30/18 09:00 12/24/18 20:26 Bicarbonate, Sodium PO 650 mg BID LEONIDAS Administration Sodium Chloride 10 ml 11/28/18 18:25 12/25/18 06:22 Flush - Normal Saline IVF 10 ml PRN PRN Administration Saline Flush Tamsulosin HCl 0.4 mg 11/29/18 09:00 12/24/18 08:39 Flomax PO 0.4 mg DAILY LEONIDAS Administration Tamsulosin HCl 0.4 mg 12/17/18 09:00 12/24/18 08:41 Flomax PO Not Given DAILY LEONIDAS Zinc Sulfate 220 mg 12/02/18 09:00 12/24/18 08:39 Zinc Sulfate PO 220 mg DAILY LEONIDAS Administration - Exam General Appearance: NAD, awake alert Eye: PERRL, anicteric sclera ENT: normocephalic atraumatic, no oropharyngeal lesions Neck: supple, symmetric, no JVD, no thyromegaly Heart: RRR, no murmur, no gallops, no rubs Respiratory: CTAB, no wheezes, no rales, no ronchi Gastrointestinal: soft, non-tender, non-distended, normal bowel sounds Extremities: no cyanosis, no clubbing, no edema Skin: normal turgor, no lesions Neurological: no focal deficits Musculoskeletal: normal tone, normal strength Psychiatric: normal affect, normal behavior Hosp A/P (1) Stephenie-rectal abscess Code(s): K61.1 - RECTAL ABSCESS Status: Acute (2) Prostatic abscess Code(s): N41.2 - ABSCESS OF PROSTATE Status: Acute (3) Chronic hepatitis C Code(s): B18.2 - CHRONIC VIRAL HEPATITIS C Status: Chronic Qualifiers: Hepatic coma status: without hepatic coma Qualified Code(s): B18.2 - Chronic viral hepatitis C (4) DM type 2 (diabetes mellitus, type 2) Status: Chronic Qualifiers: Diabetes mellitus fdc insulin use: without fdc use Diabetes mellitus complication status: without complication Qualified Code(s): E11.9 - Type 2 diabetes mellitus without complications - Plan old records reviewed/req, continue antibiotics, certified social workers in health care continue wound care by nursing, sitz bath, pain is controlled with current meds continue meropenam for total 1 month as per ID, 1 more week pending and arrangement for outpt antibiotics is pending. medication reviewed as above symptomatic treatment
[2018-12-25] MEDS: Sodium Bicarbonate Tab 325 MG TAB PO SCH (10:06)
[2018-12-25] MEDS: Ascorbic Acid 500 mg Chewable Tablet PO SCH (10:06)
[2018-12-25] MEDS: Multivitamin W/ Minerals 1 TAB PO SCH (10:06)
[2018-12-25] MEDS: Famotidine 20 MG TAB PO SCH ×2 (10:07→22:04)
[2018-12-25] MEDS: Folic Acid 1 MG TAB PO SCH (10:07)
[2018-12-25] MEDS: Docusate 100 MG CAP PO SCH ×2 (10:07→22:04)
[2018-12-25] MEDS: Tamsulosin HCl 0.4 MG CAP PO SCH ×2 (10:07→10:10)
[2018-12-25] MEDS: Saccharomyces boulardii 250 MG CAP PO SCH (10:07)
[2018-12-25] MEDS: Polyethylene Glycol 3350 17 GM Packet PO SCH (10:07)
[2018-12-25] MEDS: Nystatin Powder 15 GM BOT TOP SCH ×2 (10:08→22:08)
[2018-12-25] MEDS: Enoxaparin Sodium 40 MG/0.4 ML SYRINGE SC SCH (10:08)
[2018-12-25] MEDS: Insulin Glargine 30 UNITS in Pre-Filled Syringe 1 EACH SC SCH (10:08)
[2018-12-25] MEDS: Hydrocortisone 1% Cream 30 GM TUBE TOP SCH ×2 (10:08→22:08)
[2018-12-25] MEDS: Zinc Sulfate 220 MG CAP PO SCH (12:06)
[2018-12-25] MEDS: HumaLOG 300 UNITS/3 ML VIAL SC PRN ×2 (17:39→22:05)
[2018-12-26] MEDS: Meropenem 2 GM in Sodium Chloride 0.9% 100 ML IVPB SCH ×2 (07:22→14:10)
[2018-12-26 07:38] VITALS: BP 103/68; TEMP 97.7
[2018-12-26] MEDS: Polyethylene Glycol 3350 17 GM Packet PO SCH (08:57)
[2018-12-26] MEDS: Zinc Sulfate 220 MG CAP PO SCH (08:57)
[2018-12-26] MEDS: Ascorbic Acid 500 mg Chewable Tablet PO SCH (08:57)
[2018-12-26] MEDS: Saccharomyces boulardii 250 MG CAP PO SCH (08:57)
[2018-12-26] MEDS: Multivitamin W/ Minerals 1 TAB PO SCH (08:58)
[2018-12-26] MEDS: Folic Acid 1 MG TAB PO SCH (08:58)
[2018-12-26] MEDS: Docusate 100 MG CAP PO SCH (08:58)
[2018-12-26] MEDS: Famotidine 20 MG TAB PO SCH (08:58)
[2018-12-26] MEDS: Hydrocortisone 1% Cream 30 GM TUBE TOP SCH (08:58)
[2018-12-26] MEDS: Enoxaparin Sodium 40 MG/0.4 ML SYRINGE SC SCH (08:58)
[2018-12-26] MEDS: Nystatin Powder 15 GM BOT TOP SCH (08:59)
[2018-12-26] MEDS: Tamsulosin HCl 0.4 MG CAP PO SCH ×2 (09:01)
[2018-12-26] MEDS: Insulin Glargine 30 UNITS in Pre-Filled Syringe 1 EACH SC SCH (10:31)
--- NOTE | 2018-12-26 16:14 | DIS ---
DATE OF ADMISSION: 11/28/2018 DATE OF DISCHARGE: 12/26/2018 DISCHARGE DISPOSITION: Home. FOLLOWUP: Follow up with primary care physician, Dr. Ivey in 1 week. DISCHARGE MEDICATIONS: 1. Invanz 1 g daily until 08 of January. 2. Flomax 0.4 mg daily. 3. Metformin 500 mg b.i.d. 4. Novolin N 15 units b.i.d. 5. Vitamin C 500 mg daily. 6. MiraLAX 17 g daily. 7. Multivitamin one tablet daily. 8. Hydrocortisone ointment daily. 9. Pepcid 20 mg daily. INPATIENT CONSULTANTS: 1. Urology, Dr. Knight. 2. Infectious Disease, Dr. Iyer. 3. General Surgery, Dr. Stuart. INPATIENT PROCEDURES: On November,, the patient underwent incision and drainage of perirectal abscess. DIAGNOSTIC TESTS: 1. Pelvis CT on November,, showed periprosthetic gas containing collection larger on the left, extending around the canal inferiorly and possibly contiguous. 2. On November,, the patient underwent PICC line placement. 3. Pelvic CT on November,, showed interval resolution of the perineal fluid collection. BRIEF HOSPITAL COURSE: The patient is a 53-year-old male with Karla gangrene, status post debridement earlier this year, presented to the hospital on November,, with worsening rectal pain. His workup was consistent with perirectal periprosthetic abscess. He underwent incision and drainage by General Surgery. He underwent voiding trial, which was successful. Suprapubic catheter was removed this admission. He will continue IV Invanz 1 g daily until 08 January per Infectious Disease. He has been cleared by consultants for discharge. FINAL DIAGNOSES: 1. Perirectal periprosthetic abscess, status post incision and drainage. 2. 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 3. Diabetes mellitus type 2. 4. Chronic hepatitis C. 5. Asthma, mild intermittent. 6. History of cirrhosis. 7. History of alcohol abuse. 8. Former smoker. 9. Chronic anemia. 10. Hyponatremia. 11. Moderate protein-calorie malnutrition. 12. Hypophosphatemia, replaced. 13. Hypomagnesemia, replaced. 14. Total time coordinating the discharge of this patient was 36 minutes. The patient was extensively counseled to be compliant with insulin. Metformin was also added. He was advised to follow up with Dr. Knight and General Surgery as scheduled. PLAN: Plan of care was discussed with the patient in detail. He stated understanding. Job ID: [id number]
--- NOTE | 2018-12-28 06:43 | PQF ---
[employer] Instrument Technician Crystal Reports Winform ViewerHollnagerosa, KAYLA Hair MD [id number] CLINICAL DOCUMENTATION CLARIFICATION FORM: POST DISCHARGE Addendum to original discharge summary date: ____ Late entry note date: __ DATE: 12/28/18 ATTN: Kayla Cardozo Please exercise your independent, professional judgment in responding to the clarification form. Clinical indicators are provided on the bottom of this form for your review Can you please further specity the diagnosis of patient based on the indicators below? Please check appropriate box(s): [ ] Prostatic and periprostatic abscess due to post of Debridement [ ] Prostatic and periprostatic abscess not due to post of Debridement [ ] Other diagnosis please specify [ x ] Unable to determine In addition, please specify: Present on Admission (POA): [ ] Yes [ ] No [ ] Unable to determine CLINICAL INDICATORS - SIGNS / SYMPTOMS / LABS H and P 11/28/18 pg.1- Worsening rectal pain H and P 11/28 pg.3- Prostatic and periprostatic abscess Hospitalist PN 12/21 Dr. Weir pg.1 - recent Necrotizing fascitis of the scrotum requiring suprapubic cath and diverting colostomy and several debridement Pn 12/05 Dr Knight pg.1- History of necrotizing fascitis of the perineum and scrotum status post wide debridement suprapubic tube , June 2018 d periprostatic abscess Consult 11/28 "presents for perirectal perineal pain demonstrating fluid collection near the prostate that are consistent with periprostatic abscess" RISK FACTORS Diabetes- H and P pg.1 Hepatitis infection-H and P pg.1 Hx of Karla gangrene- H and P Hx of non compliance- H and P s/p colostomy,suprapubic tube diversion and multiple debridement - Consult presence of colostomy-H and P 11/28 pg.3 PN 11/29 - Abscess of prostate and perianal TREATMENT: Needle aspiration of periprostatic abscess- OP Report 11/28 Dr. Choi pg.1 PICC Placement- 12/01 Dr. Holly Infectious Consult- Dr. Iyer 11/[address]- 11/29- Dr. Beaver Op report 12/01 Dr Stuart- I and D of perirectal abscess H and P 11/28 pg.3 - CT abdomen and pelvis IVF- H and P 11/28 pg.3 Zosyn 4.5gm IV - JUN 03 Vancomycin 1.25gm IV - JUN 03 (This form is maintained as a part of the permanent medical record) 2014 [employer], [employer]. All Rights Reserved Jameson [email or web address] [not provided] MTDD
--- NOTE | 2018-12-28 06:48 | PQF ---
[employer] Small Package And Bundle Sorter Clerk Crystal Reports Winform Viewer David Orlando MALIK MD [id number] CLINICAL DOCUMENTATION CLARIFICATION FORM: POST DISCHARGE Addendum to original discharge summary date: ____ Late entry note date: __ DATE: 12/28/18 ATTN: Michael Cardozo Please exercise your independent, professional judgment in responding to the clarification form. Clinical indicators are provided on the bottom of this form for your review Can you please further specify if Sepsis is ruled in or ruled out? Sepsis [ x ] Ruled in diagnosis [ ] Continue to treat [ x ] Resolved [ ] Ruled out diagnosis [ ] Cannot rule out diagnosis [ ] Other diagnosis please specify [ ] Unable to determine In addition, please specify: Present on Admission (POA): [ x ] Yes [ ] No [ ] Unable to determine For continuity of documentation, please document condition throughout progress notes and discharge summary. Thank You. CLINICAL INDICATORS - SIGNS / SYMPTOMS / LABS PN 11/30 Dr. Iyer pg.1- Periprostatic tissues with highly resistant Klebsiella oxytoca Hospitalist PN 12/02 / Dontae- Sepsis Hospitalist PB Dr. Marquez pg.7- Bacteremia due to other bacteria Ds pg.2 Perirectal periprosthetic abscess status post incision and drainage Consult 11/28 "presents for perirectal perineal pain demonstrating fluid collection near the prostate that are consistent with periprostatic abscess" RISK FACTORS H and P 11/28 pg.3- Prostatic and periprostatic abscess Moderate protein calorie malnutrition- DS pg.2 Diabetes- H and P pg.1 Hx of Karla gangrene- H and P s/p colostomy,suprapubic tube diversion and multiple debridement - Consult presence of colostomy-H and P 11/28 pg.3 TREATMENTS Infectious Consult- Dr. Iyer 11/29 PICC Placement- 12/01 Dr. Holly IV fluids- MAY Abscess Drainage CT- 11/29- Dr. Beaver Op report 12/01 Dr Stuart- I and D of perirectal abscess Zosyn 4.5gm IV - JUN 03 Vancomycin 1.25gm IV - JUN 03 H and P 11/28 pg.3 - CT abdomen and pelvis (This form is maintained as a part of the permanent medical record) 2014 [employer]. All Rights Reserved Jameson [email or web address] [not provided] MTDD
--- NOTE | 2018-12-28 06:54 | PQF ---
SAP Estate Administrator Crystal Reports Winform Viewer David Orlando MALIK MD [id number] CLINICAL DOCUMENTATION CLARIFICATION FORM: POST DISCHARGE Addendum to original discharge summary date: ____ Late entry note date: __ DATE: 12/28/18 ATTN: Michael Macario Please exercise your independent, professional judgment in responding to the clarification form. Clinical indicators are provided on the bottom of this form for your review Can you please further specify the diagnosis base on the clinical indicators below? Please check appropriate box(s): [ x ] Prostatic and periprostatic abscess due to DM [ ] Prostatic and periprostatic abscess not due to DM [ ] Other diagnosis please specify [ ] Unable to determine In addition, please specify: Present on Admission (POA): [ x] Yes [ ] No [ ] Unable to determine For continuity of documentation, please document condition throughout progress notes and discharge summary. Thank You. CLINICAL INDICATORS - SIGNS / SYMPTOMS / LABS Consult 11/28 "presents for perirectal perineal pain demonstrating fluid collection near the prostate that are consistent with periprostatic abscess" Consult 11/28 "53 years old male with history of poorly- controlled DM" HP 11/28 "uncontrolled DM with diabetic ketoacidosis" Labs: "Glucose 11/28:439 04:221 05:114 12/01:195 12/02:322" RISKS: Consult 11/28 - poorly-controlled DM Consult 11/28 - Hepatitis C Consult 11/28 - noncompliance to medication PN 11/29 - Abscess of prostate and perianal TREATMENT: IV fluids- MAY Zosyn 4.5gm IV - JUN 03 Vancomycin 1.25gm IV - JUN [address]- 11/29- Dr. Beaver Op report 12/01 Dr Stuart- I and D of perirectal abscess Glucagon 1mg IM - JUN 03 Humalog 2 units Subcu - JUN 03 (This form is maintained as a part of the permanent medical record) 2014 [employer], [employer] All Rights Reserved Jameson [email or web address] [not provided] MTDD
== END 2018-12-26 16:45 | disposition home or self-care (01) | DRG 853 ==
LOC: ERS 10:36 → ERHOLD 14:33 → ONC 19:22
PROVIDERS: ADMIT Internal Medicine Nephrology; ATTEND Internal Medicine Nephrology
PROC: 0V907ZZ Drainage of Prostate, Via Natural or Artificial Opening (ICD-10-PCS; 2018-11-28)
PROC: 0T9B80Z Drainage of Bladder with Drainage Device, Via Natural or Artificial Opening Endoscopic (ICD-10-PCS; 2018-11-28)
PROC: 0T7B8ZZ Dilation of Bladder, Via Natural or Artificial Opening Endoscopic (ICD-10-PCS; 2018-11-28)
PROC: 0V9030Z Drainage of Prostate with Drainage Device, Percutaneous Approach (ICD-10-PCS; 2018-11-29)
PROC: 02HV33Z Insertion of Infusion Device into Superior Vena Cava, Percutaneous Approach (ICD-10-PCS; principal; 2018-12-01)
PROC: B548ZZA Ultrasonography of Superior Vena Cava, Guidance (ICD-10-PCS; 2018-12-01)
PROC: 0D9P0ZZ Drainage of Rectum, Open Approach (ICD-10-PCS; 2018-12-03)
DX: A41.9 Sepsis, unspecified organism (principal); E11.10 Type 2 diabetes mellitus with ketoacidosis without coma; K61.0 Anal abscess; N41.2 Abscess of prostate; E87.1 Hypo-osmolality and hyponatremia; N17.9 Acute kidney failure, unspecified; K76.6 Portal hypertension; E44.0 Moderate protein-calorie malnutrition; J44.9 Chronic obstructive pulmonary disease, unspecified; Z93.3 Colostomy status; B18.2 Chronic viral hepatitis C; K74.60 Unspecified cirrhosis of liver; E87.6 Hypokalemia; Z91.14 Patient's other noncompliance with medication regimen; E83.42 Hypomagnesemia; B37.2 Candidiasis of skin and nail; D64.9 Anemia, unspecified; F10.20 Alcohol dependence, uncomplicated; L40.9 Psoriasis, unspecified; D69.6 Thrombocytopenia, unspecified; B96.89 Other specified bacterial agents as the cause of diseases classified elsewhere; J45.20 Mild intermittent asthma, uncomplicated; E83.39 Other disorders of phosphorus metabolism; Z68.27 Body mass index [BMI] 27.0-27.9, adult; Z88.1 Allergy status to other antibiotic agents; B96.1 Klebsiella pneumoniae [K. pneumoniae] as the cause of diseases classified elsewhere; Z87.891 Personal history of nicotine dependence; Z88.0 Allergy status to penicillin; H54.40 Blindness, one eye, unspecified eye; E11.628 Type 2 diabetes mellitus with other skin complications
CPT/HCPCS: 36415; 36416; 36569; 49020; 72192; 72193; 74177; 77002; 80048; 80053; 80069; 80202; 81003; 81015; 83690; 83735; 83930; 83935; 84100; 84300; 85025; 87070; 87077; 87102; 87186; 87205; 87206; 93005; 94640; 96365; 96368; C1751; C2627; J0131; J1580; J1644; J1650; J1815; J1885; J2001; J2185; J2250; J2270; J2405; J2543; J2704; J3010; J3370; J3475; J3480; J3490; J7050; J7620; Q9966; Q9967; S0028

== ENCOUNTER 2019-01-12 09:53 | Outpatient (CLI) | payer SELFPAY | END 2019-01-12 09:54 | disposition home or self-care (01) | LOC: WCC 09:53 | PROVIDERS: ATTEND Family Medicine | DX: Z93.3 Colostomy status (principal) ==

== ENCOUNTER 2019-09-03 11:26 | Outpatient (CLI) | payer OTHER ==
--- NOTE | 2019-09-03 13:48 | RAD ---
Contrast enema for colostomy reversal. HISTORY: Colostomy. Perirectal abscess. Evaluate for reversal. FINDINGS: Water-soluble contrast was instilled per rectum. Rectum was initially decompressed around a small amount of material. Appropriate distention. No evidence of leak or extraluminal contrast extension. The left colon and distal transverse colon were opacified without focal abnormality. Contrast extende d into the colostomy bag at the upper abdomen. Excess contrast was drained. Postprocedure imaging shows no evidence of leak. IMPRESSION : No evidence of complication of the rectum. No fistula or leak.
[2019-09-03] MEDS ORDERED: MD-Gastroview 120 ML BOT ONE (15:51)
== END 2019-09-03 11:27 | disposition home or self-care (01) ==
LOC: RAD 11:26
PROVIDERS: ATTEND Surgery
DX: Z48.815 Encounter for surgical aftercare following surgery on the digestive system (principal); Z93.3 Colostomy status
CPT/HCPCS: 74280; Q9963

== ENCOUNTER 2019-09-07 07:11 | Outpatient (CLI) | payer OTHER ==
[2019-09-07 16:44] LABS: Hemoglobin A1c 10.6 % (4.0-6.0)
[2019-09-07 16:52] LABS: Anion Gap 11 mmol/L (10-20); BUN (Urea Nitrogen) 18 mg/dL (8.4-25.7); Calc. Creatinine Clearance 0 mL/min (70-130); Calcium 9.2 mg/dL (7.8-10.44); Carbon Dioxide 25 mmol/L (22-29); Chloride 103 mmol/L (98-107); Estimated GFR-MDRD 57; Glucose 300 mg/dL (70-105); Sodium 134 mmol/L (136-145)
[2019-09-07 16:53] LABS: #Eosinphils 0.1 thou/uL (0.0-0.7); #Lymphocytes 1.2 thou/uL (1.20-3.40); #Monocytes 0.4 thou/uL (0.11-0.59); #Neutrophils 3.1 thou/uL (1.40-6.50); %Basophils 0.5 % (0.0-1.0); %Eosinophils 2.7 % (0.0-10.0); %Lymphocytes 25.2 % (21.0-51.0); %Monocytes 7.9 % (0.0-10.0); %Neutrophils 63.8 % (42.0-75.0); Hemoglobin 12.7 g/dL (14.0-18.0); Mean Corpuscular HGB CONC 31.9 g/dL (32.0-36.0); Mean Corpuscular Hemoglobin 27.2 pg (27.0-31.0); Mean Corpuscular Volume 85.3 fL (78.0-98.0); Mean Platelet Volume 7.3 fL (7.4-10.4); Platelet Count 130 thou/uL (130-400); Red Blood Cell (RBC) Count 4.67 mill/uL (4.70-6.10); White Blood Cell (WBC) Count 4.9 thou/uL (4.8-10.8)
[2019-09-08 12:16] LABS: SARS-CoV-2 MS2 Positive; SARS-CoV-2 N Gene Negative; SARS-CoV-2 S Gene Negative; SARS-CoV-2 orf1ab Negative
== END 2019-09-07 07:12 | disposition home or self-care (01) ==
LOC: LABBT 07:11
PROVIDERS: ATTEND Internal Medicine Gastroenterology
DX: Z01.818 Encounter for other preprocedural examination (principal); Z11.59 Encounter for screening for other viral diseases; Z12.11 Encounter for screening for malignant neoplasm of colon; K61.1 Rectal abscess; R76.8 Other specified abnormal immunological findings in serum; D64.9 Anemia, unspecified
CPT/HCPCS: 80048; 83036; 85025; 87635; 93005; 93010; U0003

== ENCOUNTER 2019-09-11 07:35 | Day surgery (SDC) | payer OTHER ==
[2019-09-06 11:09] VITALS: BMI 32.8
[2019-09-11] MEDS ORDERED: PROPOFOL 200 MG/20 ML VIAL ONE (11:10)
[2019-09-11] MEDS ORDERED: Lidocaine 1% PF 5 ML VIAL ONE (11:10)
[2019-09-11 12:55] LABS: Prothrombin Time 13.2 sec (12.0-14.7)
[2019-09-11 13:17] LABS: ALT (SGPT) 29 U/L (8-55); AST (SGOT) 23 U/L (5-34); Albumin 4.4 g/dL (3.5-5.0); Alkaline Phosphatase 67 U/L (40-110); Anion Gap 12 mmol/L (10-20); BUN (Urea Nitrogen) 18 mg/dL (8.4-25.7); Bilirubin, Total 0.5 mg/dL (0.2-1.2); Calc. Creatinine Clearance 81 mL/min (70-130); Calcium 9.5 mg/dL (7.8-10.44); Carbon Dioxide 25 mmol/L (22-29); Chloride 100 mmol/L (98-107); Estimated GFR-MDRD 51; Globulin 3.4 g/dL (2.4-3.5); Glucose 303 mg/dL (70-105); Potassium 4.1 mmol/L (3.5-5.1); Protein, Total 7.8 g/dL (6.0-8.3); Sodium 133 mmol/L (136-145)
[2019-09-11 13:32] LABS: HBSAB Concentration 2.19 mIU/mL; HBSAg Index 0.17 S/CO (0-0.99); Hep B Surf AB Non-Reactive (NonReactive); Hep B Surf Ag Non-Reactive S/CO (NonReactive)
--- NOTE | 2019-09-11 18:12 | OP ---
DATE OF PROCEDURE: 09/11/2019 PROCEDURE: Colonoscopy. PREOPERATIVE DIAGNOSIS: Colon cancer screening and preoperative evaluation for colostomy takedown tomorrow. DESCRIPTION OF PROCEDURE: Informed consent was obtained from the patient. He was sedated with total intravenous anesthesia. The patient was placed in the supine position. The colonoscope was advanced through the transverse double-barrel colostomy first through the transverse colon to the ascending colon and cecum with the ileocecal valve and appendiceal orifice were clearly identified. The preparation quality was adequate. The terminal ileum was normal. The colonic mucosa in the right colon was normal. The scope was then advanced through the other colostomy opening down through the transverse colon to the descending colon, sigmoid colon, down to the rectum and through the anal canal. There was an area of adherent thick mucus in the distal rectum. This could not be completely removed, but where I could scrape that thick mucus off and suction and irrigate. The underlying mucosa appeared normal except for some minimal erosion. The remainder of the colonic mucosa in the left colon was normal. IMPRESSION: 1. Status post double-barrel colostomy. 2. Mild erosion and adherent mucus in the distal rectum. 3. Otherwise normal colonoscopy to the terminal ileum. RECOMMENDATIONS: 1. Follow through with colostomy takedown tomorrow. 2. Repeat colonoscopy in 10 years for screening. Job ID: [id number]
[2019-09-13 23:13] LABS: HCV I.Units 21500000 IU/mL (.); HCV I.Units log10 7.332 (.); Hep C PCR-Quant See Final Results IU/mL (.)
== END 2019-09-11 12:35 | disposition home or self-care (01) ==
LOC: SDC 07:35
PROVIDERS: ATTEND Internal Medicine Gastroenterology
PROC: 0DJD8ZZ Inspection of Lower Intestinal Tract, Via Natural or Artificial Opening Endoscopic (ICD-10-PCS; principal; 2019-09-11)
DX: Z12.11 Encounter for screening for malignant neoplasm of colon (principal); K61.1 Rectal abscess; E11.9 Type 2 diabetes mellitus without complications; D64.9 Anemia, unspecified; J45.909 Unspecified asthma, uncomplicated; M19.90 Unspecified osteoarthritis, unspecified site; Z79.4 Long term (current) use of insulin; Z79.899 Other long term (current) drug therapy; Z87.891 Personal history of nicotine dependence
CPT/HCPCS: 36415; 36416; 80053; 82105; 82677; 84702; 85610; 86336; 86706; 86709; 87340; 87522; 87902; J2001; J2704

== ENCOUNTER 2019-09-12 07:43 | Inpatient (IN) | payer OTHER ==
[2019-09-12] MEDS ORDERED: Dextrose 50% Abboject 50 ML SYRINGE SLOW IVP PRN (09:40)
[2019-09-12] MEDS ORDERED: Dextrose 5% in Water 1,000 ML IV PRN (09:40)
[2019-09-12] MEDS ORDERED: cefOXitin 2 GM in Sodium Chloride 0.9% 100 ML IVPB SCH (09:45)
[2019-09-12] MEDS ORDERED: Insulin Regular 300 UNITS/3 ML VIAL ONE (10:03)
[2019-09-12] MEDS: Sodium Chloride 0.9% 1,000 ML IV SCH ×2 (12:19→21:22)
[2019-09-12 12:35] VITALS: BMI 29.2
[2019-09-12] MEDS: Fleet Enema 133 ML BOT PR SCH ×3 (14:02→21:19)
[2019-09-12] MEDS: HumaLOG 300 UNITS/3 ML VIAL SC PRN ×2 (14:12→17:57)
[2019-09-12] MEDS: Famotidine/PF 20 mg/2ml Vial SLOW IVP SCH (21:20)
[2019-09-12] MEDS: Enoxaparin Sodium 40 MG/0.4 ML SYRINGE SC SCH (21:20)
[2019-09-13 06:04] LABS: #Eosinphils 0.1 thou/uL (0.0-0.7); #Lymphocytes 1.7 thou/uL (1.20-3.40); #Monocytes 0.3 thou/uL (0.11-0.59); #Neutrophils 2.2 thou/uL (1.40-6.50); %Basophils 0.9 % (0.0-1.0); %Eosinophils 3.4 % (0.0-10.0); %Lymphocytes 39.1 % (21.0-51.0); %Monocytes 7.1 % (0.0-10.0); %Neutrophils 49.4 % (42.0-75.0); Hemoglobin 11.9 g/dL (14.0-18.0); Mean Corpuscular HGB CONC 33.7 g/dL (32.0-36.0); Mean Corpuscular Hemoglobin 28.1 pg (27.0-31.0); Mean Corpuscular Volume 83.3 fL (78.0-98.0); Mean Platelet Volume 6.6 fL (7.4-10.4); Platelet Count 145 thou/uL (130-400); RBC Distribution Width 13.7 % (11.5-14.5); Red Blood Cell (RBC) Count 4.24 mill/uL (4.70-6.10); White Blood Cell (WBC) Count 4.4 thou/uL (4.8-10.8)
[2019-09-13 06:31] LABS: Anion Gap 11 mmol/L (10-20); BUN (Urea Nitrogen) 11 mg/dL (8.4-25.7); Calc. Creatinine Clearance 87 mL/min (70-130); Calcium 7.9 mg/dL (7.8-10.44); Carbon Dioxide 21 mmol/L (22-29); Chloride 109 mmol/L (98-107); Estimated GFR-MDRD 69; Glucose 112 mg/dL (70-105); Magnesium 1.4 mg/dL (1.6-2.6); Phosphorus 2.8 mg/dL (2.3-4.7); Sodium 137 mmol/L (136-145)
[2019-09-13] MEDS: Sodium Chloride 0.9% 1,000 ML IV SCH ×2 (06:49→15:40)
[2019-09-13] MEDS: Hydrocortisone 1% Cream 30 GM TUBE TOP SCH (07:24)
[2019-09-13] MEDS ORDERED: Fentanyl 100 MCG/2 ML VIAL ONE ×6 (07:52→20:06)
[2019-09-13] MEDS ORDERED: EPINEPHrine 1 MG/ML AMP ONE (07:52)
[2019-09-13] MEDS ORDERED: Midazolam HCl 2 mg/2 ml Vial ONE ×2 (07:52→16:36)
[2019-09-13] MEDS ORDERED: Sodium Phosphate 15 MMOL in Sodium Chloride 0.9% 250 ML 250 ML IVPB SCH (08:00)
[2019-09-13] MEDS ORDERED: Magnesium 2 GM/50 ML 2 GM in Premix Bag 1 BAG IVPB SCH (08:30)
[2019-09-13] MEDS: Famotidine/PF 20 mg/2ml Vial SLOW IVP SCH ×2 (08:57→21:57)
[2019-09-13] MEDS: Lisinopril 5 MG TAB PO SCH (08:57)
[2019-09-13] MEDS ORDERED: Lidocaine 1% (PF) 30 ML VIAL ONE (10:01)
[2019-09-13] MEDS ORDERED: Ondansetron PF 4 MG/2 ML Vial ONE (15:05)
[2019-09-13] MEDS ORDERED: Rocuronium Bromide 10 MG/ML (10ML VIAL) ONE (15:05)
[2019-09-13] MEDS ORDERED: PROPOFOL 200 MG/20 ML VIAL ONE (15:05)
[2019-09-13] MEDS ORDERED: Lidocaine 1% PF 5 ML VIAL ONE (15:05)
[2019-09-13] MEDS ORDERED: Bupivacaine HCl 0.5%/Epinephrine 1:200,000/PF 30 ml Vial ONE (15:05)
[2019-09-13] MEDS ORDERED: Neomycin-Polymyxin 1 ML AMP ONE (16:30)
[2019-09-13] MEDS ORDERED: Ondansetron HCl/PF 4 MG/2 ML Vial IVP PRN (19:37)
[2019-09-13] MEDS ORDERED: Promethazine HCl 25 MG/ML VIAL SLOW IVP PRN (19:37)
[2019-09-13] MEDS ORDERED: Promethazine HCl 25 MG/ML VIAL IM PRN (19:37)
[2019-09-13] MEDS ORDERED: Labetalol HCl 100 MG/20 ML VIAL ONE (20:13)
[2019-09-13] MEDS ORDERED: Morphine 4 MG/ML VIAL ONE (20:50)
[2019-09-13] MEDS ORDERED: Ketorolac Tromethamine 30 MG/ML VIAL ONE (21:01)
[2019-09-13] MEDS ORDERED: traMADol HCl 50 MG TAB ONE (21:39)
[2019-09-13] MEDS: Ketorolac Tromethamine 30 MG/ML VIAL IVP SCH (21:43)
[2019-09-13] MEDS: cefOXitin Sodium/Dextrose,Iso 2 GM in Premix Bag 1 BAG IVPB SCH (21:56)
[2019-09-13] MEDS: Lactated Ringer's 1,000 ML IV SCH (21:56)
[2019-09-13] MEDS: Enoxaparin Sodium 40 MG/0.4 ML SYRINGE SC SCH (21:57)
[2019-09-13] MEDS: Acetaminophen 500 MG TAB PO SCH (21:57)
[2019-09-13] MEDS: cloNIDine 0.1 MG TAB PO SCH (23:18)
[2019-09-14] MEDS: Sodium Chloride 0.9% 1,000 ML IV SCH ×3 (00:31→22:09)
--- NOTE | 2019-09-14 02:08 | OP ---
DATE OF PROCEDURE: 09/13/2019 PREOPERATIVE DIAGNOSIS: Status post loop transverse colostomy. POSTOPERATIVE DIAGNOSIS: Status post loop transverse colostomy. OPERATION PERFORMED: Exploratory laparotomy, excision of previous loop transverse colostomy with primary end-to-end colocolostomy. ANESTHESIA: General endotracheal. ESTIMATED BLOOD LOSS: 100 mL. FLUIDS GIVEN: 2000 mL crystalloids. COUNTS: Sponge and instrument counts were verified as correct x2. COMPLICATIONS: None apparent at the time of operation. INDICATIONS FOR OPERATION: A 53-year-old man, history of type 2 diabetes mellitus, poorly controlled, who is status post loop transverse colostomy and drainage of multiple perirectal and periprostatic abscesses. He has been several months now since resolution of the said abscesses. The patient is status post colonoscopy. Following which, he is brought to the operating room today for colostomy reversal. DESCRIPTION OF PROCEDURE: Informed consent was obtained from the patient. He was brought to the operating room and placed in supine position. Following general anesthesia, a Aguayo catheter was inserted and placed to bedside drain. The colostomy appliance was removed. The colostomy was temporary closed using a running stitch of 2-0 silk. The abdomen was then sterilely prepped and draped in usual fashion. An elliptical incision was made encompassing the previous colostomy. This was extended inferiorly to the supraumbilical midline incision. Incision was carried down to the level of the fascia. The colostomy was dissected off the surrounding tissues. Peritoneal cavity was entered. The transverse colon was mobilized both the proximal and distal to the loop colostomy. A rent was created through the transverse mesocolon, distal and proximal to the specimen. Through this rent, the UHGO stapler was introduced. Bowel was divided. Mesentery of the colostomy was sterilely divided using LigaSure with good hemostasis. This was passed off the operative field for formal transmission to Pathology. The staple lines were freshened for ease of approximation. At this juncture, the distal staple line was excised, and the colon was sized to 33 EEA. Pursestring suture was placed using 2-0 Prolene suture. The mushroom end of the stapler was inserted into the colon and secured with the pursestring suture. I then made a small incision in the tenia approximately 10 cm from the proximal staple line. This was also dilated to 33 EEA. EEA stapler was introduced here, and the anvil was deployed under direct vision and connected to the mushroom end of the EEA stapler. Once adequate position was ensured, the stapler was fired and released in the usual fashion. It was removed from the colon and inspected finding 2 complete donut circles. The colotomy incision was closed vertically with interrupted sutures of 3-0 silk. The suture line was imbricated with a second layer of interrupted sutures of 3-0 silk. The patency was assured. The operative site was irrigated with saline. The colon was returned to normal anatomic location, and omentum was drawn over this closure. All sponges and instruments were removed and accounted for. The fascia was closed in midline using a running stitch of #1 single-stranded PDS. Subcutaneous tissues were pulse lavaged with 3 L of sterile saline after we changed our gown and using the fresh set. Adequate hemostasis was noted on the subcutaneous tissues. Skin incision was closed using macrina. Sterile dressings were applied. The patient tolerated the operation without any apparent complication and was returned to recovery room in satisfactory condition. Job ID: [id number]
[2019-09-14] MEDS: traMADol HCl 50 MG TAB PO PRN ×4 (03:32→20:58)
[2019-09-14] MEDS: Acetaminophen 500 MG TAB PO SCH ×4 (03:33→20:57)
[2019-09-14] MEDS: Ketorolac Tromethamine 30 MG/ML VIAL IVP SCH ×3 (04:00→20:58)
[2019-09-14 05:51] LABS: #Lymphocytes 0.6 thou/uL (1.20-3.40); #Monocytes 0.3 thou/uL (0.11-0.59); #Neutrophils 6.9 thou/uL (1.40-6.50); %Basophils 0.1 % (0.0-1.0); %Eosinophils 0.3 % (0.0-10.0); %Lymphocytes 7.9 % (21.0-51.0); %Neutrophils 87.8 % (42.0-75.0); Hemoglobin 11.1 g/dL (14.0-18.0); Mean Corpuscular HGB CONC 32.1 g/dL (32.0-36.0); Mean Corpuscular Hemoglobin 26.8 pg (27.0-31.0); Mean Corpuscular Volume 83.5 fL (78.0-98.0); Mean Platelet Volume 6.8 fL (7.4-10.4); Platelet Count 141 thou/uL (130-400); RBC Distribution Width 13.8 % (11.5-14.5); Red Blood Cell (RBC) Count 4.15 mill/uL (4.70-6.10); White Blood Cell (WBC) Count 7.8 thou/uL (4.8-10.8)
[2019-09-14] MEDS: cefOXitin Sodium/Dextrose,Iso 2 GM in Premix Bag 1 BAG IVPB SCH ×2 (05:52→17:28)
[2019-09-14] MEDS: Lactated Ringer's 1,000 ML IV SCH ×2 (05:52→17:18)
[2019-09-14] MEDS: cloNIDine 0.1 MG TAB PO SCH ×3 (05:52→17:27)
[2019-09-14 06:27] LABS: Anion Gap 13 mmol/L (10-20); BUN (Urea Nitrogen) 13 mg/dL (8.4-25.7); Calc. Creatinine Clearance 90 mL/min (70-130); Calcium 7.7 mg/dL (7.8-10.44); Carbon Dioxide 20 mmol/L (22-29); Chloride 106 mmol/L (98-107); Estimated GFR-MDRD 71; Glucose 153 mg/dL (70-105); Magnesium 1.5 mg/dL (1.6-2.6); Phosphorus 3.1 mg/dL (2.3-4.7); Potassium 4.3 mmol/L (3.5-5.1); Sodium 135 mmol/L (136-145)
[2019-09-14] MEDS ORDERED: Sodium Phosphate 15 MMOL in Sodium Chloride 0.9% 250 ML 250 ML IVPB SCH (07:45)
[2019-09-14] MEDS ORDERED: Magnesium Sulfate 4 GM in Sodium Chloride 0.9% 250 ML 250 ML IVPB SCH (08:15)
[2019-09-14] MEDS: Hydrocortisone 1% Cream 30 GM TUBE TOP SCH (08:50)
[2019-09-14] MEDS: Famotidine/PF 20 mg/2ml Vial SLOW IVP SCH ×2 (08:50→20:58)
[2019-09-14] MEDS: Lisinopril 5 MG TAB PO SCH (08:50)
[2019-09-14] MEDS: HumaLOG 300 UNITS/3 ML VIAL SC PRN ×2 (13:44→17:29)
--- NOTE | 2019-09-14 17:43 | PRG ---
DATE OF SERVICE: 09/14/2019 SUBJECTIVE: The patient was seen this morning during rounds, lying in bed with no signs of acute distress. He reported he has not been ambulating. He is n.p.o. after colostomy reversal. He is postoperative day one. OBJECTIVE: VITAL SIGNS: Temperature 99, pulse 83, respirations 18, oxygen saturation 92% on room air, and blood pressure 96/64. GENERAL: Well-appearing middle-aged male, lying in bed with no signs of acute distress. PULMONARY: Equal chest rise and fall. No signs of acute respiratory distress. CARDIAC: Regular rate and rhythm. GI: Abdomen soft, mildly tender to palpation and mildly distended. Midline incision is clean, dry, and intact with no signs of infection. EXTREMITIES: 2+ pulses in all extremities. Gross motor and sensation intact. No significant swelling noted. NEUROLOGIC: GCS 15. LABORATORY DATA: White count 7.8, hemoglobin 11.1, hematocrit 34.6, platelets 141. Sodium 137, potassium 4.3, chloride 107, bicarb 20, BUN 13, creatinine 1.08, glucose 153, phosphorus 3.1, magnesium 1.5. ASSESSMENT: Postop day #1, status post colostomy reversal. Hypomagnesemia. PLAN: Advance to clear liquid diet. Start PT, ambulate as much as possible. Monitor for return of bowel function. Continue IV fluids for now. Replace magnesium. Once the patient starts to pass gas or have a bowel movement, we will advance his diet. This patient was seen and evaluated by Dr. Stuart and myself this morning during rounds. Job ID: [id number]
[2019-09-14] MEDS: Enoxaparin Sodium 40 MG/0.4 ML SYRINGE SC SCH (20:57)
[2019-09-15] MEDS: cefOXitin Sodium/Dextrose,Iso 2 GM in Premix Bag 1 BAG IVPB SCH ×4 (00:30→23:13)
[2019-09-15] MEDS: cloNIDine 0.1 MG TAB PO SCH ×5 (00:30→23:28)
[2019-09-15] MEDS: HumaLOG 300 UNITS/3 ML VIAL SC PRN ×2 (00:31→16:58)
[2019-09-15] MEDS: Acetaminophen 500 MG TAB PO SCH ×4 (04:09→21:11)
[2019-09-15] MEDS: Ketorolac Tromethamine 30 MG/ML VIAL IVP SCH ×3 (04:10→21:12)
[2019-09-15 06:16] LABS: Anion Gap 9 mmol/L (10-20); BUN (Urea Nitrogen) 12 mg/dL (8.4-25.7); Calc. Creatinine Clearance 91 mL/min (70-130); Calcium 7.5 mg/dL (7.8-10.44); Carbon Dioxide 21 mmol/L (22-29); Chloride 107 mmol/L (98-107); Estimated GFR-MDRD 72; Glucose 70 mg/dL (70-105); Magnesium 2.2 mg/dL (1.6-2.6); Phosphorus 2.4 mg/dL (2.3-4.7); Potassium 3.5 mmol/L (3.5-5.1); Sodium 133 mmol/L (136-145)
[2019-09-15] MEDS: Lisinopril 5 MG TAB PO SCH (08:52)
[2019-09-15] MEDS: Famotidine/PF 20 mg/2ml Vial SLOW IVP SCH ×2 (08:53→21:12)
[2019-09-15 09:03] LABS: #Eosinphils 0.2 thou/uL (0.0-0.7); #Lymphocytes 1.1 thou/uL (1.20-3.40); #Monocytes 0.3 thou/uL (0.11-0.59); #Neutrophils 4.9 thou/uL (1.40-6.50); %Basophils 0.2 % (0.0-1.0); %Eosinophils 2.4 % (0.0-10.0); %Lymphocytes 17.1 % (21.0-51.0); %Monocytes 4.9 % (0.0-10.0); %Neutrophils 75.5 % (42.0-75.0); Hemoglobin 10.1 g/dL (14.0-18.0); Mean Corpuscular Hemoglobin 27.5 pg (27.0-31.0); Mean Corpuscular Volume 85.9 fL (78.0-98.0); Mean Platelet Volume 6.1 fL (7.4-10.4); Platelet Count 114 thou/uL (130-400); Platelet Morphology Comment Appears Decreased; RBC Distribution Width 13.9 % (11.5-14.5); Red Blood Cell (RBC) Count 3.66 mill/uL (4.70-6.10); White Blood Cell (WBC) Count 6.4 thou/uL (4.8-10.8)
[2019-09-15 09:04] LABS: MDiff Complete? YES
[2019-09-15] MEDS: traMADol HCl 50 MG TAB PO PRN ×2 (09:05→16:57)
[2019-09-15] MEDS: Hydrocortisone 1% Cream 30 GM TUBE TOP SCH ×2 (09:08→10:43)
--- NOTE | 2019-09-15 16:31 | PRG ---
DATE OF SERVICE: 09/15/2019 This is Nadia Smith PA-C dictating a report for Mayank Stuart DO. SUBJECTIVE: The patient was seen this morning during rounds. He was sitting up in bed with no signs of acute distress. He is tolerating his clear liquid diet. Reports ambulating and passing gas. No bowel movement yet. Voiding without difficulty. OBJECTIVE: VITAL SIGNS: Temperature 97.9, pulse 73, respirations 16, oxygen saturation 97% on room air, and blood pressure 100/67. GENERAL: Well-appearing, middle-aged male, sitting up in bed with no signs of acute distress. PULMONARY: Equal chest rise and fall. Clear breath sounds bilaterally. No signs of acute respiratory distress. CARDIAC: Regular rate and rhythm. GI: Abdomen is soft, mildly tender to palpation throughout, and nondistended. Midline abdominal wound with hematoma and redness below the wound. Vish were placed at that time by Dr. Stuart in between every other staple. EXTREMITIES: 2+ pulses in all extremities. Gross motor and sensation are intact. No significant swelling noted. NEUROLOGIC: GCS is 15. LABORATORY FINDINGS: White count 6.8, hemoglobin 10.1, hematocrit 31.5, and platelets 114. Sodium 133, potassium 3.5, chloride 107, bicarb 21, BUN 12, creatinine 1.07, glucose 70, phosphorus 2.4, and magnesium 2.0. DIAGNOSTIC FINDINGS: There are no new diagnostic findings to report. ASSESSMENT: Postop day #2, status post colostomy reversal. PLAN: Advance to full liquid diet. Discontinue IV fluid. Repeat blood work in the morning. Continue to ambulate as much as possible and monitor for return of bowel function. Change dressings b.i.d. with vish per Dr. Stuart. This patient was seen and evaluated by Dr. Stuart and myself this morning during rounds. Job ID: [id number]
[2019-09-15] MEDS: Enoxaparin Sodium 40 MG/0.4 ML SYRINGE SC SCH (21:11)
--- NOTE | 2019-09-16 02:30 | PRG ---
DATE OF SERVICE: 09/15/2019 SUBJECTIVE: The patient was seen during evening rounds on the surgical floor. The patient is currently awake, alert, in no distress. The patient is postop day #2, status post ex-lap, excision of previous loop transverse colostomy with primary end-to-end colocolostomy. According to the nursing staff, he has not been walking and has minimal efforts. When talking to the patient, the patient states he is walking frequently. The patient is tolerating a full liquid diet. The patient also reports passing gas. The patient has not had a bowel movement. PLAN: Continue full liquid diet. Encourage the patient to ambulate as much as possible. Monitor return of bowel function. Dressing changes to the abdominal incision b.i.d. with nino. Job ID: [id number]
[2019-09-16] MEDS: Acetaminophen 500 MG TAB PO SCH ×4 (03:43→22:11)
[2019-09-16] MEDS: Ketorolac Tromethamine 30 MG/ML VIAL IVP SCH ×3 (03:46→20:00)
[2019-09-16 05:37] LABS: Anion Gap 7 mmol/L (10-20); BUN (Urea Nitrogen) 9 mg/dL (8.4-25.7); Calc. Creatinine Clearance 87 mL/min (70-130); Calcium 7.8 mg/dL (7.8-10.44); Carbon Dioxide 23 mmol/L (22-29); Chloride 108 mmol/L (98-107); Estimated GFR-MDRD 69; Glucose 144 mg/dL (70-105); Phosphorus 2.3 mg/dL (2.3-4.7); Potassium 3.8 mmol/L (3.5-5.1); Sodium 134 mmol/L (136-145)
[2019-09-16] MEDS: cloNIDine 0.1 MG TAB PO SCH ×3 (06:17→17:00)
[2019-09-16 06:28] LABS: Band 3 % (5-11); Eosinophils 2 % (0-10); Hemoglobin 9.8 g/dL (14.0-18.0); Hypochromia SLIGHT = 6-15 cells (100X) (0-5/hpf); Lymphocytes 16 % (21-51); MDiff Complete? YES; Mean Corpuscular HGB CONC 30.8 g/dL (32.0-36.0); Mean Corpuscular Hemoglobin 26.6 pg (27.0-31.0); Mean Corpuscular Volume 86.3 fL (78.0-98.0); Mean Platelet Volume 6.7 fL (7.4-10.4); Monocytes 3 % (0-10); Neutrophil 76 % (42-75); Platelet Count 114 thou/uL (130-400); Platelet Morphology Comment Appears Decreased; RBC Distribution Width 13.9 % (11.5-14.5); Red Blood Cell (RBC) Count 3.69 mill/uL (4.70-6.10)
[2019-09-16] MEDS: cefOXitin Sodium/Dextrose,Iso 2 GM in Premix Bag 1 BAG IVPB SCH ×2 (08:47→16:59)
[2019-09-16] MEDS: Hydrocortisone 1% Cream 30 GM TUBE TOP SCH (08:48)
[2019-09-16] MEDS: Famotidine/PF 20 mg/2ml Vial SLOW IVP SCH ×2 (08:48→19:58)
[2019-09-16] MEDS: Lisinopril 5 MG TAB PO SCH (08:49)
[2019-09-16] MEDS: traMADol HCl 50 MG TAB PO PRN ×2 (08:53→19:58)
[2019-09-16] MEDS: HumaLOG 300 UNITS/3 ML VIAL SC PRN (11:39)
--- NOTE | 2019-09-16 17:49 | PRG ---
DATE OF SERVICE: 09/16/2019 SUBJECTIVE: The patient is currently on the surgical floor. He is status post exploratory laparotomy, excision of previous loop transverse colostomy with primary end-to-end colocolostomy. The patient is currently tolerating a clear liquid diet. He is ambulating greater than 200 feet. He is voiding without difficulty. He reports that he is passing gas. The patient has not had a bowel movement yet. PHYSICAL EXAMINATION: VITAL SIGNS: Temperature is 97.9, heart rate 68, blood pressure 116/72, respirations 14, oxygen saturation is 96% on room air. GENERAL: The patient is resting comfortably in bed. He is awake, alert, conversant, appropriate. HEENT: Unremarkable. LUNGS: Clear to auscultation bilaterally. HEART: Regular rate and rhythm. ABDOMEN: Soft, flat, nontender with active bowel sounds. His midline incision shows minimal erythema along the staple line. The nino were removed and showed no purulence. The patient has hypoactive bowel sounds. His abdomen shows no peritoneal signs. EXTREMITIES: Neurovascularly intact x4. LABORATORY DATA: White blood cell count 5.0, hemoglobin 9.8, hematocrit 31.8, platelets 114. Sodium 134, potassium 3.8, chloride 108, CO2 of 23, BUN 9, creatinine 1.11, glucose 144, magnesium 2.0, phosphorus 2.3. There are no radiographs to review this morning. ASSESSMENT: Status post colostomy reversal, postop day 3. PLAN: Plan will be to continue full liquid diet, encourage ambulation and await bowel function to return. Job ID: [id number]
[2019-09-16] MEDS: Enoxaparin Sodium 40 MG/0.4 ML SYRINGE SC SCH (19:58)
[2019-09-17] MEDS: cefOXitin Sodium/Dextrose,Iso 2 GM in Premix Bag 1 BAG IVPB SCH ×2 (00:15→08:42)
[2019-09-17] MEDS: traMADol HCl 50 MG TAB PO PRN ×4 (03:29→19:53)
[2019-09-17] MEDS: Acetaminophen 500 MG TAB PO SCH ×3 (03:30→13:42)
[2019-09-17] MEDS: Ketorolac Tromethamine 30 MG/ML VIAL IVP SCH ×2 (06:01→12:17)
[2019-09-17] MEDS: cloNIDine 0.1 MG TAB PO SCH ×5 (06:06→23:49)
[2019-09-17] MEDS: Lisinopril 5 MG TAB PO SCH (08:45)
[2019-09-17] MEDS: Famotidine/PF 20 mg/2ml Vial SLOW IVP SCH (08:46)
[2019-09-17] MEDS: Hydrocortisone 1% Cream 30 GM TUBE TOP SCH (08:48)
[2019-09-17] MEDS ORDERED: Polyethylene Glycol 3350 17 GM Packet PO SCH (14:45)
[2019-09-17] MEDS ORDERED: Ibuprofen 600 MG TAB PO PRN (15:56)
--- NOTE | 2019-09-17 16:14 | PRG ---
DATE OF SERVICE: 09/17/2019 SUBJECTIVE: Mr. Orlando is a 53-year-old man, who is postoperative day #4, status post exploratory laparotomy and colostomy takedown with colocolostomy. He is awake and alert. He reports adequate pain control. He tolerates full liquid diet, passing flatus, but not having any bowel movements. Urinary output is adequate for the patient's age and weight. OBJECTIVE: VITAL SIGNS: Today include blood pressure 130/84, pulse 69, respiratory rate is 14, temperature 98.1 degrees Fahrenheit, and oxygen saturation is 98% on room air. HEENT: Pupils equal, round, reactive to light and accommodation. HEART: Reveals regular rate and rhythm. No murmurs or gallops auscultated. LUNGS: Clear to auscultation bilaterally. Breathing, regular and nonlabored. ABDOMEN: Soft. There is some erythema around the wound. Hartley were removed. Fascia is intact. No gross purulence noted. Wound was packed with saline saturated sterile gauze. We will advance his diet. Anticipate discharge within next 24 to 48 hours upon complete return of bowel function. Job ID: [id number]
[2019-09-17] MEDS: HumaLOG 300 UNITS/3 ML VIAL SC PRN (16:27)
[2019-09-17] MEDS: Acetaminophen 325 MG TAB PO SCH ×2 (17:29→23:49)
[2019-09-17] MEDS: Senokot S 8.6-50 MG TAB PO SCH (19:53)
[2019-09-17] MEDS: Enoxaparin Sodium 40 MG/0.4 ML SYRINGE SC SCH (19:54)
[2019-09-17] MEDS ORDERED: Insulin Regular 300 UNITS/3 ML VIAL SC PRN (20:37)
[2019-09-18] MEDS: Acetaminophen 325 MG TAB PO SCH ×2 (05:02→11:14)
[2019-09-18] MEDS: cloNIDine 0.1 MG TAB PO SCH ×2 (05:02→11:15)
[2019-09-18] MEDS: traMADol HCl 50 MG TAB PO PRN ×3 (05:03→17:10)
[2019-09-18] MEDS ORDERED: Polyethylene Glycol 3350 17 GM Packet PO SCH (09:00)
[2019-09-18] MEDS: Hydrocortisone 1% Cream 30 GM TUBE TOP SCH (09:05)
[2019-09-18] MEDS: Senokot S 8.6-50 MG TAB PO SCH (09:05)
[2019-09-18] MEDS: Lisinopril 5 MG TAB PO SCH (09:05)
[2019-09-18] MEDS: Insulin Regular 300 UNITS/3 ML VIAL SC PRN ×2 (11:18→17:12)
[2019-09-18 15:11] VITALS: BP 130/84; TEMP 97.6
--- NOTE | 2019-09-19 07:20 | DIS ---
DATE OF ADMISSION: 09/12/2019 DATE OF DISCHARGE: 09/18/2019 OPERATIONS PERFORMED: Exploratory laparotomy, colostomy takedown with colocolostomy on 09/13/[address] Stuart. Please see separate dictation for operative report. HISTORY AND HOSPITAL COURSE: This is a 53-year-old man with prior history of multiple perirectal and periprosthetic abscesses, which was complex, requiring multiple staged operative interventions. A diverting loop transverse colostomy was part of the initial operation approximately 1 year ago. The patient has done well from the standpoint of those abscesses. He is evaluated for colostomy takedown following a colonoscopy. The patient is brought to the hospital on 09/12/2019, for planned colostomy takedown; however, it was noted that his bowel was unprepped. He has low functional IQ. He also has a history of poorly controlled diabetes mellitus. Decision was made to admit the patient for bowel prep, following which, he was brought to operating room on 09/13/2019, for the aforementioned colostomy closure. His postoperative course has been essentially uneventful. Yesterday, the midline incisional wound appeared to be red around the edges. Sycamore were removed. Though no gross purulence is noted, the wound was packed with wet-to-dry dressings. The patient was started on clear liquid diet on postoperative day #2. By yesterday, he is tolerating full liquid diet and was advanced to regular. Today, the patient is evaluated and is tolerating general diabetic diet and having normal bowel and urinary function. His pain is adequately controlled on oral analgesics. He has remained hemodynamically stable and afebrile through this hospitalization. PHYSICAL EXAMINATION: VITAL SIGNS: This morning include blood pressure 148/86, pulse is 75, respiratory rate is 16, temperature is 97.7 degrees Fahrenheit, and oxygen saturation 97% on room air. HEART: Reveals regular rate and rhythm. ABDOMEN: Soft, nontender, nondistended. SKIN: Incision is clean. Fascia remains intact. No purulent drainage present. DISCHARGE INSTRUCTIONS: The patient has maximized hospital benefit and will be discharged home today with the following instructions; 1. He is to continue with wet-to-dry dressing as he has been instructed daily. 2. He is to notify me with any questions or problems including exacerbation of abdominal pain, purulent drainage from the incisional wound, fever in excess of 101 degrees Fahrenheit, or intolerance to oral intake. 3. He may shower with the dressings off, rinsing the wound thoroughly, and then re-applying the dressing after showering. 4. He is to avoid soaking himself in a bathtub or swimming until he has been released by me. 5. He is to resume all his prehospitalization medications as prescribed by his primary care physician. 6. Additionally, he was given a prescription for Augmentin 875 mg, #10, to be taken one p.o. b.i.d. for 5 days. 7. He was given a prescription for tramadol 50 mg, #30, to be taken 1 to 2 p.o. q.6 hours p.r.n. breakthrough pain. 8. He may take acetaminophen 1000 mg p.o. q.6 hours p.r.n., alternating this with ibuprofen 600 mg p.o. q.8 hours p.r.n. pain. These instructions were given to the patient, who indicates understanding of information given. I have answered his questions. The patient has expressed deep gratitude for the care rendered to him during this hospitalization and surgery. Job ID: [id number]
--- NOTE | 2019-09-21 05:38 | PQF ---
[employer] YO WILLETT ARTI MAYANK Kate [id number] CLINICAL DOCUMENTATION CLARIFICATION FORM: POST DISCHARGE Addendum to original discharge summary date: ____ Late entry note date: __ DATE: 09/21/19 ATTN: Mayank Stuart Please exercise your independent, professional judgment in responding to the clarification form. Clinical indicators are provided on the bottom of this form for your review Based on your clinical judgement can you please further clarify the diagnosis of the patient? Please check appropriate box(s): [x ] Hyponatremia [ ] Insignificant laboratory findings [ ] Other diagnosis please specify [ ] Unable to determine In addition, please specify: Present on Admission (POA): [ x ] Yes [ ] No [ ] Unable to determine For continuity of documentation, please document condition throughout progress notes and discharge summary. Thank You. CLINICAL INDICATORS - SIGNS / SYMPTOMS/ LABS are present in the medical record: Laboratory- Sodium 135L, 133L, 134L PN 09/13- he is NPO after colostomy reversal PN 09/15- Plan will be continue full liquid diet RISK FACTORS s/p colostomy reversal- PN pg.1 09/13 DM- Anes record Obesity- Anes Record TREATMENT Sodium Monitoring- Laboratory Sodium chloride 1000ml IV- MAR [employer] (This form is maintained as a part of the permanent medical record) 2014 [email or web address]. All Rights Reserved [email or web address]
== END 2019-09-18 17:30 | disposition home or self-care (01) | DRG 330 ==
LOC: SURG A 08:11
PROVIDERS: ADMIT Surgery; ATTEND Surgery
PROC: 0DBL0ZZ Excision of Transverse Colon, Open Approach (ICD-10-PCS; principal; 2019-09-12)
DX: Z43.3 Encounter for attention to colostomy (principal); E87.1 Hypo-osmolality and hyponatremia; E83.42 Hypomagnesemia; E11.65 Type 2 diabetes mellitus with hyperglycemia; M19.90 Unspecified osteoarthritis, unspecified site; E66.9 Obesity, unspecified; J44.9 Chronic obstructive pulmonary disease, unspecified; Z87.891 Personal history of nicotine dependence; Z68.29 Body mass index [BMI] 29.0-29.9, adult; Z79.4 Long term (current) use of insulin; Z79.899 Other long term (current) drug therapy
CPT/HCPCS: 36415; 36416; 80048; 83735; 84100; 85007; 85025; 85027; 86850; 86900; 86901; 88305; J0171; J0670; J0694; J1650; J1815; J1885; J2001; J2250; J2270; J2405; J2704; J3010; J3475; J7050; S0028

== ENCOUNTER 2020-09-08 12:59 | Outpatient (CLI) | payer OTHER ==
[2020-09-08 14:51] LABS: #Eosinphils 0.2 10x3/uL (0.0-0.5); #Monocytes 0.4 10x3/uL (0.0-1.1); #Neutrophils 5.3 10x3/uL (1.5-8.4); %Basophils 0.4 % (0.0-2.0); %Eosinophils 2.7 % (0.0-6.0); %Lymphocytes 18.4 % (18.0-47.0); %Neutrophils 72.2 % (40.0-75.0); Hemoglobin 12.8 g/dL (13.5-17.5); Mean Corpuscular HGB CONC 31.4 g/dL (32.0-36.0); Mean Corpuscular Hemoglobin 26.3 pg (27.0-33.0); Mean Corpuscular Volume 83.6 fl (81.2-95.1); Mean Platelet Volume 9.2 fl (7.4-10.4); Platelet Count 216 10x3/uL (150-450); RBC Distribution Width 15.5 % (11.5-14.5); Red Blood Cell (RBC) Count 4.87 10x6/uL (4.32-5.72); White Blood Cell (WBC) Count 7.4 10x3/uL (3.5-10.5)
[2020-09-08 16:54] LABS: Anion Gap 14 mmol/L (10-20); BUN (Urea Nitrogen) 15 mg/dL (8.4-25.7); Calc. Creatinine Clearance 0 mL/min (70-130); Calcium 9.7 mg/dL (7.8-10.44); Carbon Dioxide 21 mmol/L (22-29); Chloride 106 mmol/L (98-107); Glucose 211 mg/dL (70-105); Potassium 4.6 mmol/L (3.5-5.1); Sodium 136 mmol/L (136-145)
[2020-09-09 11:14] LABS: SARS-CoV-2 PCR by NAA Not Detected (NotDetected)
== END 2020-09-08 13:00 | disposition home or self-care (01) ==
LOC: LABBT 12:59
PROVIDERS: ATTEND Surgery
DX: Z01.812 Encounter for preprocedural laboratory examination (principal); K43.9 Ventral hernia without obstruction or gangrene; Z20.822 Contact with and (suspected) exposure to COVID-19
CPT/HCPCS: 80048; 85025; U0003; U0005

== ENCOUNTER 2020-09-11 08:00 | Inpatient (IN) | payer OTHER ==
[2020-09-10 11:05] VITALS: BMI 30.5
[2020-09-11] MEDS ORDERED: Ketorolac Tromethamine 30 MG/ML VIAL ONE ×2 (08:10→13:23)
[2020-09-11] MEDS ORDERED: Acetaminophen 500 MG TAB ONE (08:10)
[2020-09-11] MEDS ORDERED: Albuterol Sulfate 1.25 MG/3 ML NEB ONE (08:58)
[2020-09-11] MEDS ORDERED: Fentanyl 100 MCG/2 ML VIAL ONE ×3 (09:02→13:49)
[2020-09-11] MEDS ORDERED: Midazolam HCl 2 mg/2 ml Vial ONE (09:19)
[2020-09-11] MEDS ORDERED: PROPOFOL 200 MG/20 ML VIAL ONE (10:06)
[2020-09-11] MEDS ORDERED: Ondansetron PF 4 MG/2 ML Vial ONE (10:06)
[2020-09-11] MEDS ORDERED: Lidocaine 1% PF 5 ML VIAL ONE (10:06)
[2020-09-11] MEDS ORDERED: Dexamethasone 20 MG/5 ML VIAL ONE (10:06)
[2020-09-11] MEDS ORDERED: Glycopyrrolate 0.2 MG/ML 5 ML SYRINGE ONE (10:06)
[2020-09-11] MEDS ORDERED: Rocuronium Bromide 10 MG/ML (10ML VIAL) ONE (10:06)
[2020-09-11] MEDS ORDERED: Promethazine HCl 25 MG/ML VIAL IVPB PRN (13:25)
[2020-09-11] MEDS ORDERED: Promethazine HCl 25 MG/ML VIAL IM PRN ×2 (13:25)
[2020-09-11] MEDS ORDERED: diphenhydrAMINE 25 MG CAP PO PRN (13:25)
[2020-09-11] MEDS ORDERED: Dextrose 5% in Water 1,000 ML IV PRN (13:25)
[2020-09-11] MEDS ORDERED: Ondansetron HCl/PF 4 MG/2 ML Vial IVP PRN (13:25)
[2020-09-11] MEDS ORDERED: diphenhydrAMINE 50 MG/ML VIAL IVP PRN (13:25)
[2020-09-11] MEDS ORDERED: Dextrose 50% Abboject 50 ML SYRINGE SLOW IVP PRN (13:25)
[2020-09-11] MEDS ORDERED: Naloxone HCl 0.4 mg/ml Vial IV PRN (13:25)
[2020-09-11] MEDS ORDERED: Ondansetron PF 4 MG/2 ML Vial IVP PRN ×2 (13:25)
[2020-09-11] MEDS ORDERED: diphenhydrAMINE 50 MG/ML VIAL IM PRN (13:25)
[2020-09-11] MEDS ORDERED: Communication Order-Pharmacy FS SCH (13:30)
[2020-09-11] MEDS ORDERED: HYDROmorphone 0.5 MG/0.5 ML SYRINGE ONE ×3 (14:18→14:39)
[2020-09-11] MEDS: Ketorolac Tromethamine 30 MG/ML VIAL IVP SCH ×2 (17:48→22:29)
[2020-09-11] MEDS: HumaLOG 300 UNITS/3 ML VIAL SC PRN (17:48)
[2020-09-11] MEDS: traMADol HCl 50 MG TAB PO PRN (22:30)
[2020-09-12] MEDS: Ibuprofen 600 MG TAB PO PRN ×3 (01:30→23:22)
[2020-09-12] MEDS ORDERED: Morphine 4 MG/ML VIAL SLOW IVP SCH ×2 (01:30→04:30)
[2020-09-12] MEDS: traMADol HCl 50 MG TAB PO PRN ×2 (04:04→09:31)
[2020-09-12 05:33] LABS: #Lymphocytes 1.4 thou/uL (1.20-3.40); #Monocytes 0.6 thou/uL (0.11-0.59); #Neutrophils 6.2 thou/uL (1.40-6.50); %Basophils 0.2 % (0.0-1.0); %Eosinophils 0.3 % (0.0-10.0); %Lymphocytes 16.7 % (21.0-51.0); %Monocytes 6.9 % (0.0-10.0); %Neutrophils 75.8 % (42.0-75.0); Hemoglobin 11.6 g/dL (14.0-18.0); Mean Corpuscular HGB CONC 33.5 g/dL (32.0-36.0); Mean Corpuscular Hemoglobin 27.8 pg (27.0-31.0); Mean Corpuscular Volume 82.9 fL (78.0-98.0); Mean Platelet Volume 6.5 fL (7.4-10.4); Platelet Count 214 thou/uL (130-400); RBC Distribution Width 14.6 % (11.5-14.5); Red Blood Cell (RBC) Count 4.18 mill/uL (4.70-6.10); White Blood Cell (WBC) Count 8.1 thou/uL (4.8-10.8)
[2020-09-12 06:01] LABS: Anion Gap 12 mmol/L (10-20); BUN (Urea Nitrogen) 15 mg/dL (8.4-25.7); Calc. Creatinine Clearance 115 mL/min (70-130); Calcium 8.4 mg/dL (7.8-10.44); Carbon Dioxide 20 mmol/L (22-29); Chloride 105 mmol/L (98-107); Glucose 147 mg/dL (70-105); Magnesium 1.3 mg/dL (1.6-2.6); Phosphorus 3.5 mg/dL (2.3-4.7); Potassium 4.3 mmol/L (3.5-5.1); Sodium 133 mmol/L (136-145)
[2020-09-12] MEDS: Lisinopril 5 MG TAB PO SCH (08:32)
[2020-09-12] MEDS: Enoxaparin Sodium 40 MG/0.4 ML SYRINGE SC SCH (08:33)
[2020-09-12] MEDS ORDERED: Magnesium Sulfate 4 GM in Sodium Chloride 0.9% 250 ML 250 ML IVPB SCH (09:15)
[2020-09-12] MEDS ORDERED: Morphine 2 MG/ML VIAL SLOW IVP PRN (09:26)
[2020-09-12] MEDS: traMADol HCl 50 MG TAB PO SCH ×3 (11:27→23:21)
[2020-09-12] MEDS: Acetaminophen 500 MG TAB PO SCH ×3 (11:28→23:22)
[2020-09-12] MEDS ORDERED: traMADol HCl 50 MG TAB PO SCH (12:00)
[2020-09-12] MEDS: HumaLOG 300 UNITS/3 ML VIAL SC PRN ×2 (12:27→21:56)
[2020-09-12] MEDS: Polyethylene Glycol 3350 17 GM Packet PO SCH (17:05)
[2020-09-12] MEDS: Senokot S 8.6-50 MG TAB PO SCH (20:36)
[2020-09-13] MEDS: traMADol HCl 50 MG TAB PO SCH ×2 (05:57→12:30)
[2020-09-13] MEDS: Acetaminophen 500 MG TAB PO SCH ×2 (05:57→12:31)
[2020-09-13] MEDS: Senokot S 8.6-50 MG TAB PO SCH (08:36)
[2020-09-13] MEDS: Lisinopril 5 MG TAB PO SCH (08:36)
[2020-09-13] MEDS: Polyethylene Glycol 3350 17 GM Packet PO SCH (08:36)
[2020-09-13] MEDS: Enoxaparin Sodium 40 MG/0.4 ML SYRINGE SC SCH (08:37)
[2020-09-13 11:38] VITALS: BP 99/67; TEMP 98.2
== END 2020-09-13 15:32 | disposition home or self-care (01) | DRG 355 ==
LOC: SDC 08:00 → SJJU 13:25
PROVIDERS: ADMIT Surgery; ATTEND Surgery
PROC: 0WUF0JZ Supplement Abdominal Wall with Synthetic Substitute, Open Approach (ICD-10-PCS; principal; 2020-09-11)
DX: K43.2 Incisional hernia without obstruction or gangrene (principal); E11.9 Type 2 diabetes mellitus without complications; B18.2 Chronic viral hepatitis C; J44.9 Chronic obstructive pulmonary disease, unspecified; K74.60 Unspecified cirrhosis of liver; F17.210 Nicotine dependence, cigarettes, uncomplicated; D64.9 Anemia, unspecified; K66.0 Peritoneal adhesions (postprocedural) (postinfection); I10 Essential (primary) hypertension; Z79.4 Long term (current) use of insulin; Z79.899 Other long term (current) drug therapy
CPT/HCPCS: 36415; 36416; 80048; 83735; 84100; 85025; 88302; 94640; C1781; J0690; J1100; J1170; J1650; J1815; J1885; J2250; J2270; J2405; J2704; J3010; J3370; J3475; J7050; J7620; U0003; U0005

== ENCOUNTER 2022-02-09 17:02 | Inpatient (IN) | payer OTHER ==
[~2022-02-09 17:02] MED LIST changes: -ISOVUE-370 76%-LOCM 1 ML ONE; +Iopamidol-370 76% 500 ML 1 ML ONE
[2022-02-09 17:36] LABS: #Eosinphils 0.1 thou/uL (0.0-0.7); #Lymphocytes 0.9 thou/uL (1.20-3.40); #Monocytes 0.4 thou/uL (0.11-0.59); #Neutrophils 5.9 thou/uL (1.40-6.50); %Basophils 0.2 % (0.0-1.0); %Eosinophils 1.3 % (0.0-10.0); %Lymphocytes 11.7 % (21.0-51.0); %Monocytes 5.5 % (0.0-10.0); %Neutrophils 81.4 % (42.0-75.0); Hemoglobin 8.5 g/dL (14.0-18.0); Mean Corpuscular HGB CONC 31.6 g/dL (32.0-36.0); Mean Corpuscular Hemoglobin 25.8 pg (27.0-31.0); Mean Corpuscular Volume 81.8 fl (78.0-98.0); Mean Platelet Volume 8.3 fL (7.4-10.4); Platelet Count 199 10x3/uL (130-400); RBC Distribution Width 18.3 % (11.5-14.5); Red Blood Cell (RBC) Count 3.29 mill/uL (4.70-6.10); White Blood Cell (WBC) Count 7.3 10x3/uL (4.8-10.8)
[2022-02-09 17:57] LABS: ALT (SGPT) 12 U/L (8-55); AST (SGOT) 15 U/L (5-34); Albumin 3.9 g/dL (3.5-5.0); Alkaline Phosphatase 98 U/L (40-110); Anion Gap 13 mmol/L (10-20); BUN (Urea Nitrogen) 17 mg/dL (8.4-25.7); Bilirubin, Total 0.2 mg/dL (0.2-1.2); Calc. Creatinine Clearance 0 mL/min (70-130); Calcium 10.4 mg/dL (7.8-10.44); Carbon Dioxide 10 mmol/L (22-29); Chloride 110 mmol/L (98-107); Estimated GFR 52; Globulin 3.1 g/dL (2.4-3.5); Glucose 193 mg/dL (70-105); Potassium 3.8 mmol/L (3.5-5.1); Sodium 129 mmol/L (136-145)
[2022-02-09] MEDS ORDERED: Cefepime 2 GM VIAL ONE (18:09)
[2022-02-09] MEDS ORDERED: Clindamycin/D5W 900 mg/50 ml Premix Bag ONE (18:09)
[2022-02-09 19:13] LABS: Bacteria/HPF None Seen HPF (None Seen); Bilirubin Negative (Negative); Blood, Urine Negative (Negative); Clarity Clear (Clear); Glucose, Urine (Dipstick) Normal (Negative); Ketone, Urine Negative (Negative); Leukocyte Negative Leu/uL (Negative); Nitrite Negative (Negative); Protein, Urine (Dipstick) 50 mg/dL (Neg-Trace); RBC/HPF 0-3 HPF (0-3); Specific Gravity, Urine 1.016 (1.002-1.036); Squamous Epithelial None Seen HPF (0-3); Urobilinogen Normal mg/dL (Less than 2); WBC/HPF 0-3 HPF (0-3)
[2022-02-09] MEDS ORDERED: Vancomycin 1.5 GRAM/300 ML BAG 1.5 GM in Premix Bag 1 BAG IVPB SCH (19:30)
[2022-02-09] MEDS ORDERED: FENTANYL 50 MCG/ML 1 ML VIAL ONE (19:31)
[2022-02-09] MEDS ORDERED: Ondansetron PF 4 MG/2 ML Vial IVP PRN (20:33)
[2022-02-09] MEDS ORDERED: Sodium Chloride 0.9% 1,000 ML IV SCH (20:45)
[2022-02-09 20:46] LABS: Lactic Acid 1.5 mmol/L (0.5-2.2)
[2022-02-09 21:30] LABS: Iron Binding Capacity, Total 311 mcg/dL (261-462)
[2022-02-09 21:31] LABS: Iron 16 ug/dL (65-175)
[2022-02-09 21:37] LABS: Anion Gap 12 mmol/L (10-20); BUN (Urea Nitrogen) 15 mg/dL (8.4-25.7); Calc. Creatinine Clearance 0 mL/min (70-130); Chloride 113 mmol/L (98-107); Potassium 3.6 mmol/L (3.5-5.1); Sodium 130 mmol/L (136-145)
[2022-02-09 21:38] LABS: Calcium 9.5 mg/dL (7.8-10.44); Estimated GFR 66; Glucose 72 mg/dL (70-105)
[2022-02-09 21:43] LABS: Carbon Dioxide 9 mmol/L (22-29)
[2022-02-09 22:11] VITALS: BMI 25.9
[2022-02-09] MEDS: Heparin 5,000 UNITS/ML VIAL SC SCH (22:16)
[2022-02-09 23:12] LABS: Base Excess (BEa) -16.9 mEq/L (-2.0 to +3.0); CO2 Tension 25.7 mmHg (35.0-45.0); Calcium, Ionized (arterial) 1.43 mmol/L (1.12-1.30); Carboxyhemoglobin (COHb) 0.4 gm% (0.0-3.0); Hemoglobin (Hb) 7.9 g/dL (14.0-18.0); O2 Tension (PaO2), arterial 104.7 mmHg (80.0-100.0); Potassium - ABG Lab 3.65 mmol/L (3.70-5.30)
[2022-02-09 23:13] LABS: Alcohol Less than 10 mg/dL (Less than 10); Salicylate Less than 8.0 mg/dL (15.0-30.0)
[2022-02-09 23:14] LABS: pH, Arterial 7.19 (7.35-7.45)
[2022-02-09 23:15] LABS: ALV-art Gradient 12.905 mmHg (0-20); Actual Bicarbonate (HCO3a) 9.7 mEq/L (22-28); Puncture Site LRA
[2022-02-09] MEDS ORDERED: Dextrose 50% Abboject 50 ML SYRINGE SLOW IVP PRN (23:26)
[2022-02-09] MEDS ORDERED: HumaLOG 300 UNITS/3 ML VIAL SC PRN ×2 (23:26)
[2022-02-09] MEDS ORDERED: Dextrose 5% in Water 1,000 ML IV PRN (23:26)
[2022-02-09 23:46] LABS: Amphetamine Detected (NotDetected); Barbiturates Screen Not Detected (NotDetected); Benzodiazepine Screen Not Detected (NotDetected); Cocaine Metabolite Screen Not Detected (NotDetected); Methadone Not Detected (NotDetected); Methamphetamine Detected (NotDetected); Opiate Screen Not Detected (NotDetected); Oxycodone Screen Not Detected (NotDetected); Phencyclidine (PCP) Not Detected (NotDetected); THC/Cannabinoid Screen Not Detected (NotDetected); Tricyclic Screen Not Detected (NotDetected)
[2022-02-10] MEDS: Sodium Bicarbonate 150 MEQ in Dextrose 5% in Water 1,000 ML IV SCH ×3 (00:10→19:32)
[2022-02-10 05:02] LABS: #Eosinphils 0.1 thou/uL (0.0-0.7); #Lymphocytes 0.6 thou/uL (1.20-3.40); #Monocytes 0.3 thou/uL (0.11-0.59); #Neutrophils 2.4 thou/uL (1.40-6.50); %Basophils 0.3 % (0.0-1.0); %Eosinophils 2.6 % (0.0-10.0); %Lymphocytes 18.5 % (21.0-51.0); %Neutrophils 70.7 % (42.0-75.0); Hemoglobin 6.9 g/dL (14.0-18.0); Mean Corpuscular HGB CONC 31.3 g/dL (32.0-36.0); Mean Corpuscular Hemoglobin 25.2 pg (27.0-31.0); Mean Corpuscular Volume 80.4 fl (78.0-98.0); Mean Platelet Volume 8.1 fL (7.4-10.4); Platelet Count 160 10x3/uL (130-400); RBC Distribution Width 17.9 % (11.5-14.5); Red Blood Cell (RBC) Count 2.72 mill/uL (4.70-6.10); White Blood Cell (WBC) Count 3.4 10x3/uL (4.8-10.8)
[2022-02-10 05:19] LABS: Anion Gap 10 mmol/L (10-20); BUN (Urea Nitrogen) 14 mg/dL (8.4-25.7); Calc. Creatinine Clearance 72 mL/min (70-130); Calcium 9.2 mg/dL (7.8-10.44); Carbon Dioxide 12 mmol/L (22-29); Chloride 114 mmol/L (98-107); Estimated GFR 69; Glucose 75 mg/dL (70-105); Potassium 3.6 mmol/L (3.5-5.1); Sodium 132 mmol/L (136-145)
[2022-02-10] MEDS ORDERED: Pantoprazole 40 MG VIAL IVP SCH (06:45)
[2022-02-10] MEDS: Ferrous Sulfate 325 MG TAB PO SCH ×2 (09:32→16:32)
[2022-02-10] MEDS: Vancomycin 1 GM in Premix Bag 1 BAG IVPB SCH ×2 (09:37→21:14)
[2022-02-10] MEDS: Heparin 5,000 UNITS/ML VIAL SC SCH (10:04)
[2022-02-10] MEDS: Iron, Sodium Ferric Gluconate 250 MG in Sodium Chloride 0.9% 250 ML 250 ML IVPB SCH (10:53)
[2022-02-10 11:57] LABS: Hemoglobin 8.3 g/dL (14.0-18.0)
[2022-02-10] MEDS: Acetaminophen 325 MG TAB PO PRN (13:57)
[2022-02-10 18:28] LABS: Albumin 2.8 g/dL (3.5-5.0); Anion Gap 11 mmol/L (10-20); BUN (Urea Nitrogen) 11 mg/dL (8.4-25.7); BUN/Creatinine Ratio 9.32; Calc. Creatinine Clearance 75 mL/min (70-130); Calcium 8.7 mg/dL (7.8-10.44); Carbon Dioxide 11 mmol/L (22-29); Chloride 114 mmol/L (98-107); Estimated GFR 72; Glucose 85 mg/dL (70-105); Potassium 3.5 mmol/L (3.5-5.1); Sodium 132 mmol/L (136-145)
[2022-02-10 18:48] LABS: Hemoglobin 8.6 g/dL (14.0-18.0)
[2022-02-10] MEDS: Pantoprazole 40 MG VIAL IVP SCH (21:18)
[2022-02-11 05:03] LABS: Creatinine, Urine 85.2 mg/dL (63-166)
[2022-02-11 05:22] LABS: Hemoglobin A1c 5.9 % (4.0-6.0)
[2022-02-11 05:43] LABS: Anion Gap 10 mmol/L (10-20); BUN (Urea Nitrogen) 9 mg/dL (8.4-25.7); Calc. Creatinine Clearance 80 mL/min (70-130); Calcium 8.7 mg/dL (7.8-10.44); Carbon Dioxide 16 mmol/L (22-29); Chloride 110 mmol/L (98-107); Estimated GFR 77; Glucose 133 mg/dL (70-105); Potassium 3.2 mmol/L (3.5-5.1); Sodium 133 mmol/L (136-145)
[2022-02-11 07:35] LABS: Vancomycin, Trough 22.9 ug/mL
[2022-02-11 07:38] LABS: #Eosinphils 0.2 thou/uL (0.0-0.7); #Lymphocytes 0.9 thou/uL (1.20-3.40); #Monocytes 0.5 thou/uL (0.11-0.59); #Neutrophils 3.2 thou/uL (1.40-6.50); %Basophils 0.3 % (0.0-1.0); %Eosinophils 3.2 % (0.0-10.0); %Lymphocytes 17.9 % (21.0-51.0); %Monocytes 11.2 % (0.0-10.0); %Neutrophils 67.4 % (42.0-75.0); Hemoglobin 8.4 g/dL (14.0-18.0); Mean Corpuscular HGB CONC 31.7 g/dL (32.0-36.0); Mean Corpuscular Hemoglobin 25.8 pg (27.0-31.0); Mean Corpuscular Volume 81.4 fl (78.0-98.0); Mean Platelet Volume 7.6 fL (7.4-10.4); Platelet Count 215 10x3/uL (130-400); RBC Distribution Width 17.4 % (11.5-14.5); Red Blood Cell (RBC) Count 3.23 mill/uL (4.70-6.10); White Blood Cell (WBC) Count 4.8 10x3/uL (4.8-10.8)
[2022-02-11 07:51] LABS: Magnesium 1.4 mg/dL (1.6-2.6)
[2022-02-11] MEDS ORDERED: Magnesium Sulfate 4 GM in Sodium Chloride 0.9% 250 ML 250 ML IVPB SCH (08:15)
[2022-02-11] MEDS ORDERED: Magnesium Sulfate In Water 4 GM in Premix Bag 1 BAG IVPB SCH (08:45)
[2022-02-11] MEDS: Iron, Sodium Ferric Gluconate 250 MG in Sodium Chloride 0.9% 250 ML 250 ML IVPB SCH (08:53)
[2022-02-11] MEDS: Sodium Bicarbonate 150 MEQ in Dextrose 5% in Water 1,000 ML IV SCH (08:53)
[2022-02-11] MEDS: Acetaminophen 325 MG TAB PO PRN ×3 (08:55→16:24)
[2022-02-11] MEDS: Potassium Bicarbonate/Cit Ac 20 MEQ TAB PO SCH ×5 (08:55→16:24)
[2022-02-11] MEDS: Pantoprazole 40 MG VIAL IVP SCH (08:56)
[2022-02-11] MEDS ORDERED: Vancomycin HCl 750 MG in Sodium Chloride 0.9% 250 ML 250 ML IVPB SCH (09:00)
[2022-02-11] MEDS ORDERED: PROPOFOL 200 MG/20 ML VIAL ONE (10:27)
[2022-02-11] MEDS ORDERED: FENTANYL 50 MCG/ML 1 ML VIAL SLOW IVP PRN (10:47)
[2022-02-11] MEDS ORDERED: Ondansetron HCl/PF 4 MG/2 ML Vial IVP PRN (10:47)
[2022-02-11] MEDS ORDERED: Promethazine HCl 25 MG/ML VIAL IM PRN (10:47)
[2022-02-11] MEDS ORDERED: Promethazine HCl 25 MG/ML VIAL IVPB PRN (10:47)
[2022-02-11 21:39] VITALS: BP 95/66; TEMP 98.2
[2022-02-12] MEDS ORDERED: FLU VACC QS2022-23(6MOS UP)/PF 60 MCG/0.5 ML SYRINGE IM ONE (09:00)
== END 2022-02-11 20:40 | disposition home or self-care (01) | DRG 872 ==
LOC: ERS 17:02 → T4-B 20:05 → NEURO 02-10 00:30
PROVIDERS: ADMIT Internal Medicine; ATTEND Internal Medicine
PROC: 3E03329 Introduction of Other Anti-infective into Peripheral Vein, Percutaneous Approach (ICD-10-PCS; 2022-02-09)
PROC: 30233N1 Transfusion of Nonautologous Red Blood Cells into Peripheral Vein, Percutaneous Approach (ICD-10-PCS; principal; 2022-02-10)
PROC: 0DB78ZX Excision of Stomach, Pylorus, Via Natural or Artificial Opening Endoscopic, Diagnostic (ICD-10-PCS; 2022-02-11)
DX: A41.9 Sepsis, unspecified organism (principal); L03.113 Cellulitis of right upper limb; N17.9 Acute kidney failure, unspecified; E87.20 Acidosis, unspecified; E87.1 Hypo-osmolality and hyponatremia; Z20.822 Contact with and (suspected) exposure to COVID-19; B18.2 Chronic viral hepatitis C; E11.9 Type 2 diabetes mellitus without complications; J44.9 Chronic obstructive pulmonary disease, unspecified; F15.10 Other stimulant abuse, uncomplicated; S92.919A Unspecified fracture of unspecified toe(s), initial encounter for closed fracture; E11.65 Type 2 diabetes mellitus with hyperglycemia; K70.30 Alcoholic cirrhosis of liver without ascites; F10.10 Alcohol abuse, uncomplicated; E83.42 Hypomagnesemia; K25.9 Gastric ulcer, unspecified as acute or chronic, without hemorrhage or perforation; K29.80 Duodenitis without bleeding; D50.9 Iron deficiency anemia, unspecified; Z79.84 Long term (current) use of oral hypoglycemic drugs; Z99.3 Dependence on wheelchair; Z93.3 Colostomy status; Z88.1 Allergy status to other antibiotic agents; Z79.899 Other long term (current) drug therapy; Z79.4 Long term (current) use of insulin
CPT/HCPCS: 36415; 36416; 36430; 36600; 71045; 72193; 76705; 80048; 80053; 80179; 80202; 80306; 80307; 81003; 81015; 82105; 82570; 82728; 82805; 83036; 83540; 83550; 83605; 83735; 83930; 83935; 84156; 84300; 85025; 86850; 86900; 86901; 87040; 87086; 88305; 93005; 96365; 96366; 96367; 96375; 97139; C9113; J0692; J1644; J1815; J2704; J2916; J3010; J3370; J3475; J3490; J7050; J7070; P9016; Q9967; U0003; U0005